=== PATIENT | female | born 1995 | race Hispanic/Latino ===

== ENCOUNTER 2021-04-14 18:16 | Emergency (ER) | payer OTHER, SELFPAY ==
--- NOTE | 2021-04-14 19:20 | ER ---
Nurse's Notes [facility] Name: Daniel Quintero Age: 25 yrs Sex: Female : 1995 Arrival Date: 04/14/2021 Time: 18:20 Bed Waiting Private MD: Diagnosis: ED Course: 04/14 18:20 Patient arrived in ED. ds1 19:06 Patient's name was called from ER lobby. No response. tw2 Administered Medications: No medications were administered Outcome: 19:19 Patient left the ED. bb Signatures: Eun Antoine ds1 Ruth Morrissey RN RN bb Britany Womack RN RN tw2
== END 2021-04-14 19:19 | disposition left against medical advice (07) ==
LOC: ER 18:16
DX: Z02.9 Encounter for administrative examinations, unspecified (principal)

== ENCOUNTER 2023-07-18 13:43 | Emergency (ER) | payer OTHER ==
--- OUTSIDE RECORDS SUMMARY | 2023-07-18 14:00 | XMS REPORT | Continuity of Care Document ---
:1995 Author Organization [facility] t Address [address] [place] [address] Care Team Providers Name Role Phone RUTH STUBBS Primary Care Physician Unavailable NAKIA HOPPER Attending Clinician Unavailable Nakia José Attending Clinician [phone] Visit, [place]ilka Nurse Attending Clinician Unavailable Ruth Stubbs CNM Attending Clinician RUTH STUBBS Attending Clinician Unavailable Wellington Davis MD Attending Clinician SLIM MILLER Attending Clinician Unavailable Ayush Ballard MD Attending Clinician Slim Miller MD Attending Clinician Ultrasound, Jhonathan Attending Clinician Unavailable Kasandra Acosta MD Attending Clinician [phone] KASANDRA ACOSTA Attending Clinician Unavailable Nirali, Jose L Wright Attending Clinician Unavailable Alma Phoenix RN Attending Clinician Unavailable Davian Conde MD Attending Clinician Geneva Hernández MD Attending Clinician Doctor Unassigned, [place] Attending Clinician Unavailable LALA BEACH Attending Clinician Unavailable LALA BEACH Attending Clinician Unavailable Lala Beach MD Attending Clinician 1, [facility] Usg Room Attending Clinician Unavailable Raine Sparks MD, Terrence Attending Clinician [phone] TERRENCE MANE Attending Clinician Unavailable Provider, Ang-Rmchp Temp Attending Clinician Unavailable MEGHAN HURST Attending Clinician Unavailable Violet Broderick Attending Clinician Unavailable LALA BEACH Admitting Clinician Unavailable SLIM MILLER Admitting Clinician Unavailable Slim Miller MD Admitting Clinician Lala Beach MD Admitting Clinician Payers Payer Name Policy Type Policy Number Effective Date Expiration Date [facility] [id number] 2022 STAR 00:00:00 Problems Condition Condition Condition Status Onset Resolution Last Treating Co mments Source Name Details Category Date Date Treatment Clinician Date S/P repeat S/P repeat Disease Active U nivers low low 5-24 [place] of [place] 00 [facility] Branch 36 weeks 36 weeks Disease Active Unive rs gestation gestation 5-20 ity of of of 00:00: [place] 00 [facility] Branch Anemia of Anemia of Disease Active Uni vers mother in mother in 5-18 ity of , , [place] antepartum antepartum 00 Me dical Branch Morbid Morbid Disease Active Univers obesity obesity 3-27 [place] of with body [place] mass index mass index 00 Me dical of 50 or of 50 or Branch higher higher 28 weeks 28 weeks Disease Active Unive rs gestation gestation 3-27 ity of of of 00:00: [place] 00 [facility] Branch History of History of Disease Active Overview : Univers rupture of rupture of 1-15 Formattin ity of uterus uterus 00:00: g of this [place] 00 note Medical might be Branch different from the original. Last with twin Spina Spina Disease Active Overview: Univer s bifida in bifida in 1-15 Formattin i ty of child of child of 00:00: g of this [place] as prior prior 00 note Medical , , might be Branch currently currently different from the original. 2nd baby also with enlarged heart History of History of Disease Active Overview : Univers 1-15 Formattin ity o f delivery, delivery, 00:00: [place] of [place] currently currently 00 note Medi karen might be Bran ch different from the original. 32 week r/t pprom Tubal Tubal Disease Active Univers ligation ligation 1-15 ity of status status 00:00: Medical Branch Asthma Asthma Disease Active Univers during during 1-15 [place] of [place] Obesity Obesity Disease Active Univers affecting affecting 1-15 [place] of [place] Abnormal Abnormal Disease Active Unive rs quad quad 1-15 ity of screen screen 00:00: Medical Branch Chlamydia Chlamydia Disease Active Overview: Univers trachomati trachomati 08-04 Formattin ity of s s 00:00: g of this [place] infection infection 00 note Medi karen of lower of lower might be Bran ch genitourin genitourin different aron sites aron sites from the original. SONYA ---- High-risk High-risk Disease Active Overview: Univers 07-31 Formattin i ty of 00:00: g of this [place] 00 note Medical might be Branch different from the original. 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 Tobacco Tobacco Disease Active Univers use use 07-31 ity of disorder disorder 00:00: Medical Branch Declines Declines Disease Active Unive rs flu flu 07-31 ity of vaccine vaccine 00:00: Medical Branch Immune to Immune to Disease Active Uni vers varicella varicella 07-31 ity of 00:00: Medical Branch Rubella Rubella Disease Active Univers immune immune 07-31 ity of 00:00: Medical Branch Bacterial Bacterial Disease Active Uni vers vaginosis vaginosis 07-31 ity of 00:00: [place] [facility] Trichomona Trichomona Disease Active U nivers l l 07-31 ity of vulvovagin vulvovagin [place] it[place] itis [facility] Previous Previous Disease Active Overview: Un nikita 07-31 Formattin ity of delivery delivery 00:00: g of this [place] as affecting affecting 00 note [facility] , , might be Branch antepartum antepartum different from the original. x7 Genital Genital Disease Active Univers warts warts 07-31 ity of 00:00: [place] [facility] Heartburn Heartburn Disease Active Uni vers 07-31 ity of 00:00: [facility] Tobacco Tobacco Disease Active Univers smoking smoking 07-31 [place] [address] [facility] Allergies, Adverse Reactions, Alerts Allergy Allergy Status Severity Reaction(s) Onset Inactive Treating Comm ents Source Name Type Date Date Clinician NO KNOWN Drug Active Univers ALLERGIE Class ity of S [facility] Social History Social Habit Start Date Stop Date Quantity Comments Source ASSERTION 2022-07-30 University of 00:00:00 [facility] History of Cigarette Smoker Universi ty of tobacco use [facility] Exposure to 2023-03-24 2023-04-03 Not sure [facility] SARS-CoV-2 00:00:00 07:45:00 [facility] (event) [place] Alcohol intake 2023-03-28 2023-03-28 Current University of 00:00:00 00:00:00 non-drinker of [facility] alcohol (finding) [place] Tobacco use and 2023-03-26 2023-03-26 Smokeless tobacco Un iversity of exposure 00:00:00 00:00:[address] [facility] Tobacco Comment 2022-11-16 2022-11-16 1cigarettes/day Univ ersity of 00:00:00 00:00:00 [facility] Sex Assigned At [birth year] Universit y of 00:00:00 00:00:00 [facility] Smoking Status Start Date Stop Date Source Smokes tobacco daily 2023-03-26 00:00:[address] [facility] Medications Ordered Filled Start Stop Current Ordering Indication Dosage Frequency Signature Comments Components Source Medication Medication Date Date Medication? Clinician (SIG) Name Name FAMOTIDINE Yes Take by [facility] ers ORAL 5-24 mouth. ity of 15:21: [address] FOLIC ACID 2022-0 Yes [id number] Take by [facility] ORAL 5-24 mouth. ity of 15:21: [address] FAMOTIDINE Yes Take by [facility] ers ORAL 5-24 mouth. ity of 15:21: [address] FOLIC ACID 2022-0 Yes [id number] Take by [facility] ORAL 5-24 mouth. ity of 15:21: [address] FAMOTIDINE 0 Yes Take by [facility] ers ORAL 5-24 mouth. ity of 15:21: [address] FOLIC ACID 2022-0 Yes [id number] Take by [facility] ORAL 5-24 mouth. ity of 15:21: [address] FAMOTIDINE Yes Take by [facility] ers ORAL 5-24 mouth. ity of 15:21: [address] FOLIC ACID 2022-0 Yes [id number] Take by [facility] ORAL 5-24 mouth. ity of 15:21: [address] FAMOTIDINE Yes Take by [facility] ers ORAL 5-24 mouth. ity of 15:21: [address] FOLIC ACID 2022-0 Yes [id number] Take by [facility] ORAL 5-24 mouth. ity of 15:21: [address] FAMOTIDINE Yes Take by [facility] ers ORAL 5-24 mouth. ity of 15:21: [address] FOLIC ACID 2022-0 Yes [id number] Take by [facility] ORAL 5-24 mouth. ity of 15:21: [address] 2022-0 Yes [id number] 1{tbl} Take 1 U nivers [id number] 5-24 tablet by ity of fum-folic 00:00: mouth in [facility] ([facility]) 00 the Medical 27 mg iron- morning. Bran ch 1 mg folic tablet docusate Yes [id number] 200mg Take 2 Un nikita 100 mg 5-24 capsules ity of capsule 00:00: by mouth [place] [id number] once daily Medical as needed Branch for Constipati on. ferrous Yes [id number] 325mg Take 1 Uni vers sulfate 325 5-24 tablet by ity of mg (65 mg 00:00: [place] 00 the Medical tablet morning Branch and 1 tablet in the evening. ibuprofen 2022-0 Yes [id number] 600mg Take 1 U nivers 600 mg 5-24 tablet by ity of tablet 00:00: mouth [place] 00 every 6 Medical (six) Branch hours as needed (Pain). Take with food or milk. 2022-0 Yes [id number] 1{tbl} Take 1 U nivers [id number] 5-24 tablet by ity of fum-folic 00:00: [place] () 00 the Medical 27 mg iron- morning. Bran ch 1 mg folic tablet docusate 2022-0 Yes [id number] 200mg Take 2 Un nikita 100 mg 5-24 capsules ity of capsule 00:00: by mouth [place] 00 once daily Medical as needed Branch for Constipati on. ferrous 2022-0 Yes [id number] 325mg Take 1 Uni vers sulfate 325 5-24 tablet by ity of mg (65 mg 00:00: [place] iron) 00 the Medical tablet morning Branch and 1 tablet in the evening. ibuprofen 2022-0 Yes [id number] 600mg Take 1 U nivers 600 mg 5-24 tablet by ity of tablet 00:00: mouth [place] 00 every 6 Medical (six) Branch hours as needed (Pain). Take with food or milk. 2022-0 Yes [id number] 1{tbl} Take 1 U nivers [id number] 5-24 tablet by ity of fum-folic 00:00: [place] () 00 the Medical 27 mg iron- morning. Bran ch 1 mg folic tablet docusate 2022-0 Yes [id number] 200mg Take 2 Un nikita 100 mg 5-24 capsules ity of capsule 00:00: by mouth [place] 00 once daily Medical as needed Branch for Constipati on. ferrous 2022-0 Yes [id number] 325mg Take 1 Uni vers sulfate 325 5-24 tablet by ity of mg (65 mg 00:00: [place] iron) 00 the Medical tablet morning Branch and 1 tablet in the evening. ibuprofen 2022-0 Yes [id number] 600mg Take 1 U nivers 600 mg 5-24 tablet by ity of tablet 00:00: mouth [place] 00 every 6 Medical (six) Branch hours as needed (Pain). Take with food or milk. 2022-0 Yes [id number] 1{tbl} Take 1 U nivers [id number] 5-24 tablet by ity of fum-folic 00:00: [place] () 00 the Medical 27 mg iron- morning. Bran ch 1 mg folic tablet docusate 2022-0 Yes [id number] 200mg Take 2 Un nikita 100 mg 5-24 capsules ity of capsule 00:00: by mouth [place] 00 once daily Medical as needed Branch for Constipati on. ferrous 2022-0 Yes [id number] 325mg Take 1 Uni vers sulfate 325 5-24 tablet by ity of mg (65 mg 00:00: mouth in [facility] iron) 00 the Medical tablet morning Branch and 1 tablet in the evening. ibuprofen 2022-0 Yes [id number] 600mg Take 1 U nivers 600 mg 5-24 tablet by ity of tablet 00:00: mouth [place] 00 every 6 Medical (six) Branch hours as needed (Pain). Take with food or milk. 2022-0 Yes [id number] 1{tbl} Take 1 U nivers [id number] 5-24 tablet by ity of fum-folic 00:00: [place] () 00 the Medical 27 mg iron- morning. Bran ch 1 mg folic tablet docusate 2022-0 Yes [id number] 200mg Take 2 Un nikita 100 mg 5-24 capsules ity of capsule 00:00: by mouth [place] 00 once daily Medical as needed Branch for Constipati on. ferrous 2022-0 Yes [id number] 325mg Take 1 Uni vers sulfate 325 5-24 tablet by ity of mg (65 mg 00:00: [facility] Medical tablet morning Branch and 1 tablet in the evening. ibuprofen 2022-0 Yes [id number] 600mg Take 1 U nivers 600 mg 5-24 tablet by ity of tablet 00:00: mouth [place] 00 every 6 Medical (six) Branch hours as needed (Pain). Take with food or milk. 2022-0 Yes [id number] 1{tbl} Take 1 U nivers [id number] 5-24 tablet by ity of fum-folic 00:00: mouth in [facility] () 00 the Medical 27 mg iron- morning. Bran ch 1 mg folic tablet docusate Yes [id number] 200mg Take 2 Un nikita 100 mg 5-24 capsules ity of capsule 00:00: by mouth [place] 00 once daily Medical as needed Branch for Constipati on. ferrous Yes [id number] 325mg Take 1 Uni vers sulfate 325 5-24 tablet by ity of mg (65 mg 00:00: mouth in [facility] s iron) 00 the Medical tablet morning Branch and 1 tablet in the evening. ibuprofen Yes [id number] 600mg Take 1 U nivers 600 mg 5-24 tablet by ity of tablet 00:00: mouth [place] 00 every 6 Medical (six) Branch hours as needed (Pain). Take with food or milk. HYDROcodone 2022- No [id number] 1{tbl} Take 1 U nivers -acetaminop 5-24 06-01 tablet by it y of hen 5-325 00:00: 04:59 mouth [place] mg tablet 00 :00 every 6 Medical (six) Branch hours as needed for Pain (scale 7-10) (Pain scale above 4) for up to 7 days. Do not exceed 3 grams of acetaminop hen in 24 hours. Indication s: acute pain HYDROcodone 2022- No [id number] 1{tbl} Take 1 U nivers -acetaminop 5-24 06-01 tablet by it y of hen 5-325 00:00: 04:59 mouth [place] mg tablet 00 :00 every 6 Medical (six) Branch hours as needed for Pain (scale 7-10) (Pain scale above 4) for up to 7 days. Do not exceed 3 grams of acetaminop hen in 24 hours. Indication s: acute pain HYDROcodone 2022- No [id number] 1{tbl} Take 1 U nivers -acetaminop 5-24 06-01 tablet by it y of hen 5-325 00:00: 04:59 mouth [place] mg tablet 00 :00 every 6 Medical (six) Branch hours as needed for Pain (scale 7-10) (Pain scale above 4) for up to 7 days. Do not exceed 3 grams of acetaminop hen in 24 hours. Indication s: acute pain HYDROcodone 2022-2022- No [id number] 1{tbl} Take 1 U nivers -acetaminop -28 04- tablet by it y of hen 5-325 00:00: 04:59 mouth [place] mg tablet 00 :00 every 6 Medical (six) Branch hours as needed for Pain (scale 7-10) (Pain scale above 4) for up to 7 days. Do not exceed 3 grams of acetaminop hen in 24 hours. Indication s: acute pain HYDROcodone 2022-0 2022- No [id number] 1{tbl} Take 1 U nivers -acetaminop -28 04- tablet by it y of hen 5-325 00:00: 04:59 mouth [place] mg tablet 00 :00 every 6 Medical (six) Branch hours as needed for Pain (scale 7-10) (Pain scale above 4) for up to 7 days. Do not exceed 3 grams of acetaminop hen in 24 hours. Indication s: acute pain sennosides- 2022-0 Yes 1{tbl} 1 tablet, Univers docusate 03-27 Oral, ity of sodium 14:00: DAILY, [place] (SENOKOT-S) 00 First dose Me dical 8.6-50 mg on Sun Branch per tablet 03/27/23 at 1 tablet 0900, Until Discontinu ed, Routine sennosides- 2022-0 2022- No 1{tbl} 1 tablet, Univers docusate 03-27 Oral, ity of sodium 14:00: 22:21 DAILY, [place] (SENOKOT-S) 00 :12 First dose Me dical 8.6-50 mg on Sun Branch per tablet 03/27/23 at 1 tablet 0900, Until Discontinu ed, Routine famotidine 0 Yes 20mg 20 mg, Unive rs (PEPCID AC) 03-27 Oral, BID, it y of tablet 20 01:00: First dose [place] 00 on [facility] 03/26/23 at Branch 2000, Until Discontinu ed, Routine famotidine 2022-0 2022- No 20mg 20 mg, Univ ers (PEPCID AC) 03-27 Oral, BID, i ty of tablet 20 01:00: 22:21 First dose [place] mg 00 :12 on [facility] 03/26/23 at Branch 2000, Until Discontinu ed, Routine ibuprofen Yes 600mg 600 mg, Univ ers (IBU) 03-26 Oral, Q6H, ity of tablet 600 23:00: First dose [place] mg 00 on [facility] 03/26/23 at [place] 1800, Until Discontinu ed, Routine ibuprofen 2022- No 600mg 600 mg, Uni vers (IBU) 03-26 Oral, Q6H, ity of tablet 600 23:00: 22:21 First dose [place] mg 00 :12 on [facility] 03/26/23 at [place] 1800, Until Discontinu ed, Routine polyethylen Yes 17g 17 g, Unive rs e glycol 03-26 Oral, ity of 3350 powder 22:00: DAILY, [place] 17 g 00 First dose Medical on [facility] 03/26/23 at 1700, Until Discontinu ed, Routine polyethylen 2022- No 17g 17 g, Univ ers e glycol 03-26 Oral, ity of 3350 powder 22:00: 22:21 DAILY, [place] as 17 g 00 :12 First dose Medical on [facility] 03/26/23 at 1700, Until Discontinu ed, Routine rho(D) Yes 300ug 300 mcg, Univer s immune 03-26 Intramuscu ity of globulin 17:46: lar, ONCE, [place] as (RHOGAM) 00 For 1 Medical syringe 300 dose, Branch mcg Conditiona l, Routine rho(D) 2022- No 300ug 300 mcg, Unive rs immune 03-26 Intramuscu ity of globulin 17:46: 22:21 [place], [place]CE, [place] (RHOGAM) 00 :12 For 1 Medical syringe 300 dose, Branch mcg Conditiona l, Routine HYDROcodone Yes 1{tbl} [Order 1 Univers -acetaminop 03-26 Start] ity of hen (NORCO 17:45: Name: [place] 5) 5-325 mg 54 HYDROcodon Me dical tablet 1 e-acetamin Branc h tablet ophen (NORCO 5) 5-325 mg tablet 1 tablet Signed Summary: 1 tablet, Oral, Q6HPRN, Starting on [facility] 03/26/23 at 1245, Until Discontinu ed, Routine, Pain (scale 4-6) [Order 1 End] [Order 2 Start] Name: HYDROcodon e-acetamin ophen (NORCO) 10-325 mg tablet 1 tablet Signed Summary: 1 tablet, Oral, Q6HPRN, Starting on Sun03/26/23 at 1245, Until Discontinu ed, Routine, Pain (scale 7-10) [Order 2 End] diphenhydrA 2023-0 Yes 25mg 25 mg, Univ ers MINE 03-26 Slow IV ity of (BENADRYL) 17:45: Push, [place] injection 54 Q6HPRN, Medical 25 mg Starting Branch on Sun03/26/23 at 1245, Until Discontinu ed, Routine, Itching diphenhydrA 3-0 Yes 25mg 25 mg, Univ ers MINE 03-26 Oral, ity of (BENADRYL) 17:45: Q6HPRN, [place] tablet 25 54 Starting Medica l mg on Sun03/26/23 at 1245, Until Discontinu ed, Routine, Sleep, Itching ondansetron 2023-0 Yes 4mg 4 mg, Slow Univers (ZOFRAN 03-26 IV Push, ity of (PF)) 17:45: Q8HPRN, [place] injection 4 54 Starting Medi karen mg on Sun03/26/23 at 1245, Until Discontinu ed, Routine, Nausea and Vomiting (N/V) bisacodyL 3-0 Yes 10mg 10 mg, Univer s (DULCOLAX) 03-26 Rectal, ity of suppository 17:45: QDAILYPRN, [place] 10 mg 54 Starting Medical on Sun03/26/23 at 1245, Until Discontinu ed, Routine, Constipati on simethicone 2023-0 Yes 160mg 160 mg, Un nikita (GAS RELIEF 03-26 Oral, ity of (SIMETHICON 17:45: PC+HSPRN, [place] E)) 54 Starting Medical chewable on Sun tablet 160 03/26/23 at mg 1245, Until Discontinu ed, Routine, Gas docusate 2023-0 Yes 200mg 200 mg, Unive rs (COLACE) 03-26 Oral, ity of capsule 200 17:45: QDAILYPRN, [place] mg 54 Starting Medical on Mon Branch 03/26/23 at 1245, Until Discontinu ed, Routine, Constipati on magnesium 0 Yes 30mL 30 mL, Univer s hydroxide 03-26 Oral, ity of (MILK OF 17:45: QDAILYPRN, [place] as MAGNESIA) 54 Starting Medica l 400 mg/5 mL on Mon Branch suspension 03/26/23 at 30 mL 1245, Until Discontinu ed, Routine, Constipati on lactated Yes 1000mL at 125 Unive rs ringers IV 5-22 mL/hr, ity of infusion 17:45: 1,000 mL, [place] 1,000 mL 54 IV Medical Infusion, Branch PRN, 1 dose, Starting on Sun03/26/23 at 1245, Until Discontinu ed, Routine HYDROcodone 2022- No 1{tbl} [Order 1 Univers -acetaminop 03-26 Start] ity o f hen (NORCO 17:45: 22:21 Name: [place] 5) 5-325 mg 54 :12 HYDROcodon Me dical tablet 1 e-acetamin Branc h tablet ophen (NORCO 5) 5-325 mg tablet 1 tablet Signed Summary: 1 tablet, Oral, Q6HPRN, Starting on Sun03/26/23 at 1245, Until Sun03/28/23 at 1721, Routine, Pain (scale 4-6) [Order 1 End] [Order 2 Start] Name: HYDROcodon e-acetamin ophen (NORCO) 10-325 mg tablet 1 tablet Signed Summary: 1 tablet, Oral, Q6HPRN, Starting on Sun03/26/23 at 1245, Until Sun03/28/23 at 1721, Routine, Pain (scale 7-10) [Order 2 End] diphenhydrA 2022- No 25mg 25 mg, Uni vers MINE 03-26 Slow IV ity of (BENADRYL) 17:45: 22:21 Push, [place] injection 54 :12 Q6HPRN, Medical 25 mg Starting Branch on 03/26/23 at 1245, Until Sun03/28/23 at 1721, Routine, Itching diphenhydrA 2023-0 2023- No 25mg 25 mg, Uni vers MINE 03-26 Oral, ity of (BENADRYL) 17:45: 22:21 Q6HPRN, [facility] as tablet 25 54 :12 Starting Medica l mg on Sun03/26/23 at 1245, Until Sun03/28/23 at 1721, Routine, Sleep, Itching ondansetron 2022- No 4mg 4 mg, Slow Univers (ZOFRAN 03-26 IV Push, ity of (PF)) 17:45: 22:21 Q8HPRN, [place] injection 4 54 :12 Starting Medi karen mg on Sun03/26/23 at 1245, Until Sun03/28/23 at 1721, Routine, Nausea and Vomiting (N/V) bisacodyL 2022- No 10mg 10 mg, Unive rs (DULCOLAX) 03-26 Rectal, ity o f suppository 17:45: 22:21 [facility] [place] 10 mg 54 :12 Starting Medical on Sun03/26/23 at 1245, Until Sun03/28/23 at 1721, Routine, Constipati on simethicone 2022- No 160mg 160 mg, U nivers (GAS RELIEF 03-26 Oral, ity of (SIMETHICON 17:45: 22:21 PC+HSPRN, [place] E)) 54 :12 Starting Medical chewable on Sun tablet 160 03/26/23 at mg 1245, Until Sun03/28/23 at 1721, Routine, Gas docusate 2022- No 200mg 200 mg, Univ ers (COLACE) 03-26 Oral, ity of capsule 200 17:45: 22:21 QDAILYPRN, [place] mg 54 :12 Starting Medical on Sun03/26/23 at 1245, Until Sun03/28/23 at 1721, Routine, Constipati on magnesium 2022- No 30mL 30 mL, Unive rs hydroxide 03-26 Oral, ity of (MILK OF 17:45: 22:21 QDAILYPRN, [place] MAGNESIA) 54 :12 Starting Medica l 400 mg/5 mL on Mon Branch suspension 03/26/23 at 30 mL 1245, Until Sun03/28/23 at 1721, Routine, Constipati on lactated No 1000mL at 125 Univ ers ringers IV 03-26 mL/hr, ity of infusion 17:45: 22:21 1,000 mL, [place] as 1,000 mL 54 :12 IV Medical Infusion, Branch PRN, 1 dose, Starting on Sun03/26/23 at 1245, Until Sun03/28/23 at 1721, Routine acetaminoph No 1000mg 1,000 mg, Univers en ADULT 03-26 IV ity of (OFIRMEV) 17:30: 17:14 [place]fusion, [place] injection 00 :00 at 400 Medical 1,000 mg mL/hr Branch Administer over 15 Minutes, ONCE, 1 dose, On Sun03/26/23 at 1230, Routine, PACU
In dication: Perioperat maryuri Patient acetaminoph No 650mg 650 mg, U nivers en 03-26 Oral, ity of (TYLENOL) 12:15: 13:16 ONCE, 1 [place] tablet 650 00 :00 dose, On Medic al mg Sun Branch 03/26/23 at 0715, Routine lactated No 500mL at 999 Unive rs ringers IV 03-26 mL/hr, 500 it y of infusion 12:15: 12:45 mL, IV [place] 500 mL 00 :00 Infusion, Medical ONCE, 1 Branch dose, On Sun03/26/23 at 0715, Routine ceFAZolin No 2000mg 2,000 mg, Univers (ANCEF) 03-26 IV ity of 2,000 mg in 12:11: 17:45 Piggyback, [place] NaCl 0.9% 24 :57 O.R. Medical (NS) 100 mL HOLDING Branc h MINI-BAG ONCE, Starting on Sun03/26/23 at 0711, Until Sun03/26/23 at 1245, Administer over 30 Minutes, 100 mL
Reas on for Anti-Infec tive: Surgical Prophylaxi s
Gutierrez rgical Prophylaxi s: CLOTH BOLT BANDER
Duration of therapy: within 24 hours of surgery sodium 2022-0 2022- No 30mL 30 mL, Univers citrate-cit 03-26 05-22 Oral, ity of jazz acid 12:11: 13:38 PRE-PROCED [place] (BICITRA) 24 :00 URE ONCE, Medic al 500-334 1 dose, Branch mg/5 mL Starting solution 30 on Mon mL 03/26/23 at 0711, Until 03/28/23 at 2359, Routine, Surgery/Pr ocedure Iron Fum & 2022-0 Yes [id number] 1{capsu Take 1 Univers P-FA-Vit B 5-05 le} capsule by ity of & C No.9 00:00: mouth in [place] ([facility]) 125 morning. Branch mg iron- 1 mg Cap Iron Fum & 2022-0 Yes [id number] 1{capsu Take 1 Univers P-FA-Vit B 5-05 le} capsule by ity of & C No.9 00:00: mouth in [place] ([facility]) 125 morning. Branch mg iron- 1 mg Cap Iron Fum & 2022-0 Yes [id number] 1{capsu Take 1 Univers P-FA-Vit B 5-05 le} capsule by ity of & C No.9 00:00: mouth in [place] ([facility]) 125 morning. Branch mg iron- 1 mg Cap Iron Fum & 2022-0 Yes [id number] 1{capsu Take 1 Univers P-FA-Vit B 5-05 le} capsule by ity of & C No.9 00:00: mouth in [place] ([facility]) 125 morning. Branch mg iron- 1 mg Cap Iron Fum & 2022-0 Yes [id number] 1{capsu Take 1 Univers P-FA-Vit B 5-05 le} capsule by ity of & C No.9 00:00: mouth in [place] ([facility]) 125 morning. Branch mg iron- 1 mg Cap Iron Fum & 2022-0 Yes [id number] 1{capsu Take 1 Univers P-FA-Vit B 5-05 le} capsule by ity of & C No.9 00:00: mouth in [place] ([facility]) 125 morning. Branch mg iron- 1 mg Cap Iron Fum & 2022-0 Yes [id number] 1{capsu Take 1 [facility] P-FA-Vit B 5-05 le} capsule by ity of & C No.9 00:00: mouth in [place] ([facility] 00 the Medical PLUS) 125 morning. Branch mg iron- 1 mg Cap Iron Fum & 2022-0 Yes [id number] 1{capsu Take 1 [facility] P-FA-Vit B 5-05 le} capsule by ity of & C No.9 00:00: mouth in [place] ([employer] 00 the Medical PLUS) 125 morning. Branch mg iron- 1 mg Cap Iron Fum & 2022-0 Yes [id number] 1{capsu Take 1 [facility] P-FA-Vit B 5-05 le} capsule by ity of & C No.9 00:00: mouth in [place] ([facility] the Medical [facility]) 125 morning. Branch mg iron- 1 mg Cap famotidine 2022-0 Yes [id number] 20mg Take 1 [facility] (PEPCID) 20 4-24 tablet by ity of mg tablet 00:00: mouth [place] the Medical morning. Branch famotidine 2022-0 Yes [id number] 20mg Take 1 [facility] (PEPCID) 20 4-24 tablet by ity of mg tablet 00:00: mouth [place] the Medical morning. Branch famotidine 2023-0 Yes [id number] 20mg Take 1 [facility] (PEPCID) 20 4-24 tablet by ity of mg tablet 00:00: [place] 00 the Medical morning. Branch famotidine 2023-0 Yes [id number] 20mg Take 1 [facility] (PEPCID) 20 4-24 tablet by ity of mg tablet 00:00: mouth [place] 00 the Medical morning. Branch famotidine 2023-0 Yes [id number] 20mg Take 1 [facility] (PEPCID) 20 4-24 tablet by ity of mg tablet 00:00: mouth [place] 00 the Medical morning. Branch famotidine 2023-0 Yes [id number] 20mg Take 1 [facility] (PEPCID) 20 4-24 tablet by ity of mg tablet 00:00: [place] 00 the Medical morning. Branch famotidine 2023-0 Yes [id number] 20mg Take 1 [facility] (PEPCID) 20 4-24 tablet by ity of mg tablet 00:00: mouth [place] 00 the Medical morning. Branch famotidine 2023-0 Yes [id number] 20mg Take 1 [facility] (PEPCID) 20 4-24 tablet by ity of mg tablet 00:00: mouth [place] 00 the Medical morning. Branch famotidine 2023-0 Yes [id number] 20mg Take 1 [facility] (PEPCID) 20 4-24 tablet by ity of mg tablet 00:00: mouth [place] 00 the Medical morning. Branch famotidine 2023-0 Yes [id number] 20mg Take 1 [facility] (PEPCID) 20 4-24 tablet by ity of mg tablet 00:00: [place] 00 the Medical morning. Branch FAMOTIDINE 3-0 Yes Take by Univ ers ORAL 3-28 mouth. ity of 17:41: [address] Branch FOLIC ACID 3-0 Yes [id number] Take by [facility] ORAL 3-28 mouth. ity of 17:41: [address] Branch FAMOTIDINE 3-0 Yes Take by Univ ers ORAL 3-28 mouth. ity of 17:41: [address] Branch FOLIC ACID 3-0 Yes [id number] Take by [facility] ORAL 3-28 mouth. ity of 17:41: [place] [address] Medical Branch FAMOTIDINE 3-0 Yes Take by Univ ers ORAL 3-28 mouth. ity of 17:41: [address] Branch FOLIC ACID 3-0 Yes [id number] Take by Univers ORAL 3-28 mouth. ity of 17:41: [place] [address] Medical Branch FAMOTIDINE 3-0 Yes Take by Univ ers ORAL 3-28 mouth. ity of 17:41: [address] Branch FOLIC ACID 2023-0 Yes [id number] Take by [facility] ORAL 3-28 mouth. ity of 17:41: [place] [address] Medical Branch FAMOTIDINE 3-0 Yes Take by Univ ers ORAL 3-28 mouth. ity of 17:41: [place] [address] Medical Branch FOLIC ACID 2023-0 Yes [id number] Take by Univers ORAL 3-28 mouth. ity of 17:41: [address] Branch FAMOTIDINE 3-0 Yes Take by Univ ers ORAL 3-28 mouth. ity of 17:41: [place] 48 Medical Branch FOLIC ACID 2022-0 Yes [id number] Take by Univers ORAL 3-28 mouth. ity of 17:41: [place] [address] Medical Branch FAMOTIDINE 2022-0 Yes Take by Univ ers ORAL 3-28 mouth. ity of 17:41: [place] [address] Medical Branch FOLIC ACID 2022-0 Yes [id number] Take by [facility] ORAL 3-28 mouth. ity of 17:41: [place] [address] Medical Branch FAMOTIDINE 2022-0 Yes Take by Univ ers ORAL 3-28 mouth. ity of 17:41: [place] [address] Medical Branch FOLIC ACID 2022-0 Yes [id number] Take by Univers ORAL 3-28 mouth. ity of 17:41: [place] [address] Medical Branch FAMOTIDINE 2022-0 Yes Take by Univ ers ORAL 3-28 mouth. ity of 17:41: [place] [address] Medical Branch FOLIC ACID 2022-0 Yes [id number] Take by [facility] ORAL 3-28 mouth. ity of 17:41: [place] [address] Medical Branch FAMOTIDINE 2022-0 Yes Take by Univ ers ORAL 3-28 mouth. ity of 17:41: [place] [address] Medical Branch FOLIC ACID 2022-0 Yes [id number] Take by Univers ORAL 3-28 mouth. ity of 17:41: [place] [address] Medical Branch FAMOTIDINE 2022-0 Yes Take by Univ ers ORAL 3-28 mouth. ity of 17:41: [place] [address] Medical Branch FOLIC ACID 2022-0 Yes [id number] Take by Univers ORAL 3-28 mouth. ity of 17:41: [place] [address] Medical Branch FAMOTIDINE 2022-0 Yes Take by Univ ers ORAL 3-28 mouth. ity of 17:41: [place] [address] Medical Branch FOLIC ACID 2022-0 Yes [id number] Take by Univers ORAL 3-28 mouth. ity of 17:41: [place] [address] Medical Branch FAMOTIDINE 2022-0 Yes Take by Univ ers ORAL 3-28 mouth. ity of 17:41: [place] [address] Medical Branch FOLIC ACID 2022-0 Yes [id number] Take by Univers ORAL 3-28 mouth. ity of 17:41: [place] [address] Medical Branch FAMOTIDINE 2022-0 Yes Take by Univ ers ORAL 3-28 mouth. ity of 17:41: [place] [address] Medical Branch FOLIC ACID 2022-0 Yes [id number] Take by Univers ORAL 3-28 mouth. ity of 17:41: [place] 48 Medical Branch FAMOTIDINE 0 Yes Take by Univ ers ORAL 3-28 mouth. ity of 17:41: [address] FOLIC ACID 2022-0 Yes [id number] Take by Univers ORAL 3-28 mouth. ity of 17:41: [address] FAMOTIDINE 2022-0 Yes Take by Uni vers ORAL 3-28 mouth. ity of 17:41: [address] FOLIC ACID 2022-0 Yes [id number] Take by Univers ORAL 3-28 mouth. ity of 17:41: [address] FAMOTIDINE 2022-0 Yes Take by Univ ers ORAL 3-28 mouth. ity of 17:41: [address] FOLIC ACID 2022-0 Yes [id number] Take by [facility] ORAL 3-28 mouth. ity of 17:41: [address] FAMOTIDINE 2022-0 Yes Take by Univ ers ORAL 3-28 mouth. ity of 17:41: [address] FOLIC ACID 2022-0 Yes [id number] Take by Univers ORAL 3-28 mouth. ity of 17:41: [address] FAMOTIDINE 2022-0 Yes Take by Univ ers ORAL 3-28 mouth. ity of 17:41: [address] FOLIC ACID 2022-0 Yes [id number] Take by Univers ORAL 3-28 mouth. ity of 17:41: [address] FAMOTIDINE 2022-0 Yes Take by [facility] ers ORAL 3-28 mouth. ity of 17:41: [address] FOLIC ACID 2022-0 Yes [id number] Take by [facility] ORAL 3-28 mouth. ity of 17:41: [address] FAMOTIDINE 2022-0 Yes Take by [facility] ers ORAL 3-28 mouth. ity of 10:22: [address] FOLIC ACID 2022-0 Yes [id number] Take by [facility] ORAL 3-28 mouth. ity of 10:22: [address] metroNIDAZO 2022-0 2022- No 500mg 500 mg, U yvonne RENEE (FLAGYL) 01-30 04-04 Oral, ity of tablet 500 01:00: 00:59 Q12H, 14 [place] mg 00 :00 doses, Medical First dose Branch on Sun01/29/23 at 2000, Last dose on Sun02/05/23 at 0800, Routine
Reason for Anti-Infec tive: Documented Infection< br>Documen augustus Infection Site: Pelvic
Duration of Therapy: 7 days alum-mag 2022-0 Yes 30mL 30 mL, Univers hydroxide-s 3-28 Oral, ity of imeth 00:16: Q6HPRN, Carly (MAALOX 33 Starting Medical PLUS / on Sun Branch MAG-AL 01/29/23 at PLUS) 1915, 200-200-20 Until mg/5 mL Discontinu suspension ed, 30 mL Routine, Indigestio n docusate Yes 200mg 200 mg, Unive rs (COLACE) 3-28 Oral, ity of capsule 200 00:16: QHSPRN, Shubham as mg 33 Starting Medical on Mon Branch 01/29/23 at 191, Until Discontinu ed, Routine, Constipati on magnesium 2022-0 Yes 30mL 30 mL, Univer s hydroxide 3-28 Oral, ity of (MILK OF 00:16: QDAILYPRN, Shubham as MAGNESIA) 33 Starting Medica l 400 mg/5 mL on Sun Branch suspension 01/29/23 at 30 mL 1915, Until Discontinu ed, Routine, Constipati on metroNIDAZO 0 Yes [id number] 500mg Take 1 Univers LE 500 mg 3-28 tablet by ity o f tablet 00:00: mouth [place] 00 every 12 Medical (twelve) Branch hours. metroNIDAZO 2022-0 Yes [id number] 500mg Take 1 [facility] LE 500 mg 3-28 tablet by ity o f tablet 00:00: mouth [place] 00 every 12 Medical (twelve) Branch hours. metroNIDAZO 2022-0 Yes [id number] 500mg Take 1 [facility] LE 500 mg 3-28 tablet by ity o f tablet 00:00: mouth [place] 00 every 12 Medical (twelve) Branch hours. metroNIDAZO 2022-0 Yes [id number] 500mg Take 1 [facility] LE 500 mg 3-28 tablet by ity o f tablet 00:00: mouth [place] 00 every 12 Medical (twelve) Branch hours. metroNIDAZO 2022-0 Yes [id number] 500mg Take 1 [facility] LE 500 mg 3-28 tablet by ity o f tablet 00:00: mouth [place] 00 every 12 Medical (twelve) Branch hours. metroNIDAZO 2023-0 Yes [id number] 500mg Take 1 [facility] LE 500 mg 3-28 tablet by ity o f tablet 00:00: mouth [place] 00 every 12 Medical (twelve) Branch hours. metroNIDAZO 2023-0 Yes [id number] 500mg Take 1 [facility] LE 500 mg 3-28 tablet by ity o f tablet 00:00: mouth [place] 00 every 12 Medical (twelve) Branch hours. metroNIDAZO 2023-0 Yes [id number] 500mg Take 1 [facility] LE 500 mg 3-28 tablet by ity o f tablet 00:00: mouth [place] 00 every 12 Medical (twelve) Branch hours. metroNIDAZO 2023-0 Yes [id number] 500mg Take 1 [facility] LE 500 mg 3-28 tablet by ity o f tablet 00:00: mouth [place] 00 every 12 Medical (twelve) Branch hours. metroNIDAZO 3-0 Yes [id number] 500mg Take 1 [facility] LE 500 mg 3-28 tablet by ity o f tablet 00:00: mouth [place] 00 every 12 Medical (twelve) Branch hours. metroNIDAZO 3-0 Yes [id number] 500mg Take 1 [facility] LE 500 mg 3-28 tablet by ity o f tablet 00:00: mouth [place] 00 every 12 Medical (twelve) Branch hours. metroNIDAZO 3-0 Yes [id number] 500mg Take 1 [facility] LE 500 mg 3-28 tablet by ity o f tablet 00:00: mouth [place] 00 every 12 Medical (twelve) Branch hours. metroNIDAZO 3-0 Yes [id number] 500mg Take 1 [facility] LE 500 mg 3-28 tablet by ity o f tablet 00:00: mouth [place] 00 every 12 Medical (twelve) Branch hours. metroNIDAZO 2023-0 Yes [id number] 500mg Take 1 [facility] LE 500 mg 3-28 tablet by ity o f tablet 00:00: mouth [place] 00 every 12 Medical (twelve) Branch hours. metroNIDAZO 2023-0 Yes [id number] 500mg Take 1 [facility] LE 500 mg 3-28 tablet by ity o f tablet 00:00: mouth [place] 00 every 12 Medical (twelve) Branch hours. metroNIDAZO 2023-0 Yes [id number] 500mg Take 1 [facility] LE 500 mg 3-28 tablet by ity o f tablet 00:00: mouth [place] 00 every 12 Medical (twelve) Branch hours. metroNIDAZO 2023-0 Yes [id number] 500mg Take 1 [facility] LE 500 mg 3-28 tablet by ity o f tablet 00:00: mouth [place] 00 every 12 Medical (twelve) Branch hours. metroNIDAZO 2023-0 Yes [id number] 500mg Take 1 [facility] LE 500 mg 3-28 tablet by ity o f tablet 00:00: mouth [place] 00 every 12 Medical (twelve) Branch hours. metroNIDAZO 2023-0 Yes [id number] 500mg Take 1 [facility] LE 500 mg 3-28 tablet by ity o f tablet 00:00: mouth [place] 00 every 12 Medical (twelve) Branch hours. metroNIDAZO 2023-0 Yes [id number] 500mg Take 1 [facility] LE 500 mg 3-28 tablet by ity o f tablet 00:00: mouth [place] 00 every 12 Medical (twelve) Branch hours. metroNIDAZO 3-0 Yes [id number] 500mg Take 1 [facility] LE 500 mg 3-28 tablet by ity o f tablet 00:00: mouth [place] 00 every 12 Medical (twelve) Branch hours. metroNIDAZO 3-0 2023- No [id number] 500mg Take 1 [facility] LE 500 mg 3-28 05-24 tablet by ity of tablet 00:00: 00:00 mouth [place] 00 :00 every 12 Medical (twelve) Branch hours. metroNIDAZO 3-0 3- No [id number] 500mg Take 1 [facility] LE 500 mg 3-28 05-24 tablet by ity of tablet 00:00: 00:00 mouth [place] 00 :00 every 12 Medical (twelve) Branch hours. PNV 67-iron 2022-0 Yes [id number] 1{each} Take 1 Univers ps-folate 2-27 Each by ity of no.1-dha 00:00: mouth in [place] ([facility]ITAFOL 00 the Medical ULTRA) 29 morning. Branch mg iron- 1 mg-200 mg Cap PNV 67-iron 2022-0 Yes [id number] 1{each} Take 1 [facility] ps-folate 2-27 Each by ity of no.1-dha 00:00: mouth in [place] (VITAFOL 00 the Medical ULTRA) 29 morning. Branch mg iron- 1 mg-200 mg Cap PNV 67-iron 2022-0 Yes [id number] 1{each} Take 1 [facility] ps-folate 2-27 Each by ity of no.1-dha 00:00: mouth in [place] ([employer]ITAFOL 00 the Medical ULTRA) 29 morning. Branch mg iron- 1 mg-200 mg Cap PNV 67-iron 2023-0 Yes [id number] 1{each} Take 1 [facility] ps-folate 2-27 Each by ity of no.1-dha 00:00: mouth in [place] (VITAFOL 00 the Medical ULTRA) 29 morning. Branch mg iron- 1 mg-200 mg Cap PNV 67-iron 2023-0 Yes [id number] 1{each} Take 1 [facility] ps-folate 2-27 Each by ity of no.1-dha 00:00: mouth in [place] (VITAFOL 00 the Medical ULTRA) 29 morning. Branch mg iron- 1 mg-200 mg Cap PNV 67-iron 2023-0 Yes [id number] 1{each} Take 1 [facility] ps-folate 2-27 Each by ity of no.1-dha 00:00: mouth in [place] ([employer]ITAFOL 00 the Medical ULTRA) 29 morning. Branch mg iron- 1 mg-200 mg Cap PNV 67-iron 2023-0 Yes [id number] 1{each} Take 1 [facility] ps-folate 2-27 Each by ity of no.1-dha 00:00: mouth in [place] ([employer]ITAF[employer] 00 the Medical ULTRA) 29 morning. Branch mg iron- 1 mg-200 mg Cap PNV 67-iron 2023-0 Yes [id number] 1{each} Take 1 [facility] ps-folate 2-27 Each by ity of no.1-dha 00:00: mouth in [place] ([employer]ITAFOL 00 the Medical ULTRA) 29 morning. Branch mg iron- 1 mg-200 mg Cap PNV 67-iron 2023-0 Yes [id number] 1{each} Take 1 [facility] ps-folate 2-27 Each by ity of no.1-dha 00:00: mouth in [place] (VITAFOL 00 the Medical ULTRA) 29 morning. Branch mg iron- 1 mg-200 mg Cap PNV 67-iron 2023-0 Yes [id number] 1{each} Take 1 [facility] ps-folate 2-27 Each by ity of no.1-dha 00:00: mouth in [place] (VITAFOL 00 the Medical ULTRA) 29 morning. Branch mg iron- 1 mg-200 mg Cap PNV 67-iron 2023-0 Yes [id number] 1{each} Take 1 [facility] ps-folate 2-27 Each by ity of no.1-dha 00:00: mouth in [place] (VITAFOL 00 the Medical ULTRA) 29 morning. Branch mg iron- 1 mg-200 mg Cap PNV 67-iron 2023-0 Yes [id number] 1{each} Take 1 [facility] ps-folate 2-27 Each by ity of no.1-dha 00:00: mouth in [place] ([employer]ITAFOL 00 the Medical ULTRA) 29 morning. Branch mg iron- 1 mg-200 mg Cap PNV 67-iron 2023-0 Yes [id number] 1{each} Take 1 [facility] ps-folate 2-27 Each by ity of no.1-dha 00:00: mouth in [place] (VITAFOL 00 the Medical ULTRA) 29 morning. Branch mg iron- 1 mg-200 mg Cap PNV 67-iron 2023-0 Yes [id number] 1{each} Take 1 [facility] ps-folate 2-27 Each by ity of no.1-dha 00:00: mouth in [place] (VITAFOL 00 the Medical ULTRA) 29 morning. Branch mg iron- 1 mg-200 mg Cap PNV 67-iron 2023-0 Yes [id number] 1{each} Take 1 [facility] ps-folate 2-27 Each by ity of no.1-dha 00:00: mouth in [place] (VITAFOL the Medical ULTRA) 29 morning. Branch mg iron- 1 mg-200 mg Cap PNV 67-iron 2023-0 Yes [id number] 1{each} Take 1 [facility] ps-folate 2-27 Each by ity of no.1-dha 00:00: mouth in [place] (VITAFOL 00 the Medical ULTRA) 29 morning. Branch mg iron- 1 mg-200 mg Cap PNV 67-iron 2023-0 Yes [id number] 1{each} Take 1 Univers ps-folate 2-27 Each by ity of no.1-dha 00:00: mouth in [place] (VITAFOL 00 the Medical ULTRA) 29 morning. Branch mg iron- 1 mg-200 mg Cap PNV 67-iron 2023-0 Yes [id number] 1{each} Take 1 [facility] ps-folate 2-27 Each by ity of no.1-dha 00:00: mouth in [place] (VITAFOL 00 the Medical ULTRA) 29 morning. Branch mg iron- 1 mg-200 mg Cap PNV 67-iron 2023-0 Yes [id number] 1{each} Take 1 [facility] ps-folate 2-27 Each by ity of no.1-dha 00:00: mouth in [place] (VITAFOL 00 the Medical ULTRA) 29 morning. Branch mg iron- 1 mg-200 mg Cap PNV 67-iron 2023-0 Yes [id number] 1{each} Take 1 [facility] ps-folate 2-27 Each by ity of no.1-dha 00:00: mouth in [place] (VITAFOL 00 the Medical ULTRA) 29 morning. Branch mg iron- 1 mg-200 mg Cap PNV 67-iron 2023-0 Yes [id number] 1{each} Take 1 [facility] ps-folate 2-27 Each by ity of no.1-dha 00:00: mouth in [place] (VITAFOL 00 the Medical ULTRA) 29 morning. Branch mg iron- 1 mg-200 mg Cap PNV 67-iron 2023-0 Yes [id number] 1{each} Take 1 [facility] ps-folate 2-27 Each by ity of no.1-dha 00:00: mouth in [place] (VITAFOL 00 the Medical ULTRA) 29 morning. Branch mg iron- 1 mg-200 mg Cap PNV 67-iron 2023-0 Yes [id number] 1{each} Take 1 [facility] ps-folate 2-27 Each by ity of no.1-dha 00:00: mouth in [place] (VITAFOL 00 the Medical ULTRA) 29 morning. Branch mg iron- 1 mg-200 mg Cap PNV 67-iron 2023-0 Yes [id number] 1{each} Take 1 [facility] ps-folate 2-27 Each by ity of no.1-dha 00:00: mouth in [place] (VITAFOL 00 the Medical ULTRA) 29 morning. Branch mg iron- 1 mg-200 mg Cap PNV 67-iron 2023-0 Yes [id number] 1{each} Take 1 [facility] ps-folate 2-27 Each by ity of no.1-dha 00:00: mouth in [place] (VITAFOL 00 the Medical ULTRA) 29 morning. Branch mg iron- 1 mg-200 mg Cap PNV 67-iron 2023-0 Yes [id number] 1{each} Take 1 [facility] ps-folate 2-27 Each by ity of no.1-dha 00:00: mouth in [place] (VITAFOL 00 the Medical ULTRA) 29 morning. Branch mg iron- 1 mg-200 mg Cap PNV 67-iron 2023-0 Yes [id number] 1{each} Take 1 [facility] ps-folate 2-27 Each by ity of no.1-dha 00:00: mouth in [place] (VITAFOL 00 the Medical ULTRA) 29 morning. Branch mg iron- 1 mg-200 mg Cap PNV 67-iron 2023-0 Yes [id number] 1{each} Take 1 [facility] ps-folate 2-27 Each by ity of no.1-dha 00:00: mouth in [place] (VITAFOL 00 the Medical ULTRA) 29 morning. Branch mg iron- 1 mg-200 mg Cap PNV 67-iron 2023-0 Yes [id number] 1{each} Take 1 [facility] ps-folate 2-27 Each by ity of no.1-dha 00:00: mouth in [place] (VITAFOL 00 the Medical ULTRA) 29 morning. Branch mg iron- 1 mg-200 mg Cap PNV 67-iron 2023-0 Yes [id number] 1{each} Take 1 [facility] ps-folate 2-27 Each by ity of no.1-dha 00:00: mouth in [place] (VITAFOL 00 the Medical ULTRA) 29 morning. Branch mg iron- 1 mg-200 mg Cap PNV 67-iron 2023-0 Yes [id number] 1{each} Take 1 [facility] ps-folate 2-27 Each by ity of no.1-dha 00:00: mouth in [place] (VITAFOL 00 the Medical ULTRA) 29 morning. Branch mg iron- 1 mg-200 mg Cap PNV 67-iron 2023-0 Yes [id number] 1{each} Take 1 [facility] ps-folate 2-27 Each by ity of no.1-dha 00:00: mouth in [place] (VITAFOL 00 the Medical ULTRA) 29 morning. Branch mg iron- 1 mg-200 mg Cap PNV 67-iron 2023-0 Yes [id number] 1{each} Take 1 [facility] ps-folate 2-27 Each by ity of no.1-dha 00:00: mouth in [place] (VITAFOL 00 the Medical ULTRA) 29 morning. Branch mg iron- 1 mg-200 mg Cap PNV 67-iron 2023-0 Yes [id number] 1{each} Take 1 [facility] ps-folate 2-27 Each by ity of no.1-dha 00:00: mouth in [place] (VITAFOL 00 the Medical ULTRA) 29 morning. Branch mg iron- 1 mg-200 mg Cap PNV 67-iron 2023-0 Yes [id number] 1{each} Take 1 [facility] ps-folate 2-27 Each by ity of no.1-dha 00:00: mouth in [place] (VITAFOL 00 the Medical ULTRA) 29 morning. Branch mg iron- 1 mg-200 mg Cap PNV 67-iron 2023-0 Yes [id number] 1{each} Take 1 [facility] ps-folate 2-27 Each by ity of no.1-dha 00:00: mouth in [place] (VITAFOL 00 the Medical ULTRA) 29 morning. Branch mg iron- 1 mg-200 mg Cap PNV 67-iron 2023-0 Yes [id number] 1{each} Take 1 [facility] ps-folate 2-27 Each by ity of no.1-dha 00:00: mouth in [place] (VITAFOL 00 the Medical ULTRA) 29 morning. Branch mg iron- 1 mg-200 mg Cap PNV 67-iron 3-0 Yes [id number] 1{each} Take 1 [facility] ps-folate 2-27 Each by ity of no.1-dha 00:00: mouth in [place] (VITAFOL 00 the Medical ULTRA) 29 morning. Branch mg iron- 1 mg-200 mg Cap PNV 67-iron 3-0 Yes [id number] 1{each} Take 1 [facility] ps-folate 2-27 Each by ity of no.1-dha 00:00: mouth in [place] (VITAFOL 00 the Medical ULTRA) 29 morning. Branch mg iron- 1 mg-200 mg Cap PNV 67-iron 3-0 Yes [id number] 1{each} Take 1 [facility] ps-folate 2-27 Each by ity of no.1-dha 00:00: mouth in [place] (VITAFOL 00 the Medical ULTRA) 29 morning. Branch mg iron- 1 mg-200 mg Cap proMETHazin 3-0 Yes [id number] 25mg Take 1 Univers e 25 mg 2-14 tablet by ity of tablet 00:00: mouth [place] 00 every 4 Medical (four) Branch hours as needed for Nausea and Vomiting (N/V). proMETHazin 3-0 Yes [id number] 25mg Take 1 Univers e 25 mg 2-14 tablet by ity of tablet 00:00: mouth [place] 00 every 4 Medical (four) Branch hours as needed for Nausea and Vomiting (N/V). proMETHazin 2023-0 Yes [id number] 25mg Take 1 [facility] e 25 mg 2-14 tablet by ity of tablet 00:00: mouth [place] 00 every 4 Medical (four) Branch hours as needed for Nausea and Vomiting (N/V). proMETHazin 2023-0 Yes [id number] 25mg Take 1 [facility] e 25 mg 2-14 tablet by ity of tablet 00:00: mouth [place] 00 every 4 Medical (four) Branch hours as needed for Nausea and Vomiting (N/V). PNV 67-iron 2022-0 Yes [id number] 1{each} Take 1 [facility] ps-folate 2-14 Each by ity of no.1-dha 00:00: mouth [place] (VITAFOL 00 daily. Medical ULTRA) 29 Branch mg iron- 1 mg-200 mg Cap proMETHazin 3-0 Yes [id number] 25mg Take 1 Univers e 25 mg 2-14 tablet by ity of tablet 00:00: mouth [place] 00 every 4 Medical (four) Branch hours as needed for Nausea and Vomiting (N/V). PNV 67-iron 3-0 Yes [id number] 1{each} Take 1 [facility] ps-folate 2-14 Each by ity of no.1-dha 00:00: mouth [place] (VITAFOL 00 daily. Medical ULTRA) 29 Branch mg iron- 1 mg-200 mg Cap proMETHazin 3-0 Yes [id number] 25mg Take 1 Univers e 25 mg 2-14 tablet by ity of tablet 00:00: mouth [place] 00 every 4 Medical (four) Branch hours as needed for Nausea and Vomiting (N/V). PNV 67-iron 2023-0 Yes [id number] 1{each} Take 1 [facility] ps-folate 2-14 Each by ity of no.1-dha 00:00: mouth [place] (VITAFOL 00 daily. Medical ULTRA) 29 Branch mg iron- 1 mg-200 mg Cap proMETHazin 3-0 Yes [id number] 25mg Take 1 Univers e 25 mg 2-14 tablet by ity of tablet 00:00: mouth [place] 00 every 4 Medical (four) Branch hours as needed for Nausea and Vomiting (N/V). proMETHazin 2023-0 Yes [id number] 25mg Take 1 Univers e 25 mg 2-14 tablet by ity of tablet 00:00: mouth [place] 00 every 4 Medical (four) Branch hours as needed for Nausea and Vomiting (N/V). proMETHazin 2023-0 Yes [id number] 25mg Take 1 [facility] e 25 mg 2-14 tablet by ity of tablet 00:00: mouth [place] 00 every 4 Medical (four) Branch hours as needed for Nausea and Vomiting (N/V). proMETHazin 2023-0 Yes [id number] 25mg Take 1 [facility] e 25 mg 2-14 tablet by ity of tablet 00:00: mouth [place] 00 every 4 Medical (four) Branch hours as needed for Nausea and Vomiting (N/V). proMETHazin 2023-0 Yes [id number] 25mg Take 1 [facility] e 25 mg 2-14 tablet by ity of tablet 00:00: mouth [place] 00 every 4 Medical (four) Branch hours as needed for Nausea and Vomiting (N/V). proMETHazin 2023-0 Yes [id number] 25mg Take 1 [facility] e 25 mg 2-14 tablet by ity of tablet 00:00: mouth [place] 00 every 4 Medical (four) Branch hours as needed for Nausea and Vomiting (N/V). proMETHazin 2023-0 Yes [id number] 25mg Take 1 [facility] e 25 mg 2-14 tablet by ity of tablet 00:00: mouth [place] 00 every 4 Medical (four) Branch hours as needed for Nausea and Vomiting (N/V). proMETHazin 2023-0 Yes [id number] 25mg Take 1 [facility] e 25 mg 2-14 tablet by ity of tablet 00:00: mouth [place] 00 every 4 Medical (four) Branch hours as needed for Nausea and Vomiting (N/V). proMETHazin 2023-0 Yes [id number] 25mg Take 1 [facility] e 25 mg 2-14 tablet by ity of tablet 00:00: mouth [place] 00 every 4 Medical (four) Branch hours as needed for Nausea and Vomiting (N/V). proMETHazin 2023-0 Yes [id number] 25mg Take 1 [facility] e 25 mg 2-14 tablet by ity of tablet 00:00: mouth [place] 00 every 4 Medical (four) Branch hours as needed for Nausea and Vomiting (N/V). proMETHazin 2023-0 Yes [id number] 25mg Take 1 [facility] e 25 mg 2-14 tablet by ity of tablet 00:00: mouth [place] 00 every 4 Medical (four) Branch hours as needed for Nausea and Vomiting (N/V). proMETHazin 2023-0 Yes [id number] 25mg Take 1 [facility] e 25 mg 2-14 tablet by ity of tablet 00:00: mouth [place] 00 every 4 Medical (four) Branch hours as needed for Nausea and Vomiting (N/V). proMETHazin 2023-0 Yes [id number] 25mg Take 1 [facility] e 25 mg 2-14 tablet by ity of tablet 00:00: mouth [place] 00 every 4 Medical (four) Branch hours as needed for Nausea and Vomiting (N/V). proMETHazin 2023-0 Yes [id number] 25mg Take 1 [facility] e 25 mg 2-14 tablet by ity of tablet 00:00: mouth [place] 00 every 4 Medical (four) Branch hours as needed for Nausea and Vomiting (N/V). proMETHazin 2023-0 Yes [id number] 25mg Take 1 [facility] e 25 mg 2-14 tablet by ity of tablet 00:00: mouth [place] 00 every 4 Medical (four) Branch hours as needed for Nausea and Vomiting (N/V). proMETHazin 2023-0 Yes [id number] 25mg Take 1 [facility] e 25 mg 2-14 tablet by ity of tablet 00:00: mouth [place] 00 every 4 Medical (four) Branch hours as needed for Nausea and Vomiting (N/V). proMETHazin 2023-0 Yes [id number] 25mg Take 1 [facility] e 25 mg 2-14 tablet by ity of tablet 00:00: mouth [place] 00 every 4 Medical (four) Branch hours as needed for Nausea and Vomiting (N/V). proMETHazin 2023-0 Yes [id number] 25mg Take 1 Univers e 25 mg 2-14 tablet by ity of tablet 00:00: mouth [place] 00 every 4 Medical (four) Branch hours as needed for Nausea and Vomiting (N/V). proMETHazin 2023-0 Yes [id number] 25mg Take 1 [facility] 25 mg 2-14 tablet by ity of tablet 00:00: mouth [place] 00 every 4 Medical (four) Branch hours as needed for Nausea and Vomiting (N/V). proMETHazin 2023-0 Yes [id number] 25mg Take 1 [facility] 25 mg 2-14 tablet by ity of tablet 00:00: mouth [place] 00 every 4 Medical (four) Branch hours as needed for Nausea and Vomiting (N/V). proMETHazin 2023-0 Yes [id number] 25mg Take 1 [facility] e 25 mg 2-14 tablet by ity of tablet 00:00: mouth [place] 00 every 4 Medical (four) Branch hours as needed for Nausea and Vomiting (N/V). proMETHazin 2023-0 Yes [id number] 25mg Take 1 [facility] e 25 mg 2-14 tablet by ity of tablet 00:00: mouth [place] 00 every 4 Medical (four) Branch hours as needed for Nausea and Vomiting (N/V). proMETHazin 2023-0 Yes [id number] 25mg Take 1 [facility] e 25 mg 2-14 tablet by ity of tablet 00:00: mouth [place] 00 every 4 Medical (four) Branch hours as needed for Nausea and Vomiting (N/V). proMETHazin 2023-0 Yes [id number] 25mg Take 1 [facility] e 25 mg 2-14 tablet by ity of tablet 00:00: mouth [place] 00 every 4 Medical (four) Branch hours as needed for Nausea and Vomiting (N/V). proMETHazin 2023-0 Yes [id number] 25mg Take 1 [facility] e 25 mg 2-14 tablet by ity of tablet 00:00: mouth [place] 00 every 4 Medical (four) Branch hours as needed for Nausea and Vomiting (N/V). proMETHazin 2023-0 Yes [id number] 25mg Take 1 [facility] e 25 mg 2-14 tablet by ity of tablet 00:00: mouth [place] 00 every 4 Medical (four) Branch hours as needed for Nausea and Vomiting (N/V). proMETHazin 2023-0 Yes [id number] 25mg Take 1 [facility] 25 mg 2-14 tablet by ity of tablet 00:00: mouth [place] 00 every 4 Medical (four) Branch hours as needed for Nausea and Vomiting (N/V). proMETHazin 2023-0 Yes [id number] 25mg Take 1 [facility] e 25 mg 2-14 tablet by ity of tablet 00:00: mouth [place] 00 every 4 Medical (four) Branch hours as needed for Nausea and Vomiting (N/V). proMETHazin 2023-0 Yes [id number] 25mg Take 1 [facility] 25 mg 2-14 tablet by ity of tablet 00:00: mouth [place] 00 every 4 Medical (four) Branch hours as needed for Nausea and Vomiting (N/V). proMETHazin 2023-0 Yes [id number] 25mg Take 1 [facility] 25 mg 2-14 tablet by ity of tablet 00:00: mouth [place] 00 every 4 Medical (four) Branch hours as needed for Nausea and Vomiting (N/V). proMETHazin 2023-0 Yes [id number] 25mg Take 1 [facility] 25 mg 2-14 tablet by ity of tablet 00:00: mouth [place] 00 every 4 Medical (four) Branch hours as needed for Nausea and Vomiting (N/V). proMETHazin 2023-0 Yes [id number] 25mg Take 1 [facility] e 25 mg 2-14 tablet by ity of tablet 00:00: mouth [place] 00 every 4 Medical (four) Branch hours as needed for Nausea and Vomiting (N/V). proMETHazin 2023-0 Yes [id number] 25mg Take 1 [facility] e 25 mg 2-14 tablet by ity of tablet 00:00: mouth [place] 00 every 4 Medical (four) Branch hours as needed for Nausea and Vomiting (N/V). proMETHazin 2023-0 Yes [id number] 25mg Take 1 [facility] e 25 mg 2-14 tablet by ity of tablet 00:00: mouth [place] 00 every 4 Medical (four) Branch hours as needed for Nausea and Vomiting (N/V). proMETHazin 2023-0 Yes [id number] 25mg Take 1 [facility] e 25 mg 2-14 tablet by ity of tablet 00:00: mouth [place] 00 every 4 Medical (four) Branch hours as needed for Nausea and Vomiting (N/V). proMETHazin 2023-0 Yes [id number] 25mg Take 1 [facility] e 25 mg 2-14 tablet by ity of tablet 00:00: mouth [place] 00 every 4 Medical (four) Branch hours as needed for Nausea and Vomiting (N/V). proMETHazin 2023-0 Yes [id number] 25mg Take 1 [facility] e 25 mg 2-14 tablet by ity of tablet 00:00: mouth [place] 00 every 4 Medical (four) Branch hours as needed for Nausea and Vomiting (N/V). proMETHazin 2022-0 Yes [id number] 25mg Take 1 [facility] e 25 mg 2-14 tablet by ity of tablet 00:00: mouth [place] 00 every 4 Medical (four) Branch hours as needed for Nausea and Vomiting (N/V). PNV 67-iron 2022-0 2022- No [id number] 1{each} Take 1 Univers ps-folate 2-14 - Each by ity of no.1-dha 00:00: 00:00 mouth [place] (VITAFOL 00 :00 daily. Medical ULTRA) 29 Branch mg iron- 1 mg-200 mg Cap PNV 67-iron 2022-0 2022- No [id number] 1{each} Take 1 Univers ps-folate 2-14 - Each by ity of no.1-dha 00:00: 00:00 mouth [place] (VITAFOL 00 :00 daily. Medical ULTRA) 29 Branch mg iron- 1 mg-200 mg Cap PNV 67-iron 2022-0 2022- No [id number] 1{each} Take 1 Univers ps-folate 2-14 - Each by ity of no.1-dha 00:00: 00:00 mouth [place] (VITAFOL 00 :00 daily. Medical ULTRA) 29 Branch mg iron- 1 mg-200 mg Cap PNV 67-iron 2022-0 2022- No [id number] 1{each} Take 1 Univers ps-folate 2-14 - Each by ity of no.1-dha 00:00: 00:00 mouth [place] (VITAFOL 00 :00 daily. Medical ULTRA) 29 Branch mg iron- 1 mg-200 mg Cap PNV 67-iron 2022-0 2022- No [id number] 1{each} Take 1 Univers ps-folate 2-14 - Each by ity of no.1-dha 00:00: 00:00 mouth [place] (VITAFOL 00 :00 daily. Medical ULTRA) 29 Branch mg iron- 1 mg-200 mg Cap FAMOTIDINE 2022-0 Yes Take by [facility] ers ORAL 1-12 mouth. ity of 14:58: Medical Branch FOLIC ACID 2022-0 Yes [id number] Take by Univers ORAL 1-12 mouth. ity of 14:58: Medical Branch FAMOTIDINE 2022-0 Yes Take by [facility] ers ORAL 1-12 mouth. ity of 14:58: [place] 27 Medical Branch FOLIC ACID 3-0 Yes [id number] Take by Univers ORAL 1-12 mouth. ity of 14:58: [address] FAMOTIDINE 2022-0 Yes Take by Univ ers ORAL 1-12 mouth. ity of 14:58: [address] FOLIC ACID 2022-0 Yes [id number] Take by Univers ORAL 1-12 mouth. ity of 14:58: [address] FAMOTIDINE 2022-0 Yes Take by Univ ers ORAL 1-12 mouth. ity of 14:58: [address] Branch FOLIC ACID 2022-0 Yes [id number] Take by Univers ORAL 1-12 mouth. ity of 14:58: [place] [address] Medical [place] FAMOTIDINE 2022-0 Yes Take by Univ ers ORAL 1-12 mouth. ity of 14:58: [address] FOLIC ACID 2022-0 Yes [id number] Take by Univers ORAL 1-12 mouth. ity of 14:58: [address] FAMOTIDINE 2022-0 Yes Take by Univ ers ORAL 1-12 mouth. ity of 14:58: [address] FOLIC ACID 2022-0 Yes [id number] Take by Univers ORAL 1-12 mouth. ity of 14:58: [address] FAMOTIDINE 2022-0 Yes Take by [facility] ers ORAL 1-12 mouth. ity of 14:58: [address] FOLIC ACID 2022-0 Yes [id number] Take by Univers ORAL 1-12 mouth. ity of 14:58: [address] FAMOTIDINE 2022-0 Yes Take by Univ ers ORAL 1-12 mouth. ity of 14:58: [address] FOLIC ACID 2023-0 Yes [id number] Take by Univers ORAL 1-12 mouth. ity of 14:58: [address] FAMOTIDINE 3-0 Yes Take by Univ ers ORAL 1-12 mouth. ity of 14:58: [address] Branch FOLIC ACID 3-0 Yes [id number] Take by Univers ORAL 1-12 mouth. ity of 14:58: [address] FAMOTIDINE 3-0 Yes Take by Univ ers ORAL 1-12 mouth. ity of 14:58: [address] FOLIC ACID 2023-0 Yes [id number] Take by Univers ORAL 1-12 mouth. ity of 14:58: [address] FAMOTIDINE 2022-0 Yes Take by Univ ers ORAL 1-12 mouth. ity of 14:58: [address] FOLIC ACID 2022-0 Yes [id number] Take by Univers ORAL 1-12 mouth. ity of 14:58: [address] FAMOTIDINE 2022-0 Yes Take by Univ ers ORAL 1-12 mouth. ity of 14:58: [address] FOLIC ACID 2022-0 Yes [id number] Take by Univers ORAL 1-12 mouth. ity of 14:58: [address] FAMOTIDINE 2022-0 Yes Take by Univ ers ORAL 1-12 mouth. ity of 14:58: [address] FOLIC ACID 2022-0 Yes [id number] Take by Univers ORAL 1-12 mouth. ity of 14:58: [address] FAMOTIDINE 2022-0 Yes Take by Univ ers ORAL 1-12 mouth. ity of 14:58: [address] FOLIC ACID 2022-0 Yes [id number] Take by Univers ORAL 1-12 mouth. ity of 14:58: [address] FAMOTIDINE 2022-0 Yes Take by Univ ers ORAL 1-12 mouth. ity of 14:58: [address] FOLIC ACID 2022-0 Yes [id number] Take by Univers ORAL 1-12 mouth. ity of 14:58: [address] FAMOTIDINE 2022-0 Yes Take by Univ ers ORAL 1-12 mouth. ity of 14:58: [address] FOLIC ACID 2022-0 Yes [id number] Take by Univers ORAL 1-12 mouth. ity of 14:58: [address] FAMOTIDINE 2022-0 Yes Take by Univ ers ORAL 1-12 mouth. ity of 14:58: [address] FOLIC ACID 2022-0 Yes [id number] Take by Univers ORAL 1-12 mouth. ity of 14:58: [address] FAMOTIDINE 2022-0 Yes Take by Univ ers ORAL 1-12 mouth. ity of 14:58: [address] FOLIC ACID 3-0 Yes [id number] Take by Univers ORAL 1-12 mouth. ity of 14:58: [address] FAMOTIDINE 3-0 Yes Take by Univ ers ORAL 1-12 mouth. ity of 14:58: [address] FOLIC ACID 2022-0 Yes [id number] Take by Univers ORAL 1-12 mouth. ity of 14:58: [place] [address] [facility] [employer] FAMOTIDINE 2022-0 Yes Take by Univ ers ORAL 1-12 mouth. ity of 14:58: [address] FOLIC ACID 2022-0 Yes [id number] Take by Univers ORAL 1-12 mouth. ity of 14:58: [place] [address] Medical [place] FAMOTIDINE 2022-0 Yes Take by Univ ers ORAL 1-12 mouth. ity of 14:58: [address] Branch FOLIC ACID 2022-0 Yes [id number] Take by Univers ORAL 1-12 mouth. ity of 14:58: [place] [address] Medical Branch FAMOTIDINE 2022-0 Yes Take by Univ ers ORAL 1-12 mouth. ity of 14:58: [address] FOLIC ACID 2022-0 Yes [id number] Take by Univers ORAL 1-12 mouth. ity of 14:58: [address] FAMOTIDINE 2022-0 Yes Take by Univ ers ORAL 1-12 mouth. ity of 14:58: [address] FOLIC ACID 2022-0 Yes [id number] Take by Univers ORAL 1-12 mouth. ity of 14:58: [address] FAMOTIDINE 2022-0 Yes Take by Univ ers ORAL 1-12 mouth. ity of 14:58: [address] FOLIC ACID 2022-0 Yes [id number] Take by Univers ORAL 1-12 mouth. ity of 14:58: [address] FAMOTIDINE 2022-0 Yes Take by Univ ers ORAL 1-12 mouth. ity of 14:58: [place] [address] Medical Branch FOLIC ACID 2023-0 Yes [id number] Take by Univers ORAL 1-12 mouth. ity of 14:58: [place] [address] Medical Branch FAMOTIDINE 2022-0 Yes Take by Univ ers ORAL 1-12 mouth. ity of 14:58: [place] [address] Medical Branch FOLIC ACID 2022-0 Yes [id number] Take by Univers ORAL 1-12 mouth. ity of 14:58: [address] FAMOTIDINE 3-0 Yes Take by Univ ers ORAL 1-12 mouth. ity of 14:58: [place] [address] [facility] [place] FOLIC ACID 2023-0 Yes [id number] Take by Univers ORAL 1-12 mouth. ity of 14:58: [place] 27 Medical Branch VENTOLIN 2021-11 Yes [id number] Univ ers HFA 90 1-30 ity of mcg/actuati 00:00: [place] on inhaler Medical Branch VENTOLIN 2021-11 Yes [id number] Univ ers HFA 90 1-30 ity of mcg/actuati 00:00: [place] on inhaler Medical Branch VENTOLIN 2021-11 Yes [id number] Univ ers HFA 90 1-30 ity of mcg/actuati 00:00: [place] on inhaler Medical Branch VENTOLIN 2021-11 Yes [id number] Univ ers HFA 90 1-30 ity of mcg/actuati 00:00: [place] on inhaler Medical Branch VENTOLIN 2021-11 Yes [id number] Univ ers HFA 90 1-30 ity of mcg/actuati 00:00: [place] on inhaler Medical Branch VENTOLIN 2021-11 Yes [id number] Univ ers HFA 90 1-30 ity of mcg/actuati 00:00: [place] on inhaler Medical Branch VENTOLIN 2021-11 Yes [id number] Univ ers HFA 90 1-30 ity of mcg/actuati 00:00: [place] on inhaler Medical Branch VENTOLIN 2021-11 Yes [id number] Univ ers HFA 90 1-30 ity of mcg/actuati 00:00: [place] on inhaler [facility] [id number] Univ ers HFA 90 1-30 ity of mcg/actuati 00:00: [place] on inhaler Medical Branch VENTOLIN 2021-11 Yes [id number] Univ ers HFA 90 1-30 ity of mcg/actuati 00:00: [place] on inhaler Medical Branch VENTOLIN 2021-11 Yes [id number] Univ ers HFA 90 1-30 ity of mcg/actuati 00:00: [place] on inhaler Medical Branch VENTOLIN 2021-11 Yes [id number] Univ ers HFA 90 1-30 ity of mcg/actuati 00:00: [place] on inhaler Medical Branch VENTOLIN 2021-11 Yes [id number] Univ ers HFA 90 1-30 ity of mcg/actuati 00:00: [place] on inhaler Medical Branch VENTOLIN 2021-11 Yes [id number] Univ ers HFA 90 1-30 ity of mcg/actuati 00:00: [place] on inhaler Medical Branch VENTOLIN 2021-11 Yes [id number] Univ ers HFA 90 1-30 ity of mcg/actuati 00:00: [place] on inhaler Medical Branch VENTOLIN 2021-11 Yes [id number] Univ ers HFA 90 1-30 ity of mcg/actuati 00:00: [place] on inhaler Medical Branch VENTOLIN 2021-11 Yes [id number] Univ ers HFA 90 1-30 ity of mcg/actuati 00:00: [place] on inhaler Medical Branch VENTOLIN 2021-11 Yes [id number] Univ ers HFA 90 1-30 ity of mcg/actuati 00:00: [place] on inhaler Medical Branch VENTOLIN 2021-11 Yes [id number] Univ ers HFA 90 1-30 ity of mcg/actuati 00:00: [place] on inhaler Medical Branch VENTOLIN 2021-11 Yes [id number] Univ ers HFA 90 1-30 ity of mcg/actuati 00:00: [place] on inhaler Medical Branch VENTOLIN 2021-11 Yes [id number] Univ ers HFA 90 1-30 ity of mcg/actuati 00:00: [place] on inhaler Medical Branch VENTOLIN 2021-11 Yes [id number] Univ ers HFA 90 1-30 ity of mcg/actuati 00:00: [place] on inhaler Medical Branch VENTOLIN 2021-11 Yes [id number] Univ ers HFA 90 1-30 ity of mcg/actuati 00:00: [place] on inhaler Medical Branch VENTOLIN 2021-11 Yes [id number] Univ ers HFA 90 1-30 ity of mcg/actuati 00:00: [place] on inhaler Medical Branch VENTOLIN 2021-11 Yes [id number] Univ ers HFA 90 1-30 ity of mcg/actuati 00:00: [place] on inhaler Medical Branch VENTOLIN 2021-11 Yes [id number] Univ ers HFA 90 1-30 ity of mcg/actuati 00:00: [place] on inhaler Medical Branch VENTOLIN 2021-11 Yes [id number] Univ ers HFA 90 1-30 ity of mcg/actuati 00:00: [place] on inhaler Medical Branch VENTOLIN 2021-11 Yes [id number] Univ ers HFA 90 1-30 ity of mcg/actuati 00:00: [place] on inhaler Medical Branch VENTOLIN 2021-11 Yes [id number] Univ ers HFA 90 1-30 ity of mcg/actuati 00:00: [place] on inhaler Medical Branch VENTOLIN 2021-11 Yes [id number] Univ ers HFA 90 1-30 ity of mcg/actuati 00:00: [place] on inhaler Medical Branch VENTOLIN 2021-11 Yes [id number] Univ ers HFA 90 1-30 ity of mcg/actuati 00:00: [place] on inhaler Medical Branch VENTOLIN 2021-11 Yes [id number] Univ ers HFA 90 1-30 ity of mcg/actuati 00:00: [place] on inhaler Medical Branch VENTOLIN 2021-11 Yes [id number] Univ ers HFA 90 1-30 ity of mcg/actuati 00:00: [place] on inhaler Medical Branch VENTOLIN 2021-11 Yes [id number] Univ ers HFA 90 1-30 ity of mcg/actuati 00:00: [place] on inhaler Medical Branch VENTOLIN 2021-11 Yes [id number] Univ ers HFA 90 1-30 ity of mcg/actuati 00:00: [place] on inhaler Medical Branch VENTOLIN 2021-11 Yes [id number] Univ ers HFA 90 1-30 ity of mcg/actuati 00:00: [place] on inhaler Medical Branch VENTOLIN 2021-11 Yes [id number] Univ ers HFA 90 1-30 ity of mcg/actuati 00:00: [place] on inhaler Medical Branch VENTOLIN 2021-11 Yes [id number] Univ ers HFA 90 1-30 ity of mcg/actuati 00:00: [place] on inhaler Medical Branch VENTOLIN 2021-11 Yes [id number] Univ ers HFA 90 1-30 ity of mcg/actuati 00:00: [place] on inhaler Medical Branch VENTOLIN 2021-11 Yes [id number] Univ ers HFA 90 1-30 ity of mcg/actuati 00:00: [place] on inhaler Medical Branch VENTOLIN 2021-11 Yes [id number] Univ ers HFA 90 1-30 ity of mcg/actuati 00:00: [place] on inhaler Medical Branch VENTOLIN 2021-11 Yes [id number] Univ ers HFA 90 1-30 ity of mcg/actuati 00:00: [place] on inhaler Medical Branch VENTOLIN 2021-11 Yes [id number] Univ ers HFA 90 1-30 ity of mcg/actuati 00:00: [place] on inhaler Medical Branch VENTOLIN 2021-11 Yes [id number] Univ ers HFA 90 1-30 ity of mcg/actuati 00:00: [place] on inhaler Medical Branch VENTOLIN 2021-11 Yes [id number] Univ ers HFA 90 1-30 ity of mcg/actuati 00:00: [place] on inhaler Medical Branch VENTOLIN 2021-11 Yes [id number] Univ ers HFA 90 1-30 ity of mcg/actuati 00:00: [place] on inhaler Medical Branch VENTOLIN 2021-11 Yes [id number] Univ ers HFA 90 1-30 ity of mcg/actuati 00:00: [place] on inhaler Medical Branch VENTOLIN 2021-11 Yes [id number] Univ ers HFA 90 1-30 ity of mcg/actuati 00:00: [place] on inhaler Medical Branch VENTOLIN 2021-11 Yes [id number] Univ ers HFA 90 1-30 ity of mcg/actuati 00:00: [place] on inhaler Medical Branch VENTOLIN 2021-11 Yes [id number] Univ ers HFA 90 1-30 ity of mcg/actuati 00:00: [place] on inhaler Medical Branch VENTOLIN 2021-11 Yes [id number] Univ ers HFA 90 1-30 ity of mcg/actuati 00:00: [place] on inhaler Medical Branch VENTOLIN 2021-11 Yes [id number] Univ ers HFA 90 1-30 ity of mcg/actuati 00:00: [place] on inhaler Medical Branch VENTOLIN 2021-11 Yes [id number] Univ ers HFA 90 1-30 ity of mcg/actuati 00:00: [place] on inhaler Medical Branch VENTOLIN 2021-11 Yes [id number] Univ ers HFA 90 1-30 ity of mcg/actuati 00:00: [place] on inhaler 00 Medical Branch Yes [id number] 1{tbl} Take 1 Tab Univers multivitami 9-26 by mouth [facility]y of n ( 00:[place] VITAM[place] 00 Medical tablet Branch Yes [id number] 1{tbl} Take 1 Tab [facility] multivitami 9-26 by mouth ity of n ( 00:[place]: [place]. [place] VITAM[place] Medical tablet Branch Yes [id number] 1{tbl} Take 1 Tab [facility] multivitami 9-26 by mouth ity of n ( 00:00: [place]. [place] VITAMIN[place] 00 Medical tablet Branch Yes [id number] 1{tbl} Take 1 Tab [facility] multivitami 9-26 by mouth ity of n ( 00:00: [place]. [place] VITAMIN[place] 00 Medical tablet Branch Yes [id number] 1{tbl} Take 1 Tab [facility] multivitami 9-26 by mouth ity of n ( 00:00: [place]. [place] VITAMIN[place] Medical tablet Branch Yes [id number] 1{tbl} Take 1 Tab [facility] multivitami 9-26 by mouth ity of n ( 00:00: [place]. [place] VITAMIN[place] Medical tablet Branch Yes [id number] 1{tbl} Take 1 Tab [facility] multivitami 9-26 by mouth ity of n ( 00:00: [place]. [place] VITAMIN) 00 Medical tablet Branch Yes [id number] 1{tbl} Take 1 Tab [facility] multivitami 9-26 by mouth ity of n ( 00:00: [place]. [place] VITAMIN) 00 Medical tablet Branch Yes [id number] 1{tbl} Take 1 Tab [facility] multivitami 9-26 by mouth ity of n ( 00:00: [place]. [place] VITAMIN) 00 Medical tablet Branch Yes [id number] 1{tbl} Take 1 Tab [facility] multivitami 9-26 by mouth ity of n ( 00:00: [place]. [place] VITAMIN[place] 00 Medical tablet Branch Yes [id number] 1{tbl} Take 1 Tab [facility] multivitami 9-26 by mouth ity of n ( 00:00: [place]. [place] VITAMIN[place] 00 Medical tablet [place] Yes [id number] 1{tbl} Take 1 Tab [facility] multivitami 9-26 by mouth ity of n ( 00:00: [place]. [place] VITAMIN[place] 00 Medical tablet [place] Yes [id number] 1{tbl} Take 1 Tab [facility] multivitami 9-26 by mouth ity of n ( 00:00: [place]. [place] VITAMIN[place] 00 Medical tablet [place] Yes [id number] 1{tbl} Take 1 Tab [facility] multivitami 9-26 by mouth ity of n ( 00:[place]. [place] VITAM[place] 00 Medical tablet [place] 2022- No [id number] 1{tbl} Take 1 Tab Univers multivitami 9-26 02-27 by mouth ity of n ( 00:00: 00:00 daily. [place] VITAMIN) 00 :00 [facility] tablet [place] 2022- No [id number] 1{tbl} Take 1 Tab Univers multivitami 9-26 02-27 by mouth ity of n ( 00:00: 00:00 daily. [place] VITAMIN) 00 :00 [facility] tablet [place] 2022- No [id number] 1{tbl} Take 1 Tab Univers multivitami 9-26 02-27 by mouth ity of n ( 00:00: 00:00 daily. [place] VITAMIN) 00 :00 [facility] tablet [place] 2022- No [id number] 1{tbl} Take 1 Tab Univers multivitami 9-26 02-27 by mouth ity of n ( 00:00: 00:00 daily. [place] VITAMIN) 00 :00 [facility] tablet [place] 2022- No [id number] 1{tbl} Take 1 Tab Univers multivitami 9-26 02-27 by mouth ity of n ( 00:00: 00:00 daily. [place] VITAMIN) 00 :00 [facility] Immunizations Ordered Filled Immunization Date Status Comments [facility] e Immunization Name Name TDAP 2023-01-25 Completed [facility] of 00:00:00 [facility] TDAP 2023-01-25 Completed [facility] of 00:00:00 [facility] TDAP 2023-01-25 Completed University of 00:00:00 [place] [facility] TDAP 2023-01-25 Completed University of 00:00:00 [place] [facility] TDAP 2023-01-25 Completed University of 00:00:00 [place] [facility] TDAP 2023-01-25 Completed University of 00:00:00 [place] [facility] TDAP 2023-01-25 Completed University of 00:00:00 [place] [facility] TDAP 2023-01-25 Completed University of 00:00:00 [place] [facility] TDAP 2023-01-25 Completed University of 00:00:00 [place] [facility] TDAP 2023-01-25 Completed University of 00:00:00 [place] [facility] TDAP 2023-01-25 Completed University of 00:00:00 [place] [facility] TDAP 2023-01-25 Completed University of 00:00:00 [place] [facility] TDAP 2023-01-25 Completed University of 00:00:00 [place] [facility] TDAP 2023-01-25 Completed University of 00:00:00 [place] [facility] TDAP 2023-01-25 Completed University of 00:00:00 [place] [facility] TDAP 2023-01-25 Completed University of 00:00:00 [place] [facility] TDAP 2023-01-25 Completed University of 00:00:00 [place] [facility] TDAP 2023-01-25 Completed University of 00:00:00 [place] [facility] TDAP 2023-01-25 Completed University of 00:00:00 [place] [facility] TDAP 2023-01-25 Completed University of 00:00:00 [place] [facility] TDAP 2023-01-25 Completed University of 00:00:00 [place] [facility] TDAP 2023-01-25 Completed University of 00:00:00 [place] [facility] TDAP 2023-01-25 Completed University of 00:00:00 [place] [facility] TDAP 2023-01-25 Completed University of 00:00:00 [place] [facility] TDAP 2023-01-25 Completed University of 00:00:00 [place] [facility] TDAP 2023-01-25 Completed University of 00:00:00 [place] [facility] TDAP 2023-01-25 Completed University of 00:00:00 [place] [facility] TDAP 2023-01-25 Completed University of 00:00:00 [place] [facility] TDAP 2023-01-25 Completed [facility] of 00:00:00 [facility] TDAP 2023-01-25 Completed University of 00:00:00 [facility] TDAP 2023-01-25 Completed University of 00:00:00 [facility] TDAP 2023-01-25 Completed University of 00:00:00 [facility] PPD (TB) 2013-07-31 Completed University of 00:00:00 [facility] Influenza Virus 2013-07-31 Completed Universit y of Vaccine (3+ yrs) 00:00:00 [facility] PPD (TB) 2013-07-31 Completed University of 00:00:00 [facility] Influenza Virus 2013-07-31 Completed Universit y of Vaccine (3+ yrs) 00:00:00 [facility] PPD (TB) 2013-07-31 Completed University of 00:00:00 [facility] Influenza Virus 2013-07-31 Completed Universit y of Vaccine (3+ yrs) 00:00:00 [facility] PPD (TB) 2013-07-31 Completed University of 00:00:00 [facility] Influenza Virus 2013-07-31 Completed Universit y of Vaccine (3+ yrs) 00:00:00 [facility] PPD (TB) 2013-07-31 Completed University of 00:00:00 [facility] Influenza Virus 2013-07-31 Completed Universit y of Vaccine (3+ yrs) 00:00:00 [facility] PPD (TB) 2013-07-31 Completed University of 00:00:00 [facility] Influenza Virus 2013-07-31 Completed Universit y of Vaccine (3+ yrs) 00:00:00 [facility] PPD (TB) 2013-07-31 Completed University of 00:00:00 [facility] Influenza Virus 2013-07-31 Completed Universit y of Vaccine (3+ yrs) 00:00:00 [facility] PPD (TB) 2013-07-31 Completed University of 00:00:00 [facility] Influenza Virus 2013-07-31 Completed Universit y of Vaccine (3+ yrs) 00:00:00 [facility] PPD (TB) 2013-07-31 Completed University of 00:00:00 [facility] Influenza Virus 2013-07-31 Completed Universit y of Vaccine (3+ yrs) 00:00:00 [facility] PPD (TB) 2013-07-31 Completed University of 00:00:00 [facility] Influenza Virus 2013-07-31 Completed Universit y of Vaccine (3+ yrs) 00:00:00 [facility] PPD (TB) 2013-07-31 Completed University of 00:00:00 [facility] Influenza Virus 2013-07-31 Completed Universit y of Vaccine (3+ yrs) 00:00:00 [facility] PPD (TB) 2013-07-31 Completed University of 00:00:00 [facility] Influenza Virus 2013-07-31 Completed Universit y of Vaccine (3+ yrs) 00:00:00 [facility] PPD (TB) 2013-07-31 Completed University of 00:00:00 [facility] Influenza Virus 2013-07-31 Completed Universit y of Vaccine (3+ yrs) 00:00:00 [facility] PPD (TB) 2013-07-31 Completed University of 00:00:00 [facility] Influenza Virus 2013-07-31 Completed Universit y of Vaccine (3+ yrs) 00:00:00 [facility] PPD (TB) 2013-07-31 Completed [facility] 00[facility] [facility] Influenza Virus 2013-07-31 Completed Universit y of Vaccine (3+ yrs) 00:00:00 [facility] PPD (TB) 2013-07-31 Completed University of 00:00:00 [facility] Influenza Virus 2013-07-31 Completed Universit y of Vaccine (3+ yrs) 00:00:00 [facility] PPD (TB) 2013-07-31 Completed [facility] of 00:00:00 [facility] Influenza Virus 2013-07-31 Completed Universit y of Vaccine (3+ yrs) 00:00:00 [facility] PPD (TB) 2013-07-31 Completed [facility] of 00:00:00 [facility] Influenza Virus 2013-07-31 Completed Universit y of Vaccine (3+ yrs) 00:00:00 [facility] PPD (TB) 2013-07-31 Completed [facility] of 00:00:00 [facility] Influenza Virus 2013-07-31 Completed Universit y of Vaccine (3+ yrs) 00:00:00 [facility] PPD (TB) 2013-07-31 Completed [facility] of 00:00:00 [facility] Influenza Virus 2013-07-31 Completed Universit y of Vaccine (3+ yrs) 00:00:00 [facility] PPD (TB) 2013-07-31 Completed [facility] of 00:00:00 [facility] Influenza Virus 2013-07-31 Completed Universit y of Vaccine (3+ yrs) 00:00:00 [facility] PPD (TB) 2013-07-31 Completed [facility] of 00:00:00 [facility] Influenza Virus 2013-07-31 Completed Universit y of Vaccine (3+ yrs) 00:00:00 [facility] PPD (TB) 2013-07-31 Completed [facility] of 00:00:00 [facility] Influenza Virus 2013-07-31 Completed Universit y of Vaccine (3+ yrs) 00:00:00 [facility] PPD (TB) 2013-07-31 Completed [facility] of 00:00:00 [facility] Influenza Virus 2013-07-31 Completed Universit y of Vaccine (3+ yrs) 00:00:00 [facility] PPD (TB) 2013-07-31 Completed [facility] of 00:00:00 [facility] Influenza Virus 2013-07-31 Completed Universit y of Vaccine (3+ yrs) 00:00:00 [facility] PPD (TB) 2013-07-31 Completed [facility] of 00:00:00 [facility] Influenza Virus 2013-07-31 Completed Universit y of Vaccine (3+ yrs) 00:00:00 [facility] PPD (TB) 2013-07-31 Completed [facility] of 00:00:00 [facility] Influenza Virus 2013-07-31 Completed Universit y of Vaccine (3+ yrs) 00:00:00 [facility] Influenza Virus 2013-07-31 Completed [facility]it y of Vaccine (3+ yrs) 00:00:00 [facility] PPD (TB) 2013-07-31 Completed [facility] of 00:00:00 [facility] PPD (TB) 2013-07-31 Completed [facility] of 00:00:00 [facility] Influenza Virus 2013-07-31 Completed Universit y of Vaccine (3+ yrs) 00:00:00 [facility] PPD (TB) 2013-07-31 Completed [facility] of 00:00:00 [facility] Influenza Virus 2013-07-31 Completed Universit y of Vaccine (3+ yrs) 00:00:00 [facility] PPD (TB) 2013-07-31 Completed [facility] of 00:00:00 [facility] Influenza Virus 2013-07-31 Completed Universit y of Vaccine (3+ yrs) 00:00:00 [facility] PPD (TB) 2013-07-31 Completed [facility] of 00:00:00 [facility] Influenza Virus 2013-07-31 Completed Universit y of Vaccine (3+ yrs) 00:00:00 [facility] PPD (TB) 2013-07-31 Completed [facility] of 00:00:00 [facility] Influenza Virus 2013-07-31 Completed Universit y of Vaccine (3+ yrs) 00:00:00 [facility] PPD (TB) 2013-07-31 Completed [facility] of 00:00:00 [facility] Influenza Virus 2013-07-31 Completed Universit y of Vaccine (3+ yrs) 00:00:00 [facility] PPD (TB) 2013-07-31 Completed [facility] of 00:00:00 [facility] Influenza Virus 2013-07-31 Completed Universit y of Vaccine (3+ yrs) 00:00:00 [facility] PPD (TB) 2013-07-31 Completed [facility] of 00:00:00 [facility] Influenza Virus 2013-07-31 Completed Universit y of Vaccine (3+ yrs) 00:00:00 [facility] PPD (TB) 2013-07-31 Completed [facility] of 00:00:00 [facility] Influenza Virus 2013-07-31 Completed Universit y of Vaccine (3+ yrs) 00:00:00 [facility] PPD (TB) 2013-07-31 Completed [facility] of 00:00:00 [facility] Influenza Virus 2013-07-31 Completed Universit y of Vaccine (3+ yrs) 00:00:00 [facility] PPD (TB) 2013-07-31 Completed [facility] of 00:00:00 [facility] Influenza Virus 2013-07-31 Completed [facility]it y of Vaccine (3+ yrs) 00:00:00 [facility] PPD (TB) 2013-07-31 Completed [facility] of 00:00:00 [facility] Influenza Virus 2013-07-31 Completed Universit y of Vaccine (3+ yrs) 00:00:00 [facility] PPD (TB) 2013-07-31 Completed [facility] of 00:00:00 [facility] Influenza Virus 2013-07-31 Completed [facility]it y of Vaccine (3+ yrs) 00:00:00 [facility] PPD (TB) 2013-07-31 Completed [facility] of 00:00:00 [facility] Influenza Virus 2013-07-31 Completed [facility]it y of Vaccine (3+ yrs) 00:00:00 [facility] PPD (TB) 2013-07-31 Completed [facility] of 00:00:00 [facility] Influenza Virus 2013-07-31 Completed Universit y of Vaccine (3+ yrs) 00:00:00 [facility] PPD (TB) 2013-07-31 Completed [facility] of 00:00:00 [facility] Influenza Virus 2013-07-31 Completed Universit y of Vaccine (3+ yrs) 00:00:00 [facility] PPD (TB) 2013-07-31 Completed [facility] of 00:00:00 [facility] Influenza Virus 2013-07-31 Completed [facility]it y of Vaccine (3+ yrs) 00:00:00 [facility] PPD (TB) 2013-07-31 Completed [facility] of 00:00:00 [facility] Influenza Virus 2013-07-31 Completed [facility]it y of Vaccine (3+ yrs) 00:00:00 [facility] PPD (TB) 2013-07-31 Completed [facility] of 00:00:00 [facility] Influenza Virus 2013-07-31 Completed [facility]it y of Vaccine (3+ yrs) 00:00:00 [facility] PPD (TB) 2013-07-31 Completed [facility] of 00:00:00 [facility] Influenza Virus 2013-07-31 Completed [facility]it y of Vaccine (3+ yrs) 00:00:00 [facility] PPD (TB) 2013-07-31 Completed [facility] of 00:00:00 [facility] Influenza Virus 2013-07-31 Completed Universit y of Vaccine (3+ yrs) 00:00:00 [facility] PPD (TB) 2013-07-31 Completed [facility] of 00:00:00 [facility] Influenza Virus 2013-07-31 Completed Universit y of Vaccine (3+ yrs) 00:00:00 [facility] PPD (TB) 2013-07-31 Completed [facility] of 00:00:00 [facility] Influenza Virus 2013-07-31 Completed Universit y of Vaccine (3+ yrs) 00:00:00 [facility] PPD (TB) 2013-07-31 Completed [facility] of 00:00:00 [facility] Influenza Virus 2013-07-31 Completed Universit y of Vaccine (3+ yrs) 00:00:00 [facility] PPD (TB) 2013-07-31 Completed [facility] of 00:00:00 [facility] Influenza Virus 2013-07-31 Completed Universit y of Vaccine (3+ yrs) 00:00:00 [facility] PPD (TB) 2013-07-31 Completed [facility] of 00:00:00 [facility] Influenza Virus 2013-07-31 Completed [facility]it y of Vaccine (3+ yrs) 00:00:00 [facility] PPD (TB) 2013-07-31 Completed [facility] of 00:00:00 [facility] Influenza Virus 2013-07-31 Completed Universit y of Vaccine (3+ yrs) 00:00:00 [facility] TD, NOS 2008-06-30 Completed [facility] of 00:00:00 [facility] TD, NOS 2008-06-30 Completed University of 00:00:00 [facility] TD, NOS 2008-06-30 Completed University of 00:00:00 [facility] TD, NOS 2008-06-30 Completed University of 00:00:00 [facility] TD, NOS 2008-06-30 Completed [facility] of 00:00:00 [facility] TD, NOS 2008-06-30 Completed University of 00:00:00 [facility] TD, NOS 2008-06-30 Completed University of 00:00:00 [facility] TD, NOS 2008-06-30 Completed University of 00:00:00 [facility] TD, NOS 2008-06-30 Completed University of 00:00:00 [facility] TD, NOS 2008-06-30 Completed University of 00:00:00 [facility] TD, NOS 2008-06-30 Completed University of 00:00:00 [facility] TD, NOS 2008-06-30 Completed [facility] of 00:00:00 [facility] TD, NOS 2008-06-30 Completed University of 00:00:00 [facility] TD, NOS 2008-06-30 Completed [facility] of 00:00:00 [facility] TD, NOS 2008-06-30 Completed [facility] of 00:00:00 [facility] TD, NOS 2008-06-30 Completed University of 00:00:00 [facility] TD, NOS 2008-06-30 Completed [facility] of 00:00:00 [facility] TD, NOS 2008-06-30 Completed [facility] of 00:00:00 [facility] TD, NOS 2008-06-30 Completed [facility] of 00:00:00 [facility] TD, NOS 2008-06-30 Completed [facility] of 00:00:00 [facility] TD, NOS 2008-06-30 Completed [facility] of 00:00:00 [facility] TD, NOS 2008-06-30 Completed [facility] of 00:00:00 [facility] TD, NOS 2008-06-30 Completed [facility] of 00:00:00 [facility] TD, NOS 2008-06-30 Completed [facility] of 00:00:00 [facility] TD, NOS 2008-06-30 Completed [facility] of 00:00:00 [facility] TD, NOS 2008-06-30 Completed [facility] of 00:00:00 [facility] TD, NOS 2008-06-30 Completed [facility] of 00:00:00 [facility] TD, NOS 2008-06-30 Completed [facility] of 00:00:00 [facility] TD, NOS 2008-06-30 Completed [facility] of 00:00:00 [facility] TD, NOS 2008-06-30 Completed [facility] of 00:00:00 [facility] TD, NOS 2008-06-30 Completed [facility] of 00:00:00 [facility] TD, NOS 2008-06-30 Completed [facility] of 00:00:00 [facility] TD, NOS 2008-06-30 Completed [facility] of 00:00:00 [facility] TD, NOS 2008-06-30 Completed [facility] of 00:00:00 [facility] TD, NOS 2008-06-30 Completed [facility] of 00:00:00 [facility] TD, NOS 2008-06-30 Completed [facility] of 00:00:00 [facility] TD, NOS 2008-06-30 Completed [facility] of 00:00:00 [facility] TD, NOS 2008-06-30 Completed [facility] of 00:00:00 [facility] TD, NOS 2008-06-30 Completed [facility] of 00:00:00 [facility] TD, NOS 2008-06-30 Completed [facility] of 00:00:00 [facility] TD, NOS 2008-06-30 Completed [facility] of 00:00:00 [facility] TD, NOS 2008-06-30 Completed [facility] of 00:00:00 [facility] TD, NOS 2008-06-30 Completed [facility] of 00:00:00 [facility] TD, NOS 2008-06-30 Completed [facility] of 00:00:00 [facility] TD, NOS 2008-06-30 Completed [facility] of 00:00:00 [facility] TD, NOS 2008-06-30 Completed [facility] of 00:00:00 [facility] TD, NOS 2008-06-30 Completed [facility] of 00:00:00 [facility] TD, NOS 2008-06-30 Completed [facility] of 00:00:00 [facility] TD, NOS 2008-06-30 Completed [facility] of 00:00:00 [facility] TD, NOS 2008-06-30 Completed [facility] of 00:00:00 [facility] TD, NOS 2008-06-30 Completed [facility] of 00:00:00 [facility] TD, NOS 2008-06-30 Completed [facility] of 00:00:00 [facility] TD, NOS 2008-06-30 Completed [facility] of 00:00:00 [facility] TD, NOS 2008-06-30 Completed University of 00:00:00 [facility] TD, NOS 2008-06-30 Completed [facility] of 00:00:00 [facility] Vital Signs Vital Name Observation Time Observation Value Comments Source Systolic blood 2023-04-03 13:13:00 121 mm[Hg] Univer sity of pressure [facility] Diastolic blood 2023-04-03 13:13:00 81 mm[Hg] Unive rsity of [facility] Heart rate 2023-04-03 13:13:00 73 /min [facility] Body temperature 2023-04-03 13:13:00 36.22 Pat [facility] Respiratory rate 2023-04-03 13:13:00 20 /min [facility] Body height 2023-04-03 13:13:00 160 cm [facility] Body weight 2023-04-03 13:13:00 144.879 kg [facility] BMI 2023-04-03 13:13:00 56.58 kg/m2 [facility] Systolic blood 2023-03-28 13:12:00 124 mm[Hg] Univer sity of pressure [facility] Diastolic blood 2023-03-28 13:12:00 64 mm[Hg] Unive rsity of pressure [facility] Heart rate 2023-03-28 13:12:00 96 /min [facility] Body temperature 2023-03-28 13:12:00 36.61 Pat Univ ersity of [facility] Respiratory rate 2023-03-28 13:12:00 18 /min Univ ersity [facility] Oxygen saturation in 2023-03-28 13:12:00 97 /min [facility] of [facility]terial blood by [facility] Body height 2023-03-26 12:12:00 160 cm [facility] Body weight 2023-03-26 12:12:00 148.326 kg [facility] BMI 2023-03-26 12:12:00 57.93 kg/m2 [facility] ty [facility] Systolic blood 2023-03-26 13:30:00 107 mm[Hg] Univer sity of pressure [facility] Diastolic blood 2023-03-26 13:30:00 57 mm[Hg] Unive rsity of pressure [facility] Heart rate 2023-03-26 13:30:00 83 /min [facility] Oxygen saturation in 2023-03-26 13:30:00 100 /min [facility]ial blood by [facility] Respiratory rate 2023-03-26 13:00:00 20 /min Univ ersity of [facility] Body temperature 2023-03-26 12:12:00 36.56 Pat Univ ersity of [facility] Body height 2023-03-26 12:12:00 160 cm [facility] Body weight 2023-03-26 12:12:00 148.326 kg [facility] BMI 2023-03-26 12:12:00 57.93 kg/m2 [facility] Systolic blood 2023-03-22 13:52:00 115 mm[Hg] Univer sity of pressure [facility] Diastolic blood 2023-03-22 13:52:00 70 mm[Hg] Unive rsity of pressure [facility] Heart rate 2023-03-22 13:52:00 83 /min [facility] Body temperature 2023-03-22 13:52:00 36.22 Pat Univ ersity of [facility] Respiratory rate 2023-03-22 13:52:00 20 /min Univ ersity of [facility] Body height 2023-03-22 13:52:00 160 cm [facility] Body weight 2023-03-22 13:52:00 148.922 kg [facility] BMI 2023-03-22 13:52:00 58.16 kg/m2 [facility] Systolic blood 2023-03-09 16:29:00 108 mm[Hg] Univer sity of pressure [facility] Diastolic blood 2023-03-09 16:29:00 71 mm[Hg] Unive rsity of pressure [facility] Heart rate 2023-03-09 16:29:00 75 /min [facility] Body temperature 2023-03-09 16:29:00 35.44 Pat Univ ersity of [facility] Respiratory rate 2023-03-09 16:29:00 18 /min Univ ersity of [facility] Body height 2023-03-09 16:29:00 160 cm [facility] Body weight 2023-03-09 16:29:00 148.372 kg [facility] BMI 2023-03-09 16:29:00 57.94 kg/m2 [facility] Systolic blood 2023-02-23 20:47:00 127 mm[Hg] Univer sity of pressure [facility] Diastolic blood 2023-02-23 20:47:00 78 mm[Hg] Unive rsity of pressure [facility] Heart rate 2023-02-23 20:47:00 92 /min [facility] Body temperature 2023-02-23 20:47:00 35.61 Pat Univ ers[facility] of [facility] Respiratory rate 2023-02-23 20:47:00 18 /min Univ ersity of [facility] Body height 2023-02-23 20:47:00 157.5 cm [facility] Body weight 2023-02-23 20:47:00 148.689 kg [facility] BMI 2023-02-23 20:47:00 59.96 kg/m2 [facility] Systolic blood 2023-02-09 16:26:00 113 mm[Hg] Univer sity of pressure [facility] Diastolic blood 2023-02-09 16:26:00 73 mm[Hg] Unive rsity of pressure [facility] Heart rate 2023-02-09 16:26:00 81 /min [facility] Body temperature 2023-02-09 16:26:00 35.28 Pat Univ ersity of [facility] Respiratory rate 2023-02-09 16:26:00 18 /min Univ ersity of [facility] Body height 2023-02-09 16:26:00 157.5 cm [facility] Body weight 2023-02-09 16:26:00 146.376 kg [facility] BMI 2023-02-09 16:26:00 59.02 kg/m2 [facility] Systolic blood 2023-01-30 17:05:00 113 mm[Hg] Univer sity of pressure [facility] Diastolic blood 2023-01-30 17:05:00 58 mm[Hg] Unive rsity of pressure [facility] Heart rate 2023-01-30 17:05:00 82 /min [facility] Body temperature 2023-01-30 17:05:00 36.56 Pat Univ ersity of [facility] Respiratory rate 2023-01-30 17:05:00 18 /min Univ ersity of [facility] Oxygen saturation in 2023-01-30 17:05:00 98 /min University Arterial blood by [facility] Pulse oximetry Branch Body height 2023-01-29 23:02:00 160 cm [facility] ty [facility] Body weight 2023-01-29 23:02:00 144.244 kg [facility] BMI 2023-01-29 23:02:00 56.33 kg/m2 [facility] Systolic blood 2023-01-25 14:00:00 120 mm[Hg] Univer sity of pressure [facility] Diastolic blood 2023-01-25 14:00:00 65 mm[Hg] Unive rsity of pressure [facility] Heart rate 2023-01-25 14:00:00 84 /min [facility] Body temperature 2023-01-25 14:00:00 36.06 Pat Univ ersity of [facility] Respiratory rate 2023-01-25 14:00:00 18 /min Univ ersity of [facility] Body height 2023-01-25 14:00:00 160 cm [facility] Body weight 2023-01-25 14:00:00 143.881 kg [facility] BMI 2023-01-25 14:00:00 56.19 kg/m2 [facility] Systolic blood 2023-01-01 19:01:00 104 mm[Hg] Univer sity of pressure [facility] Diastolic blood 2023-01-01 19:01:00 73 mm[Hg] Unive rsity of pressure [facility] Heart rate 2023-01-01 19:01:00 78 /min [facility] Body temperature 2023-01-01 19:01:00 36.39 Pat Univ ers[facility] of [facility] Respiratory rate 2023-01-01 19:01:00 19 /min Univ ersity of [facility] Body height 2023-01-01 19:01:00 160 cm [facility] Body weight 2023-01-01 19:01:00 143.019 kg [facility] BMI 2023-01-01 19:01:00 55.85 kg/m2 [facility] Systolic blood 2022-12-19 20:33:00 117 mm[Hg] Univer sity of pressure [facility] Diastolic blood 2022-12-19 20:33:00 73 mm[Hg] Unive rsity of pressure [facility] Heart rate 2022-12-19 20:33:00 78 /min [facility] Body temperature 2022-12-19 20:33:00 35.78 Pat Univ [facility] of [facility] Respiratory rate 2022-12-19 20:33:00 18 /min Univ ersity of [facility] Body height 2022-12-19 20:33:00 160 cm [facility] Body weight 2022-12-19 20:33:00 143.246 kg [facility] BMI 2022-12-19 20:33:00 55.94 kg/m2 [facility] Systolic blood 2022-11-16 20:43:00 124 mm[Hg] Univer sity of pressure [facility] Diastolic blood 2022-11-16 20:43:00 83 mm[facility]Hg[facility] Heart rate 2022-11-16 20:43:00 88 /min [facility] Body temperature 2022-11-16 20:43:00 36.17 Pat [facility] 2022-11-16 20:43:00 17 /min [facility] Body height 2022-11-16 20:43:00 157.5 cm [facility] Body weight 2022-11-16 20:43:00 141.159 kg [facility] BMI 2022-11-16 20:43:00 56.92 kg/m2 [facility] Procedures Procedure Date / Time Performing Clinician Source Performed CBC WITH DIFF 2023-03-27 09:27:00 [facility] CBC WITH DIFF 2023-03-27 09:27:00 [facility] VENOUS CORD GAS 2023-03-26 [facility]23[facility]-26 13:31[facility] 2023-03-26 13:31:00 Morganza [facility] SECTION 2023-03-26 13:31:00 Miller Slimcheri [facility] TUBAL LIGATION 2023-03-26 13:31:00 Morganza [facility] CBC WITH DIFF 2023-03-26 12:42:00 Onur [facility] HEPATITIS B SURFACE 2023-03-26 12:42:00 Ilda Mohr [facility] ANTIGEN [facility] HB ABO GROUPING 2023-03-26 12:42:00 [facility] IMM[facility]E GLOBULIN 2023-03-26 12:42[facility]00 [facility]-AB WITH 2023-03-26 12:42:00 [facility] REFLEX [facility] SYPHILIS IGG/IGM 2023-03-26 12:42:00 Onur [facility] CBC WITH DIFF 2023-03-26 12:42:00 On[facility] HEPATITIS B SURFACE 2023-03-26 12:42:00 Onur [facility] ANTIGEN [facility] HB ABO GROUPING 2023-03-26 12:42:00 [facility] IMMUNE GLOBULIN 2023-03-26 12:42:00 [facility] HIV 1/2 AG-AB WITH 2023-03-26 12:42:00 Onur [facility] REFLEX [facility] SYPHILIS IGG/IGM 2023-03-26 12:42:00 Onur [facility] POCT URINALYSIS 2023-03-22 13:53:00 Ruth Stubbs [facility] POCT URINALYSIS 2023-03-09 16:31:00 Ruth Stubbs [facility] POCT URINALYSIS 2023-02-09 16:28:00 Ruth Stubbs [facility] EXTERNAL PROVIDER 2023-01-31 05:01:00 Doctor Unassigned, No [facility] RECORDS Name Medical Branch SECOND AND THIRD 2023-01-30 14:08:00 Ruth Stubbs [facility] TRIMESTER ULTRASOUND Medical [facility] URINALYSIS 2023-01-30 01:13:00 Basilia [facility] URINE CULTURE 2023-01-30 01:13:00 Basilia [facility] GC & CHLAMYDIA AMPLIFIED 2023-01-30 00:21:[address] [facility] CBC WITH DIFF 2023-01-29 23:52:00 Basilia [facility] HB ABO GROUPING 2023-01-29 23:52:00 Basilia, [facility] TDAP VACCINE, >11 YRS, 2023-01-25 15:49:15 Ruth Stubbs [facility] POCT URINALYSIS 2023-01-25 14:01:00 Ruth Stubbs [facility] AUTHORIZATION TO RELEASE 2023-01-25 05:01:00 Doctor Unassigned, No [facility] PHI TO [facility] POCT URINALYSIS 2023-01-01 00:00:00 Ruth Stubbs [facility] POCT URINALYSIS 2022-12-19 20:35:00 Ruth Stubbs [facility] AUTHORIZATION FOR 2022-11-24 06:01:00 Doctor Unassigned, No [facility] RELEASE OF [facility] GLUCOSE 1 HOUR POST 2022-11-16 21:45:00 Ruth Stubbs [facility] CBC WITH DIFF 2022-11-16 21:45:00 Ruth [facility] RUBELLA SCREEN IGG 2022-11-16 21:45:00 Ruth Stubbs [facility] VZV ANTIBODY SCREEN 2022-11-16 21:45:00 Ruth Stubbs [facility] HEPATITIS B SURFACE 2022-11-16 21:45:[address] [facility] HCV ANTIBODY 2022-11-16 21:45:00 Ruth [facility] HB ABO GROUPING 2022-11-16 21:45:00 Ruth [facility] URINE CULTURE 2022-11-16 21:45:00 Ruth [facility] GC & CHLAMYDIA AMPLIFIED 2022-11-16 21:45:00 Ruth Stubbs [facility] QUAD SCRN 2022-11-16 21:45:00 Ruth [facility] HIV 1/2 AG-AB WITH 2022-11-16 21:45:00 [facility] SYPHILIS IGG/IGM 2022-11-16 21:45:00 Ruth Stubbs [facility] ASSIGNMENT OF BENEFITS 2022-11-16 20:02:04 Doctor Unassigned, No [facility] POCT TEST 2022-11-16 00:00:00 Ruth Stubbs [facility] POCT URINALYSIS W/O 2022-11-16 00:00:00 Ruth Stubbs [facility] Encounters Start End Encounter Admission Attending Care Care Encounter Source Date/Time Date/Time Type Type Clinicians Facility Department ID 2023-01-30 Outpatient P [facility] [id number] [facility] 17:41:51 [facility] 2023-06-15 2023-06-15 Outpatient R AKINSIPE, [facility] [id number] Univers 09:30:00 09:30:00 NAKIA kumar o f [facility] 2023-04-25 2023-04-25 Outpatient R AKINSIPE, [facility] [id number] Univers 16:00:00 16:00:00 NAKIA dominguezy o f [facility] 2023-04-18 2023-04-18 Telephone [facility], [facility] 1.2.840.114 [id number] Univers 00:00:00 00:00:00 Nakia Dunn [employer] 350.1.13.[address] [facility] 4.2.7.2.686 Shubham as MATERNAL [phone] Med ical & CHILD [address] [place] [address] 2023-04-03 2023-04-03 Nurse Visit, Jose L-Rmchp Nurse [facility] 1.2 .840.114 [id number] Univers 08:00:00 08:26:08 Visit Ruth Stubbs [employer] 350.1.13.1 0 ity of REGIONAL 4.2.7.2.686 Shubham as MATERNAL [phone] Med ical & CHILD [address] [place] [address] 2023-04-03 2023-04-03 Outpatient R EVELYNE [facility] [id number] Univers 08:00:00 08:26:08 RUTH [facility] 2023-04-02 2023-04-02 1.2.840.1 1.2.840.114 10 [id number] Univers 00:00:00 00:00:00 Encounter 09159.1.1 350.1.13.10 ity of 3[place]104.2.[place][id number] [address] 2023-03-31 2023-03-31 [facility] 1.2.840.114 [id number] Univers 00:00:00 00:00:00 [facility] 350.1.13.10 it y of [facility] 4.2.7.2.686 Shubham as SCIENCES [phone] Med ical WING [address] 2023-03-26 2023-03-28 Inpatient P CARLOS [facility] [id number] Univers 06:35:00 15:21:00 SLIM itruiz [facility] 2023-03-26 2023-03-28 Hospital Ayush Ballard 1.2.840.11 4 [id number] Univers 06:35:00 15:21:00 Encounter MillerSlim dunlapY 350.1.13 .10 ity of HOSPITAL 4.2.7.2.686 Shubham as [id number] [facility] [address] 2023-03-26 2023-03-26 Surgery MING Miller 1.2.840.114 [id number] Univers 07:15:00 08:57:00 Slimcheri JOY 350.1.13.10 ity of [facility] 4.2.7.2.686 Shubham as [id number] [facility] [address] 2023-03-22 2023-03-22 Outpatient R EVELYNE [facility] [id number] Univers 09:00:00 09:17:51 RUTH kumar [facility] 2023-03-22 2023-03-22 [facility] 1.2.840.114 [id number] Univers 09:00:00 09:17:51 Ruth A [employer] 350.1.13.10 ity of Visit REGIONAL 4.2.7.2.686 Shubham as MATERNAL [id number] [facility] & [address] 2023-03-16 2023-03-16 [employer] [facility] 1.2 .840.114 [id number] Univers 11:15:00 11:45:00 Visit Kasandra Acostarohitisabel [employer] 350.1. 13.10 ity of REGIONAL 4.2.7.2.686 Shubham as MATERNAL [id number] [facility] & CHILD [address] [place] [address] 2023-03-16 2023-03-16 Outpatient P DAVE [facility] [id number] Univers 11:15:00 11:15:00 KASANDRA [facility] 2023-03-09 2023-03-09 Outpatient R RENEE, [facility] [id number] Univers 15:30:00 15:30:00 NAKIA k[address] o f [facility] 2023-03-09 2023-03-09 [facility] [id number] Univers 11:00:00 12:00:17 [facility] 2023-03-09 2023-03-09 [facility] 1.2.840.114 [id number] Univers 11:00:00 12:00:17 Ruth A [employer] 350.1.13.10 ity of Visit REGIONAL 4.2.7.2.686 Shubham as MATERNAL [phone] [facility] & [address] 2023-02-23 2023-02-23 Outpatient R RENEE, [facility] [id number] Univers 16:00:00 16:08:20 NAKIA ity o f [facility] 2023-02-23 2023-02-23 [facility] 1.2.808.781 [id number] Univers 16:00:00 16:08:20 Nakia C [employer] 350.1.13.10 ity of Visit REGIONAL 4.2.7.2.686 Shubham as MATERNAL [id number] [facility] [address] [place] [address] 2023-02-13 2023-02-13 Case Evelyne [facility] 1.2.840.114 [id number] Univers 00:00:00 00:00:00 Management Ruth Eisenberg [employer] 350.1.13.[address] [facility] 4.2.7.2.686 Shubham as MATERNAL [phone] [facility] & CHILD [address] [place] [address] 2023-02-12 2023-02-12 Outpatient R DAVE [facility] [id number] Univers 09:00:00 10:43:27 KASANDRA ity [facility] 2023-02-12 2023-02-12 Telemedici Faculty, Jose L [facility] 1.2.840.114 [id number] Univers 09:00:00 10:43:27 ne Visit Kasandra Acosta [employer] 350.[address]13.[address] [facility] 4.2.7.2.686 Shubham as MATERNAL [id number] [facility] & CHILD [address] [place] [address] 2023-02-12 2023-02-12 Nurse Alma Phoenix 1.2.840.114 [id number] Univers 00:00:00 00:00:00 Triage RUFINO 350.1.13.10 it y of [facility] 4.2.7.2.686 Shubham as [phone] [address] 2023-02-12 2023-02-12 Telephone [facility] 1.2.840.114 [id number] Univers 00:00:00 00:00:00 Nakia Dunn [employer] 350.1.13.[address] [facility] 4.2.7.2.686 Shubham as MATERNAL [id number] [facility] & CHILD [address] [place] [address] 2023-02-09 2023-02-09 [facility] [id number] Univers 11:00:00 11:56:[address] [facility] 2023-02-09 2023-02-09 [facility] 1.2.979.359 [id number] Univers 11:00:00 11:56:07 Nakia C [employer] 350.1.13.10 ity of Visit REGIONAL 4.2.7.2.686 Shubham as MATERNAL [id number] [facility] ical & CHILD 107 [facility] 2023-02-09 2023-02-09 Letter [facility] 1.2.562.293 [id number] Univers 00:00:00 00:00:00 (Out) Nakia C [employer] 350.1.13.10 ity of REGIONAL 4.2.7.2.686 Shubham as MATERNAL [id number] [facility] ical & CHILD [address] [place] [address] 2023-02-04 2023-02-04 Telephone MING Conde 1.2.840.114 [id number] Univers 00:00:00 00:00:00 Davian JOY 350.1.13.10 i ty of HOSPITAL 4.2.7.2.686 Shubham as [id number] [facility] [address] 2023-02-03 2023-02-03 Case MING Hernández 1.2.840.114 10 [id number] Univers 00:00:00 00:00:00 Management [place] JOY 350.1.13.10 ity of HOSPITAL 4.2.7.2.686 Shubham as [phone] [facility] [address] 2023-01-31 2023-01-31 Case Evelyne [facility] 1.2.840.114 [id number] Univers 00:00:00 00:00:00 Management Ruth Eisenberg [employer] 350.1.13.[address] [facility] 4.2.7.2.686 Shubham as MATERNAL [id number] [facility] [address] [place] [address] 2023-01-31 2023-01-31 Orders Doctor LAI 1.2.840.114 [id number] Univers 00:00:00 00:00:00 Only Unassigned, RUFINO 350.1.13.10 ity of [place] [facility] 4.2.7.2.686 Shubham as [id number] [facility] [address] 2023-01-29 2023-01-30 Outpatient P YONG LALA [facility] [id number] Univers 17:47:00 14:45:00 [place] ity [facility] 2023-01-29 2023-01-30 Hospital Yong MING 1.2.840.114 [id number] Univers 17:47:00 14:45:00 Encounter Lala JOY 350.1.13.10 ity of [facility] 4.2.7.2.686 Shubham as [phone] [facility] [address] 2023-01-30 2023-01-30 [employer] 1, [facility] Us Room UNIVERSIT 1 .2.840.114 [id number] Univers 08:45:00 09:29:43 Visit Kasandra Acosta [facility] 350.1 .13.10 ity of [facility] 4.2.7.2.686 [place] [phone] [facility] [address] 2023-01-29 2023-01-29 [employer] Ultrasound, [facility] 1.2 .840.114 [id number] Univers 13:30:00 14:00:00 Visit Terrence Mane [employer] 350.1. 13.[address] [facility] 4.2.7.2.686 Shubham as MATERNAL [phone] [facility] ical & CHILD 369 [facility] 2023-01-29 2023-01-29 Outpatient P RAINE [facility] [id number] Univers 13:30:00 13:30:00 NANO it y of S OCAMPO [facility] 2023-01-29 2023-01-29 Telephone [facility] 1.2.840.114 [id number] Univers 00:00:00 00:00:00 Nakia Dunn [employer] 350.1.13.[address] [facility] 4.2.7.2.686 Shubham as MATERNAL [phone] [facility] & [address] 2023-01-25 2023-01-25 Outpatient Elieser STUBBS [facility] [id number] Univers 08:45:00 09:32:33 RUTH [facility] 2023-01-25 2023-01-25 Routine Provider, Yamilka [facility] 1 .2.840.114 [id number] Univers 08:45:00 09:32:33 Ruth Stubbs [employer] 350.1.13. [address] [facility] 4.2.7.2.686 Shubham as MATERNAL [phone] Med ical & CHILD [address] [place] [address] 2023-01-25 2023-01-25 Orders Doctor MING 1.2.840.114 [id number] Univers 00:00:00 00:00:00 Only Unassigned, RUFINO 350.1.13.10 ity of [place] [facility] 42.7.2.686 Shubham as [id number] [facility] [address] 2023-01-23 2023-01-23 Outpatient R [facility] [id number] Univers 15:15:00 15:15:[address] [facility] 2023-01-18 2023-01-18 Outpatient S[facility] [id number] Js 15:24:03 15:24:03 24400 F Yunier 2023-01-17 2023-01-17 Case MING Hernández 1.2.840.114 [id number] Univers 00:00:00 00:00:00 Management [place] JOY 350.1.13.10 ity of [address]686 Shubham as [id number] [facility] [address] 2023-01-16 2023-01-16 Outpatient R [facility] [id number] Univers 09:30:00 09:30:[address] [facility] 2023-01-15 2023-01-15 Outpatient R RAINE [facility] [id number] Univers 09:30:00 10:02:09 NANO dominguez y of TERRENCE Malik [facility] 2023-01-15 2023-01-15 Telemedici Faculty, Jose L Pedroza [facility] 1.2.840.114 [id number] Univers 09:30:00 10:02:09 ne Visit Terrence Mane [employer] 350.[address]13[address] [facility] 4.2.7.2.686 Shubham as MATERNAL [id number] [facility] CHILD [address] [place] [address] 2023-01-12 2023-01-12 Telephone [facility] 1.2.840.114 [id number] Univers 00:00:00 00:00:00 Nakia C [employer] 350.1.13.10 ity of REGIONAL 4.2.7.2.686 Shubham as MATERNAL [phone] [facility] & [address] 2023-01-08 2023-01-08 Outpatient P [facility] [id number] Univers 11:15:00 11:15:[facility]01 2023-01-01 Routine [facility] 1.2.827.865 [id number] Univers 15:00:00 15:00:00 Nakia C [employer] 350.1.13.10 ity of Visit REGIONAL 4.2.7.2.686 Shubham as MATERNAL [id number] [address] 2023-01-01 2023-01-01 Outpatient R AKINSIPE, [facility] [id number] Univers 15:00:00 13:34:27 NAKIA kumar o [facility] 2022-12-28 2022-12-28 Outpatient R EVELYNE, [facility] [id number] Univers 11:00:00 11:00:00 RUTH [facility] 2022-12-28 2022-12-28 Telephone [facility] 1.2.840.114 [id number] Univers 00:00:00 00:00:00 Nakia C [employer] 350.1.13.10 ity of REGIONAL 4.2.7.2.686 Shubham as MATERNAL [id number] [address] 2022-12-19 2022-12-19 Outpatient R AKINSIPE, [facility] [id number] Univers 15:00:00 15:03:[address] o f [facility] 2022-12-19 2022-12-19 Routine [facility] 1.2.919.591 [id number] Univers 15:00:00 15:03:34 Nakia C [employer] 350.1.13.10 ity of Visit REGIONAL 4.2.7.2.686 Shubham as MATERNAL [id number] [facility]ILD [address] [place] [address] 2022-12-15 2022-12-15 Outpatient R EVELYNE [facility] [id number] Univers 10:30:00 10:30:00 RUTH ity [facility] 2022-12-04 2022-12-04 Telemedici Nirali, Jose L [facility] 1.2.840.114 [id number] Univers 10:30:00 11:00:00 ne Visit Raine Clare Terrence [employer] 350.1 .13.10 ity of REGIONAL 4.2.7.2.686 Shubham as MATERNAL [id number] [facility] & [address] 2022-12-04 2022-12-04 Outpatient P RAINE [facility] [id number] Univers 10:30:00 10:30:00 NANO it y of TERRENCE Malik [facility] 2022-12-04 2022-12-04 Case [facility] 1.2.840.114 [id number] Univers 00:00:00 00:00:00 Management Ruth Eisenberg [employer] 350.1.13.10 ity of REGIONAL 4.2.7.2.686 Shubham as MATERNAL [id number] [facility] & CHILD [address] [place] [address] 2022-12-01 2022-12-01 Outpatient P ARIS [facility] [id number] Univers 09:45:00 10:37:[address] [facility] 2022-12-01 2022-12-01 Telemedici Violet Broderick [facility] 1.2.8 40.114 [id number] Univers 09:45:00 10:37:59 ne Visit Meghan Hurst [employer] 350.1.13.10 ity of REGIONAL 4.2.7.2.686 Shubham as MATERNAL [id number] [facility] & CHILD [address] [place] [address] 2022-12-01 2022-12-01 [employer] Ultrasound, Jhonathan [facility] 1.2 .840.114 [id number] Univers 08:30:00 09:45:00 Visit ArisMeghan [employer] 350.1.13.10 ity of REGIONAL 4.2.7.2.686 Shubham as MATERNAL [phone] Med ical & CHILD 369 [facility] 2022-11-24 2022-11-24 Orders Doctor MING 1.2.840.114 [id number] Univers 00:00:00 00:00:00 Only Unassigned, RUFINO 350.1.13.10 ity of [place] [facility] 4.2.7.2.686 Shubham as [phone] [address] 2022-11-23 2022-11-23 Case Evelyne [facility] 1.2.840.114 [id number] Univers 00:00:00 00:00:00 Management Ruth Eisenberg [employer] 350.1.13.[address] [facility] 4.2.7.2.686 Shubham as MATERNAL [id number] Med ical & CHILD [address] [place] [address] 2022-11-21 2022-11-21 Telephone Evelyne KYJOHN 1.2.840.114 [id number] Univers 00:00:00 00:00:00 Ruth Eisenberg [employer] 350.1.13.10 i ty of REGIONAL 4.2.7.2.686 Shubham as MATERNAL [phone] [facility] ical & CHILD [address] [place] [address] 2022-11-16 2022-11-16 Outpatient R EVELYNE KYJOHN [facility] [id number] Univers 14:15:00 15:57:[address] [facility] 2022-11-16 2022-11-16 Initial Provider, Yamilka [facility] 1 .2.840.114 [id number] Univers 14:15:00 15:57:32 Ruth Stubbs [employer] 350.1.13. 10 ity of Visit REGIONAL 4.2.7.2.686 Shubham as MATERNAL [phone] Med ical & CHILD [address] [place] [address] 2022-11-16 2022-11-16 Orders Doctor MING 1.2.840.114 [id number] Univers 00:00:00 00:00:00 Only Unassigned, RUFINO 350.1.13.10 ity of [place] [facility] 4.2.7.2.686 Shubham as [phone] [address] Results Test Description Test Time Test Comments Results Result Comments Source RHO (D) IMMUNE GLOBULIN 2023-03-26 18:54:02 Test Item Value Reference Range Interpretation Comme nts RHIG CANDIDATE? (test code = No- see comment Patient is not a candidate for RhIg- 5188) Patient is Rh P ositive.Performed at [facility] Laboratory Services - [facility] Blood [address] [place] [address] Free: [phone] A No. [id number] [facility] Falls[facility]HO (D) IMMUNE [id number] 18:54:02 Test Item Value Reference Range Interpretation Comments RHIG CANDIDATE? No- see comment Patient i s not a (test code = candidate for R hIg- 5188) Patient is Rh Positive.Perfor med at [facility] Laboratory Services - [facility] Blood [address] [place] [address] Free: [phone] A No. [id number] [facility] FallsArterial Cord [id number] 14:47:55 Test Item Value Reference Range Interpretation Comments BASE EXCESS, CORD -2.6 mEq/L QUES (test code = 0831870348) AC PH, CORD (BEAKER) 7.27 7.18-7.38 (test code = 5378634721) PC02, CORD (test code 56 See_Comment [Auto mated message] The = 9712401597) system which g enerated this result transmit augustus reference range : 32 - 66 mmHg. The refer ence range was not used to interpret this result as normal/abnormal . PO2, CORD (test code 15 See_Comment [Autom ated message] The = 3336478234) system which g enerated this result transmit augustus reference range : 10 - 30 mmHg. The refer ence range was not used to interpret this result as normal/abnormal . BICARBONATE, CORD 25 See_Comment [Automate d message] The (test code = system which ge nerated this 4617320365) result transmit augustus reference range : 17 - 27 mEq/L. The refe rence range was not used to interpret this result as normal/abnormal . [facility] [id number] 14:47:55 Test Item Value Reference Range Interpretation Comments BASE EXCESS, CORD -2.6 mEq/L QUES (test code = 3905341220) AC PH, CORD (BEAKER) 7.27 7.18-7.38 (test code = 9838029066) PC02, CORD (test code 56 See_Comment [Auto mated message] The = 2547559222) system which g enerated this result transmit augustus reference range : 32 - 66 mmHg. The refer ence range was not used to interpret this result as normal/abnormal . PO2, CORD (test code 15 See_Comment [Autom ated message] The = 4599849728) system which g enerated this result transmit augustus reference range : 10 - 30 mmHg. The refer ence range was not used to interpret this result as normal/abnormal . BICARBONATE, CORD 25 See_Comment [Automate d message] The (test code = system which ge nerated this 1734317107) result transmit augustus reference range : 17 - 27 mEq/L. The refe rence range was not used to interpret this result as normal/abnormal . [facility] [id number] 14:45:33 Test Item Value Reference Range Interpretation Comments VENOUS BASE EXCESS, -3.4 mEq/L CORD (test code = 1456666803) VENOUS PH, CORD (test 7.34 7.25-7.45 code = 9064102981) VENOUS PC02, CORD 42 See_Comment [Automate d message] The (test code = system which ge nerated 4865475234) this result tra nsmitted reference range : 27 - 49 mmHg. The refer ence range was not used to interpret this result as normal/abnormal . VENOUS PO2, CORD (test 31 See_Comment [Aut omated message] The code = 1201747454) system wh ich generated this result tra nsmitted reference range : 17 - 41 mmHg. The refer ence range was not used to interpret this result as normal/abnormal . VENOUS BICARBONATE, 22 See_Comment QUES [Au tomated message] CORD (test code = The system which generated 9701981012) this result tra nsmitted reference range : 12 - 29 mEq/L. The refe rence range was not used to interpret this result as normal/abnormal . [facility] FallsVenous Cord [id number] 14:45:33 Test Item Value Reference Range Interpretation Comments VENOUS BASE EXCESS, -3.4 mEq/L CORD (test code = 6647370256) VENOUS PH, CORD (test 7.34 7.25-7.45 code = 1222717514) VENOUS PC02, CORD 42 See_Comment [Automate d message] The (test code = system which ge nerated 6407207919) this result tra nsmitted reference range : 27 - 49 mmHg. The refer ence range was not used to interpret this result as normal/abnormal . VENOUS PO2, CORD (test 31 See_Comment [Aut omated message] The code = 8854989704) system wh ich generated this result tra nsmitted reference range : 17 - 41 mmHg. The refer ence range was not used to interpret this result as normal/abnormal . VENOUS BICARBONATE, 22 See_Comment QUES [Au tomated message] CORD (test code = The system which generated 0987162174) this result tra nsmitted reference range : 12 - 29 mEq/L. The refe rence range was not used to interpret this result as normal/abnormal . [facility] FallsPONH URINALYSIS W SPECIFIC [id number] 13:54:00 Test Item Value Reference Range Interpretation Comments POCT U SP GRAV (test code = 3255) . 1.005-1.025 POCT PH U (test code = 3254) 6 mg/dl 5-8 POCT U LEUK EST (test code = Trace Negative - Negative 3) POCT U NIT (test code = 3262) Neg Negative - Negative POCT U PROT (test code = 3259) 1+ Negative - Negative POCT U GLU (test code = 3256) Neg Negative - Negative POCT U KETONE (test code = 3258) None Negative - Negative POCT U UROBILI (test code = 3260) . 0.2-1 POCT U BILI (test code = 3261) . Negative - Negative POCT U BLD (test code = 3257) Large Negative - Negative POCT U COLOR (test code = 3266) . POCT U APPEAR (test code = 3267) . [facility] URINALYSIS W SPECIFIC [id number] 16:31:00 Test Item Value Reference Range Interpretation Comments POCT U SP GRAV (test code = 3255) . 1.005-1.025 POCT PH U (test code = 3254) . 5-8 POCT U LEUK EST (test code = 3263) . Negative - Negative POCT U NIT (test code = 3262) . Negative - Negative POCT U PROT (test code = 3259) trace Negative - Negative POCT U GLU (test code = 3256) neg Negative - Negative POCT U KETONE (test code = 3258) . Negative - Negative POCT U UROBILI (test code = 3260) . 0.2-1 POCT U BILI (test code = 3261) . Negative - Negative POCT U BLD (test code = 3257) . Negative - Negative POCT U COLOR (test code = 3266) .. POCT U APPEAR (test code = 3267) . [facility] URINALYSIS W SPECIFIC [id number] 16:28:00 Test Item Value Reference Range Interpretation Comments POCT U SP GRAV (test code = 3255) . 1.005-1.025 POCT PH U (test code = 3254) . 5-8 POCT U LEUK EST (test code = 3263) . Negative - Negative POCT U NIT (test code = 3262) . Negative - Negative POCT U PROT (test code = 3259) trace Negative - Negative POCT U GLU (test code = 3256) neg Negative - Negative POCT U KETONE (test code = 3258) . Negative - Negative POCT U UROBILI (test code = 3260) . 0.2-1 POCT U BILI (test code = 3261) . Negative - Negative POCT U BLD (test code = 3257) . Negative - Negative POCT U COLOR (test code = 3266) . POCT U APPEAR (test code = 3267) . [facility] WITH [id number] 00:10:19 Test Item Value Reference Range Interpretation Comments WBC (test code = 11.42 See_Comment H [Automated 2390-2) message] The sy stem which generated this result transmitted reference range : 4.30 - 11.10 10*3/?L. The reference range was not used to interpret this result as normal/abnormal . RBC (test code = 3.44 See_Comment L [Automated 789-8) message] The sy stem which generated this result transmitted reference range : 3.93 - 5.25 10*6/?L. The reference range was not used to interpret this result as normal/abnormal . HGB (test code = 10.4 g/dL 11.6-15.0 L 718-7) HCT (test code = 31.9 % 35.7-45.2 L 4544-3) MCV (test code = 92.7 fL 80.6-95.5 787-2) MCH (test code = 30.2 pg 25.9-32.8 785-6) MCHC (test code = 32.6 g/dL 31.6-35.1 786-4) RDW-SD (test code = 44.9 fL 39.0-49.9 87599-8) RDW-CV (test code = 13.2 % 12.0-15.5 788-0) PLT (test code = 322 See_Comment [Automated 777-3) message] The sy stem which generated this result transmitted reference range : 166 - 358 10*3/ ?L. The reference r mary was not used to interpret this result as normal/abnormal . MPV (test code = 10.8 fL 9.5-12.9 86773-4) NRBC/100 WBC (test 0.0 See_Comment [Automat ed code = [id number]) message] The system which generated this result transmitted reference range : 0.0 - 10.0 /100 WBCs. The refer ence range was not u sed to interpret th is result as normal/abnormal . NRBC x10^3 (test code See_Comment [Auto mated = [id number]) message] The s ystem which generated this result transmitted reference range : 10*3/?L. The reference range was not used to interpret this result as normal/abnormal . GRAN MAT (NEUT) % 69.6 % (test code = 770-8) IMM GRAN % (test code 0.40 % = 3942410210) LYMPH % (test code = 21.9 % 736-9) MONO % (test code = 6.2 % 5905-5) EOS % (test code = 1.5 % 713-8) BASO % (test code = 0.4 % 706-2) GRAN MAT x10^3(ANC) 7.95 10*3/uL 1.88-7.09 H (test code = 9273894919) IMM GRAN x10^3 (test 0.05 10*3/uL 0.00-0.06 code = 5925204842) LYMPH x10^3 (test code 2.50 10*3/uL 1.32-3.29 = 731-0) MONO x10^3 (test code 0.71 10*3/uL 0.33-0.92 = 742-7) EOS x10^3 (test code = 0.17 10*3/uL 0.03-0.39 711-2) BASO x10^3 (test code 0.04 10*3/uL 0.01-0.07 = 704-7) Lab Interpretation Abnormal (test code = 52254-0) [facility] [id number] 00:02:00 Test Item Value Reference Range Interpretation Comments ABO & RH (test code = 20) O POSITIVE IAT (test code = 1185) Negative [facility] SPECIFIC [id number] 14:02:00 Test Item Value Reference Range Interpretation Comments POCT U SP GRAV (test code = 3255) . 1.005-1.025 POCT PH U (test code = 3254) . 5-8 POCT U LEUK EST (test code = 3263) . Negative - Negative POCT U NIT (test code = 3262) . Negative - Negative POCT U PROT (test code = 3259) Trace Negative - Negative POCT U GLU (test code = 3256) Neg Negative - Negative POCT U KETONE (test code = 3258) . Negative - Negative POCT U UROBILI (test code = 3260) . 0.2-1 POCT U BILI (test code = 3261) . Negative - Negative POCT U BLD (test code = 3257) . Negative - Negative POCT U COLOR (test code = 3266) . POCT U APPEAR (test code = 3267) . [facility] URINALYSIS W SPECIFIC [id number] 14:02:00 Test Item Value Reference Range Interpretation Comments POCT U SP GRAV (test code = 3255) . 1.005-1.025 POCT PH U (test code = 3254) . 5-8 POCT U LEUK EST (test code = 3263) . Negative - Negative POCT U NIT (test code = 3262) . Negative - Negative POCT U PROT (test code = 3259) Trace Negative - Negative POCT U GLU (test code = 3256) Neg Negative - Negative POCT U KETONE (test code = 3258) . Negative - Negative POCT U UROBILI (test code = 3260) . 0.2-1 POCT U BILI (test code = 3261) . Negative - Negative POCT U BLD (test code = 3257) . Negative - Negative POCT U COLOR (test code = 3266) . POCT U APPEAR (test code = 3267) . [facility] URINALYSIS W SPECIFIC [id number] 19:05:00 Test Item Value Reference Range Interpretation Comments POCT U SP GRAV (test code = . 1.005-1.025 3255) POCT PH U (test code = 3254) . 5-8 POCT U LEUK EST (test code = . Negative - Negative 3263) POCT U NIT (test code = 3262) . Negative - Negative POCT U PROT (test code = 3259) trace Negative - Negative POCT U GLU (test code = 3256) negative Negative - Negative POCT U KETONE (test code = 3258) . Negative - Negative POCT U UROBILI (test code = . 0.2-1 3260) POCT U BILI (test code = 3261) . Negative - Negative POCT U BLD (test code = 3257) . Negative - Negative POCT U COLOR (test code = 3266) . POCT U APPEAR (test code = 3267) . [facility] URINALYSIS W SPECIFIC [id number] 19:05:00 Test Item Value Reference Range Interpretation Comments POCT U SP GRAV (test code = . 1.005-1.025 3255) POCT PH U (test code = 3254) . 5-8 POCT U LEUK EST (test code = . Negative - Negative 3263) POCT U NIT (test code = 3262) . Negative - Negative POCT U PROT (test code = 3259) trace Negative - Negative POCT U GLU (test code = 3256) negative Negative - Negative POCT U KETONE (test code = 3258) . Negative - Negative POCT U UROBILI (test code = . 0.2-1 3260) POCT U BILI (test code = 3261) . Negative - Negative POCT U BLD (test code = 3257) . Negative - Negative POCT U COLOR (test code = 3266) . POCT U APPEAR (test code = 3267) . [facility] URINALYSIS W SPECIFIC [id number] 19:05:00 Test Item Value Reference Range Interpretation Comments POCT U SP GRAV (test code = . 1.005-1.025 3255) POCT PH U (test code = 3254) . 5-8 POCT U LEUK EST (test code = . Negative - Negative 3) POCT U NIT (test code = 3262) . Negative - Negative POCT U PROT (test code = 3259) trace Negative - Negative POCT U GLU (test code = 3256) negative Negative - Negative POCT U KETONE (test code = 3258) . Negative - Negative POCT U UROBILI (test code = . 0.2-1 3260) POCT U BILI (test code = 3261) . Negative - Negative POCT U BLD (test code = 3257) . Negative - Negative POCT U COLOR (test code = 3266) . POCT U APPEAR (test code = 3267) . [facility] URINALYSIS W SPECIFIC [id number] 19:05:00 Test Item Value Reference Range Interpretation Comments POCT U SP GRAV (test code = . 1.005-1.025 3255) POCT PH U (test code = 3254) . 5-8 POCT U LEUK EST (test code = . Negative - Negative 3263) POCT U NIT (test code = 3262) . Negative - Negative POCT U PROT (test code = 3259) trace Negative - Negative POCT U GLU (test code = 3256) negative Negative - Negative POCT U KETONE (test code = 3258) . Negative - Negative POCT U UROBILI (test code = . 0.2-1 3260) POCT U BILI (test code = 3261) . Negative - Negative POCT U BLD (test code = 3257) . Negative - Negative POCT U COLOR (test code = 3266) . POCT U APPEAR (test code = 3267) . [facility] URINALYSIS W SPECIFIC [id number] 20:36:00 Test Item Value Reference Range Interpretation Comments POCT U SP GRAV (test code = 3255) . 1.005-1.025 POCT PH U (test code = 3254) . 5-8 POCT U LEUK EST (test code = 3263) . Negative - Negative POCT U NIT (test code = 3262) . Negative - Negative POCT U PROT (test code = 3259) trace Negative - Negative POCT U GLU (test code = 3256) neg Negative - Negative POCT U KETONE (test code = 3258) . Negative - Negative POCT U UROBILI (test code = 3260) . 0.2-1 POCT U BILI (test code = 3261) . Negative - Negative POCT U BLD (test code = 3257) . Negative - Negative POCT U COLOR (test code = 3266) . POCT U APPEAR (test code = 3267) . [facility] WORKUP, BLOOD [id number] 07:10:51 Test Item Value Reference Range Interpretation Comments ABO & RH (test code O POSITIVE Performe d at [facility] = 20) Laboratory [facility] Blood Bank[address] [place] [address] s [id number] Free: [phone] A No. [id number] IAT (test code = Negative Performed a t [facility] 1185) Laboratory [facility] Blood [address] s [id number] Free: [phone] A No. [id number] [facility] WORKUP, BLOOD [id number] 07:10:51 Test Item Value Reference Range Interpretation Comments ABO & RH (test code O POSITIVE Performe d at [facility] = 20) Laboratory [facility] s [id number] Free: [phone] A No. [id number] IAT (test code = Negative Performed a t [facility] 1185) Laboratory [facility] s [id number] Free: [phone] A No. [id number] [facility] [id number] 20:32:00 Test Item Value Reference Range Interpretation Comments POCT PREG (test code = 1605) Positive On board controls acceptable with C Yes Line (test code = 3574) POCT PREG LOT # (test code = 3575) POCT PREG TEST DATE (test code = 357) [facility] URINALYSIS W/O SPECIFIC [id number] 20:32:00 Test Item Value Reference Range Interpretation Comments POCT PH U (test code = 3254) 7 mg/dl 5-8 POCT U LEUK EST (test code = trace Negative - Negative 3263) POCT U NIT (test code = 3262) negative Negative - Negative POCT U PROT (test code = 3259) trace Negative - Negative POCT U GLU (test code = 3256) negative Negative - Negative POCT U KETONE (test code = 3258) 1+ Negative - Negative POCT U BLD (test code = 3257) trace Negative - Negative [facility] [id number] 20:32:00 Test Item Value Reference Range Interpretation Comments POCT PREG (test code = 1605) Positive On board controls acceptable with C Yes Line (test code = 3574) POCT PREG LOT # (test code = 3575) POCT PREG TEST DATE (test code = 357) [facility] URINALYSIS W/O SPECIFIC [id number] 20:32:00 Test Item Value Reference Range Interpretation Comments POCT PH U (test code = 3254) 7 mg/dl 5-8 POCT U LEUK EST (test code = trace Negative - Negative 3263) POCT U NIT (test code = 3262) negative Negative - Negative POCT U PROT (test code = 3259) trace Negative - Negative POCT U GLU (test code = 3256) negative Negative - Negative POCT U KETONE (test code = 3258) 1+ Negative - Negative POCT U BLD (test code = 3257) trace Negative - Negative [facility]
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
[2023-07-18] MEDS ORDERED: TDAP (DIPHTH,PERTUSS(ACELL),TET VAC) 0.5 ML VIAL IMVAC ONE (14:49)
[2023-07-18] MEDS ORDERED: SILVER SULFADIAZINE 1% 25 GM TOP ONE (14:50)
[2023-07-18 15:07] VITALS: BP 125/92; TEMP 98.1; O2SAT 100
== END 2023-07-18 14:56 | disposition home or self-care (01) ==
LOC: ER 13:43
DX: T21.22XA Burn of second degree of abdominal wall, initial encounter (principal)
CPT/HCPCS: 96372; 99284

== ENCOUNTER 2023-07-23 08:34 | Emergency (ER) | payer OTHER ==
--- OUTSIDE RECORDS SUMMARY | 2023-07-23 08:42 | XMS REPORT | Continuity of Care Document ---
:1995 Author Organization [facility] t Address [address] [facility]. [address] [place] [address] Care Team Providers Name Role Phone RUTH STUBBS Primary Care Physician Unavailable NAKIA HOPPER Attending Clinician Unavailable Nakia José Attending Clinician [phone] Visit, [place] Nurse Attending Clinician Unavailable Ruth Stubbs CNM Attending Clinician RUTH STUBBS Attending Clinician Unavailable Wellington Davis MD Attending Clinician SLIM MILLER Attending Clinician Unavailable Ayush Ballard MD Attending Clinician Slim Miller MD Attending Clinician Ultrasound, Jhonathan Attending Clinician Unavailable Kasandra Acosta MD Attending Clinician [phone] KASANDRA ACOSTA Attending Clinician Unavailable Nirali, Jose L Wright Attending Clinician Unavailable Alma Phoenix RN Attending Clinician Unavailable Davian Conde MD Attending Clinician Geneva Hernández MD Attending Clinician Doctor Unassigned, [place] Attending Clinician Unavailable LALA BEACH Attending Clinician Unavailable LALA BEACH Attending Clinician Unavailable Lala Beach MD Attending Clinician 1, [facility] Usg Room Attending Clinician Unavailable Raine Sparks MD, Terrence Attending Clinician [phone] TERRENCE MANE Attending Clinician Unavailable Provider, Ang-Rmchp Temp Attending Clinician Unavailable MEGHAN HURST Attending Clinician Unavailable Violet Broderick Attending Clinician Unavailable LALA BEACH Admitting Clinician Unavailable SLIM MILLER Admitting Clinician Unavailable Slim Miller MD Admitting Clinician Lala Beach MD Admitting Clinician Payers Payer Name Policy Type Policy Number Effective Date Expiration Date [facility] [id number] 2022 STAR 00:00:00 Problems Condition Condition Condition Status Onset Resolution Last Treating Co mments Source Name Details Category Date Date Treatment Clinician Date S/P repeat S/P repeat Disease Active U nivers low low 5-24 [place] transverse [place] 00 [facility] Branch 36 weeks 36 weeks Disease Active Unive rs gestation gestation 5-20 ity of of of 00:00: [place] 00 [facility] Branch Anemia of Anemia of Disease Active [...] gestation 3-27 ity of of of 00:00: [place] 00 [facility] Branch History of History of Disease Active [...] different from the original. ICD10 Diagnosis Term Title I Director Utility Tobacco Tobacco Disease Active Univers use [...] vaginosis vaginosis 07-31 ity of 00:00: [place] [facility] Trichomona Trichomona Disease Active U nivers l l 07-31 ity of vulvovagin vul[place]ovagin [place] it[place] it[place] [facility] Previous Previous Disease Active Overview: Un nikita 07-31 Formatt[place] ity of delivery delivery 00:00: g of this [place] as affecting affecting 00 note [facility] , , might be Branch antepartum antepartum different from the original. x7 Genital Genital Disease Active Univers warts warts 07-31 ity of 00:00: [place] [facility] Heartburn Heartburn Disease Active Uni vers 07-31 ity of 00:00: [facility] Tobacco Tobacco Disease Active Univers smoking smoking 07-31 [place] [facility] Allergies, Adverse Reactions, Alerts Allergy Allergy Status Severity Reaction(s) Onset Inactive Treating Comm ents Source Name Type Date Date Clinician NO KNOWN Drug Active Univers ALLERGIE Class ity of S [facility] Social History Social Habit Start Date Stop Date Quantity Comments Source ASSERTION 2022-07-30 University of 00:00:00 [facility] History of Cigarette Smoker Universi ty of tobacco use [facility] Exposure to 2023-03-24 2023-04-03 Not sure [facility] SARS-CoV-2 00:00:00 07:45:00 [facility] (event) [place] Alcohol intake 2023-03-28 2023-03-28 Current University of 00:00:00 00:00:00 non-drinker of [facility] alcohol (finding) [place] Tobacco use and 2023-03-26 2023-03-26 Smokeless tobacco Un iversity of exposure 00:00:00 00:00:00 non-user [facility] Tobacco Comment 2022-11-16 2022-11-16 1cigarettes/day Univ ersity of 00:00:00 00:00:00 [facility] Sex Assigned At [birth year] Universit y of 00:00:00 00:00:00 [facility] Smoking Status Start Date Stop Date Source Smokes tobacco daily 2023-03-26 00:00:00 Univers ity of [facility] Medications Ordered Filled Start Stop Current Ordering Indication Dosage Frequency Signature Comments Components Source Medication Medication Date Date Medication? Clinician (SIG) Name Name FAMOTIDINE Yes Take by [facility] ers ORAL 5-24 mouth. ity of 15:21: [address] FOLIC ACID 2022-0 Yes [id number] Take by [facility] ORAL 5-24 mouth. ity of 15:21: [address] FAMOTIDINE Yes Take by [facility] ers ORAL 5-24 mouth. ity of 15:21: [address] FOLIC ACID 2022-0 Yes [id number] Take by [facility] ORAL 5-24 mouth. ity of 15:21: [address] FAMOTIDINE 0 Yes Take by [facility] ers ORAL 5-24 mouth. ity of 15:21: [address] FOLIC ACID 2022-0 Yes [id number] Take by [facility] ORAL 5-24 mouth. ity of 15:21: [address] FAMOTIDINE Yes Take by [facility] ers ORAL 5-24 mouth. ity of 15:21: [address] FOLIC ACID 2022-0 Yes [id number] Take by [facility] ORAL 5-24 mouth. ity of 15:21: [address] FAMOTIDINE Yes Take by [facility] ers ORAL 5-24 mouth. ity of 15:21: [address] FOLIC ACID 2022-0 Yes [id number] Take by [facility] ORAL 5-24 mouth. ity of 15:21: [address] FAMOTIDINE Yes Take by [facility] ers ORAL 5-24 mouth. ity of 15:21: [address] FOLIC ACID 2022-0 Yes [id number] Take by [facility] ORAL 5-24 mouth. ity of 15:21: [address] 2022-0 Yes [id number] 1{tbl} Take 1 U nivers [id number] 5-24 tablet by ity of fum-folic 00:00: mouth in [facility] s ([facility]) 00 the Medical 27 mg iron- morning. Bran ch 1 mg folic tablet docusate Yes [id number] 200mg Take 2 Un nikita 100 mg 5-24 capsules ity of capsule 00:00: by mouth [place] [id number] once daily Medical as needed Branch for Constipati on. ferrous Yes [id number] 325mg Take 1 Uni vers sulfate 325 5-24 tablet by ity of mg (65 mg [place]:00[place] 00 the Medical tablet morning Branch and 1 tablet in the evening. ibuprofen 2022-0 Yes [id number] 600mg Take 1 U nivers 600 mg 5-24 tablet by ity of tablet 00:00: mouth [place] 00 every 6 Medical (six) Branch hours as needed (Pain). Take with food or milk. 2022-0 Yes [id number] 1{tbl} Take 1 U nivers [id number] 5-24 tablet by ity of fum-folic 00:00: [place] 00 the Medical 27 mg iron- morning. Bran ch 1 mg folic tablet docusate 2022-0 Yes [id number] 200mg Take 2 Un nikita 100 mg 5-24 capsules ity of capsule 00:00: by mouth [place] 00 once daily Medical as needed Branch for Constipati on. ferrous 2022-0 Yes [id number] 325mg Take 1 Uni vers sulfate 325 5-24 tablet by ity of mg (65 mg 00:00: [place] iron[place] 00 the Medical tablet morning Branch and 1 tablet in the evening. ibuprofen 2022-0 Yes [id number] 600mg Take 1 U nivers 600 mg 5-24 tablet by ity of tablet 00:00: mouth [place] 00 every 6 Medical (six) Branch hours as needed (Pain). Take with food or milk. 2022-0 Yes [id number] 1{tbl} Take 1 U nivers [id number] 5-24 tablet by ity of fum-folic 00:00: [place] 00 the Medical 27 mg iron- morning. Bran ch 1 mg folic tablet docusate 2022-0 Yes [id number] 200mg Take 2 Un n[place]ita 100 mg 5-24 capsules ity of capsule 00:00: by mouth [place] 00 once daily Medical as needed Branch for Constipati on. ferrous 2022-0 Yes [id number] 325mg Take 1 Uni vers sulfate 325 5-24 tablet by ity of mg (65 mg 00:00: [place] iron[place] 00 the Medical tablet morning Branch and 1 tablet in the evening. ibuprofen 2022-0 Yes [id number] 600mg Take 1 U nivers 600 mg 5-24 tablet by ity of tablet 00:00: mouth [place] 00 every 6 Medical (six) Branch hours as needed (Pain). Take with food or milk. 2022-0 Yes [id number] 1{tbl} Take 1 U nivers [id number] 5-24 tablet by ity of fum-folic 00:00: [place] 00 the Medical 27 mg iron- morning. Bran ch 1 mg folic tablet docusate 2022-0 Yes [id number] 200mg Take 2 Un n[place]ita 100 mg 5-24 capsules ity of capsule 00:00: by mouth [place] 00 once daily Medical as needed Branch for Constipati on. ferrous 2022-0 Yes [id number] 325mg Take 1 Uni vers sulfate 325 5-24 tablet by ity of mg (65 mg 00:00: mouth in [facility] iron) 00 the Medical tablet morning Branch and 1 tablet in the evening. ibuprofen 2022-0 Yes [id number] 600mg Take 1 U nivers 600 mg 5-24 tablet by ity of tablet 00:00: mouth [place] 00 every 6 Medical (six) Branch hours as needed (Pain). Take with food or milk. 2022-0 Yes [id number] 1{tbl} Take 1 U nivers [id number] 5-24 tablet by ity of fum-folic 00:00: [place] 00 the Medical 27 mg iron- morning. Bran ch 1 mg folic tablet docusate 2022-0 Yes [id number] 200mg Take 2 Un n[place]ita 100 mg 5-24 capsules ity of capsule 00:00: by mouth [place] 00 once daily Medical as needed Branch for Constipati on. ferrous 2022-0 Yes [id number] 325mg Take 1 Uni vers sulfate 325 5-24 tablet by ity of mg (65 mg 00:00: [facility] Medical tablet morning Branch and 1 tablet in the evening. ibuprofen 2022-0 Yes [id number] 600mg Take 1 U nivers 600 mg 5-24 tablet by ity of tablet 00:00: mouth [place] 00 every 6 Medical (six) Branch hours as needed (Pain). Take with food or milk. 2022-0 Yes [id number] 1{tbl} Take 1 U nivers [id number] 5-24 tablet by ity of fum-folic 00:00: mouth in [facility] s () 00 the Medical 27 mg iron- morning. Bran ch 1 mg folic tablet docusate Yes [id number] 200mg Take 2 Un nikita 100 mg 5-24 capsules ity of capsule 00:00: by mouth [place] 00 once daily Medical as needed Branch for Constipati on. ferrous Yes [id number] 325mg Take 1 Uni vers sulfate 325 5-24 tablet by ity of mg (65 mg 00:00: mouth in [facility] s iron) 00 the Medical tablet morning Branch and 1 tablet in the evening. ibuprofen Yes [id number] 600mg Take 1 U nivers 600 mg [...] 03-27 Oral, ity of sodium 14:00: DAILY, [place] (SENOKOT-S) 00 First dose Me dical 8.6-50 mg on Sun Branch per tablet 03/27/23 at 1 tablet 0900, Until Discontinu ed, Routine sennosides- 2022-0 2022- No 1{tbl} 1 tablet, Univers docusate 03-27 Oral, ity of sodium 14:00: 22:21 DAILY, [place] (SENOKOT-S) 00 :12 First dose Me dical 8.6-50 mg on Sun Branch per tablet 03/27/23 at 1 tablet 0900, Until Discontinu ed, Routine famotidine 0 Yes 20mg 20 mg, Unive rs (PEPCID AC) 03-27 Oral, BID, it y of tablet 20 01:00: [place] 00 on [facility] 03/26/23 at Branch 2000, Until Discontinu ed, Routine famotidine 2022-0 2022- No 20mg 20 mg, Univ ers (PEPCID AC) 03-27 Oral, BID, i ty of tablet 20 01:00: 22:21 [place] mg 00 :12 on [facility] 03/26/23 at Branch 2000, Until Discontinu ed, Routine ibuprofen Yes 600mg 600 mg, Univ ers (IBU) 03-26 Oral, Q6H, ity of tablet 600 23:00: First dose [place] mg 00 on [facility] 03/26/23 at [place] 1800, Until Discontinu ed, Routine ibuprofen 2022- No 600mg 600 mg, Uni vers (IBU) 03-26 Oral, Q6H, ity of tablet 600 23:00: 22:21 First dose [place] mg 00 :12 on [facility] 03/26/23 at [place] 1800, Until Discontinu ed, Routine polyethylen Yes 17g 17 g, Unive rs e glycol 03-26 Oral, ity of 3350 powder 22:00: [place]ILY[place] 17 [place] 00 First dose Medical on [facility] 03/26/23 at 1700, Until Discontinu ed, Routine polyethylen 2022- No 17g 17 g, Univ ers e glycol 03-26 Oral, ity of 3350 powder 22:00: 22:21 DAILY, [place] as 17 g 00 :12 First dose Medical on [facility] 03/26/23 at 1700, Until Discontinu ed, Routine [...] Summary: 1 tablet, Oral, Q6HPRN, Starting on [facility] 03/26/23 at 1245, Until Discontinu ed, Routine, [...] IV Push, ity of (PF)) 17:45: Q8HPRN, [place] injection 4 54 Starting Medi karen mg [...] Oral, ity of (BENADRYL) 17:45: 22:21 Q6HPRN, [facility] as tablet 25 54 :12 Starting Medica l mg on Sun03/26/23 at 1245, Until Sun03/28/23 at 1721, Routine, Sleep, Itching ondansetron 2022- No 4mg 4 mg, Slow Univers (ZOFRAN 03-26 IV Push, ity of (PF)) 17:45: 22:21 Q8HPRN, [place] injection 4 54 :12 Starting Medi karen mg on Sun03/26/23 at 1245, Until Sun03/28/23 at 1721, Routine, Nausea and Vomiting (N/V) bisacodyL 2022- No 10mg 10 mg, Unive rs (DULCOLAX) 03-26 Rectal, ity o f suppository 17:45: [facility] [place] 10 mg 54 :12 Starting Medical on Sun03/26/23 at 1245, Until Sun03/28/23 at 1721, Routine, Constipati on simethicone 2022- No 160mg 160 mg, U nivers (GAS RELIEF 03-26 Oral, ity of (SIMETHICON 17:45: 22:21 PC+HSPRN, [place] E)) 54 :12 Starting Medical chewable on Sun tablet 160 03/26/23 at mg 1245, Until Sun03/28/23 at 1721, Routine, Gas docusate 2022- No 200mg 200 mg, Univ ers (COLACE) 03-26 Oral, ity of capsule 200 17:45: 22:21 QDAILYPRN, [place] mg 54 :12 Starting Medical on Sun03/26/23 [...] of 2,000 mg in 12:11: 17:45 Piggyback, [place] NaCl 0.9% 24 :57 O.R. Medical (NS) 100 mL HOLDING Branc h MINI-BAG ONCE, Starting on Sun03/26/23 at 0711, Until Sun03/26/23 at 1245, Administer over 30 Minutes, 100 mL
Reas on for Anti-Infec tive: Surgical Prophylaxi s
Gutierrez rgical Prophylaxi s: POLL CLERK
Duration of therapy: within 24 hours of surgery sodium 2022-0 2022- No 30mL 30 mL, Univers citrate-cit 03-26 05-22 Oral, ity of jazz acid 12:11: 13:38 PRE-PROCED [place] (BICITRA) 24 :00 URE ONCE, Medic al 500-334 1 dose, Branch mg/5 mL Starting solution 30 on Mon mL 03/26/23 at 0711, Until 03/28/23 at 2359, Routine, Surgery/Pr ocedure Iron Fum & 2022-0 Yes [id number] 1{capsu Take 1 Univers P-FA-Vit B 5-05 le} capsule by ity of & C No.9 00:00: mouth in [place] ([facility]) 125 morning. Branch mg iron- 1 mg Cap Iron Fum & 2022-0 Yes [id number] 1{capsu Take 1 Univers P-FA-Vit B 5-05 le} capsule by ity of & C No.9 00:00: mouth in [place] ([facility]) 125 morning. Branch mg iron- 1 mg Cap Iron Fum & 2022-0 Yes [id number] 1{capsu Take 1 Univers P-FA-Vit B 5-05 le} capsule by ity of & C No.9 00:00: mouth in [place] ([facility]) 125 morning. Branch mg iron- 1 mg Cap Iron Fum & 2022-0 Yes [id number] 1{capsu Take 1 Univers P-FA-Vit B 5-05 le} capsule by ity of & C No.9 00:00: mouth in [place] ([facility]) 125 morning. Branch mg iron- 1 mg Cap Iron Fum & 2022-0 Yes [id number] 1{capsu Take 1 Univers P-FA-Vit B 5-05 le} capsule by ity of & C No.9 00:00: mouth in [place] ([facility]) 125 morning. Branch mg iron- 1 mg Cap Iron Fum & 2022-0 Yes [id number] 1{capsu Take 1 Univers P-FA-Vit B 5-05 le} capsule by ity of & C No.9 00:00: mouth in [place] ([facility]) 125 morning. Branch mg iron- 1 mg Cap Iron Fum & 2022-0 Yes [id number] 1{capsu Take 1 Univers P-FA-Vit B 5-05 le} capsule by ity of & C No.9 00:00: mouth in [place] ([facility] 00 the Medical [facility]) 125 morning. Branch mg iron- 1 mg Cap Iron Fum & 2022-0 Yes [id number] 1{capsu Take 1 Univers P-FA-Vit B 5-05 le} capsule by ity of & C No.9 00:00: mouth in [place] ([facility] 00 the Medical PLUS) 125 morning. Branch mg iron- 1 mg Cap Iron Fum & 2022-0 Yes [id number] 1{capsu Take 1 Univers P-FA-Vit B 5-05 le} capsule by ity of & C No.9 00:00: mouth in [place] ([facility] the Medical [facility]) 125 morning. Branch mg iron- 1 mg Cap famotidine 2022-0 Yes [id number] 20mg Take 1 Univers (PEPCID) 20 4-24 tablet by ity of mg tablet 00:00: [place] the Medical morning. Branch famotidine 2022-0 Yes [id number] 20mg Take 1 Univers (PEPCID) 20 4-24 tablet by ity of mg tablet 00:00: [place] the Medical morning. Branch famotidine 2023-0 Yes [id number] 20mg Take 1 Univers (PEPCID) 20 4-24 tablet by ity of mg tablet 00:00: [place] 00 the Medical morning. Branch famotidine 2023-0 Yes [id number] 20mg Take 1 Univers (PEPCID) 20 4-24 tablet by ity of mg tablet 00:00: [place] 00 the Medical morning. Branch famotidine 2023-0 Yes [id number] 20mg Take 1 Univers (PEPCID) 20 4-24 tablet by ity of mg tablet 00:00: [place] 00 the Medical morning. Branch famotidine 2023-0 Yes [id number] 20mg Take 1 Univers (PEPCID) 20 4-24 tablet by ity of mg tablet 00:00: [place] 00 the Medical morning. Branch famotidine 2023-0 Yes [id number] 20mg Take 1 Univers (PEPCID) 20 4-24 tablet by ity of mg tablet 00:00: [place] 00 the Medical morning. Branch famotidine 2023-0 Yes [id number] 20mg Take 1 Univers (PEPCID) 20 4-24 tablet by ity of mg tablet 00:00: [place] 00 the Medical morning. Branch famotidine 2023-0 Yes [id number] 20mg Take 1 Univers (PEPCID) 20 4-24 tablet by ity of mg tablet 00:00: [place] 00 the Medical morning. Branch famotidine 2023-0 Yes [id number] 20mg Take 1 Univers (PEPCID) 20 4-24 tablet by ity of mg tablet 00:00: [place] 00 the Medical morning. Branch FAMOTIDINE 3-0 Yes Take by Univ ers ORAL 3-28 mouth. ity of 17:41: [address] Branch FOLIC ACID 3-0 Yes [id number] Take by Univers ORAL 3-28 mouth. ity of 17:41: [address] Branch FAMOTIDINE 3-0 Yes Take by Univ ers ORAL 3-28 mouth. ity of 17:41: [address] Branch FOLIC ACID 3-0 Yes [id number] Take by Univers ORAL 3-28 mouth. ity of 17:41: [place] [address] Medical Branch FAMOTIDINE 3-0 Yes Take by Univ ers ORAL 3-28 mouth. ity of 17:41: [address] Branch FOLIC ACID 3-0 Yes [id number] Take by Univers ORAL 3-28 mouth. ity of 17:41: [place] [address] Medical Branch FAMOTIDINE 3-0 Yes Take by Univ ers ORAL 3-28 mouth. ity of 17:41: [address] Branch FOLIC ACID 2023-0 Yes [id number] Take by Univers ORAL 3-28 mouth. ity of 17:41: [place] [address] Medical Branch FAMOTIDINE 3-0 Yes Take by Univ ers ORAL 3-28 mouth. ity of 17:41: [place] [address] Medical Branch FOLIC ACID 2023-0 Yes [id number] Take by Univers ORAL 3-28 mouth. ity of 17:41: [address] Branch FAMOTIDINE 3-0 Yes Take by Univ ers ORAL 3-28 mouth. ity of 17:41: [place] 48 Medical Branch FOLIC ACID 2022-0 Yes [id number] Take by Univers ORAL 3-28 mouth. ity of 17:41: [place] [address] Medical Branch FAMOTIDINE 2022-0 Yes Take by Univ ers ORAL 3-28 mouth. ity of 17:41: [place] [address] Medical Branch FOLIC ACID 2022-0 Yes [id number] Take by Univers ORAL 3-28 mouth. ity of 17:41: [place] [address] Medical Branch FAMOTIDINE 2022-0 Yes Take by Univ ers ORAL 3-28 mouth. ity of 17:41: [place] [address] Medical Branch FOLIC ACID 2022-0 Yes [id number] Take by Univers ORAL 3-28 mouth. ity of 17:41: [place] [address] Medical Branch FAMOTIDINE 2022-0 Yes Take by Univ ers ORAL 3-28 mouth. ity of 17:41: [place] [address] Medical Branch FOLIC ACID 2022-0 Yes [id number] Take by Univers ORAL 3-28 mouth. ity of 17:41: [place] [address] Medical Branch FAMOTIDINE 2022-0 Yes Take by Univ ers ORAL 3-28 mouth. ity of 17:41: [place] [address] Medical Branch FOLIC ACID 2022-0 Yes [id number] Take by Univers ORAL 3-28 mouth. ity of 17:41: [place] [address] Medical Branch FAMOTIDINE 2022-0 Yes Take by Univ ers ORAL 3-28 mouth. ity of 17:41: [place] [address] Medical Branch FOLIC ACID 2022-0 Yes [id number] Take by Univers ORAL 3-28 mouth. ity of 17:41: [place] [address] Medical Branch FAMOTIDINE 2022-0 Yes Take by Univ ers ORAL 3-28 mouth. ity of 17:41: [place] [address] Medical Branch FOLIC ACID 2022-0 Yes [id number] Take by Univers ORAL 3-28 mouth. ity of 17:41: [place] [address] Medical Branch FAMOTIDINE 2022-0 Yes Take by Univ ers ORAL 3-28 mouth. ity of 17:41: [place] [address] Medical Branch FOLIC ACID 2022-0 Yes [id number] Take by Univers ORAL 3-28 mouth. ity of 17:41: [place] [address] Medical Branch FAMOTIDINE 2022-0 Yes Take by Univ ers ORAL 3-28 mouth. ity of 17:41: [place] [address] Medical Branch FOLIC ACID 2022-0 Yes [id number] Take by Univers ORAL 3-28 mouth. ity of 17:41: [place] 48 Medical Branch FAMOTIDINE 0 Yes Take by Univ ers ORAL 3-28 mouth. ity of 17:41: [address] FOLIC ACID 2022-0 Yes [id number] Take by Univers ORAL 3-28 mouth. ity of 17:41: [address] FAMOTIDINE 2022-0 Yes Take by Uni vers ORAL 3-28 mouth. ity of 17:41: [address] FOLIC ACID 2022-0 Yes [id number] Take by Univers ORAL 3-28 mouth. ity of 17:41: [address] FAMOTIDINE 2022-0 Yes Take by Univ ers ORAL 3-28 mouth. ity of 17:41: [address] FOLIC ACID 2022-0 Yes [id number] Take by Univers ORAL 3-28 mouth. ity of 17:41: [address] FAMOTIDINE 2022-0 Yes Take by Univ ers ORAL 3-28 mouth. ity of 17:41: [address] FOLIC ACID 2022-0 Yes [id number] Take by Univers ORAL 3-28 mouth. ity of 17:41: [address] FAMOTIDINE 2022-0 Yes Take by Univ ers ORAL 3-28 mouth. ity of 17:41: [address] FOLIC ACID 2022-0 Yes [id number] Take by Univers ORAL 3-28 mouth. ity of 17:41: [address] FAMOTIDINE 2022-0 Yes Take by [facility] ers ORAL 3-28 mouth. ity of 17:41: [address] FOLIC ACID 2022-0 Yes [id number] Take by [facility] ORAL 3-28 mouth. ity of 17:41: [address] FAMOTIDINE 2022-0 Yes Take by [facility] ers ORAL 3-28 mouth. ity of 10:22: [address] FOLIC ACID 2022-0 Yes [id number] Take by [facility] ORAL 3-28 mouth. ity of 10:22: [address] metroNIDAZO 2022-0 2022- No 500mg 500 [...] ed, Routine, Constipati on metroNIDAZO 0 Yes [id number] 500mg Take 1 Univers LE 500 mg 3-28 tablet by ity o f tablet 00:00: mouth [place] 00 every 12 Medical (twelve) Branch hours. metroNIDAZO 2022-0 Yes [id number] 500mg Take 1 Univers LE 500 mg 3-28 tablet by ity o f tablet 00:00: mouth [place] 00 every 12 Medical (twelve) Branch hours. metroNIDAZO 2022-0 Yes [id number] 500mg Take 1 Univers LE 500 mg 3-28 tablet by ity o f tablet 00:00: mouth [place] 00 every 12 Medical (twelve) Branch hours. metroNIDAZO 2022-0 Yes [id number] 500mg Take 1 Univers LE 500 mg 3-28 tablet by ity o f tablet 00:00: mouth [place] 00 every 12 Medical (twelve) Branch hours. metroNIDAZO 2022-0 Yes [id number] 500mg Take 1 Univers LE 500 mg 3-28 tablet by ity o f tablet 00:00: mouth [place] 00 every 12 Medical (twelve) Branch hours. metroNIDAZO 2023-0 Yes [id number] 500mg Take 1 Univers LE 500 mg 3-28 tablet by ity o f tablet 00:00: mouth [place] 00 every 12 Medical (twelve) Branch hours. metroNIDAZO 2023-0 Yes [id number] 500mg Take 1 Univers LE 500 mg 3-28 tablet by ity o f tablet 00:00: mouth [place] 00 every 12 Medical (twelve) Branch hours. metroNIDAZO 2023-0 Yes [id number] 500mg Take 1 Univers LE 500 mg 3-28 tablet by ity o f tablet 00:00: mouth [place] 00 every 12 Medical (twelve) Branch hours. metroNIDAZO 2023-0 Yes [id number] 500mg Take 1 Univers LE 500 mg 3-28 tablet by ity o f tablet 00:00: mouth [place] 00 every 12 Medical (twelve) Branch hours. metroNIDAZO 3-0 Yes [id number] 500mg Take 1 Univers LE 500 mg 3-28 tablet by ity o f tablet 00:00: mouth [place] 00 every 12 Medical (twelve) Branch hours. metroNIDAZO 3-0 Yes [id number] 500mg Take 1 Univers LE 500 mg 3-28 tablet by ity o f tablet 00:00: mouth [place] 00 every 12 Medical (twelve) Branch hours. metroNIDAZO 3-0 Yes [id number] 500mg Take 1 Univers LE 500 mg 3-28 tablet by ity o f tablet 00:00: mouth [place] 00 every 12 Medical (twelve) Branch hours. metroNIDAZO 3-0 Yes [id number] 500mg Take 1 Univers LE 500 mg 3-28 tablet by ity o f tablet 00:00: mouth [place] 00 every 12 Medical (twelve) Branch hours. metroNIDAZO 2023-0 Yes [id number] 500mg Take 1 [facility] 500 mg 3-28 tablet by [facility] o f tablet 00:00: mouth [place] 00 every 12 Medical (twelve) Branch hours. metroNIDAZO 2023-0 Yes [id number] 500mg Take 1 [facility] 500 mg 3-28 tablet by [facility] o f tablet 00:00: mouth [place] 00 every 12 Medical (twelve) Branch hours. metroNIDAZO 2023-0 Yes [id number] 500mg Take 1 [facility] 500 mg 3-28 tablet by [facility] o f tablet 00:00: mouth [place] 00 every 12 Medical (twelve) Branch hours. metroNIDAZO 2023-0 Yes [id number] 500mg Take 1 [facility] 500 mg 3-28 tablet by [facility] o f tablet 00:00: mouth [place] 00 every 12 Medical (twelve) Branch hours. metroNIDAZO 2023-0 Yes [id number] 500mg Take 1 [facility] 500 mg 3-28 tablet by [facility] o f tablet 00:00: mouth [place] 00 every 12 Medical (twelve) Branch hours. metroNIDAZO 2023-0 Yes [id number] 500mg Take 1 [facility] 500 mg 3-28 tablet by [facility] o f tablet 00:00: mouth [place] 00 every 12 Medical (twelve) Branch hours. metroNIDAZO 2023-0 Yes [id number] 500mg Take 1 [facility] 500 mg 3-28 tablet by [facility] o f tablet 00:00: mouth [place] 00 every 12 Medical (twelve) Branch hours. metroNIDAZO 3-0 Yes [id number] 500mg Take 1 [facility] 500 mg 3-28 tablet by [facility] o f tablet 00:00: mouth [place] 00 every 12 Medical (twelve) Branch hours. metroNIDAZO 3-0 2023- No [id number] 500mg Take 1 [facility] 500 mg 3-28 05-24 tablet by [facility] of tablet 00:00: 00:00 mouth [place] 00 :00 every 12 Medical (twelve) Branch hours. metroNIDAZO 3-0 3- No [id number] 500mg Take 1 [facility] 500 mg 3-28 05-24 tablet by it[facility] of tablet 00:00: 00:00 mouth [place] 00 :00 every 12 Medical (twelve) Branch hours. PNV 67-iron 2022-0 Yes [id number] 1{each} Take 1 [facility] ps-folate 2-27 Each by [facility] of no.1-dha 00:00: mouth in [place] (VITAFOL 00 the Medical ULTRA) 29 morning. Branch mg iron- 1 mg-200 mg Cap PNV 67-iron 2022-0 Yes [id number] 1{each} Take 1 [facility] ps-folate 2-27 Each by ity of no.1-dha 00:00: mouth in [place] (VITAFOL 00 the Medical ULTRA) 29 morning. Branch mg iron- 1 mg-200 mg Cap PNV 67-iron 2022-0 Yes [id number] 1{each} Take 1 [facility] ps-folate 2-27 Each by [facility] of no.1-dha 00:00: mouth in [place] (VITAFOL 00 the Medical ULTRA) 29 morning. Branch mg iron- 1 mg-200 mg Cap PNV 67-iron 2023-0 Yes [id number] 1{each} Take 1 [facility] ps-folate 2-27 Each by [facility] of no.1-dha 00:00: mouth in [place] (VITAFOL 00 the Medical ULTRA) 29 morning. Branch mg iron- 1 mg-200 mg Cap PNV 67-iron 2023-0 Yes [id number] 1{each} Take 1 [facility] ps-folate 2-27 Each by [facility] of no.1-dha 00:00: mouth in [place] (VITAFOL 00 the Medical ULTRA) 29 morning. Branch mg iron- 1 mg-200 mg Cap PNV 67-iron 2023-0 Yes [id number] 1{each} Take 1 [facility] ps-folate 2-27 Each by [facility] of no.1-dha 00:00: mouth in [place] (VITAFOL 00 the Medical ULTRA) 29 morning. Branch mg iron- 1 mg-200 mg Cap PNV 67-iron 2023-0 Yes [id number] 1{each} Take 1 [facility] ps-folate 2-27 Each by [facility]y of no.1-dha 00:00: mouth in [place] (VITAFOL 00 the Medical ULTRA) 29 morning. Branch mg iron- 1 mg-200 mg Cap PNV 67-iron 2023-0 Yes [id number] 1{each} Take 1 [facility] ps-folate 2-27 Each by [facility] of no.1-dha 00:00: mouth in [place] (VITAFOL 00 the Medical ULTRA) 29 morning. Branch mg iron- 1 mg-200 mg Cap PNV 67-iron 2023-0 Yes [id number] 1{each} Take 1 [facility] ps-folate 2-27 Each by [facility] of no.1-dha 00:00: mouth in [place] (VITAFOL 00 the Medical ULTRA) 29 morning. Branch mg iron- 1 mg-200 mg Cap PNV 67-iron 2023-0 Yes [id number] 1{each} Take 1 [facility] ps-folate 2-27 Each by ity of no.1-dha 00:00: mouth in [place] (VITAFOL 00 the Medical ULTRA) 29 morning. Branch mg iron- 1 mg-200 mg Cap PNV 67-iron 2023-0 Yes [id number] 1{each} Take 1 [facility] ps-folate 2-27 Each by [facility] of no.1-dha 00:00: mouth in [place] (VITAFOL 00 the Medical ULTRA) 29 morning. Branch mg iron- 1 mg-200 mg Cap PNV 67-iron 2023-0 Yes [id number] 1{each} Take 1 [facility] ps-folate 2-27 Each by [facility] of no.1-dha 00:00: mouth in [place] (VITAFOL 00 the Medical ULTRA) 29 morning. Branch mg iron- 1 mg-200 mg Cap PNV 67-iron 2023-0 Yes [id number] 1{each} Take 1 [facility] ps-folate 2-27 Each by ity of no.1-dha 00:00: mouth in [place] (VITAFOL 00 the Medical ULTRA) 29 morning. Branch mg iron- 1 mg-200 mg Cap PNV 67-iron 2023-0 Yes [id number] 1{each} Take 1 [facility] ps-folate 2-27 Each by [facility] of no.1-dha 00:00: mouth in [place] (VITAFOL 00 the Medical ULTRA) 29 morning. Branch mg iron- 1 mg-200 mg Cap PNV 67-iron 2023-0 Yes [id number] 1{each} Take 1 [facility] ps-folate 2-27 Each by [facility] of no.1-dha 00:00: mouth in [place] (VITAFOL the Medical ULTRA) 29 morning. Branch mg iron- 1 mg-200 mg Cap PNV 67-iron 2023-0 Yes [id number] 1{each} Take 1 [facility] ps-folate 2-27 Each by [facility] of no.1-dha 00:00: mouth in [place] (VITAFOL 00 the Medical ULTRA) 29 morning. Branch mg iron- 1 mg-200 mg Cap PNV 67-iron 2023-0 Yes [id number] 1{each} Take 1 [facility] ps-folate 2-27 Each by [facility]y of no.1-dha 00:00: mouth in [place] (VITAFOL 00 the Medical ULTRA) 29 morning. Branch mg iron- 1 mg-200 mg Cap PNV 67-iron 2023-0 Yes [id number] 1{each} Take 1 [facility] ps-folate 2-27 Each by [facility] of no.1-dha 00:00: mouth in [place] (VITAFOL 00 the Medical ULTRA) 29 morning. Branch mg iron- 1 mg-200 mg Cap PNV 67-iron 2023-0 Yes [id number] 1{each} Take 1 [facility] ps-folate 2-27 Each by [facility] of no.1-dha 00:00: mouth in [place] (VITAFOL 00 the Medical ULTRA) 29 morning. Branch mg iron- 1 mg-200 mg Cap PNV 67-iron 2023-0 Yes [id number] 1{each} Take 1 [facility] ps-folate 2-27 Each by [facility]y of no.1-dha 00:00: mouth in [place] (VITAFOL 00 the Medical ULTRA) 29 morning. Branch mg iron- 1 mg-200 mg Cap PNV 67-iron 2023-0 Yes [id number] 1{each} Take 1 [facility] ps-folate 2-27 Each by [facility]y of no.1-dha 00:00: mouth in [place] (VITAFOL 00 the Medical ULTRA) 29 morning. Branch mg iron- 1 mg-200 mg Cap PNV 67-iron 2023-0 Yes [id number] 1{each} Take 1 [facility] ps-folate 2-27 Each by [facility] of no.1-dha 00:00: mouth in [place] (VITAFOL 00 the Medical ULTRA) 29 morning. Branch mg iron- 1 mg-200 mg Cap PNV 67-iron 2023-0 Yes [id number] 1{each} Take 1 [facility] ps-folate 2-27 Each by ity of no.1-dha 00:00: mouth in [place] (VITAFOL 00 the Medical ULTRA) 29 morning. Branch mg iron- 1 mg-200 mg Cap PNV 67-iron 2023-0 Yes [id number] 1{each} Take 1 [facility] ps-folate 2-27 Each by ity of no.1-dha 00:00: mouth in [place] (VITAFOL 00 the Medical ULTRA) 29 morning. Branch mg iron- 1 mg-200 mg Cap PNV 67-iron 2023-0 Yes [id number] 1{each} Take 1 [facility] ps-folate 2-27 Each by [facility]y of no.1-dha 00:00: mouth in [place] (VITAFOL 00 the Medical ULTRA) 29 morning. Branch mg iron- 1 mg-200 mg Cap PNV 67-iron 2023-0 Yes [id number] 1{each} Take 1 [facility] ps-folate 2-27 Each by [facility] of no.1-dha 00:00: mouth in [place] (VITAFOL 00 the Medical ULTRA) 29 morning. Branch mg iron- 1 mg-200 mg Cap PNV 67-iron 2023-0 Yes [id number] 1{each} Take 1 [facility] ps-folate 2-27 Each by ity of no.1-dha 00:00: mouth in [place] (VITAFOL 00 the Medical ULTRA) 29 morning. Branch mg iron- 1 mg-200 mg Cap PNV 67-iron 2023-0 Yes [id number] 1{each} Take 1 [facility] ps-folate 2-27 Each by ity of no.1-dha 00:00: mouth in [place] (VITAFOL 00 the Medical ULTRA) 29 morning. Branch mg iron- 1 mg-200 mg Cap PNV 67-iron 2023-0 Yes [id number] 1{each} Take 1 [facility] ps-folate 2-27 Each by [facility] of no.1-dha 00:00: mouth in [place] (VITAFOL 00 the Medical ULTRA) 29 morning. Branch mg iron- 1 mg-200 mg Cap PNV 67-iron 2023-0 Yes [id number] 1{each} Take 1 [facility] ps-folate 2-27 Each by ity of no.1-dha 00:00: mouth in [place] (VITAFOL 00 the Medical ULTRA) 29 morning. Branch mg iron- 1 mg-200 mg Cap PNV 67-iron 2023-0 Yes [id number] 1{each} Take 1 [facility] ps-folate 2-27 Each by ity of no.1-dha 00:00: mouth in [place] (VITAFOL 00 the Medical ULTRA) 29 morning. Branch mg iron- 1 mg-200 mg Cap PNV 67-iron 2023-0 Yes [id number] 1{each} Take 1 [facility] ps-folate 2-27 Each by ity of no.1-dha 00:00: mouth in [place] (VITAFOL 00 the Medical ULTRA) 29 morning. Branch mg iron- 1 mg-200 mg Cap PNV 67-iron 2023-0 Yes [id number] 1{each} Take 1 [facility] ps-folate 2-27 Each by ity of no.1-dha 00:00: mouth in [place] (VITAFOL 00 the Medical ULTRA) 29 morning. Branch mg iron- 1 mg-200 mg Cap PNV 67-iron 2023-0 Yes [id number] 1{each} Take 1 [facility] ps-folate 2-27 Each by ity of no.1-dha 00:00: mouth in [place] (VITAFOL 00 the Medical ULTRA) 29 morning. Branch mg iron- 1 mg-200 mg Cap PNV 67-iron 2023-0 Yes [id number] 1{each} Take 1 [facility] ps-folate 2-27 Each by ity of no.1-dha 00:00: mouth in [place] (VITAFOL 00 the Medical ULTRA) 29 morning. Branch mg iron- 1 mg-200 mg Cap PNV 67-iron 2023-0 Yes [id number] 1{each} Take 1 [facility] ps-folate 2-27 Each by ity of no.1-dha 00:00: mouth in [place] (VITAFOL 00 the Medical ULTRA) 29 morning. Branch mg iron- 1 mg-200 mg Cap PNV 67-iron 2023-0 Yes [id number] 1{each} Take 1 [facility] ps-folate 2-27 Each by ity of no.1-dha 00:00: mouth in [place] (VITAFOL 00 the Medical ULTRA) 29 morning. Branch mg iron- 1 mg-200 mg Cap PNV 67-iron 3-0 Yes [id number] 1{each} Take 1 [facility] ps-folate 2-27 Each by ity of no.1-dha 00:00: mouth in [place] (VITAFOL 00 the Medical ULTRA) 29 morning. Branch mg iron- 1 mg-200 mg Cap PNV 67-iron 3-0 Yes [id number] 1{each} Take 1 [facility] ps-folate 2-27 Each by ity of no.1-dha 00:00: mouth in [place] (VITAFOL 00 the Medical ULTRA) 29 morning. Branch mg iron- 1 mg-200 mg Cap PNV 67-iron 3-0 Yes [id number] 1{each} Take 1 [facility] ps-folate 2-27 Each by ity of no.1-dha 00:00: mouth in [place] (VITAFOL 00 the Medical ULTRA) 29 morning. Branch mg iron- 1 mg-200 mg Cap proMETHazin 3-0 Yes [id number] 25mg Take 1 [facility] e 25 mg 2-14 tablet by ity of tablet 00:00: mouth [place] 00 every 4 Medical (four) Branch hours as needed for Nausea and Vomiting (N/V). proMETHazin 3-0 Yes [id number] 25mg Take 1 [facility] e 25 mg 2-14 tablet by ity of tablet 00:00: mouth [place] 00 every 4 Medical (four) Branch hours as needed for Nausea and Vomiting (N/V). proMETHazin 2023-0 Yes [id number] 25mg Take 1 [facility] e 25 mg 2-14 tablet by ity of tablet 00:00: mouth [place] 00 every 4 Medical (four) Branch hours as needed for Nausea and Vomiting (N/V). proMETHazin 2023-0 Yes [id number] 25mg Take 1 [facility] e 25 mg 2-14 tablet by ity of tablet 00:00: mouth [place] 00 every 4 Medical (four) Branch hours as needed for Nausea and Vomiting (N/V). PNV 67-iron 2022-0 Yes [id number] 1{each} Take 1 [facility] ps-folate 2-14 Each by ity of no.1-dha 00:00: mouth [place] (VITAFOL 00 daily. Medical ULTRA) 29 Branch mg iron- 1 mg-200 mg Cap proMETHazin 3-0 Yes [id number] 25mg Take 1 [facility] e 25 mg 2-14 tablet by ity of tablet 00:00: mouth [place] 00 every 4 Medical (four) Branch hours as needed for Nausea and Vomiting (N/V). PNV 67-iron 3-0 Yes [id number] 1{each} Take 1 [facility] ps-folate 2-14 Each by ity of no.1-dha 00:00: mouth [place] (VITAFOL 00 daily. Medical ULTRA) 29 Branch mg iron- 1 mg-200 mg Cap proMETHazin 3-0 Yes [id number] 25mg Take 1 [facility] e 25 mg 2-14 tablet by ity of tablet 00:00: mouth [place] 00 every 4 Medical (four) Branch hours as needed for Nausea and Vomiting (N/V). PNV 67-iron 2023-0 Yes [id number] 1{each} Take 1 [facility] ps-folate 2-14 Each by ity of no.1-dha 00:00: mouth [place] (VITAFOL 00 daily. Medical ULTRA) 29 Branch mg iron- 1 mg-200 mg Cap proMETHazin 3-0 Yes [id number] 25mg Take 1 [facility] e 25 mg 2-14 tablet by ity of tablet 00:00: mouth [place] 00 every 4 Medical (four) Branch hours as needed for Nausea and Vomiting (N/V). proMETHazin 2023-0 Yes [id number] 25mg Take 1 [facility] e 25 mg 2-14 tablet by ity of tablet 00:00: mouth [place] 00 every 4 Medical (four) Branch hours as needed for Nausea and Vomiting (N/V). proMETHazin 2023-0 Yes [id number] 25mg Take 1 [facility] e 25 mg 2-14 tablet by ity of tablet 00:00: mouth [place] 00 every 4 Medical (four) Branch hours as needed for Nausea and Vomiting (N/V). proMETHazin 2023-0 Yes [id number] 25mg Take 1 [facility] e 25 mg 2-14 tablet by ity of tablet 00:00: mouth [place] 00 every 4 Medical (four) Branch hours as needed for Nausea and Vomiting (N/V). proMETHazin 2023-0 Yes [id number] 25mg Take 1 [facility] e 25 mg 2-14 tablet by ity of tablet 00:00: mouth [place] 00 every 4 Medical (four) Branch hours as needed for Nausea and Vomiting (N/V). proMETHazin 2023-0 Yes [id number] 25mg Take 1 [facility] e 25 mg 2-14 tablet by ity of tablet 00:00: mouth [place] 00 every 4 Medical (four) Branch hours as needed for Nausea and Vomiting (N/V). proMETHazin 2023-0 Yes [id number] 25mg Take 1 [facility] e 25 mg 2-14 tablet by ity of tablet 00:00: mouth [place] 00 every 4 Medical (four) Branch hours as needed for Nausea and Vomiting (N/V). proMETHazin 2023-0 Yes [id number] 25mg Take 1 [facility] e 25 mg 2-14 tablet by ity of tablet 00:00: mouth [place] 00 every 4 Medical (four) Branch hours as needed for Nausea and Vomiting (N/V). proMETHazin 2023-0 Yes [id number] 25mg Take 1 [facility] e 25 mg 2-14 tablet by ity of tablet 00:00: mouth [place] 00 every 4 Medical (four) Branch hours as needed for Nausea and Vomiting (N/V). proMETHazin 2023-0 Yes [id number] 25mg Take 1 [facility] e 25 mg 2-14 tablet by ity of tablet 00:00: mouth [place] 00 every 4 Medical (four) Branch hours as needed for Nausea and Vomiting (N/V). proMETHazin 2023-0 Yes [id number] 25mg Take 1 [facility] e 25 mg 2-14 tablet by ity of tablet 00:00: mouth [place] 00 every 4 Medical (four) Branch hours as needed for Nausea and Vomiting (N/V). proMETHazin 2023-0 Yes [id number] 25mg Take 1 [facility] e 25 mg 2-14 tablet by ity of tablet 00:00: mouth [place] 00 every 4 Medical (four) Branch hours as needed for Nausea and Vomiting (N/V). proMETHazin 2023-0 Yes [id number] 25mg Take 1 [facility] e 25 mg 2-14 tablet by ity of tablet 00:00: mouth [place] 00 every 4 Medical (four) Branch hours as needed for Nausea and Vomiting (N/V). proMETHazin 2023-0 Yes [id number] 25mg Take 1 [facility] e 25 mg 2-14 tablet by ity of tablet 00:00: mouth [place] 00 every 4 Medical (four) Branch hours as needed for Nausea and Vomiting (N/V). proMETHazin 2023-0 Yes [id number] 25mg Take 1 [facility] e 25 mg 2-14 tablet by ity of tablet 00:00: mouth [place] 00 every 4 Medical (four) Branch hours as needed for Nausea and Vomiting (N/V). proMETHazin 2023-0 Yes [id number] 25mg Take 1 [facility] e 25 mg 2-14 tablet by ity of tablet 00:00: mouth [place] 00 every 4 Medical (four) Branch hours as needed for Nausea and Vomiting (N/V). proMETHazin 2023-0 Yes [id number] 25mg Take 1 [facility] e 25 mg 2-14 tablet by ity of tablet 00:00: mouth [place] 00 every 4 Medical (four) Branch hours as needed for Nausea and Vomiting (N/V). proMETHazin 2023-0 Yes [id number] 25mg Take 1 [facility] e 25 mg 2-14 tablet by ity of tablet 00:00: mouth [place] 00 every 4 Medical (four) Branch hours as needed for Nausea and Vomiting (N/V). proMETHazin 2023-0 Yes [id number] 25mg Take 1 [facility] e 25 mg 2-14 tablet by ity of tablet 00:00: mouth [place] 00 every 4 Medical (four) Branch hours as needed for Nausea and Vomiting (N/V). proMETHazin 2023-0 Yes [id number] 25mg Take 1 [facility] e 25 mg 2-14 tablet by ity of tablet 00:00: mouth [place] 00 every 4 Medical (four) Branch hours as needed for Nausea and Vomiting (N/V). proMETHazin 2023-0 Yes [id number] 25mg Take 1 [facility] e 25 mg 2-14 tablet by ity of tablet 00:00: mouth [place] 00 every 4 Medical (four) Branch hours as needed for Nausea and Vomiting (N/V). proMETHazin 2023-0 Yes [id number] 25mg Take 1 [facility] e 25 mg 2-14 tablet by ity of tablet 00:00: mouth [place] 00 every 4 Medical (four) Branch hours as needed for Nausea and Vomiting (N/V). proMETHazin 2023-0 Yes [id number] 25mg Take 1 [facility] e 25 mg 2-14 tablet by ity of tablet 00:00: mouth [place] 00 every 4 Medical (four) Branch hours as needed for Nausea and Vomiting (N/V). proMETHazin 2023-0 Yes [id number] 25mg Take 1 [facility] e 25 mg 2-14 tablet by ity of tablet 00:00: mouth [place] 00 every 4 Medical (four) Branch hours as needed for Nausea and Vomiting (N/V). proMETHazin 2023-0 Yes [id number] 25mg Take 1 [facility] e 25 mg 2-14 tablet by ity of tablet 00:00: mouth [place] 00 every 4 Medical (four) Branch hours as needed for Nausea and Vomiting (N/V). proMETHazin 2023-0 Yes [id number] 25mg Take 1 [facility] e 25 mg 2-14 tablet by ity of tablet 00:00: mouth [place] 00 every 4 Medical (four) Branch hours as needed for Nausea and Vomiting (N/V). proMETHazin 2023-0 Yes [id number] 25mg Take 1 [facility] e 25 mg 2-14 tablet by ity of tablet 00:00: mouth [place] 00 every 4 Medical (four) Branch hours as needed for Nausea and Vomiting (N/V). proMETHazin 2023-0 Yes [id number] 25mg Take 1 [facility] e 25 mg 2-14 tablet by ity of tablet 00:00: mouth [place] 00 every 4 Medical (four) Branch hours as needed for Nausea and Vomiting (N/V). proMETHazin 2023-0 Yes [id number] 25mg Take 1 [facility] e 25 mg 2-14 tablet by ity of tablet 00:00: mouth [place] 00 every 4 Medical (four) Branch hours as needed for Nausea and Vomiting (N/V). proMETHazin 2023-0 Yes [id number] 25mg Take 1 [facility] e 25 mg 2-14 tablet by ity of tablet 00:00: mouth [place] 00 every 4 Medical (four) Branch hours as needed for Nausea and Vomiting (N/V). proMETHazin 2023-0 Yes [id number] 25mg Take 1 [facility] e 25 mg 2-14 tablet by ity of tablet 00:00: mouth [place] 00 every 4 Medical (four) Branch hours as needed for Nausea and Vomiting (N/V). proMETHazin 2023-0 Yes [id number] 25mg Take 1 [facility] e 25 mg 2-14 tablet by ity of tablet 00:00: mouth [place] 00 every 4 Medical (four) Branch hours as needed for Nausea and Vomiting (N/V). proMETHazin 2023-0 Yes [id number] 25mg Take 1 [facility] e 25 mg 2-14 tablet by ity of tablet 00:00: mouth [place] 00 every 4 Medical (four) Branch hours as needed for Nausea and Vomiting (N/V). proMETHazin 2023-0 Yes [id number] 25mg Take 1 [facility] e 25 mg 2-14 tablet by ity of tablet 00:00: mouth [place] 00 every 4 Medical (four) Branch hours as needed for Nausea and Vomiting (N/V). proMETHazin 2023-0 Yes [id number] 25mg Take 1 [facility] e 25 mg 2-14 tablet by ity of tablet 00:00: mouth [place] 00 every 4 Medical (four) Branch hours as needed for Nausea and Vomiting (N/V). proMETHazin 2023-0 Yes [id number] 25mg Take 1 [facility] e 25 mg 2-14 tablet by ity of tablet 00:00: mouth [place] 00 every 4 Medical (four) Branch hours as needed for Nausea and Vomiting (N/V). proMETHazin 2023-0 Yes [id number] 25mg Take 1 [facility] e 25 mg 2-14 tablet by ity of tablet 00:00: mouth [place] 00 every 4 Medical (four) Branch hours as needed for Nausea and Vomiting (N/V). proMETHazin 2022-0 Yes [id number] 25mg Take 1 [facility] e 25 mg 2-14 tablet by ity of tablet 00:00: mouth [place] 00 every 4 Medical (four) Branch hours as needed for Nausea and Vomiting (N/V). PNV 67-iron 2022-0 2022- No [id number] 1{each} Take 1 [facility] ps-folate 2-14 - Each by ity of no.1-dha 00:00: 00:00 mouth [place] (VITAFOL 00 :00 daily. Medical ULTRA) 29 Branch mg iron- 1 mg-200 mg Cap PNV 67-iron 2022-0 2022- No [id number] 1{each} Take 1 [facility] ps-folate 2-14 - Each by ity of no.1-dha 00:00: 00:00 mouth [place] (VITAFOL 00 :00 daily. Medical ULTRA) 29 Branch mg iron- 1 mg-200 mg Cap PNV 67-iron 2022-0 2022- No [id number] 1{each} Take 1 [facility] ps-folate 2-14 - Each by ity of no.1-dha 00:00: 00:00 mouth [place] (VITAFOL 00 :00 daily. Medical ULTRA) 29 Branch mg iron- 1 mg-200 mg Cap PNV 67-iron 2022-0 2022- No [id number] 1{each} Take 1 [facility] ps-folate 2-14 - Each by ity of no.1-dha 00:00: 00:00 mouth [place] (VITAFOL 00 :00 daily. Medical ULTRA) 29 Branch mg iron- 1 mg-200 mg Cap PNV 67-iron 2022-0 2022- No [id number] 1{each} Take 1 [facility] ps-folate 2-14 - Each by ity of no.1-dha 00:00: 00:00 mouth [place] (VITAFOL 00 :00 daily. Medical ULTRA) 29 Branch mg iron- 1 mg-200 mg Cap FAMOTIDINE 2022-0 Yes Take by [facility] ers ORAL 1-12 mouth. ity of 14:58: Medical Branch FOLIC ACID 2022-0 Yes [id number] Take by Univers ORAL 1-12 mouth. ity of 14:58: Medical Branch FAMOTIDINE 2022-0 Yes Take by [facility] ers ORAL 1-12 mouth. ity of 14:58: [place] 27 Medical Branch FOLIC ACID 3-0 Yes [id number] Take by Univers ORAL 1-12 mouth. ity of 14:58: [address] FAMOTIDINE 2022-0 Yes Take by Univ ers ORAL 1-12 mouth. ity of 14:58: [address] FOLIC ACID 2022-0 Yes [id number] Take by Univers ORAL 1-12 mouth. ity of 14:58: [address] FAMOTIDINE 2022-0 Yes Take by Univ ers ORAL 1-12 mouth. ity of 14:58: [address] Branch FOLIC ACID 2022-0 Yes [id number] Take by Univers ORAL 1-12 mouth. ity of 14:58: [place] [address] Medical [place] FAMOTIDINE 2022-0 Yes Take by Univ ers ORAL 1-12 mouth. ity of 14:58: [address] FOLIC ACID 2022-0 Yes [id number] Take by Univers ORAL 1-12 mouth. ity of 14:58: [address] FAMOTIDINE 2022-0 Yes Take by Univ ers ORAL 1-12 mouth. ity of 14:58: [address] FOLIC ACID 2022-0 Yes [id number] Take by Univers ORAL 1-12 mouth. ity of 14:58: [address] FAMOTIDINE 2022-0 Yes Take by [facility] ers ORAL 1-12 mouth. ity of 14:58: [address] FOLIC ACID 2022-0 Yes [id number] Take by Univers ORAL 1-12 mouth. ity of 14:58: [address] FAMOTIDINE 2022-0 Yes Take by Univ ers ORAL 1-12 mouth. ity of 14:58: [address] FOLIC ACID 2023-0 Yes [id number] Take by Univers ORAL 1-12 mouth. ity of 14:58: [address] FAMOTIDINE 3-0 Yes Take by [facility] ers ORAL 1-12 mouth. ity of 14:58: [address] Branch FOLIC ACID 3-0 Yes [id number] Take by Univers ORAL 1-12 mouth. ity of 14:58: [address] FAMOTIDINE 3-0 Yes Take by Univ ers ORAL 1-12 mouth. ity of 14:58: [address] FOLIC ACID 2023-0 Yes [id number] Take by Univers ORAL 1-12 mouth. ity of 14:58: [address] FAMOTIDINE 2022-0 Yes Take by [facility] ers ORAL 1-12 mouth. ity of 14:58: [address] FOLIC ACID 2022-0 Yes [id number] Take by Univers ORAL 1-12 mouth. ity of 14:58: [address] FAMOTIDINE 2022-0 Yes Take by [facility] ers ORAL 1-12 mouth. ity of 14:58: [address] FOLIC ACID 2022-0 Yes [id number] Take by Univers ORAL 1-12 mouth. ity of 14:58: [address] FAMOTIDINE 2022-0 Yes Take by [facility] ers ORAL 1-12 mouth. ity of 14:58: [address] FOLIC ACID 2022-0 Yes [id number] Take by Univers ORAL 1-12 mouth. ity of 14:58: [address] FAMOTIDINE 2022-0 Yes Take by [facility] ers ORAL 1-12 mouth. ity of 14:58: [address] FOLIC ACID 2022-0 Yes [id number] Take by Univers ORAL 1-12 mouth. ity of 14:58: [address] FAMOTIDINE 2022-0 Yes Take by [facility] ers ORAL 1-12 mouth. ity of 14:58: [address] FOLIC ACID 2022-0 Yes [id number] Take by Univers ORAL 1-12 mouth. ity of 14:58: [address] FAMOTIDINE 2022-0 Yes Take by Univ ers ORAL 1-12 mouth. ity of 14:58: [address] FOLIC ACID 2022-0 Yes [id number] Take by Univers ORAL 1-12 mouth. ity of 14:58: [address] FAMOTIDINE 2022-0 Yes Take by [facility] ers ORAL 1-12 mouth. ity of 14:58: [address] FOLIC ACID 2022-0 Yes [id number] Take by Univers ORAL 1-12 mouth. ity of 14:58: [address] FAMOTIDINE 2022-0 Yes Take by Univ ers ORAL 1-12 mouth. ity of 14:58: [address] FOLIC ACID 3-0 Yes [id number] Take by Univers ORAL 1-12 mouth. ity of 14:58: [address] FAMOTIDINE 3-0 Yes Take by Univ ers ORAL 1-12 mouth. ity of 14:58: [address] FOLIC ACID 2022-0 Yes [id number] Take by Univers ORAL 1-12 mouth. ity of 14:58: [place] [address] Medical [place] FAMOTIDINE 2022-0 Yes Take by Univ ers ORAL 1-12 mouth. ity of 14:58: [address] FOLIC ACID 2022-0 Yes [id number] Take by Univers ORAL 1-12 mouth. ity of 14:58: [place] [address] Medical [place] FAMOTIDINE 2022-0 Yes Take by Univ ers ORAL 1-12 mouth. ity of 14:58: [address] Branch FOLIC ACID 2022-0 Yes [id number] Take by Univers ORAL 1-12 mouth. ity of 14:58: [place] [address] Medical Branch FAMOTIDINE 2022-0 Yes Take by Univ ers ORAL 1-12 mouth. ity of 14:58: [address] FOLIC ACID 2022-0 Yes [id number] Take by Univers ORAL 1-12 mouth. ity of 14:58: [address] FAMOTIDINE 2022-0 Yes Take by Univ ers ORAL 1-12 mouth. ity of 14:58: [address] FOLIC ACID 2022-0 Yes [id number] Take by [facility] ORAL 1-12 mouth. ity of 14:58: [address] FAMOTIDINE 2022-0 Yes Take by [facility] ers ORAL 1-12 mouth. ity of 14:58: [address] FOLIC ACID 2022-0 Yes [id number] Take by [facility] ORAL 1-12 mouth. ity of 14:58: [address] FAMOTIDINE 2022-0 Yes Take by Univ ers ORAL 1-12 mouth. ity of 14:58: [place] [id number] [facility] FOLIC ACID 2023-0 Yes [id number] Take by [facility] ORAL 1-12 mouth. ity of 14:58: [place] [id number] [facility] FAMOTIDINE 2022-0 Yes Take by Univ ers ORAL 1-12 mouth. ity of 14:58: [place] [address] [facility] FOLIC ACID 2022-0 Yes [id number] Take by Univers ORAL 1-12 mouth. ity of 14:58: [address] FAMOTIDINE 3-0 Yes Take by Univ ers ORAL 1-12 mouth. ity of 14:58: [place] [address] [facility] [place] FOLIC ACID 2023-0 Yes [id number] Take by Univers ORAL 1-12 mouth. ity of 14:58: [place] [facility] VENTOLIN 2021-11 Yes [id number] Univ ers HFA 90 1-30 ity of mcg/actuati 00:00: [place] on inhaler [facility] VENTOLIN 2021-11 Yes [id number] Univ ers HFA 90 1-30 ity of mcg/actuati 00:00: [place] on inhaler [facility] VENTOLIN 2021-11 Yes [id number] Univ ers HFA 90 1-30 ity of mcg/actuati 00:00: [place] on inhaler [facility] VENTOLIN 2021-11 Yes [id number] Univ ers HFA 90 1-30 ity of mcg/actuati 00:00: [place] on inhaler [facility] VENTOLIN 2021-11 Yes [id number] Univ ers HFA 90 1-30 ity of mcg/actuati 00:00: [place] on inhaler [facility] VENTOLIN 2021-11 Yes [id number] Univ ers HFA 90 1-30 ity of mcg/actuati 00:00: [place] on inhaler [facility] VENTOLIN 2021-11 Yes [id number] Univ ers HFA 90 1-30 ity of mcg/actuati 00:00: [place] on inhaler [facility] VENTOLIN 2021-11 Yes [id number] Univ ers HFA 90 1-30 ity of mcg/actuati 00:00: [place] on inhaler [facility] 2021-11 Yes [id number] Univ ers HFA 90 1-30 ity of mcg/actuati 00:00: [place] on inhaler [facility] VENTOLIN 2021-11 Yes [id number] Univ ers HFA 90 1-30 ity of mcg/actuati 00:00: [place] on inhaler [facility] VENTOLIN 2021-11 Yes [id number] Univ ers HFA 90 1-30 ity of mcg/actuati 00:00: [place] on inhaler [facility] VENTOLIN 2021-11 Yes [id number] Univ ers HFA 90 1-30 ity of mcg/actuati 00:00: [place] on inhaler [facility] VENTOLIN 2021-11 Yes [id number] Univ ers HFA 90 1-30 ity of mcg/actuati 00:00: [place] on inhaler [facility] VENTOLIN 2021-11 Yes [id number] Univ ers HFA 90 1-30 ity of mcg/actuati 00:00: [place] on inhaler [facility] VENTOLIN 2021-11 Yes [id number] Univ ers HFA 90 1-30 ity of mcg/actuati 00:00: [place] on inhaler [facility] VENTOLIN 2021-11 Yes [id number] Univ ers HFA 90 1-30 ity of mcg/actuati 00:00: [place] on inhaler [facility] VENTOLIN 2021-11 Yes [id number] Univ ers HFA 90 1-30 ity of mcg/actuati 00:00: [place] on inhaler [facility] VENTOLIN 2021-11 Yes [id number] Univ ers HFA 90 1-30 ity of mcg/actuati 00:00: [place] on inhaler [facility] VENTOLIN 2021-11 Yes [id number] Univ ers HFA 90 1-30 ity of mcg/actuati 00:00: [place] on inhaler [facility] VENTOLIN 2021-11 Yes [id number] Univ ers HFA 90 1-30 ity of mcg/actuati 00:00: [place] on inhaler [facility] VENTOLIN 2021-11 Yes [id number] Univ ers HFA 90 1-30 ity of mcg/actuati 00:00: [place] on inhaler [facility] VENTOLIN 2021-11 Yes [id number] Univ ers HFA 90 1-30 ity of mcg/actuati 00:00: [place] on inhaler [facility] VENTOLIN 2021-11 Yes [id number] Univ ers HFA 90 1-30 ity of mcg/actuati 00:00: [place] on inhaler [facility] VENTOLIN 2021-11 Yes [id number] Univ ers HFA 90 1-30 ity of mcg/actuati 00:00: [place] on inhaler [facility] VENTOLIN 2021-11 Yes [id number] Univ ers HFA 90 1-30 ity of mcg/actuati 00:00: [place] on inhaler [facility] VENTOLIN 2021-11 Yes [id number] Univ ers HFA 90 1-30 ity of mcg/actuati 00:00: [place] on inhaler [facility] VENTOLIN 2021-11 Yes [id number] Univ ers HFA 90 1-30 ity of mcg/actuati 00:00: [place] on inhaler [facility] VENTOLIN 2021-11 Yes [id number] Univ ers HFA 90 1-30 ity of mcg/actuati 00:00: [place] on inhaler [facility] VENTOLIN 2021-11 Yes [id number] Univ ers HFA 90 1-30 ity of mcg/actuati 00:00: [place] on inhaler [facility] VENTOLIN 2021-11 Yes [id number] Univ ers HFA 90 1-30 ity of mcg/actuati 00:00: [place] on inhaler [facility] VENTOLIN 2021-11 Yes [id number] Univ ers HFA 90 1-30 ity of mcg/actuati 00:00: [place] on inhaler [facility] VENTOLIN 2021-11 Yes [id number] Univ ers HFA 90 1-30 ity of mcg/actuati 00:00: [place] on inhaler [facility] VENTOLIN 2021-11 Yes [id number] Univ ers HFA 90 1-30 ity of mcg/actuati 00:00: [place] on inhaler [facility] VENTOLIN 2021-11 Yes [id number] Univ ers HFA 90 1-30 ity of mcg/actuati 00:00: [place] on inhaler [facility] VENTOLIN 2021-11 Yes [id number] Univ ers HFA 90 1-30 ity of mcg/actuati 00:00: [place] on inhaler [facility] VENTOLIN 2021-11 Yes [id number] Univ ers HFA 90 1-30 ity of mcg/actuati 00:00: [place] on inhaler [facility] VENTOLIN 2021-11 Yes [id number] Univ ers HFA 90 1-30 ity of mcg/actuati 00:00: [place] on inhaler [facility] VENTOLIN 2021-11 Yes [id number] Univ ers HFA 90 1-30 ity of mcg/actuati 00:00: [place] on inhaler [facility] VENTOLIN 2021-11 Yes [id number] Univ ers HFA 90 1-30 ity of mcg/actuati 00:00: [place] on inhaler [facility] VENTOLIN 2021-11 Yes [id number] Univ ers HFA 90 1-30 ity of mcg/actuati 00:00: [place] on inhaler [facility] VENTOLIN 2021-11 Yes [id number] Univ ers HFA 90 1-30 ity of mcg/actuati 00:00: [place] on inhaler [facility] VENTOLIN 2021-11 Yes [id number] Univ ers HFA 90 1-30 ity of mcg/actuati 00:00: [place] on inhaler [facility] VENTOLIN 2021-11 Yes [id number] Univ ers HFA 90 1-30 ity of mcg/actuati 00:00: [place] on inhaler [facility] VENTOLIN 2021-11 Yes [id number] Univ ers HFA 90 1-30 ity of mcg/actuati 00:00: [place] on inhaler [facility] VENTOLIN 2021-11 Yes [id number] Univ ers HFA 90 1-30 ity of mcg/actuati 00:00: [place] on inhaler [facility] VENTOLIN 2021-11 Yes [id number] Univ ers HFA 90 1-30 ity of mcg/actuati 00:00: [place] on inhaler [facility] VENTOLIN 2021-11 Yes [id number] Univ ers HFA 90 1-30 ity of mcg/actuati 00:00: [place] on inhaler [facility] VENTOLIN 2021-11 Yes [id number] Univ ers HFA 90 1-30 ity of mcg/actuati 00:00: [place] on inhaler [facility] VENTOLIN 2021-11 Yes [id number] Univ ers HFA 90 1-30 ity of mcg/actuati 00:00: [place] on inhaler [facility] VENTOLIN 2021-11 Yes [id number] Univ ers HFA 90 1-30 ity of mcg/actuati 00:00: [place] on inhaler [facility] VENTOLIN 2021-11 Yes [id number] Univ ers HFA 90 1-30 ity of mcg/actuati 00:00: [place] on inhaler [facility] VENTOLIN 2021-11 Yes [id number] Univ ers HFA 90 1-30 ity of mcg/actuati 00:00: [place] on inhaler [facility] VENTOLIN 2021-11 Yes [id number] Univ ers HFA 90 1-30 ity of mcg/actuati 00:00: [place] on inhaler [facility] VENTOLIN 2021-11 Yes [id number] Univ ers HFA 90 1-30 ity of mcg/actuati 00:00: [place] on inhaler 00 [facility] Yes [id number] 1{tbl} Take 1 Tab [facility] multivitami 9-26 by mouth [facility]y [facility] n ( [place] [facility] tablet [facility] Yes [id number] 1{tbl} Take 1 Tab [facility] multivitami 9-26 by mouth [facility]y of n ( 00:[place] [facility] tablet [facility] Yes [id number] 1{tbl} Take 1 Tab [facility] multivitami 9-26 by mouth ity of n ( 00:[place] [facility] tablet [facility] Yes [id number] 1{tbl} Take 1 Tab [facility] multivitami 9-26 by mouth ity of n ( 00:[place] [facility] tablet [facility] Yes [id number] 1{tbl} Take 1 Tab [facility] multivitami 9-26 by mouth ity of n ( 00:[place] [facility] tablet [facility] Yes [id number] 1{tbl} Take 1 Tab [facility] multivitami 9-26 by mouth [facility]y of n ( 00:[place] [facility] tablet [facility] Yes [id number] 1{tbl} Take 1 Tab [facility] multivitami 9-26 by mouth ity of n ( 00:[place] 00 [facility] tablet [facility] Yes [id number] 1{tbl} Take 1 Tab [facility] multivitami 9-26 by mouth ity of n ( 00:[place] 00 [facility] tablet [facility] Yes [id number] 1{tbl} Take 1 Tab [facility] multivitami 9-26 by mouth ity of n ( 00:[place] 00 [facility] tablet [facility] Yes [id number] 1{tbl} Take 1 Tab [facility] multivitami 9-26 by mouth ity of n ( 00:[place] 00 [facility] tablet [facility] Yes [id number] 1{tbl} Take 1 Tab [facility] multivitami 9-26 by mouth ity of n ( 00:[place] 00 [facility] tablet [place] Yes [id number] 1{tbl} Take 1 Tab [facility] multivitami 9-26 by mouth ity of n ( 00:[place] 00 [facility] tablet [place] Yes [id number] 1{tbl} Take 1 Tab [facility] multivitami 9-26 by mouth [facility]y of n ( 00:[place] 00 [facility] tablet [place] Yes [id number] 1{tbl} Take 1 Tab [facility] multivitami 9-26 by mouth ity of n ( 00:[place] 00 [facility] tablet [place] 2022- No [id number] 1{tbl} Take 1 Tab [facility] multivitami 9-26 02-27 by mouth ity of n ( 00:00: 00:00 daily. [place] VITAMIN) 00 :00 [facility] tablet [place] 2022- No [id number] 1{tbl} Take 1 Tab Univers multivitami 9-26 02-27 by mouth ity of n ( 00:00: 00:00 daily. [place] VITAMIN) 00 :00 [facility] tablet [place] 2022- No [id number] 1{tbl} Take 1 Tab Univers multivitami 9-26 02-27 by mouth ity of n ( 00:00: 00:00 daily. [place] VITAMIN) 00 :00 [facility] tablet [place] 2022- No [id number] 1{tbl} Take 1 Tab [facility] multivitami 9-26 02-27 by mouth ity of n ( 00:00: 00:00 daily. [place] VITAMIN) 00 :00 [facility] tablet [place] 2022- No [id number] 1{tbl} Take 1 Tab Univers multivitami 9-26 02-27 by mouth ity of n ( 00:00: 00:00 daily. [place] VITAMIN) 00 :00 [facility] Immunizations Ordered Filled Immunization Date Status Comments [facility] e Immunization Name Name TDAP 2023-01-25 Completed University of 00:00:00 [facility] TDAP 2023-01-25 Completed University of 00:00:00 [facility] TDAP 2023-01-25 Completed University of 00:00:00 [place] [facility] TDAP 2023-01-25 Completed University of 00:00:00 [place] [facility] TDAP 2023-01-25 Completed University of 00:00:00 [place] [facility] TDAP 2023-01-25 Completed University of 00:00:00 [place] [facility] TDAP 2023-01-25 Completed University of 00:00:00 [place] [facility] TDAP 2023-01-25 Completed University of 00:00:00 [place] [facility] TDAP 2023-01-25 Completed University of 00:00:00 [place] [facility] TDAP 2023-01-25 Completed University of 00:00:00 [place] [facility] TDAP 2023-01-25 Completed University of 00:00:00 [place] [facility] TDAP 2023-01-25 Completed University of 00:00:00 [place] [facility] TDAP 2023-01-25 Completed University of 00:00:00 [place] [facility] TDAP 2023-01-25 Completed University of 00:00:00 [place] [facility] TDAP 2023-01-25 Completed University of 00:00:00 [place] [facility] TDAP 2023-01-25 Completed University of 00:00:00 [place] [facility] TDAP 2023-01-25 Completed University of 00:00:00 [place] [facility] TDAP 2023-01-25 Completed University of 00:00:00 [place] [facility] TDAP 2023-01-25 Completed University of 00:00:00 [place] [facility] TDAP 2023-01-25 Completed University of 00:00:00 [place] [facility] TDAP 2023-01-25 Completed University of 00:00:00 [place] [facility] TDAP 2023-01-25 Completed University of 00:00:00 [place] [facility] TDAP 2023-01-25 Completed University of 00:00:00 [place] [facility] TDAP 2023-01-25 Completed University of 00:00:00 [place] [facility] TDAP 2023-01-25 Completed University of 00:00:00 [place] [facility] TDAP 2023-01-25 Completed University of 00:00:00 [place] [facility] TDAP 2023-01-25 Completed University of 00:00:00 [place] [facility] TDAP 2023-01-25 Completed University of 00:00:00 [place] [facility] TDAP 2023-01-25 Completed University of 00:00:00 [facility] TDAP 2023-01-25 Completed University of 00:00:00 [facility] TDAP 2023-01-25 Completed University of 00:00:00 [facility] TDAP 2023-01-25 Completed University of 00:00:00 [facility] PPD (TB) 2013-07-31 Completed University of 00:00:00 [facility] Influenza Virus 2013-07-31 Completed Universit y of Vaccine (3+ yrs) 00:00:00 [facility] PPD (TB) 2013-07-31 Completed University of 00:00:00 [facility] Influenza Virus 2013-07-31 Completed Universit y of Vaccine (3+ yrs) 00:00:00 [facility] PPD (TB) 2013-07-31 Completed University of 00:00:00 [facility] Influenza Virus 2013-07-31 Completed Universit y of Vaccine (3+ yrs) 00:00:00 [facility] PPD (TB) 2013-07-31 Completed University of 00:00:00 [facility] Influenza Virus 2013-07-31 Completed Universit y of Vaccine (3+ yrs) 00:00:00 [facility] PPD (TB) 2013-07-31 Completed University of 00:00:00 [facility] Influenza Virus 2013-07-31 Completed Universit y of Vaccine (3+ yrs) 00:00:00 [facility] PPD (TB) 2013-07-31 Completed University of 00:00:00 [facility] Influenza Virus 2013-07-31 Completed Universit y of Vaccine (3+ yrs) 00:00:00 [facility] PPD (TB) 2013-07-31 Completed University of 00:00:00 [facility] Influenza Virus 2013-07-31 Completed Universit y of Vaccine (3+ yrs) 00:00:00 [facility] PPD (TB) 2013-07-31 Completed University of 00:00:00 [facility] Influenza Virus 2013-07-31 Completed Universit y of Vaccine (3+ yrs) 00:00:00 [facility] PPD (TB) 2013-07-31 Completed University of 00:00:00 [facility] Influenza Virus 2013-07-31 Completed Universit y of Vaccine (3+ yrs) 00:00:00 [facility] PPD (TB) 2013-07-31 Completed University of 00:00:00 [facility] Influenza Virus 2013-07-31 Completed Universit y of Vaccine (3+ yrs) 00:00:00 [facility] PPD (TB) 2013-07-31 Completed University of 00:00:00 [facility] Influenza Virus 2013-07-31 Completed Universit y of Vaccine (3+ yrs) 00:00:00 [facility] PPD (TB) 2013-07-31 Completed University of 00:00:00 [facility] Influenza Virus 2013-07-31 Completed Universit y of Vaccine (3+ yrs) 00:00:00 [facility] PPD (TB) 2013-07-31 Completed University of 00:00:00 [facility] Influenza Virus 2013-07-31 Completed Universit y of Vaccine (3+ yrs) 00:00:00 [facility] PPD (TB) 2013-07-31 Completed University of 00:00:00 [facility] Influenza Virus 2013-07-31 Completed Universit y of Vaccine (3+ yrs) 00:00:00 [facility] PPD (TB) 2013-07-31 Completed University of 00:00:00 [facility] Influenza Virus 2013-07-31 Completed Universit y of Vaccine (3+ yrs) 00:00:00 [facility] PPD (TB) 2013-07-31 Completed University of 00:00:00 [facility] Influenza Virus 2013-07-31 Completed Universit y of Vaccine (3+ yrs) 00:00:00 [facility] PPD (TB) 2013-07-31 Completed University of 00:00:00 [facility] Influenza Virus 2013-07-31 Completed Universit y of Vaccine (3+ yrs) 00:00:00 [facility] PPD (TB) 2013-07-31 Completed University of 00:00:00 [facility] Influenza Virus 2013-07-31 Completed Universit y of Vaccine (3+ yrs) 00:00:00 [facility] PPD (TB) 2013-07-31 Completed University of 00:00:00 [facility] Influenza Virus 2013-07-31 Completed Universit y of Vaccine (3+ yrs) 00:00:00 [facility] PPD (TB) 2013-07-31 Completed University of 00:00:00 [facility] Influenza Virus 2013-07-31 Completed Universit y of Vaccine (3+ yrs) 00:00:00 [facility] PPD (TB) 2013-07-31 Completed University of 00:00:00 [facility] Influenza Virus 2013-07-31 Completed Universit y of Vaccine (3+ yrs) 00:00:00 [facility] PPD (TB) 2013-07-31 Completed University of 00:00:00 [facility] Influenza Virus 2013-07-31 Completed Universit y of Vaccine (3+ yrs) 00:00:00 [facility] PPD (TB) 2013-07-31 Completed University of 00:00:00 [facility] Influenza Virus 2013-07-31 Completed Universit y of Vaccine (3+ yrs) 00:00:00 [facility] PPD (TB) 2013-07-31 Completed University of 00:00:00 [facility] Influenza Virus 2013-07-31 Completed Universit y of Vaccine (3+ yrs) 00:00:00 [facility] PPD (TB) 2013-07-31 Completed University of 00:00:00 [facility] Influenza Virus 2013-07-31 Completed Universit y of Vaccine (3+ yrs) 00:00:00 [facility] PPD (TB) 2013-07-31 Completed University of 00:00:00 [facility] Influenza Virus 2013-07-31 Completed Universit y of Vaccine (3+ yrs) 00:00:00 [facility] PPD (TB) 2013-07-31 Completed University of 00:00:00 [facility] Influenza Virus 2013-07-31 Completed Universit y of Vaccine (3+ yrs) 00:00:00 [facility] Influenza Virus 2013-07-31 Completed Universit y of Vaccine (3+ yrs) 00:00:00 [facility] PPD (TB) 2013-07-31 Completed University of 00:00:00 [facility] PPD (TB) 2013-07-31 Completed University of 00:00:00 [facility] Influenza Virus 2013-07-31 Completed Universit y of Vaccine (3+ yrs) 00:00:00 [facility] PPD (TB) 2013-07-31 Completed University of 00:00:00 [facility] Influenza Virus 2013-07-31 Completed Universit y of Vaccine (3+ yrs) 00:00:00 [facility] PPD (TB) 2013-07-31 Completed University of 00:00:00 [facility] Influenza Virus 2013-07-31 Completed Universit y of Vaccine (3+ yrs) 00:00:00 [facility] PPD (TB) 2013-07-31 Completed University of 00:00:00 [facility] Influenza Virus 2013-07-31 Completed Universit y of Vaccine (3+ yrs) 00:00:00 [facility] PPD (TB) 2013-07-31 Completed University of 00:00:00 [facility] Influenza Virus 2013-07-31 Completed Universit y of Vaccine (3+ yrs) 00:00:00 [facility] PPD (TB) 2013-07-31 Completed University of 00:00:00 [facility] Influenza Virus 2013-07-31 Completed Universit y of Vaccine (3+ yrs) 00:00:00 [facility] PPD (TB) 2013-07-31 Completed University of 00:00:00 [facility] Influenza Virus 2013-07-31 Completed Universit y of Vaccine (3+ yrs) 00:00:00 [facility] PPD (TB) 2013-07-31 Completed University of 00:00:00 [facility] Influenza Virus 2013-07-31 Completed Universit y of Vaccine (3+ yrs) 00:00:00 [facility] PPD (TB) 2013-07-31 Completed University of 00:00:00 [facility] Influenza Virus 2013-07-31 Completed Universit y of Vaccine (3+ yrs) 00:00:00 [facility] PPD (TB) 2013-07-31 Completed University of 00:00:00 [facility] Influenza Virus 2013-07-31 Completed Universit y of Vaccine (3+ yrs) 00:00:00 [facility] PPD (TB) 2013-07-31 Completed University of 00:00:00 [facility] Influenza Virus 2013-07-31 Completed Universit y of Vaccine (3+ yrs) 00:00:00 [facility] PPD (TB) 2013-07-31 Completed University of 00:00:00 [facility] Influenza Virus 2013-07-31 Completed Universit y of Vaccine (3+ yrs) 00:00:00 [facility] PPD (TB) 2013-07-31 Completed University of 00:00:00 [facility] Influenza Virus 2013-07-31 Completed Universit y of Vaccine (3+ yrs) 00:00:00 [facility] PPD (TB) 2013-07-31 Completed University of 00:00:00 [facility] Influenza Virus 2013-07-31 Completed Universit y of Vaccine (3+ yrs) 00:00:00 [facility] PPD (TB) 2013-07-31 Completed University of 00:00:00 [facility] Influenza Virus 2013-07-31 Completed Universit y of Vaccine (3+ yrs) 00:00:00 [facility] PPD (TB) 2013-07-31 Completed University of 00:00:00 [facility] Influenza Virus 2013-07-31 Completed Universit y of Vaccine (3+ yrs) 00:00:00 [facility] PPD (TB) 2013-07-31 Completed University of 00:00:00 [facility] Influenza Virus 2013-07-31 Completed Universit y of Vaccine (3+ yrs) 00:00:00 [facility] PPD (TB) 2013-07-31 Completed University of 00:00:00 [facility] Influenza Virus 2013-07-31 Completed Universit y of Vaccine (3+ yrs) 00:00:00 [facility] PPD (TB) 2013-07-31 Completed University of 00:00:00 [facility] Influenza Virus 2013-07-31 Completed Universit y of Vaccine (3+ yrs) 00:00:00 [facility] PPD (TB) 2013-07-31 Completed University of 00:00:00 [facility] Influenza Virus 2013-07-31 Completed Universit y of Vaccine (3+ yrs) 00:00:00 [facility] PPD (TB) 2013-07-31 Completed University of 00:00:00 [facility] Influenza Virus 2013-07-31 Completed Universit y of Vaccine (3+ yrs) 00:00:00 [facility] PPD (TB) 2013-07-31 Completed University of 00:00:00 [facility] Influenza Virus 2013-07-31 Completed Universit y of Vaccine (3+ yrs) 00:00:00 [facility] PPD (TB) 2013-07-31 Completed University of 00:00:00 [facility] Influenza Virus 2013-07-31 Completed Universit y of Vaccine (3+ yrs) 00:00:00 [facility] PPD (TB) 2013-07-31 Completed University of 00:00:00 [facility] Influenza Virus 2013-07-31 Completed Universit y of Vaccine (3+ yrs) 00:00:00 [facility] PPD (TB) 2013-07-31 Completed University of 00:00:00 [facility] Influenza Virus 2013-07-31 Completed Universit y of Vaccine (3+ yrs) 00:00:00 [facility] PPD (TB) 2013-07-31 Completed University of 00:00:00 [facility] Influenza Virus 2013-07-31 Completed Universit y of Vaccine (3+ yrs) 00:00:00 [facility] PPD (TB) 2013-07-31 Completed University of 00:00:00 [facility] Influenza Virus 2013-07-31 Completed Universit y of Vaccine (3+ yrs) 00:00:00 [facility] TD, NOS 2008-06-30 Completed University of 00:00:00 [facility] TD, NOS 2008-06-30 Completed University of 00:00:00 [facility] TD, NOS 2008-06-30 Completed University of 00:00:00 [facility] TD, NOS 2008-06-30 Completed University of 00:00:00 [facility] TD, NOS 2008-06-30 Completed University of 00:00:00 [facility] TD, NOS 2008-06-30 Completed University of 00:00:00 [facility] TD, NOS 2008-06-30 Completed University of 00:00:00 [facility] TD, NOS 2008-06-30 Completed University of 00:00:00 [facility] TD, NOS 2008-06-30 Completed University of 00:00:00 [facility] TD, NOS 2008-06-30 Completed University of 00:00:00 [facility] TD, NOS 2008-06-30 Completed University [...] TD, NOS 2008-06-30 Completed University of 00:00:00 [facility] TD, NOS 2008-06-30 Completed University of 00:00:00 [facility] TD, NOS 2008-06-30 Completed University of 00:00:00 [facility] TD, NOS 2008-06-30 Completed University of 00:00:00 [facility] TD, NOS 2008-06-30 Completed University of 00:00:00 [facility] TD, NOS 2008-06-30 Completed University of 00:00:00 [facility] TD, NOS 2008-06-30 Completed University of 00:00:00 [facility] TD, NOS 2008-06-30 Completed University of 00:00:00 [facility] TD, NOS 2008-06-30 Completed University of 00:00:00 [facility] TD, NOS 2008-06-30 Completed University of 00:00:00 [facility] TD, NOS 2008-06-30 Completed University of 00:00:00 [facility] TD, NOS 2008-06-30 Completed University of 00:00:00 [facility] TD, NOS 2008-06-30 Completed University of 00:00:00 [facility] Vital Signs Vital Name Observation Time Observation Value Comments Source Systolic blood 2023-04-03 13:13:00 121 mm[Hg] Univer sity of pressure [facility] Diastolic blood 2023-04-03 13:13:00 81 mm[Hg] Unive rsity of [facility] Heart rate 2023-04-03 13:13:00 73 /min [facility] Body temperature 2023-04-03 13:13:00 36.22 Pat [facility] Respiratory rate 2023-04-03 13:13:00 20 /min [facility] Body height 2023-04-03 13:13:00 160 cm [facility] Body weight 2023-04-03 13:13:00 144.879 kg [facility] BMI 2023-04-03 13:13:00 56.58 kg/m2 [facility] Systolic blood 2023-03-28 13:12:00 124 mm[Hg] Univer sity of pressure [facility] Diastolic blood 2023-03-28 13:12:00 64 mm[Hg] Unive [...] 2023-03-26 12:12:00 57.93 kg/m2 Universi ty of [facility] Systolic blood 2023-03-26 13:30:00 107 mm[Hg] Univer sity of pressure [facility] Diastolic blood 2023-03-26 13:30:00 57 mm[Hg] Unive rsity of pressure [facility] Heart rate 2023-03-26 13:30:00 83 /min Universi ty of [facility] Oxygen saturation in 2023-03-26 13:30:00 100 /min University of Arterial blood by [facility] [place] [facility] P[facility] oximetry [facility] Respiratory rate 2023-03-26 13:00:00 20 /min Univ ersity of [facility] Body temperature 2023-03-26 12:12:00 36.56 Pat Univ ersity of [facility] Body height 2023-03-26 12:12:00 160 [...] 2023-03-22 13:52:00 20 /min Univ ersity of [facility] Body height 2023-03-22 13:52:00 160 cm Universi ty of [facility] Body weight 2023-03-22 13:52:00 148.922 kg Universi ty of [facility] BMI 2023-03-22 13:52:00 58.16 kg/m2 Universi ty of [facility] Systolic blood 2023-03-09 16:29:00 108 mm[Hg] Univer sity of pressure [facility] Diastolic blood 2023-03-09 16:29:00 71 mm[Hg] Unive rsity of pressure [facility] Heart rate 2023-03-09 16:29:00 75 /min Universi ty of [facility] Body temperature 2023-03-09 16:29:00 35.44 Pat Univ ersity of [facility] Respiratory rate 2023-03-09 16:29:00 18 /min Univ ersity of [facility] Body height 2023-03-09 16:29:00 160 cm Universi ty of [facility] Body weight 2023-03-09 16:29:00 148.372 kg Universi ty of [facility] BMI 2023-03-09 16:29:00 57.94 kg/m2 Universi ty of [facility] Systolic blood 2023-02-23 20:47:00 127 mm[Hg] Univer sity of pressure [facility] Diastolic blood 2023-02-23 20:47:00 78 mm[Hg] Unive rsity of pressure [facility] Heart rate 2023-02-23 20:47:00 92 /min Universi ty of [facility] Body temperature 2023-02-23 20:47:00 35.61 Pat Univ ersity of [facility] Respiratory rate 2023-02-23 20:47:00 18 /min Univ ersity of [facility] Body height 2023-02-23 20:47:00 157.5 cm Universi ty of [facility] Body weight 2023-02-23 20:47:00 148.689 kg Universi ty of [facility] BMI 2023-02-23 20:47:00 59.96 kg/m2 Universi ty of [facility] Systolic blood 2023-02-09 16:26:00 113 mm[Hg] Univer sity of pressure [facility] Diastolic blood 2023-02-09 16:26:00 73 mm[Hg] Unive rsity of pressure [facility] Heart rate 2023-02-09 16:26:00 81 /min Universi ty of [facility] Body temperature 2023-02-09 16:26:00 35.28 Pat Univ ersity of [facility] Respiratory rate 2023-02-09 16:26:00 18 /min Univ ersity of [facility] Body height 2023-02-09 16:26:00 157.5 cm Universi ty of [facility] Body weight 2023-02-09 16:26:00 146.376 kg Universi ty of [facility] BMI 2023-02-09 16:26:00 59.02 kg/m2 Universi ty of [facility] Systolic blood 2023-01-30 17:05:00 113 mm[Hg] Univer sity of pressure [facility] Diastolic blood 2023-01-30 17:05:00 58 mm[Hg] Unive rsity of pressure [facility] Heart rate 2023-01-30 17:05:00 82 /min Universi ty of [facility] Body temperature 2023-01-30 17:05:00 36.56 Pat Univ ersity of [facility] Respiratory rate 2023-01-30 17:05:00 18 /min Univ ersity of [facility] Oxygen saturation in 2023-01-30 17:05:00 98 /min University Arterial blood by [facility] Pulse oximetry Branch Body height 2023-01-29 23:02:00 160 cm Universi ty of [facility] Body weight 2023-01-29 23:02:00 144.244 kg Universi ty of [facility] BMI 2023-01-29 23:02:00 56.33 kg/m2 Universi ty of [facility] Systolic blood 2023-01-25 14:00:00 120 mm[Hg] Univer sity of pressure [facility] Diastolic blood 2023-01-25 14:00:00 65 mm[Hg] Unive rsity of pressure [facility] Heart rate 2023-01-25 14:00:00 84 /min Universi ty of [facility] Body temperature 2023-01-25 14:00:00 36.06 Pat Univ ersity of [facility] Respiratory rate 2023-01-25 14:00:00 18 /min Univ ersity of [facility] Body height 2023-01-25 14:00:00 160 cm Universi ty of [facility] Body weight 2023-01-25 14:00:00 143.881 kg Universi ty of [facility] BMI 2023-01-25 14:00:00 56.19 kg/m2 Universi ty of [facility] Systolic blood 2023-01-01 19:01:00 104 mm[Hg] Univer sity of pressure [facility] Diastolic blood 2023-01-01 19:01:00 73 mm[Hg] Unive rsity of pressure [facility] Heart rate 2023-01-01 19:01:00 78 /min Universi ty of [facility] Body temperature 2023-01-01 19:01:00 36.39 Pat Univ ersity of [facility] Respiratory rate 2023-01-01 19:01:00 19 /min Univ ersity of [facility] Body height 2023-01-01 19:01:00 160 cm [facility]i ty [facility] Body weight 2023-01-01 19:01:00 143.019 kg Universi ty of [facility] BMI 2023-01-01 19:01:00 55.85 kg/m2 Universi ty of [facility] Systolic blood 2022-12-19 20:33:00 117 mm[Hg] Univer sity of pressure [facility] Diastolic blood 2022-12-19 20:33:00 73 mm[Hg] Unive rsity of pressure [facility] Heart rate 2022-12-19 20:33:00 78 /min Universi ty of [facility] Body temperature 2022-12-19 20:33:00 35.78 Pat Univ ersity of [facility] Respiratory rate 2022-12-19 20:33:00 18 /min Univ ersity of [facility] Body height 2022-12-19 20:33:00 160 cm [facility]i ty [facility] Body weight 2022-12-19 20:33:00 143.246 kg [facility]i ty [facility] BMI 2022-12-19 20:33:00 55.94 kg/m2 Universi ty of [facility] Systolic blood 2022-11-16 20:43:00 124 mm[Hg] Univer sity of pressure [facility] Diastolic blood 2022-11-16 20:43:00 83 mm[Hg] [facility] Heart rate 2022-11-16 20:43:00 88 /min [facility] Body temperature 2022-11-16 20:43:00 36.17 Pat [facility] rate 2022-11-16 20:43:00 17 /min [facility] Body height 2022-11-16 20:43:00 157.5 cm [facility] Body weight 2022-11-16 20:43:00 141.159 kg [facility] BMI 2022-11-16 20:43:00 56.92 kg/m2 [facility] Procedures Procedure Date / Time Performing Clinician Source Performed CBC WITH DIFF 2023-03-27 09:27:00 [facility] CBC WITH DIFF 2023-03-27 09:27:00 [facility] VENOUS CORD GAS 2023-03-26 14:28[facility] 2023-03-26 14:28[facility] SE[facility] 2023-03-26 13:31[facility] 2023-03-26 13:31:00 [facility] SECTION 2023-03-26 13:31:00 Miller Slimcheri He[facility] TUBAL LIGATION 2023-03-26 13:31:00 [facility] CBC WITH DIFF 2023-03-26 12:42:00 Onur [facility] HEPATITIS B SURFACE 2023-03-26 12:42:00 Ilda Mohr [facility] ANTIGEN [facility] HB ABO GROUPING 2023-03-26 12:42:00 [facility] IMMUNE GLOBULIN 2023-03-26 12:42[facility]00 [facility]2 AG-AB WITH 2023-03-26 12:42:00 [facility] REFLEX [facility] SYPHILIS IGG/IGM 2023-03-26 12:42:00 Onur [facility] CBC WITH DIFF 2023-03-26 12:42:00 Onur [facility] HEPATITIS B SURFACE 2023-03-26 12:42:00 Onur [facility] ANTIGEN [facility] HB ABO GROUPING 2023-03-26 12:42:00 [facility]HO (D[facility] IMMUNE GLOBULIN 2023-03-26 12:42:00 [facility] HIV 1/2 AG-AB WITH 2023-03-26 12:42:00 Onur [facility] REFLEX [facility] SYPHILIS IGG/IGM 2023-03-26 12:42:00 Onur [facility] POCT URINALYSIS 2023-03-22 13:53:00 Ruth [facility]bs [facility] POCT URINALYSIS 2023-03-09 16:31:00 Ruth [facility]bs [facility] POCT URINALYSIS 2023-02-09 16:28:00 Ruth [facility] EXTERNAL PROVIDER 2023-01-31 05:01:00 Doctor Unassigned, No [facility] RECORDS Name Medical Branch SECOND AND THIRD 2023-01-30 14:08:00 Ruth Stubbs [facility] TRIMESTER ULTRASOUND Medical [facility] URINALYSIS 2023-01-30 01:13:00 Basilia [facility] URINE CULTURE 2023-01-30 01:13:00 Basilia [facility] GC & CHLAMYDIA AMPLIFIED 2023-01-30 00:21:00 Karma Cui [facility] CBC WITH DIFF 2023-01-29 23:52:00 Basilia [facility] HB ABO GROUPING 2023-01-29 23:52:00 Basilia, [facility] o f [facility] TDAP VACCINE, >11 YRS, 2023-01-25 15:49:15 Ruth Stubbs [facility] POCT URINALYSIS 2023-01-25 14:01:00 Ruth [facility] AUTHORIZATION TO RELEASE 2023-01-25 05:01:00 Doctor Unassigned, No [facility] PHI TO [facility] POCT URINALYSIS 2023-01-01 00:00:00 Ruth [facility] POCT URINALYSIS 2022-12-19 20:35:00 Ruth [facility] AUTHORIZATION FOR 2022-11-24 06:01:00 Doctor Unassigned, No [facility] RELEASE OF [facility] GLUCOSE 1 HOUR POST 2022-11-16 21:45:00 Ruth Stubbs [facility] CBC WITH DIFF 2022-11-16 21:45:00 Ruth [facility] RUBELLA SCREEN IGG 2022-11-16 21:45:00 [facility] VZV ANTIBODY SCREEN 2022-11-16 21:45:00 Ruth Stubbs [facility] HEPATITIS B SURFACE 2022-11-16 21:45:00 Ruth Stubbs [facility] HCV ANTIBODY 2022-11-16 21:45:00 Ruth St[facility]bs [facility] HB ABO GROUPING 2022-11-16 21:45:00 Ruth [facility]bs [facility] URINE CULTURE 2022-11-16 21:45:00 Ruth [facility]bs [facility] GC & CHLAMYDIA AMPLIFIED 2022-11-16 21:45:00 Ruth Stubbs [facility] QUAD SCRN 2022-11-16 21:45:00 Ruth [facility] HIV 1/2 AG-AB WITH 2022-11-16 21:45:00 [facility] SYPHILIS IGG/IGM 2022-11-16 21:45:00 Ruth Stubbs [facility] ASSIGNMENT OF BENEFITS 2022-11-16 20:02:04 Doctor Unassigned, No [facility] POCT TEST 2022-11-16 00:00:00 Ruth Stubbs [facility] POCT URINALYSIS W/O 2022-11-16 00:00:00 Ruth Stubbs [facility] Encounters Start End Encounter Admission Attending Care Care Encounter Source Date/Time Date/Time Type Type Clinicians Facility Department ID 2023-01-30 Outpatient P [facility] DREW [id number] [facility] 17:41:51 [facility] 2023-06-15 2023-06-15 Outpatient R AKINSIPE, [facility] [id number] Univers 09:30:00 09:30:00 NAKIA kumar o f [facility] 2023-04-25 2023-04-25 Outpatient R AKINSIPE, [facility] [id number] Univers 16:00:00 16:00:00 NAKIA dominguezy o f [facility] 2023-04-18 2023-04-18 Telephone [facility], [facility] 1.2.840.114 [id number] Univers 00:00:00 00:00:00 Nakia Dunn POLL CLERK 350.1.13.10 ity of [facility] 4.2.7.2.686 Shubham as MATERNAL [phone] Med ical & CHILD [address] [place] [address] 2023-04-03 2023-04-03 Nurse Visit, Jose L-Rmchp Nurse [facility] 1.2 .840.114 [id number] Univers 08:00:00 08:26:08 Visit Ruth Stubbs POLL CLERK 350.1.13.1 0 ity of REGIONAL 4.2.7.2.686 Shubham as MATERNAL [phone] Med ical & CHILD [address] [place] [address] 2023-04-03 2023-04-03 Outpatient R EVELYNE [facility] [id number] Univers 08:00:00 08:26:08 [facility] 2023-04-02 2023-04-02 1.2.840.1 1.2.840.114 [id number] Univers 00:00:00 00:00:00 Encounter [id number] 350.1.13.10 ity of 3.104.2.7 [place][id number] [facility] [facility] [place] 2023-03-31 2023-03-31 [facility] 1.2.840.114 [id number] Univers 00:00:00 00:00:00 [facility] 350.1.13.10 it y of [facility] 4.2.7.2.686 Shubham as SCIENCES [id number] Med ical WING [address] 2023-03-26 2023-03-28 Inpatient P CARLOS [facility] DREW [id number] Univers 06:35:00 15:21:00 SLIM itruiz [facility] 2023-03-26 2023-03-28 Hospital Ayush Ballard 1.2.840.11 [id number] Univers 06:35:00 15:21:00 Encounter MillerSlim dunlapY 350.1.13 .10 ity of HOSPITAL 4.2.7.2.686 Shubham as [id number] [facility] [address] 2023-03-26 2023-03-26 Surgery MING Miller 1.2.840.114 [id number] Univers 07:15:00 08:57:00 Slimcheri JOY 350.1.13.10 ity of [facility] 4.2.7.2.686 Shubham as [id number] [facility] [address] 2023-03-22 2023-03-22 Outpatient R EVELYNE [facility] [id number] Univers 09:00:00 09:17:51 RUTH kumar [facility] 2023-03-22 2023-03-22 [facility]ine [facility] 1.2.840.114 [id number] Univers 09:00:00 09:17:51 Ruth A POLL CLERK 350.1.13.10 ity of Visit REGIONAL 4.2.7.2.686 Shubham as MATERNAL [id number] [facility] & [address] 2023-03-16 2023-03-16 Insurance Solicitor [facility] 1.2 .840.114 [id number] Univers 11:15:00 11:45:00 Visit Kasandra Acostarohitisabel POLL CLERK 350.1. 13.10 ity of REGIONAL 4.2.7.2.686 Shubham as MATERNAL [id number] [facility] & CHILD [address] [place] [address] 2023-03-16 2023-03-16 Outpatient P DAVE [facility] [id number] Univers 11:15:00 11:15:00 KASANDRA [facility] 2023-03-09 2023-03-09 Outpatient R RENEE, [facility] [id number] Univers 15:30:00 15:30:00 NAKIA kumar o f [facility] 2023-03-09 2023-03-09 [facility] [id number] Univers 11:00:00 12:00:17 [facility]23-03-09 2023-03-09 [facility] 1.2.840.114 [id number] Univers 11:00:00 12:00:17 Ruth A POLL CLERK 350.1.13.10 ity of Visit REGIONAL 4.2.7.2.686 Shubham as MATERNAL [id number] [facility] & [address] 2023-02-23 2023-02-23 Outpatient R RENEE, [facility] [id number] Univers 16:00:00 16:08:20 NAKIA ity o f [facility] 2023-02-23 2023-02-23 [facility]ine [facility] 1.2.830.403 [id number] Univers 16:00:00 16:08:20 Nakia C POLL CLERK 350.1.13.10 ity of Visit REGIONAL 4.2.7.2.686 Shubham as MATERNAL [id number] [facility] CH[facility] [address] [place] [address] 2023-02-13 2023-02-13 Case Evelyne [facility] 1.2.840.114 [id number] Univers 00:00:00 00:00:00 Management Ruth Eisenberg POLL CLERK 350.1.13.10 ity of [facility] 4.2.7.2.686 Shubham as MATERNAL [id number] [facility] & CHILD [address] [place] [address] 2023-02-12 2023-02-12 Outpatient R DAVE [facility] [id number] Univers 09:00:00 10:43:27 KASANDRA ity [facility] 2023-02-12 2023-02-12 Telemedici Faculty, Jose L [facility] 1.2.840.114 [id number] Univers 09:00:00 10:43:27 ne Visit Kasandra Acosta POLL CLERK 350.1 .13.10 ity of [facility] 4.2.7.2.686 Shubham as MATERNAL [phone] [facility] & CHILD [address] [place] [address] 2023-02-12 2023-02-12 Nurse Alma [place] 1.2.840.114 [id number] Univers 00:00:00 00:00:00 Triage RUFINO 350.1.13.10 it y of [facility] 4.2.7.2.686 Shubham as [id number] [address] 2023-02-12 2023-02-[address] [facility] 1.2.840.114 [id number] Univers 00:00:00 00:00:00 Nakia Dunn POLL CLERK 350.1.13.10 ity of [facility] 4.2.7.2.686 Shubham as MATERNAL [id number] [facility] & CHILD [address] [place] [address] 2023-02-09 2023-02-09 [facility] [id number] Univers 11:00:00 11:56:07 NAKIA stroud [facility] 2023-02-09 2023-02-09 [facility] 1.2.167.295 [id number] Univers 11:00:00 11:56:07 Nakia C POLL CLERK 350.1.13.10 ity of Visit REGIONAL 4.2.7.2.686 Shubham as MATERNAL [id number] [facility] ical & CHILD [address] [facility] 2023-02-09 2023-02-09 Letter [facility] [id number] [id number] Univers 00:00:00 00:00:00 (Out) Nakia C POLL CLERK 350.1.13.10 ity of REGIONAL 4.2.7.2.686 Shubham as MATERNAL [id number] [facility] ical & CHILD [address] [place] [address] 2023-02-04 2023-02-04 Telephone MING Conde 1.2.840.114 [id number] Univers 00:00:00 00:00:00 Davian JOY 350.1.13.10 i ty of HOSPITAL 4.2.7.2.686 Shubham as [id number] [facility] [address] 2023-02-03 2023-02-03 Case MING Hernández 1.2.840.114 [id number] Univers 00:00:00 00:00:00 Management [place] JOY 350.1.13.10 ity of HOSPITAL 4.2.7.2.686 Shubham as [id number] [facility] [address] 2023-01-31 2023-01-31 Case Evelyne [facility] 1.2.840.114 [id number] Univers 00:00:00 00:00:00 Management Ruth Eisenberg POLL CLERK 350.1.13.10 ity of [facility] 4.2.7.2.686 Shubham as MATERNAL [id number] [facility] CH[facility] [address] [place] [address] 2023-01-31 2023-01-31 Orders Doctor LAI 1.2.840.114 [id number] Univers 00:00:00 00:00:00 Only Unassigned, RUFINO 350.1.13.10 ity of [place] [facility] 4.2.7.2.686 Shubham as [phone] [facility] [address] 2023-01-29 2023-01-30 Outpatient P YONG LALA [facility] DREW [id number] Univers 17:47:00 14:45:00 [place] ity [facility] 2023-01-29 2023-01-30 Hospital Yong MING 1.2.840.114 [id number] Univers 17:47:00 14:45:00 Encounter Lala JOY 350.1.13.10 ity of [facility] 4.2.7.2.686 Shubham as [id number] [facility] [address] 2023-01-30 2023-01-30 Insurance Solicitor 1, [facility] Us Room UNIVERSIT 1 .2.840.114 [id number] Univers 08:45:00 09:29:43 Visit Ksaandra Acosta [facility] 350.1 .13.10 ity of [facility] 4.2.7.2.686 [place] [id number] [facility] [address] 2023-01-29 2023-01-29 Insurance Solicitor Ultrasound, [facility] 1.2 .840.114 [id number] Univers 13:30:00 14:00:00 Visit Terrence Mane POLL CLERK 350.1. 13.10 ity of [facility] 4.2.7.2.686 Shubham as MATERNAL [id number] [facility] ical & CHILD [address] [facility] 2023-01-29 2023-01-29 Outpatient P RAINE [facility] [id number] Univers 13:30:00 13:30:00 NANO it y of [place]AM[place] [facility] 2023-01-29 2023-01-29 Telephone [facility] 1.2.840.114 [id number] Univers 00:00:00 00:00:00 Nakia Dunn POLL CLERK 350.1.13.10 ity of [facility] 4.2.7.2.686 Shubham as MATERNAL [id number] [facility] & [address] 2023-01-25 2023-01-25 Outpatient Elieser STUBBS [facility] [id number] Univers 08:45:00 09:32:33 [facility] 2023-01-25 2023-01-25 Routine Provider, Yamilka [facility] 1 .2.840.114 [id number] Univers 08:45:00 09:32:33 Ruth Stubbs POLL CLERK 350.1.13. 10 ity of Visit [facility] 4.2.7.2.686 Shubham as MATERNAL [id number] Med ical & CHILD [address] [place] [address] 2023-01-25 2023-01-25 Orders Doctor MING 1.2.840.114 [id number] Univers 00:00:00 00:00:00 Only Unassigned, RUFINO 350.1.13.10 ity of [place] [facility] 42.7.2.686 Shubham as [id number] [facility] [address] 2023-01-23 2023-01-23 Outpatient R [facility] [id number] Univers 15:15:00 15:15:00 ity of [facility] 2023-01-18 2023-01-18 Outpatient SFA [facility] [id number] Js 15:24:03 15:24:03 [id number] F Yunier 2023-01-17 2023-01-17 Case MING Hernández 1.2.840.114 [id number] Univers 00:00:00 00:00:00 Management [place] JOY 350.1.13.10 ity of [address]686 Shubham as [id number] [facility] [address] 2023-01-16 2023-01-16 Outpatient R [facility] [id number] Univers 09:30:00 09:30:00 ity of [facility] 2023-01-15 2023-01-15 Outpatient R RAINE [facility] [id number] Univers 09:30:00 10:02:09 NANO dominguez y of TERRENCE Malik [facility] 2023-01-15 2023-01-15 Telemedici Faculty, Jose L Pedroza [facility] 1.2.840.114 [id number] Univers 09:30:00 10:02:09 ne Visit Terrence Mane POLL CLERK 350.1 .13.10 ity of [facility] 4.2.7.2.686 Shubham as MATERNAL [phone] [facility] [address] [place] [address] 2023-01-12 2023-01-12 [facility] 1.2.840.114 [id number] Univers 00:00:00 00:00:00 Nakia C POLL CLERK 350.1.13.10 ity of REGIONAL 4.2.7.2.686 Shubham as MATERNAL [phone] [facility] & [address] 2023-01-08 2023-01-08 Outpatient P [facility] [id number] Univers 11:15:00 11:15:[facility] 2023-01-01 [facility] 1.2.572.007 [id number] Univers 15:00:00 15:00:00 Nakia C POLL CLERK 350.1.13.10 ity of Visit REGIONAL 4.2.7.2.686 Shubham as MATERNAL [id number] [address] 2023-01-01 2023-01-01 Outpatient R AKINSIPE, [facility] [id number] Univers 15:00:00 13:34:27 NAKIA kumar o [facility] 2022-12-28 2022-12-28 Outpatient R EVELYNE, [facility] [id number] Univers 11:00:00 11:00:00 [facility] 2022-12-28 2022-12-[address] [facility] 1.2.840.114 [id number] Univers 00:00:00 00:00:00 Nakia C POLL CLERK 350.1.13.10 ity of REGIONAL 4.2.7.2.686 Shubham as MATERNAL [id number] [address] 2022-12-19 2022-12-19 Outpatient R AKINSIPE, [facility] [id number] Univers 15:00:00 15:03:34 NAKIA kumar o f [facility] 2022-12-19 2022-12-[address] [facility] [id number] Univers 15:00:00 15:03:34 Nakia C POLL CLERK 350.1.13.10 ity of Visit REGIONAL 4.2.7.2.686 Shubham as MATERNAL [phone] [facility] [address] [place] [address] 2022-12-15 2022-12-15 Outpatient R EVELYNE [facility] [id number] Univers 10:30:00 10:30:00 RUTH ity [facility] 2022-12-04 2022-12-04 Telemedici Nirali, Jose L [facility] 1.2.840.114 [id number] Univers 10:30:00 11:00:00 ne Visit Raine Clare Terrence POLL CLERK 350.1 .13.10 ity of REGIONAL 4.2.7.2.686 Shubham as MATERNAL [phone] [facility] & [address] 2022-12-04 2022-12-04 Outpatient P RAINE [facility] [id number] Univers 10:30:00 10:30:00 NANO it y of TERRENCE Malik [facility] 2022-12-04 2022-12-04 Case [facility] 1.2.840.114 [id number] Univers 00:00:00 00:00:00 Management Ruth Eisenberg POLL CLERK 350.1.13.10 ity of REGIONAL 4.2.7.2.686 Shubham as MATERNAL [phone] [facility] & CHILD [address] [place] [address] 2022-12-01 2022-12-01 Outpatient P ARIS [facility] [id number] Univers 09:45:00 10:37:59 MEGHAN ity of [facility] 2022-12-01 2022-12-01 Telemedici Violet Broderick [facility] 1.2.8 40.114 [id number] Univers 09:45:00 10:37:59 ne Visit Meghan Hurst POLL CLERK 350.1.13.10 ity of REGIONAL 4.2.7.2.686 Shubham as MATERNAL [id number] [facility] [address] [place] [address] 2022-12-01 2022-12-01 Insurance Solicitor Ultrasound, Jhonathan [facility] 1.2 .840.114 [id number] Univers 08:30:00 09:45:00 Visit ArisMeghan POLL CLERK 350.1.13.10 ity of REGIONAL 4.2.7.2.686 Shubham as MATERNAL [phone] Med ical & CHILD [address] [facility] 2022-11-24 2022-11-24 Orders Doctor MING 1.2.840.114 [id number] Univers 00:00:00 00:00:00 Only Unassigned, RUFINO 350.1.13.10 ity of [place] [facility] 4.2.7.2.686 Shubham as [phone] [address] 2022-11-23 2022-11-23 Case Evelyne [facility] 1.2.840.114 [id number] Univers 00:00:00 00:00:00 Management Ruth Eisenberg POLL CLERK 350.1.13.10 ity of [facility] 4.2.7.2.686 Shubham as MATERNAL [phone] Med ical & CHILD [address] [place] [address] 2022-11-21 2022-11-21 Telephone Evelyne INJOHN 1.2.840.114 [id number] Univers 00:00:00 00:00:00 Ruth Eisenberg POLL CLERK 350.1.13.10 i ty of REGIONAL 4.2.7.2.686 Shubham as MATERNAL [phone] [facility] ical & CHILD [address] [place] [address] 2022-11-16 2022-11-16 Outpatient R EVELYNE INOJHN [facility] [id number] Univers 14:15:00 15:57:32 RUTH ity of [facility] 2022-11-16 2022-11-16 Initial Provider, Yamilka [facility] 1 .2.840.114 [id number] Univers 14:15:00 15:57:32 Ruth Stubbs POLL CLERK 350.1.13. 10 ity of Visit REGIONAL 4.2.7.2.686 Shubham as MATERNAL [phone] Med ical & CHILD [address] [place] [address] 2022-11-16 2022-11-16 Orders Doctor MING 1.2.840.114 [id number] Univers 00:00:00 00:00:00 Only Unassigned, RUFINO 350.1.13.10 ity of [place] [facility] 4.2.7.2.686 Shubham as [phone] [address] Results Test Description Test Time Test Comments Results Result Comments Source RHO (D) IMMUNE GLOBULIN 2023-03-26 18:54:02 Test Item Value Reference Range Interpretation Comme nts RHIG CANDIDATE? (test code = No- see comment Patient is not a candidate for RhIg- 5188) Patient is Rh P ositive.Performed at [facility] Laboratory Services - [facility] Blood [address] [place] [address] Free: [phone] A No. [id number] [facility] Center[facility] (D) IMMUNE [id number] 18:54:02 Test Item Value Reference Range Interpretation Comments RHIG CANDIDATE? No- see comment Patient i s not a (test code = candidate for R hIg- 5188) Patient is Rh Positive.Perfor med at [facility] Laboratory Services - [facility] Blood [address] [place] [address] Free: [phone] A No. [id number] [facility] CenterArterial Cord [id number] 14:47:55 Test Item Value Reference Range Interpretation Comments BASE EXCESS, CORD -2.6 mEq/L QUES (test code = 1187372861) AC PH, CORD (BEAKER) 7.27 7.18-7.38 (test code = 3784627962) PC02, CORD (test code 56 See_Comment [Auto mated message] The = 4716059016) system which g enerated this result transmit augustus reference range : 32 - 66 mmHg. The refer ence range was not used to interpret this result as normal/abnormal . PO2, CORD (test code 15 See_Comment [Autom ated message] The = 1394372704) system which g enerated this result transmit augustus reference range : 10 - 30 mmHg. The refer ence range was not used to interpret this result as normal/abnormal . BICARBONATE, CORD 25 See_Comment [Automate d message] The (test code = system which ge nerated this 1535205334) result transmit augustus reference range : 17 - 27 mEq/L. The refe rence range was not used to interpret this result as normal/abnormal . [facility] [id number] 14:47:55 Test Item Value Reference Range Interpretation Comments BASE EXCESS, CORD -2.6 mEq/L QUES (test code = 9241503507) AC PH, CORD (BEAKER) 7.27 7.18-7.38 (test code = 2619587670) PC02, CORD (test code 56 See_Comment [Auto mated message] The = 3266697951) system which g enerated this result transmit augustus reference range : 32 - 66 mmHg. The refer ence range was not used to interpret this result as normal/abnormal . PO2, CORD (test code 15 See_Comment [Autom ated message] The = 5609510883) system which g enerated this result transmit augustus reference range : 10 - 30 mmHg. The refer ence range was not used to interpret this result as normal/abnormal . BICARBONATE, CORD 25 See_Comment [Automate d message] The (test code = system which ge nerated this 7418802750) result transmit augustus reference range : 17 - 27 mEq/L. The refe rence range was not used to interpret this result as normal/abnormal . [facility] [id number] 14:45:33 Test Item Value Reference Range Interpretation Comments VENOUS BASE EXCESS, -3.4 mEq/L CORD (test code = 2062880125) VENOUS PH, CORD (test 7.34 7.25-7.45 code = 1132289529) VENOUS PC02, CORD 42 See_Comment [Automate d message] The (test code = system which ge nerated 2003253016) this result tra nsmitted reference range : 27 - 49 mmHg. The refer ence range was not used to interpret this result as normal/abnormal . VENOUS PO2, CORD (test 31 See_Comment [Aut omated message] The code = 0698755711) system wh ich generated this result tra nsmitted reference range : 17 - 41 mmHg. The refer ence range was not used to interpret this result as normal/abnormal . VENOUS BICARBONATE, 22 See_Comment QUES [Au tomated message] CORD (test code = The system which generated 1848704817) this result tra nsmitted reference range : 12 - 29 mEq/L. The refe rence range was not used to interpret this result as normal/abnormal . [facility] CenterVen[facility] Cord [id number] 14:45:33 Test Item Value Reference Range Interpretation Comments VENOUS BASE EXCESS, -3.4 mEq/L CORD (test code = 4778759220) VENOUS PH, CORD (test 7.34 7.25-7.45 code = 5144585659) VENOUS PC02, CORD 42 See_Comment [Automate d message] The (test code = system which ge nerated 6614268513) this result tra nsmitted reference range : 27 - 49 mmHg. The refer ence range was not used to interpret this result as normal/abnormal . VENOUS PO2, CORD (test 31 See_Comment [Aut omated message] The code = 9110574945) system wh ich generated this result tra nsmitted reference range : 17 - 41 mmHg. The refer ence range was not used to interpret this result as normal/abnormal . VENOUS BICARBONATE, 22 See_Comment QUES [Au tomated message] CORD (test code = The system which generated 8522430160) this result tra nsmitted reference range : 12 - 29 mEq/L. The refe rence range was not used to interpret this result as normal/abnormal . [facility] CenterPODE UR[facility]ALYSIS W SPECIFIC [id number] 13:54:00 Test Item Value Reference Range Interpretation [...] U APPEAR (test code = 3267) . [facility] URINALYSIS W SPECIFIC [id number] 16:31:00 Test Item Value Reference Range Interpretation [...] U APPEAR (test code = 3267) . [facility] URINALYSIS W SPECIFIC [id number] 16:28:00 Test Item Value Reference Range Interpretation [...] U APPEAR (test code = 3267) . [facility] WITH [id number] 00:10:19 Test Item Value Reference Range Interpretation Comments WBC (test code = 11.42 See_Comment H [Automated 9090-2) message] The sy stem which generated this [...] RDW-SD (test code = 44.9 fL 39.0-49.9 31276-9) RDW-CV (test code = 13.2 % 12.0-15.5 788-0) PLT (test code = 322 See_Comment [Automated 777-3) message] The sy stem which generated this result transmitted reference range : 166 - 358 10*3/ ?L. The reference r mary was not used to interpret this result as normal/abnormal . MPV (test code = 10.8 fL 9.5-12.9 95249-8) NRBC/100 WBC (test 0.0 See_Comment [Automat ed code = 2169931931) message] The system which generated this result transmitted reference range : 0.0 - 10.0 /100 WBCs. The refer ence range was not u sed to interpret th is result as normal/abnormal . NRBC x10^3 (test code See_Comment [Auto mated = 9572164558) message] The s ystem which generated this result transmitted reference range : 10*3/?L. The reference range was not used to interpret this result as normal/abnormal . GRAN MAT (NEUT) % 69.6 % (test code = 770-8) IMM GRAN % (test code 0.40 % = 5404669767) LYMPH % (test code = 21.9 % 736-9) MONO % (test code = 6.2 % 5905-5) EOS % (test code = 1.5 % 713-8) BASO % (test code = 0.4 % 706-2) GRAN MAT x10^3(ANC) 7.95 10*3/uL 1.88-7.09 H (test code = 9068457584) IMM GRAN x10^3 (test 0.05 10*3/uL 0.00-0.06 code = 2701774558) LYMPH x10^3 (test code 2.50 10*3/uL 1.32-3.29 = 731-0) MONO x10^3 (test code 0.71 10*3/uL 0.33-0.92 = 742-7) EOS x10^3 (test code = 0.17 10*3/uL 0.03-0.39 711-2) BASO x10^3 (test code 0.04 10*3/uL 0.01-0.07 = 704-7) Lab Interpretation Abnormal (test code = 79974-6) [facility] Screen - ONCE [id number] 00:02:00 Test Item Value Reference Range Interpretation Comments ABO & RH (test code = 20) O POSITIVE IAT (test code = 1185) Negative [facility] CenterPOCT UR[facility]AL[facility] W SPECIFIC [id number] 14:02:00 Test Item Value Reference Range Interpretation [...] U APPEAR (test code = 3267) . [facility] URINALYSIS W SPECIFIC [id number] 14:02:00 Test Item Value Reference Range Interpretation [...] U APPEAR (test code = 3267) . [facility] URINALYSIS W SPECIFIC [id number] 19:05:00 Test Item Value Reference Range Interpretation [...] U APPEAR (test code = 3267) . [facility] URINALYSIS W SPECIFIC [id number] 19:05:00 Test Item Value Reference Range Interpretation [...] U APPEAR (test code = 3267) . [facility] URINALYSIS W SPECIFIC [id number] 19:05:00 Test Item Value Reference Range Interpretation [...] U APPEAR (test code = 3267) . [facility] URINALYSIS W SPECIFIC [id number] 19:05:00 Test Item Value Reference Range Interpretation [...] U APPEAR (test code = 3267) . [facility] URINALYSIS W SPECIFIC [id number] 20:36:00 Test Item Value Reference Range Interpretation [...] U APPEAR (test code = 3267) . [facility] WORKUP, BLOOD [id number] 07:10:51 Test Item Value Reference Range Interpretation Comments ABO & RH (test code O POSITIVE Performe d at [facility] = 20) Laboratory [facility] [address] [place] [address] s [address]Kohv Free: [phone] A No. [id number] IAT (test code = Negative Performed a t [facility] 1185) Laboratory [facility] Blood [address] s [address]Htp[address] Free: [phone] A No. [id number] [facility] WORKUP, BLOOD [id number] 07:10:51 Test Item Value Reference Range Interpretation Comments ABO & RH (test code O POSITIVE Performe d at [facility] = 20) Laboratory [facility] s [address]Nxmw Free: [phone] A No. [id number] IAT (test code = Negative Performed a t [facility] 1185) Laboratory [facility] s [address]Nqrf Free: [phone] A No. [id number] [facility] [id number] 20:32:00 Test Item Value Reference Range Interpretation Comments POCT PREG (test code = 1605) Positive On board controls acceptable with C Yes Line (test code = 3574) POCT PREG LOT # (test code = 3575) POCT PREG TEST DATE (test code = 357) [facility] URINALYSIS W/O SPECIFIC [id number] 20:32:00 Test Item Value Reference Range Interpretation [...] code = 3257) trace Negative - Negative [facility] [id number] 20:32:00 Test Item Value Reference Range Interpretation Comments POCT PREG (test code = 1605) Positive On board controls acceptable with C Yes Line (test code = 3574) POCT PREG LOT # (test code = 3575) POCT PREG TEST DATE (test code = 357) [facility] URINALYSIS W/O SPECIFIC [id number] 20:32:00 Test Item Value Reference Range Interpretation [...] code = 3257) trace Negative - Negative [facility]
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
[2023-07-23] MEDS ORDERED: SILVER SULFADIAZINE 1% 25 GM TOP ONE (09:05)
[2023-07-23] MEDS ORDERED: SILVER SULFADIAZINE 1% 50 GM TOP ONE (09:06)
[2023-07-23 09:12] VITALS: TEMP 98; O2SAT 99
[2023-07-23 09:13] VITALS: BP 142/84
== END 2023-07-23 09:07 | disposition home or self-care (01) ==
LOC: ER 08:34
DX: T21.22XA Burn of second degree of abdominal wall, initial encounter (principal)

== ENCOUNTER 2024-04-25 23:01 | Emergency (ER) | payer OTHER ==
--- OUTSIDE RECORDS SUMMARY | 2024-04-25 23:08 | XMS REPORT | Continuity of Care Document ---
Author Name Unknown Address [address] [facility] [address] [place] [address] [facility] thconnect Address [address] [facility] [address] [place] [address] Care Team Providers Care Automotive Product Specialist Name Role Phone Ruth Stubbs CNM Primary Care Physician + NAKIA DURAN Attending Clinician Unavail Ruth Collins CNM Attending Clinician [phone] Nakia José Attending Clinician + RUTH STUBBS Attending Clinician [facility] Attending Clinician Wellington Zaidi MD Attending Clinician [phone] SLIM MILLER Attending Clinician Ayush Leslie MD Attending Clinician [phone] Slim Miller MD Attending Clinician Ultrasound, Eugenekecia Attending Clinician Kasandra Hernandez MD Attending Clinician + KASANDRA ACOSTA Attending Clinician Unav ailable Faculty, [facility] Attending Clinician Unajordon Phoenix RN, Alma M Attending Clinician Unavailable Davian Conde MD Attending Clinician [phone] Geneva Hernández MD Attending Clinician [phone] Doctor Unassigned, [place] Attending Clinician U navailable LALA BEACH Attending Clinician Unavailable LALA BEACH Attending Clinician Unavailable Lala Beach MD Attending Clinician [phone] , [facility] Us Room Attending Clinician Unavaildavid Sparks MD, Carrera Attending Clinician + TERRENCE MANE Attending Clinician Unav ailable Provider, [facility] Attending Clinician Cuca MEGHAN Hardin Attending Clinician Unavailable Violet Broderick Attending Clinician UnavailLALA Wright Admitting Clinician Unavailable SLIM MILLER Admitting Clinician Unavaildavid Miller MD, Slim Heaton Admitting Clinician + [phone] Lala Beach MD Admitting Clinician [phone] Payers Payer Name Policy Type Policy Number Effective Date Expirati on Date Source [facility] [id number] 2022 00:00:00 Problems Condition Name Condition Details Condition Category Status Onset Date Resolution Date Last Treatment Date Treating Clinician Comments Source S/P repeat low transverse S/P repeat low transverse Disease Active 5-24 00:00: 00 [facility] 36 weeks gestation of 36 weeks gestation of Disease Active 5-20 00:00: 00 [facility] Anemia of mother in , antepartum Anemia of mother in , antepartum Disease Active -18 00:00: 00 [facility] Anemia of mother in , antepartum Anemia of mother in , antepartum Disease Active 5-18 00:00: 00 [facility] Morbid obesity with body mass index of 50 or higher Morbid obesity with body mass index of 50 or higher Disease Active 3-27 00:00: 00 [facility] 28 weeks gestation of 28 weeks gestation of Disease Active 3-27 00:00: 00 [facility] History of rupture of uterus History of rupture of uterus Disease Active 15 00:00: 00 Overview: Formattin g of this note might be different from the original. Last with twin [facility] Spina bifida in child of prior , currently Spina bifida in child of prior , currently Disease Active 11-19 00:00: 00 Overview: Formattin g of this note might be different from the original. 2nd baby also with enlarged heart [facility] History of delivery, currently History of delivery, currently Disease Active 11-19 00:00: 00 Overview: Formattin g of this note might be different from the original. 32 week r/t pprom [facility] Tubal ligation status Tubal ligation status Disease Active 11-19 00:00: 00 [facility] Asthma during Asthma during Disease Active 11-19 00:00: 00 [facility] Obesity affecting Obesity affecting Disease Active 11-19 00:00: 00 [facility] Abnormal quad screen Abnormal quad screen Disease Active 11-19 00:00: 00 [facility] Chlamydia trachomati s infection of lower genitourin aron sites Chlamydia trachomati s infection of lower genitourin aron sites Disease Active 08-04 00:00: 00 Overview: Formattin g of this note might be different from the original. SONYA ---- [facility] High-risk High-risk Disease Active 07-31 00:00: 00 Overview: Formattin g of this note might be different from the original. ICD10 Diagnosis Term Quality Checker Utility [facility] Tobacco use disorder Tobacco use disorder Disease Active 07-31 00:00: 00 [facility] Declines flu vaccine Declines flu vaccine Disease Active 07-31 00:00: 00 [facility] Immune to varicella Immune to varicella Disease Active 07-31 00:00: 00 [facility] Rubella immune Rubella immune Disease Active 07-31 00:00: 00 [facility] Bacterial vaginosis Bacterial vaginosis Disease Active 07-31 00:00: 00 [facility] Trichomona l vulvovagin itis Trichomona l vulvovagin itis Disease Active 07-31 00:00: 00 [facility] Previous delivery affecting , antepartum Previous delivery affecting , antepartum Disease Active 07-31 00:00: 00 Overview: Formattin g of this note might be different from the original. x7 [facility] Genital warts Genital warts Disease Active 07-31 00:00: 00 [facility] Heartburn Heartburn Disease Active 07-31 00:00: 00 [facility] Tobacco smoking affecting Tobacco smoking affecting Disease Active 07-31 00:00: 00 [facility] Allergies, Adverse Reactions, Alerts Allergy Name Allergy Type Status Severity Reaction(s) Onset Date Inactive Date Treating Clinician Comments Source NO KNOWN ALLERGIE S Drug Class Active [facility] Social History Social Habit Start Date Stop Date Quantity Comments Source ASSERTION 2022-07-30 00:00:00 [facility] of tobacco use Cigarette Smoker [facility] Exposure to SARS-CoV-2 (event) 2023-03-24 00:00:00 2023-04-03 07:45:00 Not sure [facility] History of Social function 2023-03-28 00:00:00 2023-03-28 00:00:00 [facility] Alcohol intake 2023-02-12 00:00:00 2023-02-12 00:00:00 Current non-drinker of alcohol (finding) [facility] Tobacco use and exposure 2022-11-16 00:00:00 2022-11-16 00:00:00 Smokeless tobacco non-user [facility] Tobacco Comment 2022-11-16 00:00:00 2022-11-16 00:00:00 1cigarettes/day [facility] Sex Assigned At 1995 00:00:00 1995 00:00:00 [facility] Smoking Status Start Date Stop Date Source Smokes tobacco daily 2022-11-16 00:00:00 [facility] Medications Ordered Medication Name Filled Medication Name Start Date Stop Date Current Medication? Ordering Clinician Indication Dosage Frequency Signature (SIG) Comments Components Source FAMOTIDINE ORAL 03-28 15:21: 10 Yes Take by mouth. [facility] docusate 100 mg capsule 03-28 00:00: 00 Yes [id number] 200mg Take 2 capsules by mouth once daily as needed for Constipati on. [facility] [id number] fum-folic () 27 mg iron- 1 mg folic tablet 03-28 00:00: 00 Yes [id number] 1{tbl} Take 1 tablet by mouth in the morning. [facility] [id number] fum-folic () 27 mg iron- 1 mg folic tablet 03-28 00:00: 00 Yes [id number] 1{tbl} Take 1 tablet by mouth in the morning. [facility] ferrous sulfate 325 mg (65 mg iron) tablet 03-28 00:00: 00 Yes [id number] 325mg Take 1 tablet by mouth in the morning and 1 tablet in the evening. [facility] ibuprofen 600 mg tablet 03-28 00:00: 00 Yes [id number] 600mg Take 1 tablet by mouth every 6 (six) hours as needed (Pain). Take with food or milk. [facility] HYDROcodone -acetaminop hen 5-325 mg tablet 03-28 00:00: 00 04-05 04:59 :00 No [id number] 1{tbl} Take 1 tablet by mouth every 6 (six) hours as needed for Pain (scale 7-10) (Pain scale above 4) for up to 7 days. Do not exceed 3 grams of acetaminop hen in 24 hours. Indication s: acute pain [facility] sennosides- docusate sodium (SENOKOT-S) 8.6-50 mg per tablet 1 tablet 03-27 14:00: 00 03-28 22:21 :12 No 1{tbl} 1 tablet, Oral, DAILY, First dose on Sun03/27/23 at 0900, Until Discontinu ed, Routine [facility] famotidine (PEPCID AC) tablet 20 mg 03-27 01:00: 00 03-28 22:21 :12 No 20mg 20 mg, Oral, BID, First dose on Sun03/26/23 at 2000, Until Discontinu ed, Routine [facility] ibuprofen (IBU) tablet 600 mg 03-26 23:00: 00 03-28 22:21 :12 No 600mg 600 mg, Oral, Q6H, First dose on Sun03/26/23 at 1800, Until Discontinu ed, Routine [facility] polyethylen e glycol 3350 powder 17 g 03-26 22:00: 00 03-28 22:21 :12 No 17g 17 g, Oral, DAILY, First dose on Sun03/26/23 at 1700, Until Discontinu ed, Routine [facility] rho(D) immune globulin (RHOGAM) syringe 300 mcg 03-26 17:46: 00 03-28 22:21 :12 No 300ug 300 mcg, Intramuscu lar, ONCE, For 1 dose, Conditiona l, Routine [facility] HYDROcodone -acetaminop hen (NORCO 5) 5-325 mg tablet 1 tablet 03-26 17:45: 54 03-28 22:21 :12 No 1{tbl} [Order 1 Start] Name: HYDROcodon e-acetamin ophen (NORCO 5) 5-325 mg tablet 1 [...] Routine, Pain (scale 7-10) [Order 2 End] [facility] diphenhydrA MINE (BENADRYL) injection 25 mg 03-26 17:45: 54 03-28 22:21 :12 No 25mg 25 mg, Slow IV Push, Q6HPRN, Starting on Sun03/26/23 at 1245, Until Sun03/28/23 at 1721, Routine, Itching [facility] diphenhydrA MINE (BENADRYL) tablet 25 mg 03-26 17:45: 54 03-28 22:21 :12 No 25mg 25 mg, Oral, Q6HPRN, Starting on Sun03/26/23 at 1245, Until Sun03/28/23 at 1721, Routine, Sleep, Itching [facility] ondansetron (ZOFRAN (PF)) injection 4 mg 03-26 17:45: 54 03-28 22:21 :12 No 4mg 4 mg, Slow IV Push, Q8HPRN, Starting on Sun03/26/23 at 1245, Until Sun03/28/23 at 1721, Routine, Nausea and Vomiting (N/V) [facility] bisacodyL (DULCOLAX) suppository 10 mg 03-26 17:45: 54 03-28 22:21 :12 No 10mg 10 mg, Rectal, QDAILYPRN, Starting on Sun03/26/23 at 1245, Until Sun03/28/23 at 1721, Routine, Constipati on [facility] simethicone (GAS RELIEF (SIMETHICON E)) chewable tablet 160 mg 03-26 17:45: 54 03-28 22:21 :12 No 160mg 160 mg, Oral, PC+HSPRN, Starting on Sun03/26/23 at 1245, Until Sun03/28/23 at 1721, Routine, Gas [facility] docusate (COLACE) capsule 200 mg 03-26 17:45: 54 03-28 22:21 :12 No 200mg 200 mg, Oral, QDAILYPRN, Starting on Sun03/26/23 at 1245, Until Sun03/28/23 at 1721, Routine, Constipati on [facility] magnesium hydroxide (MILK OF MAGNESIA) 400 mg/5 mL suspension 30 mL 03-26 17:45: 54 03-28 22:21 :12 No 30mL 30 mL, Oral, QDAILYPRN, Starting on Sun03/26/23 at 1245, Until Sun03/28/23 at 1721, Routine, Constipati on [facility] lactated ringers IV infusion 1,000 mL 03-26 17:45: 54 03-28 22:21 :12 No 1000mL at 125 mL/hr, 1,000 mL, IV Infusion, PRN, 1 dose, Starting on Sun03/26/23 at 1245, Until Sun03/28/23 at 1721, Routine [facility] acetaminoph en ADULT (OFIRMEV) injection 1,000 mg 03-26 17:30: 00 03-26 17:14 :00 No 1000mg 1,000 mg, IV Infusion, at 400 mL/hr Administer over 15 Minutes, ONCE, 1 dose, On Sun03/26/23 at 1230, Routine, PACU
In dication: Perioperat maryuri Patient [facility] acetaminoph en (TYLENOL) tablet 650 mg 03-26 12:15: 00 03-26 13:16 :00 No 650mg 650 mg, Oral, ONCE, 1 dose, On Sun03/26/23 at 0715, Routine [facility] lactated ringers IV infusion 500 mL 03-26 12:15: 00 03-26 12:45 :00 No 500mL at 999 mL/hr, 500 mL, IV Infusion, ONCE, 1 dose, On Sun03/26/23 at 0715, Routine [facility] ceFAZolin (ANCEF) 2,000 mg in NaCl 0.9% (NS) 100 mL MINI-BAG 03-26 12:11: 24 03-26 17:45 :57 No 2000mg 2,000 mg, IV Piggyback, O.R. HOLDING ONCE, Starting on Sun03/26/23 at 0711, Until Sun03/26/23 at 1245, Administer over 30 Minutes, 100 mL
Reas on for Anti-Infec tive: Surgical Prophylaxi s
Surgi karen Prophylaxi s: MANAGER METAL
Duration of therapy: within 24 hours of surgery [facility] sodium citrate-cit jazz acid (BICITRA) 500-334 mg/5 mL solution 30 mL 03-26 12:11: 24 03-26 13:38 :00 No 30mL 30 mL, Oral, PRE-PROCED URE ONCE, 1 dose, Starting on Sun03/26/23 at 0711, Until Sun03/28/23 at 2359, Routine, Surgery/Pr ocedure [facility] Iron Fum & P-FA-Vit B & C No.9 (INTEGRA PLUS) 125 mg iron- 1 mg Cap 03-09 00:00: 00 Yes [id number] 1{capsu le} Take 1 capsule by mouth in the morning. [facility] Iron Fum & P-FA-Vit B & C No.9 (INTEGRA PLUS) 125 mg iron- 1 mg Cap 03-09 00:00: 00 Yes [id number] 1{capsu le} Take 1 capsule by mouth in the morning. [facility] famotidine (PEPCID) 20 mg tablet 02-26 00:00: 00 Yes [id number] 20mg Take 1 tablet by mouth in the morning. [facility] FAMOTIDINE ORAL 01-30 17:41: 48 Yes Take by mouth. [facility] FAMOTIDINE ORAL 01-30 10:22: 39 Yes Take by mouth. [facility] metroNIDAZO LE (FLAGYL) tablet 500 mg 01-30 01:00: 02-06 00:59 :00 No 500mg 500 mg, Oral, Q12H, 14 doses, First dose on Sun01/29/23 at 2000, Last dose on Sun02/05/23 at 0800, Routine
Reason for Anti-Infec tive: Documented Infection< br>Documen augustus Infection Site: Pelvic
Duration of Therapy: 7 days [facility] alum-mag hydroxide-s imeth (MAALOX PLUS / MAG-AL PLUS) 200-200-20 mg/5 mL suspension 30 mL 01-30 00:16: 33 Yes 30mL 30 mL, Oral, Q6HPRN, Starting on Sun01/29/23 at 191, Until Discontinu ed, Routine, Indigestio n [facility] docusate (COLACE) capsule 200 mg 01-30 00:16: 33 Yes 200mg 200 mg, Oral, QHSPRN, Starting on Sun01/29/23 at 1915, Until Discontinu ed, Routine, Constipati on [facility] magnesium hydroxide (MILK OF MAGNESIA) 400 mg/5 mL suspension 30 mL 01-30 00:16: 33 Yes 30mL 30 mL, Oral, QDAILYPRN, Starting on Sun01/29/23 at 1915, Until Discontinu ed, Routine, Constipati on [facility] metroNIDAZO LE 500 mg tablet 01-30 00:00: 00 03-28 00:00 :00 No [id number] 500mg Take 1 tablet by mouth every 12 (twelve) hours. [facility] PNV 67-iron ps-folate no.1-dha (VITAFOL ULTRA) 29 mg iron- 1 mg-200 mg Cap 01-01 00:00: 00 Yes [id number] 1{each} Take 1 Each by mouth in the morning. [facility] PNV 67-iron ps-folate no.1-dha (VITAFOL ULTRA) 29 mg iron- 1 mg-200 mg Cap 01-01 00:00: 00 Yes [id number] 1{each} Take 1 Each by mouth in the morning. [facility] proMETHazin e 25 mg tablet 2-14 00:00: 00 Yes [id number] 25mg Take 1 tablet by mouth every 4 (four) hours as needed for Nausea and Vomiting (N/V). [facility] PNV 67-iron ps-folate no.1-dha (VITAFOL ULTRA) 29 mg iron- 1 mg-200 mg Cap 2-14 00:00: 00 01-01 00:00 :00 No [id number] 1{each} Take 1 Each by mouth daily. [facility] FAMOTIDINE ORAL 12 14:58: 27 Yes Take by mouth. [facility] VENTOLIN HFA 90 mcg/actuati on inhaler 2021-11 00:00: 00 Yes [id number] [facility] multivitami n ( VITAMIN) tablet 07-31 00:00: 00 01-01 00:00 :00 No [id number] 1{tbl} Take 1 Tab by mouth daily. [facility] Immunizations Ordered Immunization Name Filled Immunization Name Date Status Comments Source TDAP 2023-01-25 00:00:00 Completed [facility] TDAP 2023-01-25 00:00:00 Completed [facility] TDAP 2023-01-25 00:00:00 Completed [facility] TDAP 2023-01-25 00:00:00 Completed [facility] TDAP 2023-01-25 00:00:00 Completed [facility] TDAP 2023-01-25 00:00:00 Completed [facility] TDAP 2023-01-25 00:00:00 Completed [facility] TDAP 2023-01-25 00:00:00 Completed [facility] TDAP 2023-01-25 00:00:00 Completed [facility] TDAP 2023-01-25 00:00:00 Completed [facility] TDAP 2023-01-25 00:00:00 Completed [facility] TDAP 2023-01-25 00:00:00 Completed [facility] TDAP 2023-01-25 00:00:00 Completed [facility] TDAP 2023-01-25 00:00:00 Completed [facility] TDAP 2023-01-25 00:00:00 Completed [facility] TDAP 2023-01-25 00:00:00 Completed [facility] TDAP 2023-01-25 00:00:00 Completed [facility] TDAP 2023-01-25 00:00:00 Completed [facility] TDAP 2023-01-25 00:00:00 Completed [facility] TDAP 2023-01-25 00:00:00 Completed [facility] TDAP 2023-01-25 00:00:00 Completed [facility] TDAP 2023-01-25 00:00:00 Completed [facility] TDAP 2023-01-25 00:00:00 Completed [facility] TDAP 2023-01-25 00:00:00 Completed [facility] TDAP 2023-01-25 00:00:00 Completed [facility] TDAP 2023-01-25 00:00:00 Completed [facility] TDAP 2023-01-25 00:00:00 Completed [facility] TDAP 2023-01-25 00:00:00 Completed [facility] TDAP 2023-01-25 00:00:00 Completed [facility] TDAP 2023-01-25 00:00:00 Completed [facility] TDAP 2023-01-25 00:00:00 Completed [facility] TDAP 2023-01-25 00:00:00 Completed [facility] Influenza Virus Vaccine (3+ yrs) 2013-07-31 00:00:00 Completed [facility] PPD (TB) 2013-07-31 00:00:00 Completed [facility] Influenza Virus Vaccine (3+ yrs) 2013-07-31 00:00:00 Completed [facility] PPD (TB) 2013-07-31 00:00:00 Completed [facility] Influenza Virus Vaccine (3+ yrs) 2013-07-31 00:00:00 Completed [facility] PPD (TB) 2013-07-31 00:00:00 Completed [facility] Influenza Virus Vaccine (3+ yrs) 2013-07-31 00:00:00 Completed [facility] PPD (TB) 2013-07-31 00:00:00 Completed [facility] Influenza Virus Vaccine (3+ yrs) 2013-07-31 00:00:00 Completed [facility] PPD (TB) 2013-07-31 00:00:00 Completed [facility] Influenza Virus Vaccine (3+ yrs) 2013-07-31 00:00:00 Completed [facility] PPD (TB) 2013-07-31 00:00:00 Completed [facility] Influenza Virus Vaccine (3+ yrs) 2013-07-31 00:00:00 Completed [facility] PPD (TB) 2013-07-31 00:00:00 Completed [facility] Influenza Virus Vaccine (3+ yrs) 2013-07-31 00:00:00 Completed [facility] PPD (TB) 2013-07-31 00:00:00 Completed [facility] Influenza Virus Vaccine (3+ yrs) 2013-07-31 00:00:00 Completed [facility] PPD (TB) 2013-07-31 00:00:00 Completed [facility] Influenza Virus Vaccine (3+ yrs) 2013-07-31 00:00:00 Completed [facility] PPD (TB) 2013-07-31 00:00:00 Completed [facility] Influenza Virus Vaccine (3+ yrs) 2013-07-31 00:00:00 Completed [facility] PPD (TB) 2013-07-31 00:00:00 Completed [facility] Influenza Virus Vaccine (3+ yrs) 2013-07-31 00:00:00 Completed [facility] PPD (TB) 2013-07-31 00:00:00 Completed [facility] Influenza Virus Vaccine (3+ yrs) 2013-07-31 00:00:00 Completed [facility] PPD (TB) 2013-07-31 00:00:00 Completed [facility] Influenza Virus Vaccine (3+ yrs) 2013-07-31 00:00:00 Completed [facility] PPD (TB) 2013-07-31 00:00:00 Completed [facility] Influenza Virus Vaccine (3+ yrs) 2013-07-31 00:00:00 Completed [facility] PPD (TB) 2013-07-31 00:00:00 Completed [facility] Influenza Virus Vaccine (3+ yrs) 2013-07-31 00:00:00 Completed [facility] PPD (TB) 2013-07-31 00:00:00 Completed [facility] Influenza Virus Vaccine (3+ yrs) 2013-07-31 00:00:00 Completed [facility] PPD (TB) 2013-07-31 00:00:00 Completed [facility] Influenza Virus Vaccine (3+ yrs) 2013-07-31 00:00:00 Completed [facility] PPD (TB) 2013-07-31 00:00:00 Completed [facility] Influenza Virus Vaccine (3+ yrs) 2013-07-31 00:00:00 Completed [facility] PPD (TB) 2013-07-31 00:00:00 Completed [facility] Influenza Virus Vaccine (3+ yrs) 2013-07-31 00:00:00 Completed [facility] PPD (TB) 2013-07-31 00:00:00 Completed [facility] Influenza Virus Vaccine (3+ yrs) 2013-07-31 00:00:00 Completed [facility] PPD (TB) 2013-07-31 00:00:00 Completed [facility] Influenza Virus Vaccine (3+ yrs) 2013-07-31 00:00:00 Completed [facility] PPD (TB) 2013-07-31 00:00:00 Completed [facility] Influenza Virus Vaccine (3+ yrs) 2013-07-31 00:00:00 Completed [facility] PPD (TB) 2013-07-31 00:00:00 Completed [facility] Influenza Virus Vaccine (3+ yrs) 2013-07-31 00:00:00 Completed [facility] PPD (TB) 2013-07-31 00:00:00 Completed [facility] Influenza Virus Vaccine (3+ yrs) 2013-07-31 00:00:00 Completed [facility] PPD (TB) 2013-07-31 00:00:00 Completed [facility] Influenza Virus Vaccine (3+ yrs) 2013-07-31 00:00:00 Completed [facility] PPD (TB) 2013-07-31 00:00:00 Completed [facility] Influenza Virus Vaccine (3+ yrs) 2013-07-31 00:00:00 Completed [facility] PPD (TB) 2013-07-31 00:00:00 Completed [facility] Influenza Virus Vaccine (3+ yrs) 2013-07-31 00:00:00 Completed [facility] PPD (TB) 2013-07-31 00:00:00 Completed [facility] Influenza Virus Vaccine (3+ yrs) 2013-07-31 00:00:00 Completed [facility] PPD (TB) 2013-07-31 00:00:00 Completed [facility] Influenza Virus Vaccine (3+ yrs) 2013-07-31 00:00:00 Completed [facility] PPD (TB) 2013-07-31 00:00:00 Completed [facility] Influenza Virus Vaccine (3+ yrs) 2013-07-31 00:00:00 Completed [facility] PPD (TB) 2013-07-31 00:00:00 Completed [facility] Influenza Virus Vaccine (3+ yrs) 2013-07-31 00:00:00 Completed [facility] PPD (TB) 2013-07-31 00:00:00 Completed [facility] Influenza Virus Vaccine (3+ yrs) 2013-07-31 00:00:00 Completed [facility] PPD (TB) 2013-07-31 00:00:00 Completed [facility] Influenza Virus Vaccine (3+ yrs) 2013-07-31 00:00:00 Completed [facility] PPD (TB) 2013-07-31 00:00:00 Completed [facility] Influenza Virus Vaccine (3+ yrs) 2013-07-31 00:00:00 Completed [facility] PPD (TB) 2013-07-31 00:00:00 Completed [facility] Influenza Virus Vaccine (3+ yrs) 2013-07-31 00:00:00 Completed [facility] PPD (TB) 2013-07-31 00:00:00 Completed [facility] Influenza Virus Vaccine (3+ yrs) 2013-07-31 00:00:00 Completed [facility] PPD (TB) 2013-07-31 00:00:00 Completed [facility] Influenza Virus Vaccine (3+ yrs) 2013-07-31 00:00:00 Completed [facility] PPD (TB) 2013-07-31 00:00:00 Completed [facility] Influenza Virus Vaccine (3+ yrs) 2013-07-31 00:00:00 Completed [facility] PPD (TB) 2013-07-31 00:00:00 Completed [facility] Influenza Virus Vaccine (3+ yrs) 2013-07-31 00:00:00 Completed [facility] PPD (TB) 2013-07-31 00:00:00 Completed [facility] Influenza Virus Vaccine (3+ yrs) 2013-07-31 00:00:00 Completed [facility] PPD (TB) 2013-07-31 00:00:00 Completed [facility] Influenza Virus Vaccine (3+ yrs) 2013-07-31 00:00:00 Completed [facility] Influenza Virus Vaccine (3+ yrs) 2013-07-31 00:00:00 Completed [facility] PPD (TB) 2013-07-31 00:00:00 Completed [facility] PPD (TB) 2013-07-31 00:00:00 Completed [facility] Influenza Virus Vaccine (3+ yrs) 2013-07-31 00:00:00 Completed [facility] PPD (TB) 2013-07-31 00:00:00 Completed [facility] Influenza Virus Vaccine (3+ yrs) 2013-07-31 00:00:00 Completed [facility] PPD (TB) 2013-07-31 00:00:00 Completed [facility] Influenza Virus Vaccine (3+ yrs) 2013-07-31 00:00:00 Completed [facility] PPD (TB) 2013-07-31 00:00:00 Completed [facility] Influenza Virus Vaccine (3+ yrs) 2013-07-31 00:00:00 Completed [facility] PPD (TB) 2013-07-31 00:00:00 Completed [facility] Influenza Virus Vaccine (3+ yrs) 2013-07-31 00:00:00 Completed [facility] PPD (TB) 2013-07-31 00:00:00 Completed [facility] Influenza Virus Vaccine (3+ yrs) 2013-07-31 00:00:00 Completed [facility] PPD (TB) 2013-07-31 00:00:00 Completed [facility] Influenza Virus Vaccine (3+ yrs) 2013-07-31 00:00:00 Completed [facility] PPD (TB) 2013-07-31 00:00:00 Completed [facility] Influenza Virus Vaccine (3+ yrs) 2013-07-31 00:00:00 Completed [facility] PPD (TB) 2013-07-31 00:00:00 Completed [facility] Influenza Virus Vaccine (3+ yrs) 2013-07-31 00:00:00 Completed [facility] PPD (TB) 2013-07-31 00:00:00 Completed [facility] Influenza Virus Vaccine (3+ yrs) 2013-07-31 00:00:00 Completed [facility] PPD (TB) 2013-07-31 00:00:00 Completed [facility] Influenza Virus Vaccine (3+ yrs) 2013-07-31 00:00:00 Completed [facility] PPD (TB) 2013-07-31 00:00:00 Completed [facility] Influenza Virus Vaccine (3+ yrs) 2013-07-31 00:00:00 Completed [facility] PPD (TB) 2013-07-31 00:00:00 Completed [facility] TD, NOS 2008-06-30 00:00:00 Completed [facility] TD, NOS 2008-06-30 00:00:00 Completed [facility] TD, NOS 2008-06-30 00:00:00 Completed [facility] TD, NOS 2008-06-30 00:00:00 Completed [facility] TD, NOS 2008-06-30 00:00:00 Completed [facility] TD, NOS 2008-06-30 00:00:00 Completed [facility] TD, NOS 2008-06-30 00:00:00 Completed [facility] TD, NOS 2008-06-30 00:00:00 Completed [facility] TD, NOS 2008-06-30 00:00:00 Completed [facility] TD, NOS 2008-06-30 00:00:00 Completed [facility] TD, NOS 2008-06-30 00:00:00 Completed [facility] TD, NOS 2008-06-30 00:00:00 Completed [facility] TD, NOS 2008-06-30 00:00:00 Completed [facility] TD, NOS 2008-06-30 00:00:00 Completed [facility] TD, NOS 2008-06-30 00:00:00 Completed [facility] TD, NOS 2008-06-30 00:00:00 Completed [facility] TD, NOS 2008-06-30 00:00:00 Completed [facility] TD, NOS 2008-06-30 00:00:00 Completed [facility] TD, NOS 2008-06-30 00:00:00 Completed [facility] TD, NOS 2008-06-30 00:00:00 Completed [facility] TD, NOS 2008-06-30 00:00:00 Completed [facility] TD, NOS 2008-06-30 00:00:00 Completed [facility] TD, NOS 2008-06-30 00:00:00 Completed [facility] TD, NOS 2008-06-30 00:00:00 Completed [facility] TD, NOS 2008-06-30 00:00:00 Completed [facility] TD, NOS 2008-06-30 00:00:00 Completed [facility] TD, NOS 2008-06-30 00:00:00 Completed [facility] TD, NOS 2008-06-30 00:00:00 Completed [facility] TD, NOS 2008-06-30 00:00:00 Completed [facility] TD, NOS 2008-06-30 00:00:00 Completed [facility] TD, NOS 2008-06-30 00:00:00 Completed [facility] TD, NOS 2008-06-30 00:00:00 Completed [facility] TD, NOS 2008-06-30 00:00:00 Completed [facility] TD, NOS 2008-06-30 00:00:00 Completed [facility] TD, NOS 2008-06-30 00:00:00 Completed [facility] TD, NOS 2008-06-30 00:00:00 Completed [facility] TD, NOS 2008-06-30 00:00:00 Completed [facility] TD, NOS 2008-06-30 00:00:00 Completed [facility] TD, NOS 2008-06-30 00:00:00 Completed [facility] TD, NOS 2008-06-30 00:00:00 Completed [facility] TD, NOS 2008-06-30 00:00:00 Completed [facility] TD, NOS 2008-06-30 00:00:00 Completed [facility] TD, NOS 2008-06-30 00:00:00 Completed [facility] TD, NOS 2008-06-30 00:00:00 Completed [facility] TD, NOS 2008-06-30 00:00:00 Completed [facility] TD, NOS 2008-06-30 00:00:00 Completed [facility] TD, NOS 2008-06-30 00:00:00 Completed [facility] TD, NOS 2008-06-30 00:00:00 Completed [facility] TD, NOS 2008-06-30 00:00:00 Completed [facility] TD, NOS 2008-06-30 00:00:00 Completed [facility] TD, NOS 2008-06-30 00:00:00 Completed [facility] TD, NOS 2008-06-30 00:00:00 Completed [facility] TD, NOS 2008-06-30 00:00:00 Completed [facility] TD, NOS 2008-06-30 00:00:00 Completed [facility] TD, NOS 2008-06-30 00:00:00 Completed [facility] TD, NOS Unknown Completed [facility] Influenza Virus Vaccine (3+ yrs) Unknown Completed [facility] PPD (TB) Unknown Completed [facility] TDAP Unknown Completed [facility] TD, NOS Unknown Completed [facility] Influenza Virus Vaccine (3+ yrs) Unknown Completed [facility] PPD (TB) Unknown Completed [facility] TDAP Unknown Completed [facility] TD, NOS Unknown Completed [facility] Influenza Virus Vaccine (3+ yrs) Unknown Completed [facility] PPD (TB) Unknown Completed [facility] TDAP Unknown Completed [facility] TD, NOS Unknown Completed [facility] Influenza Virus Vaccine (3+ yrs) Unknown Completed [facility] PPD (TB) Unknown Completed [facility] TDAP Unknown Completed [facility] TD, NOS Unknown Completed [facility] Influenza Virus Vaccine (3+ yrs) Unknown Completed [facility] PPD (TB) Unknown Completed [facility] TDAP Unknown Completed [facility] TD, NOS Unknown Completed [facility] Influenza Virus Vaccine (3+ yrs) Unknown Completed [facility] PPD (TB) Unknown Completed [facility] TDAP Unknown Completed [facility] TD, NOS Unknown Completed [facility] Influenza Virus Vaccine (3+ yrs) Unknown Completed [facility] PPD (TB) Unknown Completed [facility] TDAP Unknown Completed [facility] TD, NOS Unknown Completed [facility] Influenza Virus Vaccine (3+ yrs) Unknown Completed [facility] PPD (TB) Unknown Completed [facility] TDAP Unknown Completed [facility] TD, NOS Unknown Completed [facility] Influenza Virus Vaccine (3+ yrs) Unknown Completed [facility] PPD (TB) Unknown Completed [facility] TDAP Unknown Completed [facility] Vital Signs Vital Name Observation Time Observation Value Comments S ource Systolic blood pressure 2023-04-03 13:13:00 121 mm[facility]Hg[facility] Diastolic blood pressure 2023-04-03 13:13:00 81 mm[Hg] [facility] Heart rate 2023-04-03 13:13:00 73 /min [facility] Body temperature 2023-04-03 13:13:00 36.22 Pat [facility] Respiratory rate 2023-04-03 13:13:00 20 /min [facility] Body height 2023-04-03 13:13:00 160 cm [facility] Body weight 2023-04-03 13:13:00 144.879 kg [facility] BMI 2023-04-03 13:13:00 56.58 kg/m2 [facility] Systolic blood pressure 2023-03-28 13:12:00 124 mm[Hg] [facility] Diastolic blood pressure 2023-03-28 13:12:00 64 mm[Hg] [facility] Heart rate 2023-03-28 13:12:00 96 /min [facility] Body temperature 2023-03-28 13:12:00 36.61 Pat [facility] Respiratory rate 2023-03-28 13:12:00 18 /min [facility] Oxygen saturation in Arterial blood by Pulse oximetry 2023-03-28 13:12:00 97 /min [facility] Body height 2023-03-26 12:12:00 160 cm [facility] Body weight 2023-03-26 12:12:00 148.326 kg [facility] BMI 2023-03-26 12:12:00 57.93 kg/m2 [facility] Systolic blood pressure 2023-03-26 13:30:00 107 mm[Hg] [facility] Diastolic blood pressure 2023-03-26 13:30:00 57 mm[Hg] [facility] Heart rate 2023-03-26 13:30:00 83 /[facility] Oxygen saturation in Arterial blood by Pulse oximetry 2023-03-26 13:30:00 100 /min [facility] Respiratory rate 2023-03-26 13:00:00 20 /min [facility] Body temperature 2023-03-26 12:12:00 36.56 Pat [facility] Body height 2023-03-26 12:12:00 160 cm [facility] Body weight 2023-03-26 12:12:00 148.326 kg [facility] BMI 2023-03-26 12:12:00 57.93 kg/m2 [facility] Systolic blood pressure 2023-03-22 13:52:00 115 mm[Hg] [facility] Diastolic blood pressure 2023-03-22 13:52:00 70 mm[Hg] [facility] Heart rate 2023-03-22 13:52:00 83 /min [facility] Body temperature 2023-03-22 13:52:00 36.22 Pat [facility] Respiratory rate 2023-03-22 13:52:00 20 /min [facility] Body height 2023-03-22 13:52:00 160 cm [facility] Body weight 2023-03-22 13:52:00 148.922 kg [facility] BMI 2023-03-22 13:52:00 58.16 kg/m2 [facility] Systolic blood pressure 2023-03-09 16:29:00 108 mm[Hg] [facility] Diastolic blood pressure 2023-03-09 16:29:00 71 mm[Hg] [facility] Heart rate 2023-03-09 16:29:00 75 /min [facility] Body temperature 2023-03-09 16:29:00 35.44 Pat [facility] Respiratory rate 2023-03-09 16:29:00 18 /min [facility] Body height 2023-03-09 16:29:00 160 cm [facility] Body weight 2023-03-09 16:29:00 148.372 kg [facility] BMI 2023-03-09 16:29:00 57.94 kg/m2 [facility] Systolic blood pressure 2023-02-23 20:47:00 127 mm[Hg] [facility] Diastolic blood pressure 2023-02-23 20:47:00 78 mm[Hg] [facility] Heart rate 2023-02-23 20:47:00 92 /min [facility] Body temperature 2023-02-23 20:47:00 35.61 Pat [facility] Respiratory rate 2023-02-23 20:47:00 18 /min [facility] Body height 2023-02-23 20:47:00 157.5 cm [facility] Body weight 2023-02-23 20:47:00 148.689 kg [facility] BMI 2023-02-23 20:47:00 59.96 kg/m2 [facility] Systolic blood pressure 2023-02-09 16:26:00 113 mm[Hg] [facility] Diastolic blood pressure 2023-02-09 16:26:00 73 mm[Hg] [facility] Heart rate 2023-02-09 16:26:00 81 /min [facility] Body temperature 2023-02-09 16:26:00 35.28 Pat [facility] Respiratory rate 2023-02-09 16:26:00 18 /min [facility] Body height 2023-02-09 16:26:00 157.5 cm [facility] Body weight 2023-02-09 16:26:00 146.376 kg [facility] BMI 2023-02-09 16:26:00 59.02 kg/m2 [facility] Systolic blood pressure 2023-01-30 17:05:00 113 mm[Hg] [facility] Diastolic blood pressure 2023-01-30 17:05:00 58 mm[Hg] [facility] Heart rate 2023-01-30 17:05:00 82 /min [facility] Body temperature 2023-01-30 17:05:00 36.56 Pat [facility] Respiratory rate 2023-01-30 17:05:00 18 /min [facility] Oxygen saturation in Arterial blood by Pulse oximetry 2023-01-30 17:05:00 98 /min [facility] Body height 2023-01-29 23:02:00 160 cm [facility] Body weight 2023-01-29 23:02:00 144.244 kg [facility] BMI 2023-01-29 23:02:00 56.33 kg/m2 [facility] Systolic blood pressure 2023-01-25 14:00:00 120 mm[Hg] [facility] Diastolic blood pressure 2023-01-25 14:00:00 65 mm[Hg] [facility] Heart rate 2023-01-25 14:00:00 84 /min [facility] Body temperature 2023-01-25 14:00:00 36.06 Pat [facility] Respiratory rate 2023-01-25 14:00:00 18 /min [facility] Body height 2023-01-25 14:00:00 160 cm [facility] Body weight 2023-01-25 14:00:00 143.881 kg [facility] BMI 2023-01-25 14:00:00 56.19 kg/m2 [facility] Systolic blood pressure 2023-01-01 19:01:00 104 mm[Hg] [facility] Diastolic blood pressure 2023-01-01 19:01:00 73 mm[Hg] [facility] Heart rate 2023-01-01 19:01:00 78 /min [facility] Body temperature 2023-01-01 19:01:00 36.39 Pat [facility] Respiratory rate 2023-01-01 19:01:00 19 /min [facility] Body height 2023-01-01 19:01:00 160 cm [facility] Body weight 2023-01-01 19:01:00 143.019 kg [facility] BMI 2023-01-01 19:01:00 55.85 kg/m2 [facility] Systolic blood pressure 2022-12-19 20:33:00 117 mm[Hg] [facility] Diastolic blood pressure 2022-12-19 20:33:00 73 mm[Hg] [facility] Heart rate 2022-12-19 20:33:00 78 /min [facility] Body temperature 2022-12-19 20:33:00 35.78 Pat [facility] Respiratory rate 2022-12-19 20:33:00 18 /min [facility] Body height 2022-12-19 20:33:00 160 cm [facility] Body weight 2022-12-19 20:33:00 143.246 kg [facility] BMI 2022-12-19 20:33:00 55.94 kg/m2 [facility] Systolic blood pressure 2022-11-16 20:43:00 124 mm[Hg] [facility] Diastolic blood pressure 2022-11-16 20:43:00 83 mm[Hg] [facility] Heart rate 2022-11-16 20:43:00 88 /min [facility] Body temperature 2022-11-16 20:43:00 36.17 Pat [facility] Respiratory rate 2022-11-16 20:43:00 17 /min [facility] Body height 2022-11-16 20:43:00 157.5 cm [facility] Body weight 2022-11-16 20:43:00 141.159 kg [facility] BMI 2022-11-16 20:43:00 56.92 kg/m2 [facility] Procedures Procedure Date / Time Performed Performing Clinician Source CBC WITH DIFF 2023-03-27 09:27:00 Ella Brower [facility] CBC WITH DIFF 2023-03-27 09:27:00 Inocente Ella [facility] VENOUS CORD GAS 2023-03-26 14:28:00 [facility] 2023-03-26 14:28:00 Ilda Mohr [facility] SECTION 2023-03-26 13:31:00 Slim Miller [facility] TUBAL LIGATION 2023-03-26 13:31:00 Slim Miller [facility] SECTION 2023-03-26 13:31:00 Slim Miller [facility] TUBAL LIGATION 2023-03-26 13:31:00 Slim Miller [facility] CBC WITH DIFF 2023-03-26 12:42:00 Ilda Mohr [facility] HEPATITIS B SURFACE ANTIGEN 2023-03-26 12:42:00 Ilda Mohr [facility] HB ABO GROUPING 2023-03-26 12:42:00 Ella Brower [facility] RHO (D) IMMUNE GLOBULIN 2023-03-26 12:42:00 Me alphonso Brower [facility] HIV 1/2 AG-AB WITH REFLEX 2023-03-26 12:42:00 Ilda Mohr [facility] SYPHILIS IGG/IGM 2023-03-26 12:42:00 [facility] 2023-03-26 12:42:00 Ilda Mohr [facility] HEPATITIS B SURFACE ANTIGEN 2023-03-26 12:42:00 Ilda Mohr [facility] HB ABO GROUPING 2023-03-26 12:42:00 Ella Brower [facility] RHO (D) IMMUNE GLOBULIN 2023-03-26 12:42:00 Me alphonso Brower [facility] HIV 1/2 AG-AB WITH REFLEX 2023-03-26 12:42:00 Ilda Mohr [facility] SYPHILIS IGG/IGM 2023-03-26 12:42:00 Ilda Mohr [facility] POCT URINALYSIS 2023-03-22 13:53:00 Ruth Stubbs [facility] POCT URINALYSIS 2023-03-09 16:31:00 Ruth Stubbs [facility] POCT URINALYSIS 2023-02-09 16:28:00 Ruth Stubbs [facility] EXTERNAL PROVIDER RECORDS 2023-01-31 05:01:00 Doctor Unassigned, [place] [facility] SECOND AND THIRD TRIMESTER ULTRASOUND 2023-01-30 14:08:00 Ruth Stubbs [facility] URINALYSIS 2023-01-30 01:13:00 Karma Cui [facility] URINE CULTURE 2023-01-30 01:13:00 Basilia Karma [facility] GC & CHLAMYDIA AMPLIFIED ASSAY 2023-01-30 00:21:00 Basilia Karma [facility] CBC WITH DIFF 2023-01-29 23:52:00 Basilia Karma [facility] HB ABO GROUPING 2023-01-29 23:52:00 Basilia Karma [facility] TDAP VACCINE, >11 YRS, IM 2023-01-25 15:49:15 Ruth Stubbs [facility] POCT URINALYSIS 2023-01-25 14:01:00 Ruth Stubbs [facility] AUTHORIZATION TO RELEASE PHI TO [facility] 2023-01-25 05:01:00 Doctor Unassigned, [place] [facility] POCT URINALYSIS 2023-01-01 00:00:00 Ruth Stubbs [facility] POCT URINALYSIS 2022-12-19 20:35:00 Ruth Stubbs [facility] AUTHORIZATION FOR RELEASE OF PHI 2022-11-24 06:01:00 Doctor Unassigned, [place] [facility] GLUCOSE 1 HOUR POST PRANDIAL 2022-11-16 21:45:00 Ruth Stubbs [facility] CBC WITH DIFF 2022-11-16 21:45:00 Ruth Stubbs [facility] RUBELLA SCREEN IGG 2022-11-16 21:45:00 Richa Stubbs [facility] VZV ANTIBODY SCREEN 2022-11-16 21:45:00 Mandy Stubbs [facility] HEPATITIS B SURFACE ANTIGEN 2022-11-16 21:45:00 Ruth Stubbs [facility] HCV ANTIBODY 2022-11-16 21:45:00 Ruth Stubbs [facility] HB ABO GROUPING 2022-11-16 21:45:00 Ruth Stubbs [facility] URINE CULTURE 2022-11-16 21:45:00 Ruth Stubbs [facility] GC & CHLAMYDIA AMPLIFIED ASSAY 2022-11-16 21:45:00 Ruth Stubbs [facility] QUAD SCRN 2022-11-16 21:45:00 Ruth Stubbs [facility] HIV 1/2 AG-AB WITH REFLEX 2022-11-16 21:45:00 Ruth Stubbs [facility] SYPHILIS IGG/IGM 2022-11-16 21:45:00 Ruth Stubbs [facility] ASSIGNMENT OF BENEFITS 2022-11-16 20:02:04 Docto r Unassigned, [place] [facility] POCT TEST 2022-11-16 00:00:00 Mandy Stubbs [facility] POCT URINALYSIS W/O SPECIFIC GRAVITY 2022-11-16 00:00:00 Ruth Stubbs [facility] Encounters Start Date/Time End Date/Time Encounter Type Admission Type Attending Clinicians Care Facility Care Department Encounter ID Source 2023-01-30 17:41:51 Outpatient P [facility] DREW [id number] [facility] 2023-06-15 09:30:00 2023-06-15 09:30:00 Outpatient R NAKIA DURAN [facility] [id number] [facility] 2023-06-09 00:00:00 2023-06-09 00:00:00 Patient Secure Ruth Stubbs [facility] MANAGER METAL [facility] & CHILD [facility] [id number] [id number] [id number] [id number] [facility] 2023-06-09 00:00:00 2023-06-09 00:00:00 Patient Secure RaniangelineRuth [facility] MANAGER METAL [facility] & CHILD [facility] 1..840.114 350.1.13.10 [id number] [id number] [facility] 2023-04-25 16:00:00 2023-04-25 16:00:00 Outpatient R NAKIA DURAN [facility] [id number] [facility] 2023-04-18 00:00:00 2023-04-18 00:00:00 Telephone Nakia Duran [facility] MANAGER METAL [facility] & CHILD [facility] [id number] 350.1.13.10 [id number] [id number] [facility] 2023-04-18 00:00:00 2023-04-18 00:00:00 Patient Secure Ruth Stubbs [facility] MANAGER METAL [facility] & CHILD [facility] [id number] 350.1.13.10 [id number] [id number] [facility] 2023-04-03 08:00:00 2023-04-03 08:26:08 Outpatient R RUTH STUBBS [facility] [id number] [facility] 2023-04-03 08:00:00 2023-04-03 08:26:08 Nurse Visit Visit, Ang-Rmchp Nurse Ruth Stubbs [facility] MANAGER METAL [facility] & CHILD [facility] [id number] 350.1.13.10 4.2.7.2.686 [id number] [facility] 2023-04-02 00:00:00 2023-04-02 00:00:00 Encounter [id number] 350.1.13.10 [id number] [id number] [facility] 2023-04-02 00:00:00 2023-04-02 00:00:00 Patient Secure Msg Ruth Stubbs [facility] MANAGER METAL [facility] & CHILD [facility] [id number] 350.1.13.10 4.2.7.2.686 [id number] [facility] 2023-03-31 00:00:00 2023-03-31 00:00:00 Wellington Walker [facility] 1.2.840.114 350.1.13.10 4.2.7.2.686 [id number] [facility] 2023-03-26 06:35:00 2023-03-28 15:21:00 Inpatient P SLIM MILLER [facility] DREW [id number] [facility] 2023-03-26 06:35:00 2023-03-28 15:21:00 [facility] 1.2.840.114 350.1.13.10 4.2.7.2.686 [id number] [facility] 2023-03-26 07:15:00 2023-03-26 08:57:00 Surgery [facility] 1.2.840.114 350.1.13.10 4.2.7.2.686 [id number] [facility] 2023-03-22 09:00:00 2023-03-22 09:17:51 Outpatient R RUTH STUBBS [facility] [id number] [facility] 2023-03-22 09:00:00 2023-03-22 09:17:51 Routine Visit Ruth Stubbs [facility] MANAGER METAL [facility] MATERNAL & CHILD [facility] 1.2.840.114 350.1.13.10 4.2.7.2.686 [id number] [facility] 2023-03-16 11:15:00 2023-03-16 11:45:00 [employer] Coordinator Visit Ultrasound, Kasandra Conte [facility] MANAGER METAL [facility] MATERNAL & CHILD [facility] [id number] 350.1.13.10 4.2.7.2.686 [id number] [facility] 2023-03-16 11:15:00 2023-03-16 11:15:00 Outpatient KASANDRA CROCKER [facility] [id number] [facility] 2023-03-12 00:00:00 2023-03-12 00:00:00 Patient Secure MsNakia Perkins [facility] MANAGER METAL [facility] & CHILD [facility] [id number] 350.1.13.10 4.2.7.2.686 [id number] [facility] 2023-03-12 00:00:00 2023-03-12 00:00:00 Patient Secure Patrickrobert Nakia Dunn [facility] [facility] MANAGER METAL [facility]ILD [facility] 1.2.840.114 350.1.13.10 4.2.7.2.686 [id number] [facility] 2023-03-09 15:30:00 2023-03-09 15:30:00 Outpatient R NAKIA DURAN [facility] [id number] [facility] 2023-03-09 11:00:00 2023-03-09 12:00:17 Outpatient R GISELLEMATHIEURUTH [facility] [id number] [facility] 2023-03-09 11:00:00 2023-03-09 12:00:17 Routine Visit GisellemathieuRuth [facility] MANAGER METAL [facility] 1.2.840.114 350.1.13.10 4.2.7.2.686 [id number] 107 [id number] [facility] 2023-02-28 00:00:00 2023-02-28 00:00:00 Patient Secure Ruth Platt [facility] MANAGER METAL [facility] 1.2.840.114 350.1.13.10 4.2.7.2.686 [id number] [facility] 2023-02-26 00:00:00 2023-02-26 00:00:00 Patient Secure Ruth Platt [facility] MANAGER METAL [facility] 1.2.840.114 350.1.13.10 4.2.7.2.686 [id number] [facility] 2023-02-23 16:00:00 2023-02-23 16:08:20 Outpatient R NAKIA DURAN [facility] [id number] [facility] 2023-02-23 16:00:2023-02-23 16:08:20 Routine Visit Nakia Duran [facility] MANAGER METAL [facility] 1.2.840.114 350.1.13.10 4.2.7.2.686 [id number] 107 [id number] [facility] 2023-02-13 00:00:00 2023-02-13 00:00:00 Patient Secure Msg RaniangelineRuth [facility] MANAGER METAL [facility] 1.2.840.114 350.1.13.10 4.2.7.2.686 [id number] 107 [id number] [facility] 2023-02-13 00:00:00 2023-02-13 00:00:00 Case Management Ruth Stubbs [facility] MANAGER METAL [facility] 1.2.840.114 350.1.13.10 4.2.7.2.686 [id number] [facility] 2023-02-12 09:00:00 2023-02-12 10:43:27 Outpatient R KASANDRA ACOSTA [facility] [id number] [facility] 2023-02-12 09:00:00 2023-02-12 10:43:27 Telemedici ne Visit Faculty, Jose L ngoc Kasandra Nuñez Ikuvbogie [facility] MANAGER METAL [facility] 1.2.840.114 350.1.13.10 4.2.7.2.686 [id number] 107 [id number] [facility] 2023-02-12 00:00:00 2023-02-12 00:00:00 Nurse Triage Alma Phoenix [facility] 1.2.840.114 350.1.13.10 4.2.7.2.686 [id number] [facility] 2023-02-12 00:00:00 2023-02-12 00:00:00 Telephone Nakia Duran [facility] MANAGER METAL [facility] 1.2.840.114 350.1.13.10 4.2.7.2.686 [id number] 107 [id number] [facility] 2023-02-09 11:00:00 2023-02-09 11:56:07 Outpatient R GIO DURANILOLA [facility] [id number] [facility] 2023-02-09 11:00:00 2023-02-09 11:56:07 Routine Visit Sanjana Duranprince Dunn [facility] MANAGER METAL [facility] 1.2.840.114 350.1.13.10 4.2.7.2.686 [id number] [facility] 2023-02-09 00:00:00 2023-02-09 00:00:00 Letter (Out) Sanjana Duranprince Dunn [facility] 1.2.840.114 350.1.13.10 4.2.7.2.686 [id number] 107 [id number] [facility] 2023-02-04 00:00:00 2023-02-04 00:00:00 Telephone Davian Conde [facility] 1.2.840.114 350.1.13.10 4.2.7.2.686 [id number] [facility] 2023-02-03 00:00:00 2023-02-03 00:00:00 Case Management Geneva Hernández [facility] 1.2.840.114 350.1.13.10 4.2.7.2.686 [id number] [id number] [facility] 2023-01-31 00:00:00 2023-01-31 00:00:00 Case Management Ruth Stubbs [facility] 1.2.840.114 350.1.13.10 4.2.7.2.686 [id number] 107 [id number] [facility] 2023-01-31 00:00:00 2023-01-31 00:00:00 Orders Only Doctor Unassigned, [place] [facility] 1.20.114 350.1.13.10 4.2.7.2.686 [id number] [facility] 2023-01-29 17:47:00 2023-01-30 14:45:00 Outpatient P L[place]A [place] SHANNON [facility] DREW [id number] [facility] 2023-01-29 17:47:00 2023-01-30 14:45:00 Hospital Encounter [place] [facility] 1..114 350.1.13.10 4.2.7.2.686 [id number] [facility] 2023-01-30 08:45:00 2023-01-30 09:29:43 [employer] Coordinator Visit 1, [facility] Room [facility] 1..114 350.1.13.10 4.2.7.2.686 [id number] [facility] 2023-01-29 13:30:00 2023-01-29 14:00:00 [employer] Coordinator Visit Ultrasound, [facility] Terrence Rodriguez [facility] MANAGER METAL [facility] MATERNAL & CHILD [facility] 1.840.114 350.1.13.10 4.2.7.2.686 [id number] [facility] 2023-01-29 13:30:00 2023-01-29 13:30:00 Outpatient P TERRENCE RODRIGUEZ [facility] [id number] [facility] 2023-01-29 00:00:00 2023-01-29 00:00:00 Telephone Nakia Duran [facility] MANAGER METAL [facility] MAT[facility] & [facility] 1.840.114 350.1.13.10 4.2.7.2.686 [id number] 107 [id number] [facility] 2023-01-25 08:45:00 2023-01-25 09:32:33 Outpatient R RUTH STUBBS [facility] [id number] [facility] 2023-01-25 08:45:00 2023-01-25 09:32:33 Routine Visit Provider, Ruth Lal [facility] MANAGER METAL [facility] 1.840.114 350.1.13.10 4.2.7.2.686 [id number] 107 [id number] [facility] 2023-01-25 00:00:00 2023-01-25 00:00:00 Orders Only Doctor Unassigned, [place] [facility] 1.840.114 350.1.13.10 4.2.7.2.686 [id number] [facility] 2023-01-23 15:15:00 2023-01-23 15:15:00 Outpatient R [facility] [id number] [facility] 2023-01-18 15:24:03 2023-01-18 15:24:03 Outpatient [facility] [id number] Js Faye 2023-01-17 00:00:00 2023-01-17 00:00:00 Case Management Geneva Hernández [facility] 1.84.114 350.1.13.10 4.2.7.2.686 [id number] [facility] 2023-01-16 09:30:00 2023-01-16 09:30:00 Outpatient R [facility] [id number] [facility] 2023-01-15 09:30:00 2023-01-15 10:02:09 Outpatient R TERRENCE RODRIGUEZ [facility] [id number] [facility] 2023-01-15 09:30:00 2023-01-15 10:02:09 Telemedici ne Visit Faculty, Jose L Pedroza Terrence Celis [facility] MANAGER METAL [facility] MATERNAL & CHILD [facility] 1.2.840.114 350.1.13.10 4.2.7.2.686 [id number] 107 [id number] [facility] 2023-01-12 00:00:00 2023-01-12 00:00:00 Telephone Nakia Duran [facility] MANAGER METAL [facility] 1.840.114 350.1.13.10 4.2.7.2.686 [id number] 107 [id number] [facility] 2023-01-08 11:15:00 2023-01-08 11:15:00 Outpatient P [facility] [id number] [facility] 2023-01-01 15:00:00 2023-01-01 15:00:00 Routine Visit Nakia Duran [facility] MANAGER METAL [facility]ILD [facility] 1.840.114 350.1.13.10 4.2.7.2.686 [id number] [facility] 2023-01-01 15:00:00 2023-01-01 13:34:27 Outpatient R NAKIA DURAN [facility] [id number] [facility] 2022-12-28 11:00:00 2022-12-28 11:00:00 Outpatient R RUTH STUBBS [facility] [id number] [facility] 2022-12-28 00:00:00 2022-12-28 00:00:00 Telephone Nakia Duran [facility] MANAGER METAL [facility] 1.2.840.114 350.1.13.10 4.2.7.2.686 [id number] 107 [id number] [facility] 2022-12-19 15:00:00 2022-12-19 15:03:34 Outpatient R NAKIA DURAN [facility] [id number] [facility] 2022-12-19 15:00:00 2022-12-19 15:03:34 Routine Visit Nakia Duran Shaun [facility] MANAGER METAL [facility] 1..840.114 350.1.13.10 4.2.7.2.686 [id number] [facility] 2022-12-15 10:30:00 2022-12-15 10:30:00 Outpatient R RUTH STUBBS [facility] [id number] [facility] 2022-12-04 10:30:00 2022-12-04 11:00:00 Telemedici ne Visit Faculty, Jose L [facility] Terrence Rodriguez [facility] MANAGER METAL [facility] ..840.114 350.1.13.10 4.2.7.2.686 [id number] [facility] 2022-12-04 10:30:00 2022-12-04 10:30:00 Outpatient P TERRENCE RODRIGUEZ [facility] [id number] [facility] 2022-12-04 00:00:00 2022-12-04 00:00:00 Case Management Ruth Stubbs [facility] ..840.114 350.1.13.10 4.2.7.2.686 [id number] 107 [id number] [facility] 2022-12-01 09:45:00 2022-12-01 10:37:59 Outpatient MEGHAN GARNICA [facility] [id number] [facility] 2022-12-01 09:45:00 2022-12-01 10:37:59 Telemedici ne Visit Violet Broderick Meghan [facility] MANAGER METAL [facility]ILD [facility] 1.2.840.114 350.1.13.10 4.2.7.2.686 [id number] 107 [id number] [facility] 2022-12-01 08:30:00 2022-12-01 09:45:00 [employer] Coordinator Visit Ultrasound, Meghan Bell [facility] MANAGER METAL [facility] 1.2840.114 350.1.13.10 4.2.7.2.686 [id number] [facility] 2022-11-24 00:00:00 2022-11-24 00:00:00 Orders Only Doctor Unassigned, [place] [facility] 1.20.114 350.1.13.10 4.2.7.2.686 [id number] [facility] 2022-11-23 00:00:00 2022-11-23 00:00:00 Case Management Ruth Stubbs [facility] MANAGER METAL [facility] 1.0.114 350.1.13.10 4.2.7.2.686 [id number] 107 [id number] [facility] 2022-11-21 00:00:00 2022-11-21 00:00:00 Telephone Ruth Stubbs [facility] MANAGER METAL [facility] CH[facility] 1.0.114 350.1.13.10 4.2.7.2.686 [id number] [facility] 2022-11-16 14:15:00 2022-11-16 15:57:32 Outpatient R RUTH STUBBS [facility] [id number] [facility] 2022-11-16 14:15:00 2022-11-16 15:57:32 Initial Visit Provider, EugeneRmchp Ruth Melgoza [facility] MANAGER METAL [facility] 1.2.114 350.1.13.10 4.2.7.2.686 [id number] [facility] 2022-11-16 00:00:00 2022-11-16 00:00:00 Orders Only Doctor Unassigned, [place] [facility] 1.2.840.114 350.1.13.10 4.2.7.2.686 [id number] [facility] Results Test Description Test Time Test Comments Results Result Co mments Source [facility] IMMUNE [id number] 18:54:02* Test Item Value Reference Range Interpretation Comme nts RHIG CANDIDATE? (test code = 5188) No- see comment Patient is not a candidate for RhIg- Patient is Rh Positive.Performed at [facility] Laboratory Services [facility] Blood [address] [place] [address]Oadg Free: [phone] No. [id number] [facility] Cord [id number] 14:47:55* Test Item Value Reference Range Interpretation Comme nts BASE EXCESS, CORD (test code = 0800684638) -2.6 mEq/L QUES AC PH, CORD (BEAKER) (test code = 5500214548) 7.27 7.18-7.38 PC02, CORD (test code = 4284247227) 56 See_Comment [Automated messa ge] The system which generated this result transmitted reference range: 32 - 66 mmHg. The reference range was not used to interpret this result as normal/abnormal. PO2, CORD (test code = 7666122880) 15 See_Comment [Automated messa ge] The system which generated this result transmitted reference range: 10 - 30 mmHg. The reference range was not used to interpret this result as normal/abnormal. BICARBONATE, CORD (test code = 0633218561) 25 See_Comment [Automated messa ge] The system which generated this result transmitted reference range: 17 - 27 mEq/L. The reference range was not used to interpret this result as normal/abnormal. [facility] [id number] 14:47:55* Test Item Value Reference Range Interpretation Comme nts BASE EXCESS, CORD (test code = 8358488761) -2.6 mEq/L QUES AC PH, CORD (BEAKER) (test code = 5255296330) 7.27 7.18-7.38 PC02, CORD (test code = 3428919043) 56 See_Comment [Automated messa ge] The system which generated this result transmitted reference range: 32 - 66 mmHg. The reference range was not used to interpret this result as normal/abnormal. PO2, CORD (test code = 1418033110) 15 See_Comment [Automated messa ge] The system which generated this result transmitted reference range: 10 - 30 mmHg. The reference range was not used to interpret this result as normal/abnormal. BICARBONATE, CORD (test code = 1279828147) 25 See_Comment [Automated messa ge] The system which generated this result transmitted reference range: 17 - 27 mEq/L. The reference range was not used to interpret this result as normal/abnormal. [facility] Cord [id number] 14:45:33* Test Item Value Reference Range Interpretation Comme nts VENOUS BASE EXCESS, CORD (test code = 9007394749) -3.4 mEq/L VENOUS PH, CORD (test code = 0465330811) 7.34 7.25-7.45 VENOUS PC02, CORD (test code = 2434501216) 42 See_Comment [Automated messa ge] The system which generated this result transmitted reference range: 27 - 49 mmHg. The reference range was not used to interpret this result as normal/abnormal. VENOUS PO2, CORD (test code = 3806807033) 31 See_Comment [Automated me ssage] The system which generated this result transmitted reference range: 17 - 41 mmHg. The reference range was not used to interpret this result as normal/abnormal. VENOUS BICARBONATE, CORD (test code = 9933564457) 22 See_Comment QUES [Automated message] The system which generated this result transmitted reference range: 12 - 29 mEq/L. The reference range was not used to interpret this result as normal/abnormal. [facility] Cord [id number] 14:45:33* Test Item Value Reference Range Interpretation Comme [facility] VENOUS BASE EXCESS, CORD (test code = 2889736185) -3.4 mEq/L VENOUS PH, CORD (test code = 4733700523) 7.34 7.25-7.45 VENOUS PC02, CORD (test code = 3958452995) 42 See_Comment [Automated messa ge] The system which generated this result transmitted reference range: 27 - 49 mmHg. The reference range was not used to interpret this result as normal/abnormal. VENOUS PO2, CORD (test code = 0291000022) 31 See_Comment [Automated me ssage] The system which generated this result transmitted reference range: 17 - 41 mmHg. The reference range was not used to interpret this result as normal/abnormal. VENOUS BICARBONATE, CORD (test code = 6820863255) 22 See_Comment QUES [Automated message] The system which generated this result transmitted reference range: 12 - 29 mEq/L. The reference range was not used to interpret this result as normal/abnormal. [facility] URINALYSIS W SPECIFIC [id number] 13:54:00* Test Item Value Reference Range Interpretation Comme nts POCT U SP GRAV (test code = 3255) . 1.005-1.025 POCT PH U (test code = 3254) 6 mg/dl 5-8 POCT U LEUK EST (test code = 3263) Trace Negative - Negative POCT U NIT (test code = 3262) Neg Negative - Negati ve POCT U PROT (test code = 3259) 1+ Negative - Negat maryuri POCT U GLU (test code = 3256) Neg Negative - Negati ve POCT U KETONE (test code = 3258) None Negative - Neg ative POCT U UROBILI (test code = 3260) . 0.2-1 POCT U BILI (test code = 3261) . Negative - Negat maryuri POCT U BLD (test code = 3257) Large Negative - Negati ve POCT U COLOR (test code = 3266) . POCT U APPEAR (test code = 3267) . [facility] URINALYSIS W SPECIFIC [id number] 16:31:00* Test Item Value Reference Range Interpretation Comme nts POCT U SP GRAV (test code = 3255) . 1.005-1.025 POCT PH U (test code = 3254) . 5-8 POCT U LEUK EST (test code = 3263) . Negative - N egative POCT U NIT (test code = 3262) . Negative - Negati ve POCT U PROT (test code = 3259) trace Negative - Negat maryuri POCT U GLU (test code = 3256) neg Negative - Negati ve POCT U KETONE (test code = 3258) . Negative - Neg ative POCT U UROBILI (test code = 3260) . 0.2-1 POCT U BILI (test code = 3261) . Negative - Negat maryuri POCT U BLD (test code = 3257) . Negative - Negati ve POCT U COLOR (test code = 3266) .. POCT U APPEAR (test code = 3267) . [facility] W SPECIFIC [id number] 16:28:00* Test Item Value Reference Range Interpretation Comme nts POCT U SP GRAV (test code = 3255) . 1.005-1.025 POCT PH U (test code = 3254) . 5-8 POCT U LEUK EST (test code = 3263) . Negative - N egative POCT U NIT (test code = 3262) . Negative - Negati ve POCT U PROT (test code = 3259) trace Negative - Negat maryuri POCT U GLU (test code = 3256) neg Negative - Negati ve POCT U KETONE (test code = 3258) . Negative - Neg ative POCT U UROBILI (test code = 3260) . 0.2-1 POCT U BILI (test code = 3261) . Negative - Negat maryuri POCT U BLD (test code = 3257) . Negative - Negati ve POCT U COLOR (test code = 3266) . POCT U APPEAR (test code = 3267) . [facility] WITH [id number] 00:10:19* Test Item Value Reference Range Interpretation Comme nts WBC (test code = 6690-2) 11.42 See_Comment H [Automated messa ge] The system which generated this result transmitted reference range: 4.30 - 11.10 10*3/?L. The reference range was not used to interpret this result as normal/abnormal. RBC (test code = 789-8) 3.44 See_Comment L [Automated messa ge] The system which generated this result transmitted reference range: 3.93 - 5.25 10*6/?L. The reference range was not used to interpret this result as normal/abnormal. HGB (test code = 718-7) 10.4 g/dL 11.6-15.0 L HCT (test code = 4544-3) 31.9 % 35.7-45.2 L MCV (test code = 787-2) 92.7 fL 80.6-95.5 MCH (test code = 785-6) 30.2 pg 25.9-32.8 MCHC (test code = 786-4) 32.6 g/dL 31.6-35.1 RDW-SD (test code = 17999-9) 44.9 fL 39.0-49.9 RDW-CV (test code = 788-0) 13.2 % 12.0-15.5 PLT (test code = 777-3) 322 See_Comment [Automated [employer] ge] The system which generated this result transmitted reference range: 166 - 358 10*3/?L. The reference range was not used to interpret this result as normal/abnormal. MPV (test code = 34537-1) 10.8 fL 9.5-12.9 NRBC/100 WBC (test code = 7668529575) 0.0 See_Comment [Automated [employer] ssage] The system which generated this result transmitted reference range: 0.0 - 10.0 /100 WBCs. The reference range was not used to interpret this result as normal/abnormal. NRBC x10^3 (test code = 1678306188) See_Comment [Automated [employer] ge] The system which generated this result transmitted reference range: 10*3/?L. The reference range was not used to interpret this result as normal/abnormal. GRAN MAT (NEUT) % (test code = 770-8) 69.6 % IMM GRAN % (test code = 8946947801) 0.40 % LYMPH % (test code = 736-9) 21.9 % MONO % (test code = 5905-5) 6.2 % EOS % (test code = 713-8) 1.5 % BASO % (test code = 706-2) 0.4 % GRAN MAT x10^3(ANC) (test code = 8022374483) 7.95 10*3/uL 1.88-7.09 H IMM GRAN x10^3 (test code = 3580167162) 0.05 10*3/uL 0.00-0.06 LYMPH x10^3 (test code = 731-0) 2.50 10*3/uL 1.32-3.29 MONO x10^3 (test code = 742-7) 0.71 10*3/uL 0.33-0.92 EOS x10^3 (test code = 711-2) 0.17 10*3/uL 0.03-0.39 BASO x10^3 (test code = 704-7) 0.04 10*3/uL 0.01-0.07 Lab Interpretation (test code = 80524-9) Abnormal [facility] - ONCE [id number] 00:02:00 * Test Item Value Reference Range Interpretation Comme nts ABO & RH (test code = 20) O POSITIVE IAT (test code = 1185) Negative [facility] URINALYSIS W SPECIFIC [id number] 14:02:00* Test Item Value Reference Range Interpretation Comme nts POCT U SP GRAV (test code = 3255) . 1.005-1.025 POCT PH U (test code = 3254) . 5-8 POCT U LEUK EST (test code = 3263) . Negative - N egative POCT U NIT (test code = 3262) . Negative - Negati ve POCT U PROT (test code = 3259) Trace Negative - Negat maryuri POCT U GLU (test code = 3256) Neg Negative - Negati ve POCT U KETONE (test code = 3258) . Negative - Neg ative POCT U UROBILI (test code = 3260) . 0.2-1 POCT U BILI (test code = 3261) . Negative - Negat maryuri POCT U BLD (test code = 3257) . Negative - Negati ve POCT U COLOR (test code = 3266) . POCT U APPEAR (test code = 3267) . [facility] URINALYSIS W SPECIFIC [id number] 14:02:00* Test Item Value Reference Range Interpretation Comme nts POCT U SP GRAV (test code = 3255) . 1.005-1.025 POCT PH U (test code = 3254) . 5-8 POCT U LEUK EST (test code = 3263) . Negative - N egative POCT U NIT (test code = 3262) . Negative - Negati ve POCT U PROT (test code = 3259) Trace Negative - Negat maryuri POCT U GLU (test code = 3256) Neg Negative - Negati ve POCT U KETONE (test code = 3258) . Negative - Neg ative POCT U UROBILI (test code = 3260) . 0.2-1 POCT U BILI (test code = 3261) . Negative - Negat maryuri POCT U BLD (test code = 3257) . Negative - Negati ve POCT U COLOR (test code = 3266) . POCT U APPEAR (test code = 3267) . [facility] URINALYSIS W SPECIFIC [id number] 19:05:00* Test Item Value Reference Range Interpretation Comme nts POCT U SP GRAV (test code = 3255) . 1.005-1.025 POCT PH U (test code = 3254) . 5-8 POCT U LEUK EST (test code = 3263) . Negative - Negative POCT U NIT (test code = 3262) . Negative - Negati ve POCT U PROT (test code = 3259) trace Negative - Negat maryuri POCT U GLU (test code = 3256) negative Negative - Negati ve POCT U KETONE (test code = 3258) . Negative - Neg ative POCT U UROBILI (test code = 3260) . 0.2-1 POCT U BILI (test code = 3261) . Negative - Negat maryuri POCT U BLD (test code = 3257) . Negative - Negati ve POCT U COLOR (test code = 3266) . POCT U APPEAR (test code = 3267) . [facility] URINALYSIS W SPECIFIC [id number] 19:05:00* Test Item Value Reference Range Interpretation Comme nts POCT U SP GRAV (test code = 3255) . 1.005-1.025 POCT PH U (test code = 3254) . 5-8 POCT U LEUK EST (test code = 3263) . Negative - Negative POCT U NIT (test code = 3262) . Negative - Negati ve POCT U PROT (test code = 3259) trace Negative - Negat maryuri POCT U GLU (test code = 3256) negative Negative - Negati ve POCT U KETONE (test code = 3258) . Negative - Neg ative POCT U UROBILI (test code = 3260) . 0.2-1 POCT U BILI (test code = 3261) . Negative - Negat maryuri POCT U BLD (test code = 3257) . Negative - Negati ve POCT U COLOR (test code = 3266) . POCT U APPEAR (test code = 3267) . [facility] URINALYSIS W SPECIFIC [id number] 19:05:00* Test Item Value Reference Range Interpretation Comme nts POCT U SP GRAV (test code = 3255) . 1.005-1.025 POCT PH U (test code = 3254) . 5-8 POCT U LEUK EST (test code = 3263) . Negative - Negative POCT U NIT (test code = 3262) . Negative - Negati ve POCT U PROT (test code = 3259) trace Negative - Negat maryuri POCT U GLU (test code = 3256) negative Negative - Negati ve POCT U KETONE (test code = 3258) . Negative - Neg ative POCT U UROBILI (test code = 3260) . 0.2-1 POCT U BILI (test code = 3261) . Negative - Negat maryuri POCT U BLD (test code = 3257) . Negative - Negati ve POCT U COLOR (test code = 3266) . POCT U APPEAR (test code = 3267) . [facility] URINALYSIS W SPECIFIC [id number] 19:05:00* Test Item Value Reference Range Interpretation Comme nts POCT U SP GRAV (test code = 3255) . 1.005-1.025 POCT PH U (test code = 3254) . 5-8 POCT U LEUK EST (test code = 3263) . Negative - Negative POCT U NIT (test code = 3262) . Negative - Negati ve POCT U PROT (test code = 3259) trace Negative - Negat maryuri POCT U GLU (test code = 3256) negative Negative - Negati ve POCT U KETONE (test code = 3258) . Negative - Neg ative POCT U UROBILI (test code = 3260) . 0.2-1 POCT U BILI (test code = 3261) . Negative - Negat maryuri POCT U BLD (test code = 3257) . Negative - Negati ve POCT U COLOR (test code = 3266) . POCT U APPEAR (test code = 3267) . [facility] [id number] 20:36:00* Test Item Value Reference Range Interpretation Comme nts POCT U SP GRAV (test code = 3255) . 1.005-1.025 POCT PH U (test code = 3254) . 5-8 POCT U LEUK EST (test code = 3263) . Negative - N egative POCT U NIT (test code = 3262) . Negative - Negati ve POCT U PROT (test code = 3259) trace Negative - Negat maryuri POCT U GLU (test code = 3256) neg Negative - Negati ve POCT U KETONE (test code = 3258) . Negative - Neg ative POCT U UROBILI (test code = 3260) . 0.2-1 POCT U BILI (test code = 3261) . Negative - Negat maryuri POCT U BLD (test code = 3257) . Negative - Negati ve POCT U COLOR (test code = 3266) . POCT U APPEAR (test code = 3267) . [facility] [id number] 07:10:51 * Test Item Value Reference Range Interpretation Comme nts ABO & RH (test code = 20) O POSITIVE Performed at [facility] Laboratory Services [facility] Blood [address] Free: [phone] No. [id number] IAT (test code = 1185) Negative Performed at [facility] Laboratory Services - [facility] Blood [address] Free: [phone] No. [id number] [facility] [id number] 07:10:51 * Test Item Value Reference Range Interpretation Comme nts ABO & RH (test code = 20) O POSITIVE Performed at [facility] Laboratory Services [facility] Blood [address] [id number] Free: [phone] No. [id number] IAT (test code = 1185) Negative Performed at [facility] Laboratory Services [facility] Blood [address] [id number] Free: [phone] No. [id number] [facility] [id number] 20:32:00* Test Item Value Reference Range Interpretation Comme nts POCT PREG (test code = 1605) Positive On board controls acceptable with C Line (test code = 3574) Yes POCT PREG LOT # (test code = 3575) POCT PREG TEST DATE ( test code = 357) [facility] URINALYSIS W/O SPECIFIC [id number] 20:32:00* Test Item Value Reference Range Interpretation Comme nts POCT PH U (test code = 3254) 7 mg/dl 5-8 POCT U LEUK EST (test code = 3263) trace Negative - Negative POCT U NIT (test code = 3262) negative Negative - Negati ve POCT U PROT (test code = 3259) trace Negative - Negat maryuri POCT U GLU (test code = 3256) negative Negative - Negati ve POCT U KETONE (test code = 3258) 1+ Negative - Neg ative POCT U BLD (test code = 3257) trace Negative - Negati ve [facility] [id number] 20:32:00* Test Item Value Reference Range Interpretation Comme nts POCT PREG (test code = 1605) Positive On board controls acceptable with C Line (test code = 3574) Yes POCT PREG LOT # (test code = 3575) POCT PREG TEST DATE ( test code = 3576) [facility] URINALYSIS W/O SPECIFIC [id number] 20:32:00* Test Item Value Reference Range Interpretation Comme nts POCT PH U (test code = 3254) 7 mg/dl 5-8 POCT U LEUK EST (test code = 5823) trace Negative - Negative POCT U NIT (test code = 3262) negative Negative - Negati ve POCT U PROT (test code = 3259) trace Negative - Negat maryuri POCT U GLU (test code = 3256) negative Negative - Negati ve POCT U KETONE (test code = 3258) 1+ Negative - Neg ative POCT U BLD (test code = 3257) trace Negative - Negati ve [facility]
--- NOTE | 2024-04-25 23:41 | ER ---
Nurse's Notes [facility] Name: Daniel Quintero Age: 28 yrs Sex: Female : 1995 Arrival Date: 04/25/2024 Time: 23:01 Bed 12 Private MD: Diagnosis: Encounter for removal of sutures;facial laceration - left nasal bridge and eyebrow - encounter for suture removal Presentation: 04/25 23:38 Chief complaint: Patient states: I need to have my sutures removed. Coronavirus screen: jw7 At this time, the client does not indicate any symptoms associated with coronavirus-19. Ebola Screen: No symptoms or risks identified at this time. Initial Sepsis Screen: Does the patient meet any 2 criteria? No. Patient's initial sepsis screen is negative. Does the patient have a suspected source of infection? No. Patient's initial sepsis screen is negative. Risk Assessment: Do you want to hurt yourself or someone else? Patient reports no desire to harm self or others. Onset of symptoms was April 25, 2024. 23:38 Method Of Arrival: Ambulatory [facility] 23:38 Acuity: NELSY 5 jw7 Triage Assessment: 23:39 General: Appears in no apparent distress. comfortable, Behavior is calm, cooperative, jw7 appropriate for age. Pain: Denies pain. EENT: No deficits noted. No signs and/or symptoms were reported regarding the EENT system. Neuro: Level of Consciousness is awake, alert, obeys commands, Oriented to person, place, time, situation, Appropriate for age. Cardiovascular: Heart tones S1 S2 present Capillary refill < 3 seconds Clubbing of nail beds is absent JVD is absent Patient's skin is warm and dry. Respiratory: Airway is patent Trachea midline Respiratory effort is even, unlabored, Respiratory pattern is regular, symmetrical. GI: Abdomen is round non-distended, obese, Bowel sounds present X 4 quads. Abd is soft and non tender X 4 quads. : No deficits noted. No signs and/or symptoms were reported regarding the genitourinary system. Derm: Skin is healthy with good turgor, Skin is dry, Skin is normal, Skin temperature is warm Sutures to face, above left eye. Musculoskeletal: Circulation, motion, and sensation intact. Range of motion: intact in all extremities. 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 - Infectious Disease History:: Denies. - Social history:: Smoking status: Patient reports the use of cigarette tobacco products, denies chronic smoking, but will smoke occasionally, Patient uses street drugs, marijuana, Patient/guardian denies using alcohol, IV drugs. - Family history:: not pertinent. Screenin:41 [facility] ED Fall Risk Assessment (Adult) History of falling in the last 3 months, jw7 including since admission Yes- single mechanical fall (1 pt) Confusion or Disorientation No (0 pts) Intoxicated or Sedated No (0 pts) Impaired Gait No (0 pts) Mobility Assist Device Used No (0 pt) Altered Elimination No (0 pt) Score/Fall Risk Level 0 - 2 = Low Risk Oriented to surroundings, Maintained a safe environment, Educated pt \T\ family on fall prevention, incl call for assistance when getting out of bed. Abuse screen: Denies threats or abuse. Denies injuries from another. Nutritional screening: No deficits noted. Tuberculosis screening: No symptoms or risk factors identified. Vital Signs: 23:38 BP 110 / 63; Pulse 87; Resp 16 S; Temp 98.2(O); Pulse Ox 96% on R/A; Pain 0/10; jw7 23:38 Pain Scale: Adult jw7 Tanna Coma Score: 04/27 00:16 Eye Response: spontaneous(4). Motor Response: obeys commands(6). Verbal Response: sp4 oriented(5). Total: 15. ED Course: 04/25 23:04 Patient arrived in ED. mr 23:05 Juan Pablo Merritt MD is Attending Physician. sp4 23:39 Triage completed. jw7 23:39 Arm band placed on. jw7 23:41 Patient has correct armband on for positive identification. Bed in low position. Call [facility] light in reach. Provided Education on: Use of Call Light. 23:41 Assisted provider with: Suture Removal. Patient did not have IV access during this [facility] emergency room visit. Administered Medications: No medications were administered Medication: 23:42 VIS not applicable for this client. jw Outcome: 23:40 Discharge ordered by spYessica 04/26 00:28 Discharged to home ambulatory, vc1 Condition: good Discharge instructions given to patient, Instructed on left before signing paperwork 00:28 Patient left the ED. vc1 Signatures: Brittnee Kiran, Reg Reg mr KimMarlen RN RN vc1 Erin Milner RN RN jw7 Juan Pablo Merritt MD MD sp4
--- NOTE | 2024-04-25 23:41 | EDPHYS ---
Physician Documentation [facility] Name: Daniel Quintero Age: 28 yrs Sex: Female : 1995 Arrival Date: 04/25/2024 Time: 23:01 Bed 12 Private MD: ED Physician Juan Pablo Merritt HPI: 04/25 23:05 This 28 yrs old Female presents to ER via Unassigned with complaints of Suture sp4 Removal. 04/27 00:16 Patient presents with request for suture removal from the left facial laceration left sp4 nasal. 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 - Infectious Disease History:: Denies. - Social history:: Smoking status: Patient reports the use of cigarette tobacco products, denies chronic smoking, but will smoke occasionally, Patient uses street drugs, marijuana, Patient/guardian denies using alcohol, IV drugs. - Family history:: not pertinent. ROS: 04/27 00:16 Constitutional: Negative for fever, chills, and weight loss, positive for left facial sp4 laceration positive for lip suture removal All other systems are negative, Exam: 00:16 Constitutional: This is a well developed, well nourished patient who is awake, alert, sp4 and in no acute distress. Head/Face: Normocephalic, positive left nasal left eyebrow laceration that is sutured with healed incision Eyes: Pupils equal round and reactive to light, extra-ocular motions intact. Lids and lashes normal. Conjunctiva and sclera are not injected. Cornea within normal limits. Periorbital areas with no swelling, redness, or edema. ENT: Nares patent. No nasal discharge, no septal abnormalities noted. Tympanic membranes are normal and external auditory canals are clear. Oropharynx with no redness, swelling, or masses, exudates, or evidence of obstruction, uvula midline. Mucous membranes moist. Neck: Trachea midline, no thyromegaly or masses palpated, and no cervical lymphadenopathy. Supple, full range of motion without nuchal rigidity, or vertebral point tenderness. Chest/axilla: Normal chest wall appearance and motion. Nontender with no deformity. No lesions are appreciated. Cardiovascular: Regular rate and rhythm with a normal S1 and S2. No gallops, murmurs, or rubs. Normal PMI, no JVD. No pulse deficits. Respiratory: Lungs have equal breath sounds bilaterally, clear to auscultation and percussion. No rales, rhonchi or wheezes noted. No increased work of breathing, no retractions or nasal flaring. Abdomen/GI: Soft, with normal bowel sounds. No distension or tympany. No guarding or rebound. No evidence of tenderness throughout. Back: No spinal tenderness. No costovertebral tenderness. Skin: Warm, dry with normal turgor. Normal color with no rashes, no lesions, and no evidence of cellulitis. MS/ Extremity: Pulses equal, no cyanosis. Neurovascular intact. Full, normal range of motion. Neuro: Awake and alert, GCS 15, oriented to person, place, time, and situation. Cranial nerves II-XII grossly intact. Motor strength 5/5 in all extremities. Sensory grossly intact. Psych: Awake, alert, with orientation to person, place and time. Behavior, mood, and affect are within normal limits Vital Signs: 04/25 23:38 BP 110 / 63; Pulse 87; Resp 16 S; Temp 98.2(O); Pulse Ox 96% on R/A; Pain 0/10; jw7 23:38 Pain Scale: Adult jw7 [place] Coma Score: 04/27 00:16 Eye Response: spontaneous(4). Motor Response: obeys commands(6). Verbal Response: sp4 oriented(5). Total: 15. Procedures: 00:16 Suture/Staple removal: Removed 18 sutures, from bridge of nose and left eye -left knee sp4 is a left medial eyebrow, site appears well healed, dressed with none. Patient tolerated well. MDM: 04/25 23:29 Patient medically screened. sp4 04/27 00:16 Data reviewed: vital signs, nurses notes. ED course: Stable for discharge after suture sp4 removal . Administered Medications: No medications were administered Disposition Summary: 04/25/24 23:40 Discharge Ordered Notes: Location: Home sp4 Problem: new sp4 Symptoms: have improved sp4 Condition: Stable sp4 Diagnosis - Encounter for removal of sutures sp4 - facial laceration - left nasal bridge and eyebrow - encounter for suture removal sp4 Followup: sp4 - With: Private Physician - When: As needed - Reason: Discharge Instructions: - Discharge Summary Sheet sp4 - Suture Removal, Care After sp4 Signatures: Erin Milner RN RN jw7 Juan Pablo Merritt MD MD sp4
[2024-04-26 01:33] VITALS: BP 110/63; TEMP 98.2; O2SAT 96
== END 2024-04-26 00:28 | disposition home or self-care (01) ==
LOC: ER 23:01
DX: Z48.02 Encounter for removal of sutures (principal)
CPT/HCPCS: 99282

== ENCOUNTER 2025-08-11 17:43 | Emergency (ER) | payer OTHER ==
[2025-08-11] MEDS ORDERED: HYDROCODONE/APAP 7.5/325 MG TAB ONE (17:47)
--- OUTSIDE RECORDS SUMMARY | 2025-08-11 17:50 | XMS REPORT | Continuity of Care Document ---
Author Name Unknown Address [address] [facility] [address] [place] [address] [facility] [place] Address [address] [place] [address] Care Team Providers Care First Mate Name Role Phone Ruth Stubbs CNM Primary Care Physician + NAKIA DURAN Attending Clinician Unavail Ruth Collins CNM Attending Clinician Nakia José Attending Clinician + RUTH STUBBS Attending Clinician [facility] Attending Clinician Wellington Zaidi MD Attending Clinician [phone] SLIM MILLER Attending Clinician Ayush Leslie MD Attending Clinician [phone] Slim Miller MD Attending Clinician Ultrasound, Eugeenkecia Attending Clinician Kasandra Hernandez MD Attending Clinician + KASANDRA ACOSTA Attending Clinician Unav ailable Faculty, Ang [facility] Attending Clinician Unajordon Phoenix RN, Alma M Attending Clinician Unavailable Davian Conde MD Attending Clinician [phone] Geneva Hernández MD Attending Clinician [phone] Doctor Unassigned, Chandler Attending Clinician U navailable LALA BEACH Attending Clinician Unavailable LALA BEACH Attending Clinician Unavailable Lala Beach MD Attending Clinician [phone] , [facility] Us Room Attending Clinician Unavaildavid Sparks MD, Carrera Attending Clinician + TERRENCE MANE Attending Clinician Unav ailable Provider, [facility]ician Cuca MEGHAN Hardin Attending Clinician Unavailable Violet Broderick Attending Clinician UnavailLALA Wright Admitting Clinician Unavailable SLIM MILLER Admitting Clinician Unavaildavid Miller MD, Slim Heaton Admitting Clinician + [phone] Lala Beach MD Admitting Clinician [phone] Payers Payer Name Policy Type Policy Number Effective Date Expirati on Date Source [facility] [id number] 2022 00:00:00 Problems Condition Name Condition Details Condition Category Status Onset Date Resolution Date Last Treatment Date Treating Clinician Comments Source S/P repeat low transverse S/P repeat low transverse Disease Active 5-24 00:00: 00 [facility] 36 weeks gestation of 36 weeks gestation of Disease Active 5-20 00:00: 00 [facility] Anemia of mother in , antepartum Anemia of mother in , antepartum Disease Active -18 00:00: 00 [facility] Anemia of mother in , antepartum Anemia of mother in , antepartum Disease Active 5-18 00:00: 00 [facility] Morbid obesity with body mass index of 50 or higher Morbid obesity with body mass index of 50 or higher Disease Active 3-27 00:00: 00 [facility] 28 weeks gestation of 28 weeks gestation of Disease Active 3-27 00:00: 00 [facility] History of rupture of uterus History of rupture of uterus Disease Active 15 00:00: 00 Overview: Formattin g of this note might be different from the original. Last with twin [facility] Spina bifida in child of prior , currently Spina bifida in child of prior , currently Disease Active 11-19 00:00: 00 Overview: Formattin g of this note might be different from the original. 2nd baby also with enlarged heart [facility] History of delivery, currently History of delivery, currently Disease Active 11-19 00:00: 00 Overview: Formattin g of this note might be different from the original. 32 week r/t pprom [facility] Tubal ligation status Tubal ligation status Disease Active 11-19 00:00: 00 [facility] Asthma during Asthma during Disease Active 11-19 00:00: 00 [facility] Obesity affecting Obesity affecting Disease Active 11-19 00:00: 00 [facility] Abnormal quad screen Abnormal quad screen Disease Active 11-19 00:00: 00 [facility] Chlamydia trachomati s infection of lower genitourin aron sites Chlamydia trachomati s infection of lower genitourin aron sites Disease Active 08-04 00:00: 00 Overview: Formattin g of this note might be different from the original. SONYA ---- [facility] High-risk High-risk Disease Active 07-31 00:00: 00 Overview: Formattin g of this note might be different from the original. 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 [facility] Tobacco use disorder Tobacco use disorder Disease Active 07-31 00:00: 00 [facility] Declines flu vaccine Declines flu vaccine Disease Active 07-31 00:00: 00 [facility] Immune to varicella Immune to varicella Disease Active 07-31 00:00: 00 [facility] Rubella immune Rubella immune Disease Active 07-31 00:00: 00 [facility] Bacterial vaginosis Bacterial vaginosis Disease Active 07-31 00:00: 00 [facility] Trichomona l vulvovagin itis Trichomona l vulvovagin itis Disease Active 07-31 00:00: 00 [facility] Previous delivery affecting , antepartum Previous delivery affecting , antepartum Disease Active 07-31 00:00: 00 Overview: Formattin g of this note might be different from the original. x7 [facility] Genital warts Genital warts Disease Active 07-31 00:00: 00 [facility] Heartburn Heartburn Disease Active 07-31 00:00: 00 [facility] Tobacco smoking affecting Tobacco smoking affecting Disease Active 07-31 00:00: 00 [facility] Allergies, Adverse Reactions, Alerts Allergy Name Allergy Type Status Severity Reaction(s) Onset Date Inactive Date Treating Clinician Comments Source NO KNOWN ALLERGIE S Drug Class Active [facility] Social History Social Habit Start Date Stop Date Quantity Comments Source ASSERTION 2022-07-30 00:00:00 [facility] of tobacco use Cigarette Smoker [facility] Exposure to SARS-CoV-2 (event) 2023-03-24 00:00:00 2023-04-03 07:45:00 Not sure [facility] History of Social function 2023-03-28 00:00:00 2023-03-28 00:00:00 [facility] Alcohol intake 2023-02-12 00:00:00 2023-02-12 00:00:00 Current non-drinker of alcohol (finding) [facility] Tobacco use and exposure 2022-11-16 00:00:00 2022-11-16 00:00:00 Smokeless tobacco non-user [facility] Tobacco Comment 2022-11-16 00:00:00 2022-11-16 00:00:00 1cigarettes/day [facility] Sex Assigned At 1995 00:00:00 1995 00:00:00 [facility] Smoking Status Start Date Stop Date Source Smokes tobacco daily 2022-11-16 00:00:00 [facility] Medications Ordered Medication Name Filled Medication Name Start Date Stop Date Current Medication? Ordering Clinician Indication Dosage Frequency Signature (SIG) Comments Components Source FAMOTIDINE ORAL 03-28 15:21: 10 Yes Take by mouth. [facility] docusate 100 mg capsule 03-28 00:00: 00 Yes [id number] 200mg Take 2 capsules by mouth once daily as needed for Constipati on. [facility] [id number] fum-folic () 27 mg iron- 1 mg folic tablet 03-28 00:00: 00 Yes [id number] 1{tbl} Take 1 tablet by mouth in the morning. [facility] [id number] fum-folic () 27 mg iron- 1 mg folic tablet 03-28 00:00: 00 Yes [id number] 1{tbl} Take 1 tablet by mouth in the morning. [facility] ferrous sulfate 325 mg (65 mg iron) tablet 03-28 00:00: 00 Yes [id number] 325mg Take 1 tablet by mouth in the morning and 1 tablet in the evening. [facility] ibuprofen 600 mg tablet 03-28 00:00: 00 Yes [id number] 600mg Take 1 tablet by mouth every 6 (six) hours as needed (Pain). Take with food or milk. [facility] HYDROcodone -acetaminop hen 5-325 mg tablet 03-28 00:00: 00 04-05 04:59 :00 No [id number] 1{tbl} Take 1 tablet by mouth every 6 (six) hours as needed for Pain (scale 7-10) (Pain scale above 4) for up to 7 days. Do not exceed 3 grams of acetaminop hen in 24 hours. Indication s: acute pain [facility] sennosides- docusate sodium (SENOKOT-S) 8.6-50 mg per tablet 1 tablet 03-27 14:00: 00 03-28 22:21 :12 No 1{tbl} 1 tablet, Oral, DAILY, First dose on Sun03/27/23 at 0900, Until Discontinu ed, Routine [facility] famotidine (PEPCID AC) tablet 20 mg 03-27 01:00: 00 03-28 22:21 :12 No 20mg 20 mg, Oral, BID, First dose on Sun03/26/23 at 2000, Until Discontinu ed, Routine [facility] ibuprofen (IBU) tablet 600 mg 03-26 23:00: 00 03-28 22:21 :12 No 600mg 600 mg, Oral, Q6H, First dose on Sun03/26/23 at 1800, Until Discontinu ed, Routine [facility] polyethylen e glycol 3350 powder 17 g 03-26 22:00: 00 03-28 22:21 :12 No 17g 17 g, Oral, DAILY, First dose on Sun03/26/23 at 1700, Until Discontinu ed, Routine [facility] rho(D) immune globulin (RHOGAM) syringe 300 mcg 03-26 17:46: 00 03-28 22:21 :12 No 300ug 300 mcg, Intramuscu lar, ONCE, For 1 dose, Conditiona l, Routine [facility] HYDROcodone -acetaminop hen (NORCO 5) 5-325 mg [...] Routine, Pain (scale 7-10) [Order 2 End] [facility] diphenhydrA MINE (BENADRYL) injection 25 mg 03-26 17:45: 54 03-28 22:21 :12 No 25mg 25 mg, Slow IV Push, Q6HPRN, Starting on Sun03/26/23 at 1245, Until Sun03/28/23 at 1721, Routine, Itching [facility] diphenhydrA MINE (BENADRYL) tablet 25 mg 03-26 17:45: 54 03-28 22:21 :12 No 25mg 25 mg, Oral, Q6HPRN, Starting on Sun03/26/23 at 1245, Until Sun03/28/23 at 1721, Routine, Sleep, Itching [facility] ondansetron (ZOFRAN (PF)) injection 4 mg 03-26 17:45: 54 03-28 22:21 :12 No 4mg 4 mg, Slow IV Push, Q8HPRN, Starting on Sun03/26/23 at 1245, Until Sun03/28/23 at 1721, Routine, Nausea and Vomiting (N/V) [facility] bisacodyL (DULCOLAX) suppository 10 mg 03-26 17:45: 54 03-28 22:21 :12 No 10mg 10 mg, Rectal, QDAILYPRN, Starting on Sun03/26/23 at 1245, Until Sun03/28/23 at 1721, Routine, Constipati on [facility] simethicone (GAS RELIEF (SIMETHICON E)) chewable tablet 160 mg 03-26 17:45: 54 03-28 22:21 :12 No 160mg 160 mg, Oral, PC+HSPRN, Starting on Sun03/26/23 at 1245, Until Sun03/28/23 at 1721, Routine, Gas [facility] docusate (COLACE) capsule 200 mg 03-26 17:45: 54 03-28 22:21 :12 No 200mg 200 mg, Oral, QDAILYPRN, Starting on Sun03/26/23 at 1245, Until Sun03/28/23 at 1721, Routine, Constipati on [facility] magnesium hydroxide (MILK OF MAGNESIA) 400 mg/5 mL suspension 30 mL 03-26 17:45: 54 03-28 22:21 :12 No 30mL 30 mL, Oral, QDAILYPRN, Starting on Sun03/26/23 at 1245, Until Sun03/28/23 at 1721, Routine, Constipati on [facility] lactated ringers IV infusion 1,000 mL 03-26 17:45: 54 03-28 22:21 :12 No 1000mL at 125 mL/hr, 1,000 mL, IV Infusion, PRN, 1 dose, Starting on Sun03/26/23 at 1245, Until Sun03/28/23 at 1721, Routine [facility] acetaminoph en ADULT (OFIRMEV) injection 1,000 mg 03-26 17:30: 00 03-26 17:14 :00 No 1000mg 1,000 mg, IV Infusion, at 400 mL/hr Administer over 15 Minutes, ONCE, 1 dose, On Sun03/26/23 at 1230, Routine, PACU
In dication: Perioperat maryuri Patient [facility] acetaminoph en (TYLENOL) tablet 650 mg 03-26 12:15: 00 03-26 13:16 :00 No 650mg 650 mg, Oral, ONCE, 1 dose, On Sun03/26/23 at 0715, Routine [facility] lactated ringers IV infusion 500 mL 03-26 12:15: 00 03-26 12:45 :00 No 500mL at 999 mL/hr, 500 mL, IV Infusion, ONCE, 1 dose, On Sun03/26/23 at 0715, Routine [facility] ceFAZolin (ANCEF) 2,000 mg in NaCl 0.9% (NS) 100 mL MINI-BAG 03-26 12:11: 24 03-26 17:45 :57 No 2000mg 2,000 mg, IV Piggyback, O.R. HOLDING ONCE, Starting on Sun03/26/23 at 0711, Until Sun03/26/23 at 1245, Administer over 30 Minutes, 100 mL
Reas on for Anti-Infec tive: Surgical Prophylaxi s
Surgi karen Prophylaxi s: OPTICAL EFFECTS LAYOUT PERSON
Duration of therapy: within 24 hours of surgery [facility] sodium citrate-cit jazz acid (BICITRA) 500-334 mg/5 mL solution 30 mL 03-26 12:11: 24 03-26 13:38 :00 No 30mL 30 mL, Oral, PRE-PROCED URE ONCE, 1 dose, Starting on Sun03/26/23 at 0711, Until Sun03/28/23 at 2359, Routine, Surgery/Pr ocedure [facility] Iron Fum & P-FA-Vit B & C No.9 (INTEGRA PLUS) 125 mg iron- 1 mg Cap 03-09 00:00: 00 Yes [id number] 1{capsu le} Take 1 capsule by mouth in the morning. [facility] Iron Fum & P-FA-Vit B & C No.9 (INTEGRA PLUS) 125 mg iron- 1 mg Cap 03-09 00:00: 00 Yes [id number] 1{capsu le} Take 1 capsule by mouth in the morning. [facility] famotidine (PEPCID) 20 mg tablet 02-26 00:00: 00 Yes [id number] 20mg Take 1 tablet by mouth in the morning. [facility] FAMOTIDINE ORAL 01-30 17:41: 48 Yes Take by mouth. [facility] FAMOTIDINE ORAL 01-30 10:22: 39 Yes Take by mouth. [facility] metroNIDAZO LE (FLAGYL) tablet 500 mg 01-30 01:00: 02-06 00:59 :00 No 500mg 500 mg, Oral, Q12H, 14 doses, First dose on Sun01/29/23 at 2000, Last dose on Sun02/05/23 at 0800, Routine
Reason for Anti-Infec tive: Documented Infection< br>Documen augustus Infection Site: Pelvic
Duration of Therapy: 7 days [facility] alum-mag hydroxide-s imeth (MAALOX PLUS / MAG-AL PLUS) 200-200-20 mg/5 mL suspension 30 mL 01-30 00:16: 33 Yes 30mL 30 mL, Oral, Q6HPRN, Starting on Sun01/29/23 at 191, Until Discontinu ed, Routine, Indigestio n [facility] docusate (COLACE) capsule 200 mg 01-30 00:16: 33 Yes 200mg 200 mg, Oral, QHSPRN, Starting on Sun01/29/23 at 1915, Until Discontinu ed, Routine, Constipati on [facility] magnesium hydroxide (MILK OF MAGNESIA) 400 mg/5 mL suspension 30 mL 01-30 00:16: 33 Yes 30mL 30 mL, Oral, QDAILYPRN, Starting on Sun01/29/23 at 1915, Until Discontinu ed, Routine, Constipati on [facility] metroNIDAZO LE 500 mg tablet 01-30 00:00: 00 03-28 00:00 :00 No [id number] 500mg Take 1 tablet by mouth every 12 (twelve) hours. [facility] PNV 67-iron ps-folate no.1-dha (VITAFOL ULTRA) 29 mg iron- 1 mg-200 mg Cap 01-01 00:00: 00 Yes [id number] 1{each} Take 1 Each by mouth in the morning. [facility] PNV 67-iron ps-folate no.1-dha (VITAFOL ULTRA) 29 mg iron- 1 mg-200 mg Cap 01-01 00:00: 00 Yes [id number] 1{each} Take 1 Each by mouth in the morning. [facility] proMETHazin e 25 mg tablet 2-14 00:00: 00 Yes [id number] 25mg Take 1 tablet by mouth every 4 (four) hours as needed for Nausea and Vomiting (N/V). [facility] PNV 67-iron ps-folate no.1-dha (VITAFOL ULTRA) 29 mg iron- 1 mg-200 mg Cap 2-14 00:00: 00 01-01 00:00 :00 No [id number] 1{each} Take 1 Each by mouth daily. [facility] FAMOTIDINE ORAL 12 14:58: 27 Yes Take by mouth. [facility] VENTOLIN HFA 90 mcg/actuati on inhaler 2021-11 00:00: 00 Yes [id number] [facility] multivitami n ( VITAMIN) tablet 07-31 00:00: 00 01-01 00:00 :00 No [id number] 1{tbl} Take 1 Tab by mouth daily. [facility] Immunizations Ordered Immunization Name Filled Immunization Name Date Status Comments Source TDAP 2023-01-25 00:00:00 Completed [facility] TDAP 2023-01-25 00:00:00 Completed [facility] TDAP 2023-01-25 00:00:00 Completed [facility] TDAP 2023-01-25 00:00:00 Completed [facility] TDAP 2023-01-25 00:00:00 Completed [facility] TDAP 2023-01-25 00:00:00 Completed [facility] TDAP 2023-01-25 00:00:00 Completed [facility] TDAP 2023-01-25 00:00:00 Completed [facility] TDAP 2023-01-25 00:00:00 Completed [facility] TDAP 2023-01-25 00:00:00 Completed [facility] TDAP 2023-01-25 00:00:00 Completed [facility] TDAP 2023-01-25 00:00:00 Completed [facility] TDAP 2023-01-25 00:00:00 Completed [facility] TDAP 2023-01-25 00:00:00 Completed [facility] TDAP 2023-01-25 00:00:00 Completed [facility] TDAP 2023-01-25 00:00:00 Completed [facility] TDAP 2023-01-25 00:00:00 Completed [facility] TDAP 2023-01-25 00:00:00 Completed [facility] TDAP 2023-01-25 00:00:00 Completed [facility] TDAP 2023-01-25 00:00:00 Completed [facility] TDAP 2023-01-25 00:00:00 Completed [facility] TDAP 2023-01-25 00:00:00 Completed [facility] TDAP 2023-01-25 00:00:00 Completed [facility] TDAP 2023-01-25 00:00:00 Completed [facility] TDAP 2023-01-25 00:00:00 Completed [facility] TDAP 2023-01-25 00:00:00 Completed [facility] Influenza Virus Vaccine (3+ yrs) 2013-07-31 00:00:00 Completed [facility] PPD (TB) 2013-07-31 00:00:00 Completed [facility] Influenza Virus Vaccine (3+ yrs) 2013-07-31 00:00:00 Completed [facility] PPD (TB) 2013-07-31 00:00:00 Completed [facility] Influenza Virus Vaccine (3+ yrs) 2013-07-31 00:00:00 Completed [facility] PPD (TB) 2013-07-31 00:00:00 Completed [facility] Influenza Virus Vaccine (3+ yrs) 2013-07-31 00:00:00 Completed [facility] PPD (TB) 2013-07-31 00:00:00 Completed [facility] Influenza Virus Vaccine (3+ yrs) 2013-07-31 00:00:00 Completed [facility] PPD (TB) 2013-07-31 00:00:00 Completed [facility] Influenza Virus Vaccine (3+ yrs) 2013-07-31 00:00:00 Completed [facility] PPD (TB) 2013-07-31 00:00:00 Completed [facility] Influenza Virus Vaccine (3+ yrs) 2013-07-31 00:00:00 Completed [facility] PPD (TB) 2013-07-31 00:00:00 Completed [facility] Influenza Virus Vaccine (3+ yrs) 2013-07-31 00:00:00 Completed [facility] PPD (TB) 2013-07-31 00:00:00 Completed [facility] Influenza Virus Vaccine (3+ yrs) 2013-07-31 00:00:00 Completed [facility] PPD (TB) 2013-07-31 00:00:00 Completed [facility] Influenza Virus Vaccine (3+ yrs) 2013-07-31 00:00:00 Completed [facility] PPD (TB) 2013-07-31 00:00:00 Completed [facility] Influenza Virus Vaccine (3+ yrs) 2013-07-31 00:00:00 Completed [facility] PPD (TB) 2013-07-31 00:00:00 Completed [facility] Influenza Virus Vaccine (3+ yrs) 2013-07-31 00:00:00 Completed [facility] PPD (TB) 2013-07-31 00:00:00 Completed [facility] Influenza Virus Vaccine (3+ yrs) 2013-07-31 00:00:00 Completed [facility] PPD (TB) 2013-07-31 00:00:00 Completed [facility] Influenza Virus Vaccine (3+ yrs) 2013-07-31 00:00:00 Completed [facility] PPD (TB) 2013-07-31 00:00:00 Completed [facility] Influenza Virus Vaccine (3+ yrs) 2013-07-31 00:00:00 Completed [facility] PPD (TB) 2013-07-31 00:00:00 Completed [facility] Influenza Virus Vaccine (3+ yrs) 2013-07-31 00:00:00 Completed [facility] PPD (TB) 2013-07-31 00:00:00 Completed [facility] Influenza Virus Vaccine (3+ yrs) 2013-07-31 00:00:00 Completed [facility] PPD (TB) 2013-07-31 00:00:00 Completed [facility] Influenza Virus Vaccine (3+ yrs) 2013-07-31 00:00:00 Completed [facility] PPD (TB) 2013-07-31 00:00:00 Completed [facility] Influenza Virus Vaccine (3+ yrs) 2013-07-31 00:00:00 Completed [facility] PPD (TB) 2013-07-31 00:00:00 Completed [facility] Influenza Virus Vaccine (3+ yrs) 2013-07-31 00:00:00 Completed [facility] PPD (TB) 2013-07-31 00:00:00 Completed [facility] Influenza Virus Vaccine (3+ yrs) 2013-07-31 00:00:00 Completed [facility] PPD (TB) 2013-07-31 00:00:00 Completed [facility] Influenza Virus Vaccine (3+ yrs) 2013-07-31 00:00:00 Completed [facility] PPD (TB) 2013-07-31 00:00:00 Completed [facility] Influenza Virus Vaccine (3+ yrs) 2013-07-31 00:00:00 Completed [facility] PPD (TB) 2013-07-31 00:00:00 Completed [facility] Influenza Virus Vaccine (3+ yrs) 2013-07-31 00:00:00 Completed [facility] PPD (TB) 2013-07-31 00:00:00 Completed [facility] Influenza Virus Vaccine (3+ yrs) 2013-07-31 00:00:00 Completed [facility] PPD (TB) 2013-07-31 00:00:00 Completed [facility] Influenza Virus Vaccine (3+ yrs) 2013-07-31 00:00:00 Completed [facility] PPD (TB) 2013-07-31 00:00:00 Completed [facility] Influenza Virus Vaccine (3+ yrs) 2013-07-31 00:00:00 Completed [facility] PPD (TB) 2013-07-31 00:00:00 Completed [facility] Influenza Virus Vaccine (3+ yrs) 2013-07-31 00:00:00 Completed [facility] PPD (TB) 2013-07-31 00:00:00 Completed [facility] Influenza Virus Vaccine (3+ yrs) 2013-07-31 00:00:00 Completed [facility] PPD (TB) 2013-07-31 00:00:00 Completed [facility] Influenza Virus Vaccine (3+ yrs) 2013-07-31 00:00:00 Completed [facility] PPD (TB) 2013-07-31 00:00:00 Completed [facility] Influenza Virus Vaccine (3+ yrs) 2013-07-31 00:00:00 Completed [facility] PPD (TB) 2013-07-31 00:00:00 Completed [facility] Influenza Virus Vaccine (3+ yrs) 2013-07-31 00:00:00 Completed [facility] PPD (TB) 2013-07-31 00:00:00 Completed [facility] Influenza Virus Vaccine (3+ yrs) 2013-07-31 00:00:00 Completed [facility] PPD (TB) 2013-07-31 00:00:00 Completed [facility] Influenza Virus Vaccine (3+ yrs) 2013-07-31 00:00:00 Completed [facility] PPD (TB) 2013-07-31 00:00:00 Completed [facility] Influenza Virus Vaccine (3+ yrs) 2013-07-31 00:00:00 Completed [facility] PPD (TB) 2013-07-31 00:00:00 Completed [facility] Influenza Virus Vaccine (3+ yrs) 2013-07-31 00:00:00 Completed [facility] PPD (TB) 2013-07-31 00:00:00 Completed [facility] Influenza Virus Vaccine (3+ yrs) 2013-07-31 00:00:00 Completed [facility] PPD (TB) 2013-07-31 00:00:00 Completed [facility] Influenza Virus Vaccine (3+ yrs) 2013-07-31 00:00:00 Completed [facility] PPD (TB) 2013-07-31 00:00:00 Completed [facility] Influenza Virus Vaccine (3+ yrs) 2013-07-31 00:00:00 Completed [facility] PPD (TB) 2013-07-31 00:00:00 Completed [facility] Influenza Virus Vaccine (3+ yrs) 2013-07-31 00:00:00 Completed [facility] PPD (TB) 2013-07-31 00:00:00 Completed [facility] Influenza Virus Vaccine (3+ yrs) 2013-07-31 00:00:00 Completed [facility] PPD (TB) 2013-07-31 00:00:00 [facility] [facility] 2008-[facility]-30 00:00:00 Completed [facility] TD, NOS 2008-06-30 00:00:00 Completed [facility] TD, NOS 2008-06-30 00:00:00 Completed [facility] TD, NOS 2008-06-30 00:00:00 Completed [facility] TD, NOS 2008-06-30 00:00:00 Completed [facility] TD, NOS 2008-06-30 00:00:00 Completed [facility] TD, NOS 2008-06-30 00:00:00 Completed [facility] TD, NOS 2008-06-30 00:00:00 Completed [facility] TD, NOS 2008-06-30 00:00:00 Completed [facility] TD, NOS 2008-06-30 00:00:00 Completed [facility] TD, NOS 2008-06-30 00:00:00 Completed [facility] TD, NOS 2008-06-30 00:00:00 Completed [facility] TD, NOS 2008-06-30 00:00:00 Completed [facility] TD, NOS 2008-06-30 00:00:00 Completed [facility] TD, NOS 2008-06-30 00:00:00 Completed [facility] TD, NOS 2008-06-30 00:00:00 Completed [facility] TD, NOS 2008-06-30 00:00:00 Completed [facility] TD, NOS 2008-06-30 00:00:00 Completed [facility] TD, NOS 2008-06-30 00:00:00 Completed [facility] TD, NOS 2008-06-30 00:00:00 Completed [facility] TD, NOS 2008-06-30 00:00:00 Completed [facility] TD, NOS 2008-06-30 00:00:00 Completed [facility] TD, NOS 2008-06-30 00:00:00 Completed [facility] TD, NOS 2008-06-30 00:00:00 Completed [facility] TD, NOS 2008-06-30 00:00:00 Completed [facility] TD, NOS 2008-06-30 00:00:00 Completed [facility] TD, NOS 2008-06-30 00:00:00 Completed [facility] TD, NOS 2008-06-30 00:00:00 Completed [facility] TD, NOS 2008-06-30 00:00:00 Completed [facility] TD, NOS 2008-06-30 00:00:00 Completed [facility] TD, NOS 2008-06-30 00:00:00 Completed [facility] TD, NOS 2008-06-30 00:00:00 Completed [facility] TD, NOS 2008-06-30 00:00:00 Completed [facility] TD, NOS 2008-06-30 00:00:00 Completed [facility] TD, NOS 2008-06-30 00:00:00 Completed [facility] TD, NOS 2008-06-30 00:00:00 Completed [facility] TD, NOS 2008-06-30 00:00:00 Completed [facility] TD, NOS 2008-06-30 00:00:00 Completed [facility] TD, NOS 2008-06-30 00:00:00 Completed [facility] TD, NOS 2008-06-30 00:00:00 Completed [facility] TD, NOS 2008-06-30 00:00:00 Completed [facility] TD, NOS Unknown Completed [facility] Influenza Virus Vaccine (3+ yrs) Unknown Completed [facility] PPD (TB) Unknown Completed [facility] TDAP Unknown Completed [facility] TD, NOS Unknown Completed [facility] Influenza Virus Vaccine (3+ yrs) Unknown Completed [facility] PPD (TB) Unknown Completed [facility] TDAP Unknown Completed [facility] TD, NOS Unknown Completed [facility] Influenza Virus Vaccine (3+ yrs) Unknown Completed [facility] PPD (TB) Unknown Completed [facility] TDAP Unknown Completed [facility] TD, NOS Unknown Completed [facility] Influenza Virus Vaccine (3+ yrs) Unknown Completed [facility] PPD (TB) Unknown Completed [facility] TDAP Unknown Completed [facility] TD, NOS Unknown Completed [facility] Influenza Virus Vaccine (3+ yrs) Unknown Completed [facility] PPD (TB) Unknown Completed [facility] TDAP Unknown Completed [facility] TD, NOS Unknown Completed [facility] Influenza Virus Vaccine (3+ yrs) Unknown Completed [facility] PPD (TB) Unknown Completed [facility] TDAP Unknown Completed [facility] TD, NOS Unknown Completed [facility] Influenza Virus Vaccine (3+ yrs) Unknown Completed [facility] PPD (TB) Unknown Completed [facility] TDAP Unknown Completed [facility] TD, NOS Unknown Completed [facility] Influenza Virus Vaccine (3+ yrs) Unknown Completed [facility] PPD (TB) Unknown Completed [facility] TDAP Unknown Completed [facility] TD, NOS Unknown Completed [facility] Influenza Virus Vaccine (3+ yrs) Unknown Completed [facility] PPD (TB) Unknown Completed [facility] TDAP Unknown Completed [facility] Vital Signs Vital Name Observation Time Observation Value Comments S ource Systolic blood pressure 2023-04-03 13:13:00 121 mm[Hg] [facility] Diastolic blood pressure 2023-04-03 13:13:00 81 mm[Hg] [facility] Heart rate 2023-04-03 13:13:00 73 /min [facility] Body temperature 2023-04-03 13:13:00 36.22 Pat [facility] Respiratory rate 2023-04-03 13:13:00 20 /min [facility] Body height 2023-04-03 13:13:00 160 cm [facility] Body weight 2023-04-03 13:13:00 144.879 kg [facility] BMI 2023-04-03 13:13:00 56.58 kg/m2 [facility] Systolic blood pressure 2023-03-28 13:12:00 124 mm[Hg] [facility] Diastolic blood pressure 2023-03-28 13:12:00 64 mm[Hg] [facility] Heart rate 2023-03-28 13:12:00 96 /min [facility] Body temperature 2023-03-28 13:12:00 36.61 Pat [facility] Respiratory rate 2023-03-28 13:12:00 18 /min [facility] Oxygen saturation in Arterial blood by Pulse oximetry 2023-03-28 13:12:00 97 /min [facility] Body height 2023-03-26 12:12:00 160 cm [facility] Body weight 2023-03-26 12:12:00 148.326 kg [facility] BMI 2023-03-26 12:12:00 57.93 kg/m2 [facility] Systolic blood pressure 2023-03-26 13:30:00 107 mm[Hg] [facility] Diastolic blood pressure 2023-03-26 13:30:00 57 mm[Hg] [facility] Heart rate 2023-03-26 13:30:00 83 /[facility] Oxygen saturation in Arterial blood by Pulse oximetry 2023-03-26 13:30:00 100 /min [facility] Respiratory rate 2023-03-26 13:00:00 20 /min [facility] Body temperature 2023-03-26 12:12:00 36.56 Pat [facility] Body height 2023-03-26 12:12:00 160 cm [facility] Body weight 2023-03-26 12:12:00 148.326 kg [facility] BMI 2023-03-26 12:12:00 57.93 kg/m2 [facility] Systolic blood pressure 2023-03-22 13:52:00 115 mm[Hg] [facility] Diastolic blood pressure 2023-03-22 13:52:00 70 mm[Hg] [facility] Heart rate 2023-03-22 13:52:00 83 /min [facility] Body temperature 2023-03-22 13:52:00 36.22 Pat [facility] Respiratory rate 2023-03-22 13:52:00 20 /min [facility] Body height 2023-03-22 13:52:00 160 cm [facility] Body weight 2023-03-22 13:52:00 148.922 kg [facility] BMI 2023-03-22 13:52:00 58.16 kg/m2 [facility] Systolic blood pressure 2023-03-09 16:29:00 108 mm[Hg] [facility] Diastolic blood pressure 2023-03-09 16:29:00 71 mm[Hg] [facility] Heart rate 2023-03-09 16:29:00 75 /min [facility] Body temperature 2023-03-09 16:29:00 35.44 Pat [facility] Respiratory rate 2023-03-09 16:29:00 18 /min [facility] Body height 2023-03-09 16:29:00 160 cm [facility] Body weight 2023-03-09 16:29:00 148.372 kg [facility] BMI 2023-03-09 16:29:00 57.94 kg/m2 [facility] Systolic blood pressure 2023-02-23 20:47:00 127 mm[Hg] [facility] Diastolic blood pressure 2023-02-23 20:47:00 78 mm[Hg] [facility] Heart rate 2023-02-23 20:47:00 92 /min [facility] Body temperature 2023-02-23 20:47:00 35.61 Pat [facility] Respiratory rate 2023-02-23 20:47:00 18 /min [facility] Body height 2023-02-23 20:47:00 157.5 cm [facility] Body weight 2023-02-23 20:47:00 148.689 kg [facility] BMI 2023-02-23 20:47:00 59.96 kg/m2 [facility] Systolic blood pressure 2023-02-09 16:26:00 113 mm[Hg] [facility] Diastolic blood pressure 2023-02-09 16:26:00 73 mm[Hg] [facility] Heart rate 2023-02-09 16:26:00 81 /min [facility] Body temperature 2023-02-09 16:26:00 35.28 Pat [facility] Respiratory rate 2023-02-09 16:26:00 18 /min [facility] Body height 2023-02-09 16:26:00 157.5 cm [facility] Body weight 2023-02-09 16:26:00 146.376 kg [facility] BMI 2023-02-09 16:26:00 59.02 kg/m2 [facility] Systolic blood pressure 2023-01-30 17:05:00 113 mm[Hg] [facility] Diastolic blood pressure 2023-01-30 17:05:00 58 mm[Hg] [facility] Heart rate 2023-01-30 17:05:00 82 /min [facility] Body temperature 2023-01-30 17:05:00 36.56 Pat [facility] Respiratory rate 2023-01-30 17:05:00 18 /min [facility] Oxygen saturation in Arterial blood by Pulse oximetry 2023-01-30 17:05:00 98 /min [facility] Body height 2023-01-29 23:02:00 160 cm [facility] Body weight 2023-01-29 23:02:00 144.244 kg [facility] BMI 2023-01-29 23:02:00 56.33 kg/m2 [facility] Systolic blood pressure 2023-01-25 14:00:00 120 mm[Hg] [facility] Diastolic blood pressure 2023-01-25 14:00:00 65 mm[Hg] [facility] Heart rate 2023-01-25 14:00:00 84 /min [facility] Body temperature 2023-01-25 14:00:00 36.06 Pat [facility] Respiratory rate 2023-01-25 14:00:00 18 /min [facility] Body height 2023-01-25 14:00:00 160 cm [facility] Body weight 2023-01-25 14:00:00 143.881 kg [facility] BMI 2023-01-25 14:00:00 56.19 kg/m2 [facility] Systolic blood pressure 2023-01-01 19:01:00 104 mm[Hg] [facility] Diastolic blood pressure 2023-01-01 19:01:00 73 mm[Hg] [facility] Heart rate 2023-01-01 19:01:00 78 /min [facility] Body temperature 2023-01-01 19:01:00 36.39 Pat [facility] Respiratory rate 2023-01-01 19:01:00 19 /min [facility] Body height 2023-01-01 19:01:00 160 cm [facility] Body weight 2023-01-01 19:01:00 143.019 kg [facility] BMI 2023-01-01 19:01:00 55.85 kg/m2 [facility] Systolic blood pressure 2022-12-19 20:33:00 117 mm[Hg] [facility] Diastolic blood pressure 2022-12-19 20:33:00 73 mm[Hg] [facility] Heart rate 2022-12-19 20:33:00 78 /min [facility] Body temperature 2022-12-19 20:33:00 35.78 Pat [facility] Respiratory rate 2022-12-19 20:33:00 18 /min [facility] Body height 2022-12-19 20:33:00 160 cm [facility] Body weight 2022-12-19 20:33:00 143.246 kg [facility] BMI 2022-12-19 20:33:00 55.94 kg/m2 [facility] Systolic blood pressure 2022-11-16 20:43:00 124 mm[Hg] [facility] Diastolic blood pressure 2022-11-16 20:43:00 83 mm[Hg] [facility] Heart rate 2022-11-16 20:43:00 88 /min [facility] Body temperature 2022-11-16 20:43:00 36.17 Pat [facility] Respiratory rate 2022-11-16 20:43:00 17 /min [facility] Body height 2022-11-16 20:43:00 157.5 cm [facility] Body weight 2022-11-16 20:43:00 141.159 kg [facility] BMI 2022-11-16 20:43:00 56.92 kg/m2 [facility] Procedures Procedure Date / Time Performed Performing Clinician Source CBC WITH DIFF 2023-03-27 09:27:00 Ella Brower [facility] CBC WITH DIFF 2023-03-27 09:27:00 Inocente Ella [facility] VENOUS CORD GAS 2023-03-26 14:28:00 Ilda Mohr [facility] VENOUS CORD GAS 2023-03-26 14:28:00 Ilda Mohr [facility] SECTION 2023-03-26 13:31:00 Slim Miller [facility] TUBAL LIGATION 2023-03-26 13:31:00 Slim Miller [facility] SECTION 2023-03-26 13:31:00 Slim Miller [facility] TUBAL LIGATION 2023-03-26 13:31:00 Slim Miller [facility] CBC WITH DIFF 2023-03-26 12:42:00 Ilda Mohr [facility] HEPATITIS B SURFACE ANTIGEN 2023-03-26 12:42:00 Ilda Mohr [facility] HB ABO GROUPING 2023-03-26 12:42:00 Ella Brower [facility] RHO (D) IMMUNE GLOBULIN 2023-03-26 12:42:00 Me alphonso Brower [facility] HIV 1/2 AG-AB WITH REFLEX 2023-03-26 12:42:00 Ilda Mohr [facility] SYPHILIS IGG/IGM 2023-03-26 12:42:00 [facility] 2023-03-26 12:42:00 Ilda Mohr [facility] HEPATITIS B SURFACE ANTIGEN 2023-03-26 12:42:00 Ilda Mohr [facility] HB ABO GROUPING 2023-03-26 12:42:00 Ella Brower [facility] RHO (D) IMMUNE GLOBULIN 2023-03-26 12:42:00 Me alphonso Brower [facility] HIV 1/2 AG-AB WITH REFLEX 2023-03-26 12:42:00 Ilda Mohr [facility] SYPHILIS IGG/IGM 2023-03-26 12:42:00 Ilda Mohr [facility] POCT URINALYSIS 2023-03-22 13:53:00 Ruth Stubbs [facility] POCT URINALYSIS 2023-03-09 16:31:00 Ruth Stubbs [facility] POCT URINALYSIS 2023-02-09 16:28:00 Ruth Stubbs [facility] EXTERNAL PROVIDER RECORDS 2023-01-31 05:01:00 Doctor Unassigned, Chandler [facility] SECOND AND THIRD TRIMESTER ULTRASOUND 2023-01-30 14:08:00 Ruth Stubbs [facility] URINALYSIS 2023-01-30 01:13:00 Karma Cui [facility] URINE CULTURE 2023-01-30 01:13:00 Basilia Karma [facility] GC & CHLAMYDIA AMPLIFIED ASSAY 2023-01-30 00:21:00 Basilia Karma [facility] CBC WITH DIFF 2023-01-29 23:52:00 Karma Cui [facility] HB ABO GROUPING 2023-01-29 23:52:[address] [facility] TDAP VACCINE, >11 YRS, IM 2023-01-25 15:49:15 Ruth Stubbs [facility] POCT URINALYSIS 2023-01-25 14:01:00 Ruth Stubbs [facility] AUTHORIZATION TO RELEASE PHI TO [facility] 2023-01-25 05:01:00 Doctor Unassigned, Chandler [facility] POCT URINALYSIS 2023-01-01 00:00:00 Ruth Stubbs [facility] POCT URINALYSIS 2022-12-19 20:35:00 Ruth Stubbs [facility] AUTHORIZATION FOR RELEASE OF PHI 2022-11-24 06:01:00 Doctor Unassigned, Chandler [facility] GLUCOSE 1 HOUR POST PRANDIAL 2022-11-16 21:45:00 Ruth Stubbs [facility] CBC WITH DIFF 2022-11-16 21:45:00 Ruth Stubbs [facility] RUBELLA SCREEN IGG 2022-11-16 21:45:00 Richa Stubbs [facility] VZV ANTIBODY SCREEN 2022-11-16 21:45:00 Mandy Stubbs [facility] HEPATITIS B SURFACE ANTIGEN 2022-11-16 21:45:00 Ruth Stubbs [facility] HCV ANTIBODY 2022-11-16 21:45:00 Ruth Stubbs [facility] HB ABO GROUPING 2022-11-16 21:45:00 Ruth Stubbs [facility] URINE CULTURE 2022-11-16 21:45:00 Ruth Stubbs [facility] GC & CHLAMYDIA AMPLIFIED ASSAY 2022-11-16 21:45:00 Ruth Stubbs [facility] QUAD SCRN 2022-11-16 21:45:00 Ruth Stubbs [facility] HIV 1/2 AG-AB WITH REFLEX 2022-11-16 21:45:00 Ruth Stubbs [facility] SYPHILIS IGG/IGM 2022-11-16 21:45:00 Ruth Stubbs [facility] ASSIGNMENT OF BENEFITS 2022-11-16 20:02:04 Docto r Unassigned, Chandler [facility] POCT TEST 2022-11-16 00:00:00 Mandy Stubbs [facility] POCT URINALYSIS W/O SPECIFIC GRAVITY 2022-11-16 00:00:00 Ruth Stubbs [facility] Encounters Start Date/Time End Date/Time Encounter Type Admission Type Attending [facility] Care Facility Care Department Encounter ID Source 2023-01-30 17:41:51 Outpatient P [facility] DREW [id number] [facility] 2023-06-15 09:30:00 2023-06-15 09:30:00 Outpatient R NAKIA DURAN [facility] [id number] [facility] 2023-06-09 00:00:00 2023-06-09 00:00:00 Patient Secure Ruth Stubbs [facility] OPTICAL EFFECTS LAYOUT PERSON [facility] & [facility]ILD [facility] 1.2.840.114 350.1.13.10 4.2.7.2.686 [id number] [facility] 2023-06-09 00:00:00 2023-06-09 00:00:00 Patient Secure Ruth Stubbs [facility] OPTICAL EFFECTS LAYOUT PERSON [facility] 1..840.114 350.1.13.10 4.2.7.2.686 [id number] [facility] 2023-04-25 16:00:00 2023-04-25 16:00:00 Outpatient R NAKIA DURAN [facility] [id number] [facility] 2023-04-18 00:00:00 2023-04-18 00:00:00 Telephone Nakia Duran [facility] OPTICAL EFFECTS LAYOUT PERSON [facility]ILD [facility] 1.2.840.114 350.1.13.10 4.2.7.2.686 [id number] [facility] 2023-04-18 00:00:00 2023-04-18 00:00:00 Patient Secure Ruth Stubbs [facility] OPTICAL EFFECTS LAYOUT PERSON [facility] & [facility]ILD [facility] 1.2.840.114 350.1.13.10 4.2.7.2.686 [id number] [facility] 2023-04-03 08:00:00 2023-04-03 08:26:08 Outpatient R RUTH STUBBS [facility] [id number] [facility] 2023-04-03 08:00:00 2023-04-03 08:26:08 Nurse Visit Visit, [facility] OPTICAL EFFECTS LAYOUT PERSON [facility] 1.2.840.114 350.1.13.10 4.2.7.2.686 [id number] [facility] 2023-04-02 00:00:00 2023-04-02 00:00:00 Encounter 1.2.840.1 [id number] 350.1.13.10 4.2.7.2.696 [id number] [facility] 2023-04-02 00:00:00 2023-04-02 00:00:00 Patient Secure Msg Ruth Stubbs [facility] OPTICAL EFFECTS LAYOUT PERSON [facility]ILD [facility] 1.2.840.114 350.1.13.10 4.2.7.2.686 [id number] [facility] 2023-03-31 00:00:00 2023-03-31 00:00:00 Wellington Walker [facility] 1.2.840.114 350.1.13.10 4.2.7.2.686 [id number] [facility] 2023-03-26 06:35:00 2023-03-28 15:21:00 Inpatient P SLIM MILLER [facility] DREW [id number] [facility] 2023-03-26 06:35:00 2023-03-28 15:21:00 [facility] 1.2.840.114 350.1.13.10 4.2.7.2.686 [id number] [facility] 2023-03-26 07:15:00 2023-03-26 08:57:00 Surgery [facility] 1.2.840.114 350.1.13.10 4.2.7.2.686 [id number] [facility] 2023-03-22 09:00:00 2023-03-22 09:17:51 Outpatient R RUTH STUBBS [facility] [id number] [facility] 2023-03-22 09:00:00 2023-03-22 09:17:51 Routine Visit Ruth Stubbs [facility] OPTICAL EFFECTS LAYOUT PERSON [facility] 1.2840.114 350.1.13.10 4.2.7.2.686 [id number] [facility] 2023-03-16 11:15:00 2023-03-16 11:45:00 Industrial Organization Manager Visit Ultrasound, Kasandra Conte [facility] OPTICAL EFFECTS LAYOUT PERSON [facility] 1.2.840.114 350.1.13.10 4.2.7.2.686 [id number] [facility] 2023-03-16 11:15:00 2023-03-16 11:15:00 Outpatient KASANDRA CROCKER [facility] [id number] [facility] 2023-03-12 00:00:00 2023-03-12 00:00:00 Patient Secure Msg Nakia Duran [facility] OPTICAL EFFECTS LAYOUT PERSON [facility] 1.2.840.114 350.1.13.10 4.2.7.2.686 [id number] [facility] 2023-03-12 00:00:00 2023-03-12 00:00:00 Patient Secure Msg Duran Nakia Dunn [facility] OPTICAL EFFECTS LAYOUT PERSON [facility] 1.2.840.114 350.1.13.10 4.2.7.2.686 [id number] [facility] 2023-03-09 15:30:00 2023-03-09 15:30:00 Outpatient R NAKIA DURAN [facility] [id number] [facility] 2023-03-09 11:00:00 2023-03-09 12:00:17 Outpatient R RANIAngelineRUTH [facility] [id number] [facility] 2023-03-09 11:00:00 2023-03-09 12:00:17 Routine Visit RaniangelineRuth [facility] OPTICAL EFFECTS LAYOUT PERSON [facility] CHILD [facility] 1.2.840.114 350.1.13.10 4.2.7.2.686 [id number] [facility] 2023-02-28 00:00:00 2023-02-28 00:00:00 Patient Secure Ruth Platt [facility] OPTICAL EFFECTS LAYOUT PERSON [facility] 1.2.840.114 350.1.13.10 4.2.7.2.686 [id number] [facility] 2023-02-26 00:00:00 2023-02-26 00:00:00 Patient Secure Ruth Platt [facility] OPTICAL EFFECTS LAYOUT PERSON [facility] 1.2.840.114 350.1.13.10 4.2.7.2.686 [id number] [facility] 2023-02-23 16:00:00 2023-02-23 16:08:20 Outpatient R NAKIA DURAN [facility] [id number] [facility] 2023-02-23 16:00:00 2023-02-23 16:08:20 Routine Visit Nakia Duran [facility] OPTICAL EFFECTS LAYOUT PERSON [facility] 1.2.840.114 350.1.13.10 4.2.7.2.686 [id number] [facility] 2023-02-13 00:00:00 2023-02-13 00:00:00 Patient Secure Msg Ruth Stubbs [facility] OPTICAL EFFECTS LAYOUT PERSON [facility] & [facility]ILD [facility] 1.2.840.114 350.1.13.10 4.2.7.2.686 [id number] [facility] 2023-02-13 00:00:00 2023-02-13 00:00:00 Case Management Ruth Stubbs [facility] CHILD [facility] 1.2.840.114 350.1.13.10 4.2.7.2.686 [id number] 107 [id number] [facility] 2023-02-12 09:00:00 2023-02-12 10:43:27 Outpatient R KASANDRA ACOSTA [facility] [id number] [facility] 2023-02-12 09:00:00 2023-02-12 10:43:27 Telemedici ne Visit Faculty, Jose L Rmp [facility] Kasandra Acosta Ikuvbogie [facility] OPTICAL EFFECTS LAYOUT PERSON [facility] 1.2.840.114 350.1.13.10 4.2.7.2.686 [id number] [facility] 2023-02-12 00:00:00 2023-02-12 00:00:00 Nurse Triage Alma Phoenix [facility] 1.2.840.114 350.1.13.10 4.2.7.2.686 [id number] [facility] 2023-02-12 00:00:00 2023-02-12 00:00:00 Telephone Nakia Duran [facility] OPTICAL EFFECTS LAYOUT PERSON [facility] CHILD [facility] 1.2.840.114 350.1.13.10 4.2.7.2.686 [id number] [facility] 2023-02-09 11:00:00 2023-02-09 11:56:07 Outpatient R GIO DURANILOLA [facility] [id number] [facility] 2023-02-09 11:00:00 2023-02-09 11:56:07 Routine Visit Nakia Duran Shaun [facility] OPTICAL EFFECTS LAYOUT PERSON [facility] CHILD [facility] 1.2.840.114 350.1.13.10 4.2.7.2.686 [id number] 107 [id number] [facility] 2023-02-09 00:00:00 2023-02-09 00:00:00 Letter (Out) Nakia Duran Shaun [facility] 1.2.840.114 350.1.13.10 4.2.7.2.686 [id number] [facility] 2023-02-04 00:00:00 2023-02-04 00:00:00 Telephone Davian Conde [facility] 1.2.840.114 350.1.13.10 4.2.7.2.686 [id number] [facility] 2023-02-03 00:00:00 2023-02-03 00:00:00 Case Management Geneva Hernández [facility] 1.2.840.114 350.1.13.10 4.2.7.2.686 [id number] [id number] [facility] 2023-01-31 00:00:00 2023-01-31 00:00:00 Case Management Ruth Stubbs [facility]FF[facility] 1.2.840.114 350.1.13.10 4.2.7.2.686 [id number] [facility] 2023-01-31 00:00:00 2023-01-31 00:00:00 Orders Only Doctor Unassigned, Chandler [facility] 1.2840.114 350.1.13.10 4.2.7.2.686 [id number] [facility] 2023-01-29 17:47:00 2023-01-30 14:45:00 Outpatient P LALA BEACH SHANNON [facility] DREW [id number] [facility] 2023-01-29 17:47:00 2023-01-30 14:45:00 Hospital Encounter Lala Beach [facility] 1.840.114 350.1.13.10 4.2.7.2.686 [id number] [facility] 2023-01-30 08:45:00 2023-01-30 09:29:43 Industrial Organization Manager Visit 1, [facility] Usg Room [facility] 1.0.114 350.1.13.10 4.2.7.2.686 [id number] [facility] 2023-01-29 13:30:00 2023-01-29 14:00:00 Industrial Organization Manager Visit Ultrasound, [facility] Terrence Rodriguez [facility] OPTICAL EFFECTS LAYOUT PERSON [facility] 1.840.114 350.1.13.10 4.2.7.2.686 [id number] [facility] 2023-01-29 13:30:00 2023-01-29 13:30:00 Outpatient P TERRENCE RODRIGUEZ [facility] [id number] [facility] 2023-01-29 00:00:00 2023-01-29 00:00:00 Telephone Nakia Duran [facility] OPTICAL EFFECTS LAYOUT PERSON [facility] 1.0.114 350.1.13.10 4.2.7.2.686 [id number] [facility] 2023-01-25 08:45:00 2023-01-25 09:32:33 Outpatient R RUTH STUBBS [facility] [id number] [facility] 2023-01-25 08:45:00 2023-01-25 09:32:33 Routine Visit Provider, Atifp Ruth Melgoza [facility] OPTICAL EFFECTS LAYOUT PERSON [facility] 1.840.114 350.1.13.10 4.2.7.2.686 [id number] [facility] 2023-01-25 00:00:00 2023-01-25 00:00:00 Orders Only Doctor Unassigned, Chandler [facility] 1.840.114 350.1.13.10 4.2.7.2.686 [id number] [facility] 2023-01-23 15:15:00 2023-01-23 15:15:00 Outpatient R [facility] [id number] [facility] 2023-01-18 15:24:03 2023-01-18 15:24:03 Outpatient KELY [facility] [id number] Js Faye 2023-01-17 00:00:00 2023-01-17 00:00:00 Case Management Geneva Hernández [facility] 1.840.114 350.1.13.10 4.2.7.2.686 [id number] [facility] 2023-01-16 09:30:00 2023-01-16 09:30:00 Outpatient R [facility] [id number] [facility] 2023-01-15 09:30:00 2023-01-15 10:02:09 Outpatient R TERRENCE RODRIGUEZ [facility] [id number] [facility] 2023-01-15 09:30:00 2023-01-15 10:02:09 Telemedici ne Visit Faculty, Jose L Pedroza Terrence Celis [facility] OPTICAL EFFECTS LAYOUT PERSON [facility] 1.840.114 350.1.13.10 4.2.7.2.686 [id number] 107 [id number] [facility] 2023-01-12 00:00:00 2023-01-12 00:00:00 Telephone Nakia Duran [facility] OPTICAL EFFECTS LAYOUT PERSON [facility] & [facility] 1.84.114 350.1.13.10 4.2.7.2.686 [id number] [facility] 2023-01-08 11:15:00 2023-01-08 11:15:00 Outpatient P [facility] [id number] [facility] 2023-01-01 15:00:00 2023-01-01 15:00:00 Routine Visit Nakia Duran [facility] OPTICAL EFFECTS LAYOUT PERSON [facility] CHILD [facility] 1.84.114 350.1.13.10 4.2.7.2.686 [id number] [facility] 2023-01-01 15:00:00 2023-01-01 13:34:27 Outpatient R NAKIA DURAN [facility] [id number] [facility] 2022-12-28 11:00:00 2022-12-28 11:00:00 Outpatient R RUTH STUBBS [facility] [id number] [facility] 2022-12-28 00:00:00 2022-12-28 00:00:00 Telephone Nakia Duran [facility] OPTICAL EFFECTS LAYOUT PERSON [facility] 1..840.114 350.1.13.10 4.2.7.2.686 [id number] [facility] 2022-12-19 15:00:00 2022-12-19 15:03:34 Outpatient R NAKIA DURAN [facility] [id number] [facility] 2022-12-19 15:00:00 2022-12-19 15:03:34 Routine Visit Nakia Duran Shaun [facility] OPTICAL EFFECTS LAYOUT PERSON [facility]ILD [facility] 1..840.114 350.1.13.10 4.2.7.2.686 [id number] [facility] 2022-12-15 10:30:00 2022-12-15 10:30:00 Outpatient R RUTH STUBBS [facility] [id number] [facility] 2022-12-04 10:30:00 2022-12-04 11:00:00 Telemedici ne Visit Faculty, Jose L [facility] Terrence Rodriguez [facility] OPTICAL EFFECTS LAYOUT PERSON [facility] ..840.114 350.1.13.10 4.2.7.2.686 [id number] [facility] 2022-12-04 10:30:00 2022-12-04 10:30:00 Outpatient TERRENCE SUTTON [facility] [id number] [facility] 2022-12-04 00:00:00 2022-12-04 00:00:00 Case Management Ruth Stubbs [facility] OPTICAL EFFECTS LAYOUT PERSON [facility] ..840.114 350.1.13.10 4.2.7.2.686 [id number] 107 [id number] [facility] 2022-12-01 09:45:00 2022-12-01 10:37:59 Outpatient MEGHAN GARNICA [facility] [id number] [facility] 2022-12-01 09:45:00 2022-12-01 10:37:59 Telemedici ne [facility] L[facility] PERSON [facility] 1.840.114 350.1.13.10 4.2.7.2.686 [id number] [facility] 2022-12-01 08:30:00 2022-12-01 09:45:00 Industrial Organization Manager Visit Ultrasound, Meghan Bell [facility] OPTICAL EFFECTS LAYOUT PERSON [facility] 1.0.114 350.1.13.10 4.2.7.2.686 [id number] [facility] 2022-11-24 00:00:00 2022-11-24 00:00:00 Orders Only Doctor Unassigned, Chandler [facility] 1..114 350.1.13.10 4.2.7.2.686 [id number] [facility] 2022-11-23 00:00:00 2022-11-23 00:00:00 Case Management Ruth Stubbs [facility] OPTICAL EFFECTS LAYOUT PERSON [facility] 1..114 350.1.13.10 4.2.7.2.686 [id number] [facility] 2022-11-21 00:00:00 2022-11-21 00:00:00 Telephone Ruth Stubbs [facility] OPTICAL EFFECTS LAYOUT PERSON [facility]ILD [facility] 1..114 350.1.13.10 4.2.7.2.686 [id number] [facility] 2022-11-16 14:15:00 2022-11-16 15:57:32 Outpatient R RUTH STUBBS [facility] [id number] [facility] 2022-11-16 14:15:00 2022-11-16 15:57:32 Initial Visit Provider, EugeneRmchp Ruth Melgoza [facility] OPTICAL EFFECTS LAYOUT PERSON [facility] 1..114 350.1.13.10 4.2.7.2.686 [id number] [facility] 2022-11-16 00:00:00 2022-11-16 00:00:00 Orders Only Doctor Unassigned, Chandler [facility] 1.2.840.114 350.1.13.10 4.2.7.2.686 [id number] [facility] Results Test Description Test Time Test Comments Results Result Co mments Source [facility] IMMUNE [id number] 18:54:02* Test Item Value Reference Range Interpretation Comme nts RHIG CANDIDATE? (test code = 5188) No- see comment Patient is not a candidate for RhIg- Patient is Rh Positive.Performed at [facility] Laboratory Services [facility] Blood [address] [address]ug Free: [phone] No. [id number] [facility] Hospital[facility] Cord [id number] 14:47:55* Test Item Value Reference Range Interpretation Comme nts BASE EXCESS, CORD (test code = 0694117617) -2.6 mEq/L QUES AC PH, CORD (BEAKER) (test code = 9958572084) 7.27 7.18-7.38 PC02, CORD (test code = 3667250338) 56 See_Comment [Automated messa ge] The system which generated this result transmitted reference range: 32 - 66 mmHg. The reference range was not used to interpret this result as normal/abnormal. PO2, CORD (test code = 6051467541) 15 See_Comment [Automated messa ge] The system which generated this result transmitted reference range: 10 - 30 mmHg. The reference range was not used to interpret this result as normal/abnormal. BICARBONATE, CORD (test code = 4668004114) 25 See_Comment [Automated messa ge] The system which generated this result transmitted reference range: 17 - 27 mEq/L. The reference range was not used to interpret this result as normal/abnormal. [facility] [id number] 14:47:55* Test Item Value Reference Range Interpretation Comme nts BASE EXCESS, CORD (test code = 4373162326) -2.6 mEq/L QUES AC PH, CORD (BEAKER) (test code = 9438789251) 7.27 7.18-7.38 PC02, CORD (test code = 3021555088) 56 See_Comment [Automated messa ge] The system which generated this result transmitted reference range: 32 - 66 mmHg. The reference range was not used to interpret this result as normal/abnormal. PO2, CORD (test code = 5050958893) 15 See_Comment [Automated messa ge] The system which generated this result transmitted reference range: 10 - 30 mmHg. The reference range was not used to interpret this result as normal/abnormal. BICARBONATE, CORD (test code = 3169491006) 25 See_Comment [Automated messa ge] The system which generated this result transmitted reference range: 17 - 27 mEq/L. The reference range was not used to interpret this result as normal/abnormal. [facility] Cord [id number] 14:45:33* Test Item Value Reference Range Interpretation Comme nts VENOUS BASE EXCESS, CORD (test code = 4033717747) -3.4 mEq/L VENOUS PH, CORD (test code = 4529829758) 7.34 7.25-7.45 VENOUS PC02, CORD (test code = 1918623001) 42 See_Comment [Automated messa ge] The system which generated this result transmitted reference range: 27 - 49 mmHg. The reference range was not used to interpret this result as normal/abnormal. VENOUS PO2, CORD (test code = 3315731298) 31 See_Comment [Automated me ssage] The system which generated this result transmitted reference range: 17 - 41 mmHg. The reference range was not used to interpret this result as normal/abnormal. VENOUS BICARBONATE, CORD (test code = 4130143801) 22 See_Comment QUES [Automated message] The system which generated this result transmitted reference range: 12 - 29 mEq/L. The reference range was not used to interpret this result as normal/abnormal. [facility] Cord [id number] 14:45:33* Test Item Value Reference Range Interpretation Comme nts VENOUS BASE EXCESS, CORD (test code = 3951897553) -3.4 mEq/L VENOUS PH, CORD (test code = 9450839271) 7.34 7.25-7.45 VENOUS PC02, CORD (test code = 6053006111) 42 See_Comment [Automated messa ge] The system which generated this result transmitted reference range: 27 - 49 mmHg. The reference range was not used to interpret this result as normal/abnormal. VENOUS PO2, CORD (test code = 2838346265) 31 See_Comment [Automated me ssage] The system which generated this result transmitted reference range: 17 - 41 mmHg. The reference range was not used to interpret this result as normal/abnormal. VENOUS BICARBONATE, CORD (test code = 6916401363) 22 See_Comment QUES [Automated message] The system which generated this result transmitted reference range: 12 - 29 mEq/L. The reference range was not used to interpret this result as normal/abnormal. [facility] URINALYSIS W SPECIFIC [id number] 13:54:00* Test Item Value Reference Range Interpretation [...] U APPEAR (test code = 3267) . [facility] URINALYSIS W SPECIFIC [id number] 16:31:00* Test Item Value Reference Range Interpretation [...] U APPEAR (test code = 3267) . [facility] W SPECIFIC [id number] 16:28:00* Test Item Value Reference Range Interpretation [...] U APPEAR (test code = 3267) . [facility] WITH [id number] 00:10:19* Test Item Value Reference Range Interpretation [...] 32.6 g/dL 31.6-35.1 RDW-SD (test code = 72902-2) 44.9 fL 39.0-49.9 RDW-CV (test code = 788-0) 13.2 % 12.0-15.5 PLT (test code = 777-3) 322 See_Comment [Automated Factabasea ge] The system which generated this result transmitted reference range: 166 - 358 10*3/?L. The reference range was not used to interpret this result as normal/abnormal. MPV (test code = 15567-6) 10.8 fL 9.5-12.9 NRBC/100 WBC (test code = 8101533068) 0.0 See_Comment [Automated [employer] ssage] The system which generated this result transmitted reference range: 0.0 - 10.0 /100 WBCs. The reference range was not used to interpret this result as normal/abnormal. NRBC x10^3 (test code = 3329966175) See_Comment [Automated Factabasea ge] The system which generated this result transmitted reference range: 10*3/?L. The reference range was not used to interpret this result as normal/abnormal. GRAN MAT (NEUT) % (test code = 770-8) 69.6 % IMM GRAN % (test code = 0552746711) 0.40 % LYMPH % (test code = 736-9) 21.9 % MONO % (test code = 5905-5) 6.2 % EOS % (test code = 713-8) 1.5 % BASO % (test code = 706-2) 0.4 % GRAN MAT x10^3(ANC) (test code = 1514995382) 7.95 10*3/uL 1.88-7.09 H IMM GRAN x10^3 (test code = 6262296289) 0.05 10*3/uL 0.00-0.06 LYMPH x10^3 (test code = 731-0) 2.50 10*3/uL 1.32-3.29 MONO x10^3 (test code = 742-7) 0.71 10*3/uL 0.33-0.92 EOS x10^3 (test code = 711-2) 0.17 10*3/uL 0.03-0.39 BASO x10^3 (test code = 704-7) 0.04 10*3/uL 0.01-0.07 Lab Interpretation (test code = 70386-3) Abnormal [facility] and Screen - ONCE [id number] 00:02:00 * Test Item Value Reference Range Interpretation Comme nts ABO & RH (test code = 20) O POSITIVE IAT (test code = 1185) Negative [facility] URINALYSIS W SPECIFIC [id number] 14:02:00* Test Item Value Reference Range Interpretation [...] U APPEAR (test code = 3267) . [facility] URINALYSIS W SPECIFIC [id number] 14:02:00* Test Item Value Reference Range Interpretation [...] U APPEAR (test code = 3267) . [facility] URINALYSIS W SPECIFIC [id number] 19:05:00* Test Item Value Reference Range Interpretation [...] U APPEAR (test code = 3267) . [facility] URINALYSIS W SPECIFIC [id number] 19:05:00* Test Item Value Reference Range Interpretation Comme nts POCT U SP GRAV (test code = 3255) . 1.005-1.025 POCT PH U (test code = 3254) . 5-8 POCT U LEUK EST (test code = 3263) . Negative - Negative POCT U NIT (test code = 3262) . Negative - Negati ve POCT U PROT (test code = 3259) trace Negative - Negat maruyri POCT U GLU (test code = 3256) [...] U APPEAR (test code = 3267) . [facility] URINALYSIS W SPECIFIC [id number] 19:05:00* Test Item Value Reference Range Interpretation Comme nts POCT U SP GRAV (test code = 3255) . 1.005-1.025 POCT PH U (test code = 3254) . 5-8 POCT U LEUK EST (test code = 3263) . Negative - Negative POCT U NIT (test code = 3262) . Negative - Negati ve POCT U PROT (test code = 3259) trace Negative - Negat amryuri POCT U GLU (test code = 3256) [...] U APPEAR (test code = 3267) . [facility] URINALYSIS W SPECIFIC [id number] 19:05:00* Test Item Value Reference Range Interpretation [...] U APPEAR (test code = 3267) . [facility] W SPECIFIC [id number] 20:36:00* Test Item Value Reference Range Interpretation [...] U APPEAR (test code = 3267) . [facility] HospitalPRENATAL WORKUP, BLOOD [id number] 07:10:51 * Test Item Value Reference Range Interpretation Comme nts ABO & RH (test code = 20) O POSITIVE Performed at [facility] Laboratory Services [facility] Blood [address] Free: [phone] No. [id number] IAT (test code = 1185) Negative Performed at [facility] Laboratory Services - [facility] Blood [address] Free: [phone] No. [id number] [facility] WORKUP, BLOOD [id number] 07:10:51 * Test Item Value Reference Range Interpretation Comme nts ABO & RH (test code = 20) O POSITIVE Performed at [facility] Laboratory Services [facility] Blood [address] [address]Pdfm Free: [phone] No. [id number] IAT (test code = 1185) Negative Performed at [facility] Laboratory Services - [facility] Blood [address] [address]Uxsq Free: [phone] No. [id number] [facility] [id number] 20:32:00* Test Item Value Reference Range Interpretation Comme nts POCT PREG (test code = 1605) Positive On board controls acceptable with C Line (test code = 3574) Yes POCT PREG LOT # (test code = 3575) POCT PREG TEST DATE ( test code = 357) [facility] URINALYSIS W/O SPECIFIC [id number] 20:32:00* Test Item Value Reference Range Interpretation [...] = 3257) trace Negative - Negati ve [facility] [id number] 20:32:00* Test Item Value Reference Range Interpretation Comme nts POCT PREG (test code = 1605) Positive On board controls acceptable with C Line (test code = 3574) Yes POCT PREG LOT # (test code = 3575) POCT PREG TEST DATE ( test code = 3576) [facility] URINALYSIS W/O SPECIFIC [id number] 20:32:00* Test Item Value Reference Range Interpretation [...] = 3257) trace Negative - Negati ve [facility]
--- NOTE | 2025-08-11 17:54 | EDPHYS ---
Physician Documentation [facility] Name: Daniel Quintero Age: 30 yrs Sex: Female : 1995 Arrival Date: 08/11/2025 Time: 17:43 Bed DX3 Private MD: ED Physician Gutierrez Parks HPI: 08/11 18:25 This 30 yrs old Female presents to ER via Ambulatory with complaints of kb Toothache. 18:25 Pt is a 30 year old female who presents for toothache that started yesterday with fever kb last night and facial swelling today. states the pain is radiating to ear and causing a headache now. 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 - Infectious Disease History:: Denies. - Social history:: Smoking status: Patient reports the use of cigarette tobacco products, cigars. ROS: 18:24 Constitutional: As per HPI kb Exam: 18:24 Constitutional: This is a well developed, well nourished patient who is awake, alert, kb and in no acute distress. Head/Face: Normocephalic, atraumatic. Cardiovascular: Regular rate Respiratory: Respirations even and unlabored. No increased work of breathing. Talking in full sentences Skin: Warm, dry with normal turgor. Normal color. MS/ Extremity: Pulses equal, no cyanosis. Neurovascular intact. Full, normal range of motion. Neuro: Awake and alert, GCS 15, oriented to person, place, time, and situation. 18:24 ENT: Dental exam: gum swelling, that is mild, specifically in the lower right second molar (#31), pain, that is moderate, specifically in the lower right second molar (#31), Vital Signs: 17:51 BP 129 / 69; Pulse 81; Resp 17; Temp 98.6; Pulse Ox 99% ; Weight 131.54 kg; Height 5 me1 ft. 2 in. ; Pain 9/10; 17:51 Body Mass Index 53.04 (131.54 kg, 157.48 cm) me1 17:51 Pain Scale: Adult me1 MDM: 17:47 Medical Screening Exam initiated kb 18:24 Differential diagnosis: dental caries, gingivitis, dental abscess, pericoronitis, kb aphthous ulcers. Data reviewed: vital signs, nurses notes. Counseling: I had a detailed discussion with the patient and/or guardian regarding the historical points, exam findings, and any diagnostic results supporting the discharge/admit diagnosis, the need for outpatient follow up, a dentist, to return to the emergency department if symptoms worsen or persist or if there are any questions or concerns that arise at home. Administered Medications: 17:58 Drug: Amoxicillin-Clavulanate PO 875 mg PO once Route: PO; me1 18:01 Follow up: Response: No adverse reaction me1 17:58 Drug: Hydrocodone-Acetaminophen PO (7.5 mg-325 mg) 1 tabs PO once Route: PO; me1 18:01 Follow up: Response: No adverse reaction me1 Disposition Summary: 08/11/25 17:54 Discharge Ordered Notes: Location: Home kb Condition: Stable kb Diagnosis - Periapical abscess without sinus kb Followup: kb - With: Emergency Department - When: As needed - Reason: Worsening of condition Followup: kb - With: Private Physician - When: 2 - 3 days - Reason: Recheck today's complaints, Continuance of care, Re-evaluation by your physician Discharge Instructions: - Discharge Summary Sheet kb - Dental Pain, [id number] kb - Dental Abscess, [id number] kb Forms: - Medication Reconciliation Form kb - Antibiotic Education kb - Prescription Opioid Use kb - Patient Portal Instructions kb - Leadership Thank You Letter Prescriptions: - Augmentin 875-125 mg Oral Tablet - take 1 tablet ORAL route every 12 hours for 10 days; 20 tablet; Refills: 0, kb Product Selection Permitted - Diclofenac Sodium 75 mg Oral tablet, delayed release (enteric coated) - take 1 tablet ORAL route 2 times per day As needed; 30 tablet; Refills: 0, kb Product Selection Permitted Signatures: Becki Smith FNP-C FNP-Magaly Fontana RN RN me1
--- NOTE | 2025-08-11 17:54 | ER ---
Nurse's Notes [facility] Name: Daniel Quintero Age: 30 yrs Sex: Female : 1995 Arrival Date: 08/11/2025 Time: 17:43 Bed DX3 Private MD: Diagnosis: Periapical abscess without sinus Presentation: 08/11 17:51 Chief complaint: Patient states: right lower jaw pain/toothache with facial swelling me1 that started yesterday. fever last night of 102. Pain 9/10. Coronavirus screen: At this time, the client does not indicate any symptoms associated with coronavirus-19. Ebola Screen: No symptoms or risks identified at this time. Initial Sepsis Screen: Does the patient meet any 2 criteria? No. Patient's initial sepsis screen is negative. Does the patient have a suspected source of infection? No. Patient's initial sepsis screen is negative. Risk Assessment: Do you want to hurt yourself or someone else? Patient reports no desire to harm self or others. Onset of symptoms was August 10, 2025. 17:51 [place] Of [place] [facility] [place] Acuity: NELSY 5 me1 Triage Assessment: 17:54 General: Appears uncomfortable, Behavior is calm, cooperative, appropriate for age. me1 Pain: Complains of pain in lower right first molar Pain does not radiate. Pain currently is 9 out of 10 on a pain scale. Quality of pain is described as throbbing, Pain began suddenly. EENT: Reports pain in right cheek and right mandible. Neuro: Level of Consciousness is awake, alert, obeys commands, Oriented to person, place, time, situation, Appropriate for age. Cardiovascular: Patient's skin is warm and dry. Respiratory: Airway is patent Respiratory effort is even, unlabored, Respiratory pattern is regular, symmetrical. GI: No signs and/or symptoms were reported involving the gastrointestinal system. : No signs and/or symptoms were reported regarding the genitourinary system. Derm: Skin is intact, is healthy with good turgor, Skin is normal. Musculoskeletal: Circulation, motion, and sensation intact. Range of motion: intact in all extremities. 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 - Infectious Disease History:: Denies. - Social history:: Smoking status: Patient reports the use of cigarette tobacco products, cigars. Screenin:00 [facility] ED Fall Risk Assessment (Adult) History of falling in the last 3 months, me1 including since admission No falls in past 3 months (0 pts) Confusion or Disorientation No (0 pts) Intoxicated or Sedated No (0 pts) Impaired Gait No (0 pts) Mobility Assist Device Used No (0 pt) Altered Elimination No (0 pt) Score/Fall Risk Level 0 - 2 = Low Risk Maintained a safe environment, Provided non-skid footwear, Hourly rounding (assess needs \T\ fall precautionary measures) done. Abuse screen: Denies threats or abuse. Nutritional screening: No deficits noted. Tuberculosis screening: No symptoms or risk factors identified. Assessment: 18:00 General: See triage assessment. me1 Vital Signs: 17:51 BP 129 / 69; Pulse 81; Resp 17; Temp 98.6; Pulse Ox 99% ; Weight 131.54 kg; Height 5 me1 ft. 2 in. ; Pain 9/10; 17:51 Body Mass Index 53.04 (131.54 kg, 157.48 cm) me1 17:51 Pain Scale: [place] [facility] [place] Course: 17:46 Patient arrived in ED. mr 17:47 Becki Smith FNP-C [facility] kb 17:47 Gutierrez Parks MD is Attending Physician. kb 17:53 Triage completed. me1 17:53 Arm band placed on Patient placed in an internal wait recliner. me1 17:55 Magaly Bender, JOVANY is Primary Nurse. me1 18:00 Patient has correct armband on for positive identification. Provided Education on: POC. me1 Verbalized understanding.. 18:00 No provider procedures requiring assistance completed. Patient did not have IV access me1 during this emergency room visit. Administered Medications: 17:58 Drug: Amoxicillin-Clavulanate PO 875 mg PO once Route: PO; me1 18:01 Follow up: Response: No adverse reaction me1 17:58 Drug: Hydrocodone-Acetaminophen PO (7.5 mg-325 mg) 1 tabs PO once Route: PO; me1 18:01 Follow up: Response: No adverse reaction me1 Medication: 18:00 VIS not applicable for this client. me1 Outcome: 17:54 Discharge ordered by . sarah 18:04 Discharged to home ambulatory, with friend, me1 18:04 Condition: stable 18:04 Discharge instructions given to patient, family, Instructed on discharge instructions, follow up and referral plans. medication usage, Demonstrated understanding of instructions, follow-up care, medications, Prescriptions given X 2, 18:04 Patient left the ED. me1 Signatures: Becki Smith, RESEARCH BIOSTATISTICIAN-C RESEARCH BIOSTATISTICIAN-Brittnee Littlejohn, Reg Reg mr Magaly Bender, RN RN me1
[2025-08-11] MEDS ORDERED: AMOX/K CLAV 875 MG TAB ONE (17:57)
[2025-08-11 18:11] VITALS: BP 129/69; TEMP 98.6; O2SAT 99
== END 2025-08-11 18:04 | disposition home or self-care (01) ==
LOC: ER 17:43
DX: K04.7 Periapical abscess without sinus (principal); Z72.0 Tobacco use
CPT/HCPCS: 99283